=== PATIENT | male | born 1960 | race Two or more races ===

== ENCOUNTER 2020-06-23 18:24 | Inpatient (IN) | payer OTHER ==
[~2020-06-23] VITALS: Ht 162.6 cm; Wt 88.9 kg
[2020-06-23] MEDS ORDERED: IV NORMAL SALINE 1000ML BAG 1,000 ML IV ONE ×2 (19:30)
[2020-06-23 19:31] LABS: BASO % 0 % (0-3); EOS # 0.1 x10^3/uL (0.0-0.7); EOS % 1 % (0-3); HEMATOCRIT 42.1 % (39.0-53.0); HEMOGLOBIN 14.1 g/dL (13.0-17.5); LYMPH # 1.3 x10^3/uL (1.0-4.8); LYMPH % 8 % (24-48); MEAN CORPUSCULAR HEMOGLOBIN 30 pg (25-35); MEAN CORPUSCULAR HGB CONC 34 g/dL (31-37); MEAN CORPUSCULAR VOLUME 89 fL (79-100); MONO # 1.1 x10^3/uL (0.0-1.1); MONO % 7 % (0-9); NEUT # 12.9 x10^3/uL (1.8-7.7); NEUT % 84 % (31-73); PLATELET COUNT 164 x10^3/uL (140-400); RED BLOOD COUNT 4.75 x10^6/uL (4.30-5.70); RED CELL DISTRIBUTION WIDTH 13.9 % (11.5-14.5); WHITE BLOOD COUNT 15.4 x10^3/uL (4.0-11.0)
--- NOTE | 2020-06-23 19:33 | PHYS DOC ---
Past Medical History Past Medical History: No Pertinent History Past Surgical History: No Surgical History Smoking Status: Never Smoker Alcohol Use: Occasionally General Adult EDM: Chief Complaint: ABDOMINAL PAIN HPI: HPI: 59-year-old male with no significant past medical history presents the ED with complaints of diffuse abdominal pain that started on , now localized to right lower quadrant with subjective fevers and chills that started today. Linda ferrari recently received his Covid vaccine. Denies any past surgical history. Moved here from [place] 30 years ago. Took "amoxicillina" today (has leftover from [place]). Ate soup around 3-4 PM today and last bowel movement was around 4 PM today with no melena or hematochezia (yellow color). Took ibuprofen this morning. Patient is present in the ED with his son who was is translating per patient's consent, he is [place]i-speaking, translation services offered. Son reports patient is concerned he had a kidney stone but has never been diagnosed with one prior. Pt has no pcp. Takes no routine medications. NKDA. Review of Systems: Review of Systems: Constitutional: Denies lethargy or confusion Eyes: Denies change in visual acuity. [] HENT: Denies nasal congestion or sore throat. [] Respiratory: Denies cough or shortness of breath. [] Cardiovascular: Denies chest pain or edema. [] GI: Denies nausea, vomiting, bloody stools or diarrhea. [] : Denies dysuria or hematuria Musculoskeletal: Denies back pain or joint pain. [] Integument: Denies rash or blistering lesions Neurologic: Denies headache, neck pain, focal weakness or sensory changes. [] Endocrine: Denies polyuria or polydipsia. [] Lymphatic: Denies swollen glands. [] Psychiatric: Denies depression or anxiety. [] Heart Score: C/O Chest Pain: No Risk Factors: Risk Factors: DM, Current or recent (<one month) smoker, HTN, HLP, family history of CAD, obesity. Risk Scores: Score 0 - 3: 2.5% MACE over next 6 weeks - Discharge Home Score 4 - 6: 20.3% MACE over next 6 weeks - Admit for Clinical Observation Score 7 - 10: 72.7% MACE over next 6 weeks - Early Invasive Strategies Allergies: Allergies: Allergies Coded Allergies Type Severity Reaction Last Updated Verified No Known Drug Allergies 06/23/20 No Physical Exam: PE: Constitutional: Flu appearing, very uncomfortable with abdominal exam-no pain out of proportion at rest, likely spiking fever HENT: Normocephalic, atraumatic, Eyes: EOMI, conjunctiva normal, no discharge. Neck: Normal range of motion, supple, no nuchal rigidity or meningismus Cardiovascular: S1/2 present, tachycardic Lungs & Thorax: Speaking in full sentences, bilateral equal chest rise, no tachypnea or increased work of breathing Abdomen: obese abdomen, focal pain at McBurney's point, no Rovsing sign, w/guarding and rigidity diffusely, no Pacheco sign Skin: Warm, dry, no erythema, no rash. [] Back: No midline tenderness, no CVA tenderness. [] Extremities: No tenderness, no cyanosis, no lower extremity edema Neurologic: Alert and oriented X 3, normal motor function, normal sensory function, no focal deficits noted. [] Psychologic: Affect normal, judgement normal, mood normal. [] : chaperoned by rn at bedside, no pelvic/scrotal pain, no rash, no suprapubic discomfort Current Patient Data: Vital Signs: Vital Signs Date Time Temp Pulse Resp B/P (MAP) Pulse Ox O2 Delivery O2 Flow Rate FiO2 06/23/20 19:01 100.0 118 12 140/82 (101) 93 Room Air 100.0 EKG: EKG: Sinus tachycardia 120 bpm, left axis deviation, QTC 457, T wave inversion lead III, no ST elevation or ST depressions Radiology/Procedures: Radiology/Procedures: IMAGING REPORT Signed PATIENT: ESHA ANTHONY ACCOUNT: [id number] : 1960 LOCATION: ER AGE: 59 SEX: M EXAM STATUS: PRE ER ORD. PHYSICIAN: ARUNA CHOW DO REASON: rlq abd pain, +fever PROCEDURE: PORTABLE CHEST 1V XR CHEST 1V CLINICAL INDICATIONS: Reason: Right lower quadrant abdominal pain, +fever COMPARISON: None available. Findings: Small left-sided pleural effusion is seen. There is linear atelectasis of the right midlung zone and right lung base. Decreased inspiration is seen. No perihilar pulmonary edema or lung consolidation is evident otherwise. No pneumothorax is seen. The heart size, pulmonary vasculature, mediastinum and both kishor are unremarkable. IMPRESSION: Small left sided pleural effusion. Linear atelectasis of the right midlung zone and right lung base. Electronically signed by: Jw Estrella MD (06/23/2020 7:56 PM) [id number] DICTATED and SIGNED BY: JW ESTRELLA MD DATE: 06/23/20 [id number] 0 Course & Med Decision Making: Course & Med Decision Making Pertinent Labs and Imaging studies reviewed. (See chart for details) Initial presentation concerning for right lower quadrant abdominal pain in the setting of tachycardia and borderline fever -sepsis work-up initiated. Abx not started given unknown source (recent covid vaccine? appey? urine?). Broad- spectrum abx started when bandemia was seen on basic labs. CT report consistent with perforated appendicitis with peritonitis and small free air, concern for small bowel obstruction versus pseudoobstruction. I discussed with general surgery Dr. Shell who recommended broad-spectrum antibiotics, npo, IVFs and will consult IR in a.m. No emergent surgery at this time. Rapid Covid pending. Will admit to [facility] under Dr. Smith for further medical management. Patient stable at time of admission and agrees with this plan. I have spoken with the patient and/or caregivers. I have explained the patient's condition, diagnosis and treatment plan based on the information a vailable to me at this time. I have answered the patient's and/or caregivers questions and answered any concerns. The patient and/or caregivers have as good an understanding of the patient's diagnosis, condition and treatment plan as can be expected at this point. The patient has been stabilized within the capability of the emergency department. The patient will be transported for further care and management or will be moved to an observation or inpatient service. I have communicated with the staff or medical practitioner taking over this patient's care. Critical Care: Authorized and Performed by: Aruna Chow DO Total critical care time: approximately 45 minutes Due to a high probability of clinically significant, life threatening deterioration, the patient required my highest level of preparedness to intervene emergently and I personally spent this critical care time directly and personally managing the patient. This critical care time included obtaining a history; examining the patient; pulse oximetry; ventilator management if necessary; ordering and review of studies; arranging urgent treatment with development of a management plan; evaluation of patient's response to treatment; frequent reassessment; discussion with patient/family; and, discussions with other providers. This critical care time was performed to assess and manage the high probability of imminent, life-threatening deterioration that could result in multi-organ failure. It was exclusive of separately billable procedures and treating other patients and teaching time. Please see MDM section and the rest of the note for further information on patient assessment and treatment. Dragon Disclaimer: Dragon Disclaimer: This electronic medical record was generated, in whole or in part, using a voice recognition dictation system. Departure Departure Impression: Primary Impression: Sepsis Additional Impressions: Acute perforated appendicitis Peritonitis Bandemia Disposition: ADMITTED INPATIENT Admitting Physician: MARY ALICE (Dr. Smith) Condition: GUARDED ARUNA CHOW DO Jun 23, 2020 19:33
[2020-06-23 19:44] LABS: CALCIUM 8.5 mg/dL (8.5-10.1); GFR 76.2; POTASSIUM 3.5 mmol/L (3.5-5.1)
[2020-06-23 19:57] LABS: ALBUMIN 2.5 g/dL (3.4-5.0); DIRECT BILIRUBIN 0.6 mg/dL (0.0-0.2); TOTAL BILIRUBIN 1.6 mg/dL (0.2-1.0); TOTAL PROTEIN 7.6 g/dL (6.4-8.2)
--- NOTE | 2020-06-23 19:59 | RAD ---
XR CHEST 1V CLINICAL INDICATIONS: Reason: Right lower quadrant abdominal pain, +fever COMPARISON: None available. Findings: Small left-sided pleural effusion is seen. There is linear atelectasis of the right midlung zone and right lung base. Decreased inspiration is seen. No perihilar pulmonary edema or lung consol idation is evident otherwise. No pneumothorax is seen. The heart size, pulmonary vasculature, mediast inum and both kishor are unremarkable. IMPRESSION: Small left sided pleural effusion. Linear atelectasis of the right midlung zone and right lung base. Electronically signed by: Tomás Estrella MD (06/23/2020 7:56 PM) [id number]
[2020-06-23] MEDS ORDERED: IOHEXOL 300 MG/ML 100ML VIAL. IV ONE (20:15)
[2020-06-23] MEDS ORDERED: CONTRAST GIVEN. MC PRN (20:15)
[2020-06-23 20:20] LABS: % BANDS 37 % (0-9); % LYMPHS 10 % (24-48); % MONOS 5 % (0-10); % SEGS 48 % (35-66); PLT ESTIMATE ADEQUATE (ADEQUATE)
--- NOTE | 2020-06-23 21:28 | RAD ---
CT STUDY OF THE ABDOMEN AND PELVIS WITH CONTRAST Clinical indications: Right lower quadrant abdominal pain. TECHNIQUE: After IV infusion of 75 cc of Omnipaque [address] scanning of the abdomen and pelvis was performed. GI contrast was not administered. This may decrease the sensitivity to detect GI tract pathology. PQRS COMPLIANCE STATEMENT One or more of the following individualized dose reduction techniques were utilized for this study: 1. Automated exposure control 2. Adjustment of the mA and/or kV according to patient size 3. Use of iterative reconstruction technique COMPARISON: None available. FINDINGS: The liver and spleen and pancreas and gallbladder are normal. No extrahepatic biliary ducta l dilatation is seen. No adrenal mass is evident. Both kidneys are normal without hydronephrosis or h ydroureter. No urinary tract stone is seen. Urinary bladder is normal. No focal aneurysmal dilatation of the abdominal aorta is seen. No enlarged abdominal or pelvic lymphadenopathy is seen. The appendi x is distended measuring up to 17 mm. There is a large amount of inflammation within the right lower quadrant of the abdomen around the appendix which also involves the distal ileum with severe wall thi ckening of the distal ileum. There is a fluid collection with an air-fluid level located just anterio r to the cecum measuring 3 cm in size. No peripheral wall enhancement is seen. This could be secondar y to appendiceal perforation. There is a similar air-fluid collection seen inferior to the cecum and anterior to the appendix measuring 3.7 cm. Given the lack of wall thickening, these may not represent well formed abscesses at this point in time but could be secondary to the perforation. There is diff use dilatation of small bowel loops which could represent pseudo-small bowel obstruction due to wall thickening of the distal ileum or could represent an ileus related to peritonitis from rupture append icitis. There or tiny bubbles of free air just anterior to the ascending colon. No free air is seen w ithin the upper abdomen. Atelectasis of the right lung base is seen. No lytic process is seen. IMPRESSION: Perforated appendicitis with peritonitis of the right lower quadrant of the abdomen with severe wall thickening of the distal ileum. There is diffuse small bowel dilatation consistent with p seudo small bowel obstruction secondary to the wall thickening of the distal ileum. A few bubbles of free intraperitoneal air is seen along with at least 2 air-fluid collections within the peritoneal ca vity of the right lower quadrant of the abdomen. FOR INTERNAL CODING PURPOSES Critical result: Findings discussed with the emergency room duct physician Dr. Aruna Trinidad at 06/23/2020 9:23 PM. RESULT CODE: (C) Electronically signed by: Tomás Estrella MD (06/23/2020 9:26 PM) [id number]
[2020-06-23] MEDS ORDERED: VANCOMYCIN PER PHARMACY MC PRN (21:30)
[2020-06-23] MEDS ORDERED: ONDANSETRON PF 4 MG/2 ML VIAL. IV PRN (21:45)
[2020-06-23] MEDS ORDERED: VANCOMYCIN 1.75 GM in IV NORMAL SALINE 500ML BAG 500 ML IV ONE (22:00)
[2020-06-23] MEDS ORDERED: PIPERACILLIN/TAZOBACTAM 4.5 GM in IV NORMAL SALINE 100ML 100 ML IV ONE (22:00)
[2020-06-23 22:14] LABS: BILIRUBIN,URINE NEGATIVE (NEG); CLARITY,URINE CLEAR; COLOR,URINE AMBER; NITRITE,URINE NEGATIVE (NEG); PROTEIN,URINE 30 mg/dL (NEG-TRACE)
[2020-06-23 22:21] LABS: BARBITURATES NEG (NEG); BENZODIAZEPINES NEG (NEG); CANNABINOIDS NEG (NEG); COCAINE NEG (NEG); METHADONE NEG (NEG); OPIATES NEG (NEG); PHENCYCLIDINE NEG (NEG)
[2020-06-23 22:23] LABS: HYALINE CASTS, URINE MODERATE /HPF
[2020-06-23 22:24] LABS: BACTERIA,URINE 0 /HPF (0-FEW); RBC,URINE 20-40 /HPF (0-2)
[2020-06-23 22:26] LABS: AMPHETAMINE/METHAMPHETAMINE NEG (NEG)
[2020-06-24] VITALS (7 sets, daily range): BP systolic 115–144; BP diastolic 67–96
--- NOTE | 2020-06-24 00:29 | EKG ---
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
[2020-06-24] MEDS ORDERED: HYDROmorphone 2 MG/ML VIAL IVP ONE ×2 (00:30→06:30)
--- NOTE | 2020-06-24 00:32 | PDOC2 ---
CONSULT Date of Consult Date of Consult DATE: 06/24/20 TIME: 00:24 Reason for Consult Reason for Consult: perforated appendicitis Referring Physician Referring Physician: Dr. Smith Identification/Chief Complaint Chief Complaint abd pain Source Source: Caregiver, Chart review, Patient History of Present Illness Reason for Visit: 59 yo M with abd pain beginning on 06/20. Pain progressed and prompted ER evaluation. No previous episode. Min PO intake yesterday. Stool yesterday. Seen in ER accompanied by supportive son, whom provides translation, per pt request. Past Medical History Cardiovascular: No pertinent hx Past Surgical History Past Surgical History: No pertinent history Family History Family History: No Significant Social History No ALCOHOL: social Current Problem List Problem List Problems Medical Problems: (1) Acute perforated appendicitis Status: Acute (2) Bandemia Status: Acute (3) Peritonitis Status: Acute (4) Sepsis Status: Acute Current Medications Current Medications Current Medications Sodium Chloride 1,000 ml @ 1,000 mls/hr 1X ONCE IV Last administered on 06/23/20at 19:57; Start 06/23/20 at 19:30; Stop 06/23/20 at 20:29; Status DC Sodium Chloride 1,000 ml @ 1,000 mls/hr 1X ONCE IV Last administered on 06/23/20at 19:57; Start 06/23/20 at 19:30; Stop 06/23/20 at 20:29; Status DC Iohexol (Omnipaque 300 Mg/ml) 75 ml 1X ONCE IV Last administered on 06/23/20at 20:25; Start 06/23/20 at 20:15; Stop 06/23/20 at 20:16; Status DC Info (CONTRAST GIVEN -- Rx MONITORING) 1 each PRN DAILY PRN MC SEE COMMENTS; Start 06/23/20 at 20:15; Stop 06/25/20 at 20:14 Piperacillin Sod/ Tazobactam Sod 4.5 gm/Sodium Chloride 100 ml @ 200 mls/hr 1X ONCE IV Last administered on 06/23/20at 21:57; Start 06/23/20 at 22:00; Stop 06/23/20 at 22:29; Status DC Vancomycin HCl (Vanco Per Pharmacy) 1 each PRN DAILY PRN MC SEE COMMENTS; Start 06/23/20 at 21:30 Vancomycin HCl 1.75 gm/Sodium Chloride 500 ml @ 250 mls/hr 1X ONCE IV Last administered on 06/23/20at 23:32; Start 06/23/20 at 22:00; Stop 06/23/20 at 23:59; Status DC Ondansetron HCl (Zofran) 4 mg PRN Q8HRS PRN IV NAUSEA/VOMITING 1ST CHOICE; Start 06/23/20 at 21:45; Stop 06/24/20 at 21:44 Sodium Chloride 1,000 ml @ 100 mls/hr Q10H IV ; Start 06/23/20 at 22:00; Stop 06/24/20 at 21:59 Hydromorphone HCl (Dilaudid) 1 mg 1X ONCE IVP ; Start 06/24/20 at 00:30; Stop 06/24/20 at 00:31 Allergies Allergies: Coded Allergies: No Known Drug Allergies (Unverified , 06/23/20) ROS Gastrointestinal: Yes Abdominal Pain Physical Exam General: Alert, Oriented X3, Cooperative, mild distress HEENT: Atraumatic Lungs: Normal air movement Abdomen: Soft, Other (TTP RLQ, no rovsing, no peritoneal signs) Extremities: No clubbing, No cyanosis Skin: No rashes, No breakdown Neuro: Normal speech, Sensation intact Psych/Mental Status: Mental status NL, Mood NL Vitals VITALS Vital Signs Date Time Temp Pulse Resp B/P (MAP) Pulse Ox O2 Delivery O2 Flow Rate FiO2 06/23/20 23:30 106 146/91 (109) 94 Room Air 06/23/20 19:01 100.0 12 100.0 Labs Labs Laboratory Tests Test 06/23/20 00:00 06/23/20 19:15 06/23/20 22:00 06/23/20 22:30 Urine Opiates Screen Neg (NEG) Urine Methadone Screen Neg (NEG) Urine Barbiturates Neg (NEG) Urine Phencyclidine Screen Neg (NEG) Urine Amphetamine/Methamphetamine Neg (NEG) Urine Benzodiazepines Screen Neg (NEG) Urine Cocaine Screen Neg (NEG) Urine Cannabinoids Screen Neg (NEG) Urine Ethyl Alcohol Neg (NEG) White Blood Count 15.4 x10^3/uL (4.0-11.0) Red Blood Count 4.75 x10^6/uL (4.30-5.70) Hemoglobin 14.1 g/dL (13.0-17.5) Hematocrit 42.1 % (39.0-53.0) Mean Corpuscular Volume 89 fL (79-100) Mean Corpuscular Hemoglobin 30 pg (25-35) Mean Corpuscular Hemoglobin Concent 34 g/dL (31-37) Red Cell Distribution Width 13.9 % (11.5-14.5) Platelet Count 164 x10^3/uL (140-400) Neutrophils (%) (Auto) 84 % (31-73) Lymphocytes (%) (Auto) 8 % (24-48) Monocytes (%) (Auto) 7 % (0-9) Eosinophils (%) (Auto) 1 % (0-3) Basophils (%) (Auto) 0 % (0-3) Neutrophils # (Auto) 12.9 x10^3/uL (1.8-7.7) Lymphocytes # (Auto) 1.3 x10^3/uL (1.0-4.8) Monocytes # (Auto) 1.1 x10^3/uL (0.0-1.1) Eosinophils # (Auto) 0.1 x10^3/uL (0.0-0.7) Basophils # (Auto) 0.0 x10^3/uL (0.0-0.2) Segmented Neutrophils % 48 % (35-66) Band Neutrophils % 37 % (0-9) Lymphocytes % 10 % (24-48) Monocytes % 5 % (0-10) Platelet Estimate Adequate (ADEQUATE) Sodium Level 136 mmol/L (136-145) Potassium Level 3.5 mmol/L (3.5-5.1) Chloride Level 101 mmol/L (98-107) Carbon Dioxide Level 28 mmol/L (21-32) Anion Gap 7 (6-14) Blood Urea Nitrogen 21 mg/dL (8-26) Creatinine 1.0 mg/dL (0.7-1.3) Estimated GFR (Cockcroft-Gault) 76.2 Glucose Level 171 mg/dL (70-99) Lactic Acid Level 1.3 mmol/L (0.4-2.0) Calcium Level 8.5 mg/dL (8.5-10.1) Total Bilirubin 1.6 mg/dL (0.2-1.0) Direct Bilirubin 0.6 mg/dL (0.0-0.2) Aspartate Amino Transf (AST/SGOT) 39 U/L (15-37) Alanine Aminotransferase (ALT/SGPT) 40 U/L (16-63) Alkaline Phosphatase 92 U/L (46-116) Creatine Kinase 55 U/L (39-308) Troponin I Quantitative < 0.017 ng/mL (0.000-0.055) Total Protein 7.6 g/dL (6.4-8.2) Albumin 2.5 g/dL (3.4-5.0) Lipase 82 U/L (73-393) Urine Collection Type Unknown Urine Color Danita Urine Clarity Clear Urine pH 6.0 (<5.0-8.0) Urine Specific [place] >=1.030 (1.000-1.030) Urine Protein 30 mg/dL (NEG-TRACE) Urine Glucose (UA) Negative mg/dL (NEG) Urine Ketones (Stick) Negative mg/dL (NEG) Urine Blood Large (NEG) Urine Nitrite Negative (NEG) Urine Bilirubin Negative (NEG) Urine Urobilinogen Dipstick 1.0 mg/dL (0.2 mg/dL) Urine Leukocyte Esterase Negative (NEG) Urine RBC 20-40 /HPF (0-2) Urine WBC 1-4 /HPF (0-4) Urine Bacteria 0 /HPF (0-FEW) Urine Hyaline Casts Moderate /HPF Urine Mucus Slight /LPF SARS-CoV-2 Antigen (Rapid) Negative (NEGATIVE) Laboratory Tests Test 06/23/20 19:15 06/23/20 22:00 06/23/20 22:30 White Blood Count 15.4 x10^3/uL (4.0-11.0) Red Blood Count 4.75 x10^6/uL (4.30-5.70) Hemoglobin 14.1 g/dL (13.0-17.5) Hematocrit 42.1 % (39.0-53.0) Mean Corpuscular Volume 89 fL (79-100) Mean Corpuscular Hemoglobin 30 pg (25-35) Mean Corpuscular Hemoglobin Concent 34 g/dL (31-37) Red Cell Distribution Width 13.9 % (11.5-14.5) Platelet Count 164 x10^3/uL (140-400) Neutrophils (%) (Auto) 84 % (31-73) Lymphocytes (%) (Auto) 8 % (24-48) Monocytes (%) (Auto) 7 % (0-9) Eosinophils (%) (Auto) 1 % (0-3) Basophils (%) (Auto) 0 % (0-3) Neutrophils # (Auto) 12.9 x10^3/uL (1.8-7.7) Lymphocytes # (Auto) 1.3 x10^3/uL (1.0-4.8) Monocytes # (Auto) 1.1 x10^3/uL (0.0-1.1) Eosinophils # (Auto) 0.1 x10^3/uL (0.0-0.7) Basophils # (Auto) 0.0 x10^3/uL (0.0-0.2) Segmented Neutrophils % 48 % (35-66) Band Neutrophils % 37 % (0-9) Lymphocytes % 10 % (24-48) Monocytes % 5 % (0-10) Platelet Estimate Adequate (ADEQUATE) Sodium Level 136 mmol/L (136-145) Potassium Level 3.5 mmol/L (3.5-5.1) Chloride Level 101 mmol/L (98-107) Carbon Dioxide Level 28 mmol/L (21-32) Anion Gap 7 (6-14) Blood Urea Nitrogen 21 mg/dL (8-26) Creatinine 1.0 mg/dL (0.7-1.3) Estimated GFR (Cockcroft-Gault) 76.2 Glucose Level 171 mg/dL (70-99) Lactic Acid Level 1.3 mmol/L (0.4-2.0) Calcium Level 8.5 mg/dL (8.5-10.1) Total Bilirubin 1.6 mg/dL (0.2-1.0) Direct Bilirubin 0.6 mg/dL (0.0-0.2) Aspartate Amino Transf (AST/SGOT) 39 U/L (15-37) Alanine Aminotransferase (ALT/SGPT) 40 U/L (16-63) Alkaline Phosphatase 92 U/L (46-116) Creatine Kinase 55 U/L (39-308) Troponin I Quantitative < 0.017 ng/mL (0.000-0.055) Total Protein 7.6 g/dL (6.4-8.2) Albumin 2.5 g/dL (3.4-5.0) Lipase 82 U/L (73-393) Urine Collection Type Unknown Urine Color Danita Urine Clarity Clear Urine pH 6.0 (<5.0-8.0) Urine Specific [place] >=1.030 (1.000-1.030) Urine Protein 30 mg/dL (NEG-TRACE) Urine Glucose (UA) Negative mg/dL (NEG) Urine Ketones (Stick) Negative mg/dL (NEG) Urine Blood Large (NEG) Urine Nitrite Negative (NEG) Urine Bilirubin Negative (NEG) Urine Urobilinogen Dipstick 1.0 mg/dL (0.2 mg/dL) Urine Leukocyte Esterase Negative (NEG) Urine RBC 20-40 /HPF (0-2) Urine WBC 1-4 /HPF (0-4) Urine Bacteria 0 /HPF (0-FEW) Urine Hyaline Casts Moderate /HPF Urine Mucus Slight /LPF SARS-CoV-2 Antigen (Rapid) Negative (NEGATIVE) Images Images CT c/w perforated appendicitis with fluid collections/abscess associated with cecum with significant phlegmon Assessment/Plan Assessment/Plan perforated appendicitis, associated sepsis (tachycardia) agree with IV hydration, pain control and broad spectrum abx. initial surgical intervention not indicated given high risk of colon resection. once sepsis improved, will ask IR to consider perc drainage to hasten recovery. Elective appendectomy would be favored, given risk of recurrence and small risk of malignancy Thanks for consult! BOBBY PARNELL MD Jun 24, 2020 00:32
[2020-06-24] MEDS: IV NORMAL SALINE 1000ML BAG 1,000 ML IV SCH ×3 (01:13→20:58)
--- NOTE | 2020-06-24 03:45 | NUR ---
Pharmacy Vancomycin Dosing Note S:Consulted to monitor and dose vancomycin started 06/23/20. O:ESHA JIMENEZ is a 59 year old M with Sepsis APPENDICITIS . Height: 5 feet, 4 inches Weight: 72.0 kg [place] Body Weight: 59.20 Adjusted Body Weight: 64.32 Dosing Weight: Actual Other Antibiotics: LABS: Last BUN: 21 Last Creatinine: 1 Creatinine Clearance: 71.5 mL/min Last WBC: 15.4 Last Procalcitonin: Tmax (past 24 hours): 100 Microbiology: I/O: Drug Levels: Last level: on at Last dose given 06/23/20 at 2330 Vancomycin Dosing: Loading Dose: 1750 mg x1 Dosing Weight: Actual Target Trough: 15-20 A: Based on: WT AND CRCL P: 1. Begin Vancomycin 250 mg IV q12h 2. Follow up Trough level on 06/25/20 at 1030 3. Pharmacy will continue to monitor, follow and adjust therapy as needed. NNEKA GARG RPH, 06/24/20 [id number] Signed: 06/24/20 at 034 by NNEKA GARG RPH PHA
[2020-06-24] MEDS ORDERED: HYDROmorphone 2 MG/ML VIAL ONE (05:54)
--- NOTE | 2020-06-24 07:40 | PDOC1 ---
History and Physical Date of Admission Date of Admission DATE: 06/24/20 TIME: 07:36 Identification/Chief Complaint Chief Complaint Abdominal pain Source Source: Caregiver, Chart review, Patient History of Present Illness History of Present Illness Mr Chapa is a 59-year-old male with no significant past medical history, Mexican-speaking only, presents to the ED on 06/23/2020 accompanied by his son with complaints of diffuse abdominal pain that started on , 06/20/2020, now localized to right lower quadrant with subjective fevers and chills that started today. Patient recently received his Covid vaccine. Denies any past surgical history. Moved here from [place] 30 years ago. Took amoxicillin. Ate soup around 3-4 PM on 06/23 and last bowel movement was around 4 PM with no melena or hematochezia (yellow color). Took ibuprofen this morning. Patient is present in the ED with his son who was is translating per patient's consent, he is Mexican-speaking, translation services offered. Son reports patient is concerned he had a kidney stone but has never been diagnosed with one prior. Pt has no pcp. Takes no routine medications. NKDA. Past Medical History Cardiovascular: No pertinent hx Past Surgical History Past Surgical History: No pertinent history Family History Family History: No Significant Social History Smoke: No ALCOHOL: social Current Problem List Problem List Problems Medical Problems: (1) Acute perforated appendicitis Status: Acute (2) Bandemia Status: Acute (3) Peritonitis Status: Acute (4) Sepsis Status: Acute Current Medications Current Medications Current Medications Sodium Chloride 1,000 ml @ 1,000 mls/hr 1X ONCE IV Last administered on 06/23/20at 19:57; Start 06/23/20 at 19:30; Stop 06/23/20 at 20:29; Status DC Sodium Chloride 1,000 ml @ 1,000 mls/hr 1X ONCE IV Last administered on 06/23/20at 19:57; Start 06/23/20 at 19:30; Stop 06/23/20 at 20:29; Status DC Iohexol (Omnipaque 300 Mg/ml) 75 ml 1X ONCE IV Last administered on 06/23/20at 20:25; Start 06/23/20 at 20:15; Stop 06/23/20 at 20:16; Status DC Info (CONTRAST GIVEN -- Rx MONITORING) 1 each PRN DAILY PRN MC SEE COMMENTS; Start 06/23/20 at 20:15; Stop 06/25/20 at 20:14 Piperacillin Sod/ Tazobactam Sod 4.5 gm/Sodium Chloride 100 ml @ 200 mls/hr 1X ONCE IV Last administered on 06/23/20at 21:57; Start 06/23/20 at 22:00; Stop 06/23/20 at 22:29; Status DC Vancomycin HCl (Vanco Per Pharmacy) 1 each PRN DAILY PRN MC SEE COMMENTS Last administered on 06/24/20at 03:43; Start 06/23/20 at 21:30 Vancomycin HCl 1.75 gm/Sodium Chloride 500 ml @ 250 mls/hr 1X ONCE IV Last administered on 06/23/20at 23:32; Start 06/23/20 at 22:00; Stop 06/23/20 at 23:59; Status DC Ondansetron HCl (Zofran) 4 mg PRN Q8HRS PRN IV NAUSEA/VOMITING 1ST CHOICE; Start 06/23/20 at 21:45; Stop 06/24/20 at 21:44 Sodium Chloride 1,000 ml @ 100 mls/hr Q10H IV Last administered on 06/24/20at 01:13; Start 06/23/20 at 22:00; Stop 06/24/20 at 21:59 Hydromorphone HCl (Dilaudid) 1 mg 1X ONCE IVP Last administered on 06/24/20at 00:29; Start 06/24/20 at 00:30; Stop 06/24/20 at 00:31; Status DC Vancomycin HCl 1 gm/Sodium Chloride 250 ml @ 250 mls/hr Q12H IV ; Start 06/24/20 at 11:00 Vancomycin HCl (Vancomycin Trough Level) 1 each 1X ONCE MC ; Start 06/25/20 at 10:30; Stop 06/25/20 at 10:31 Hydromorphone HCl (Dilaudid) 1 mg 1X ONCE IVP Last administered on 06/24/20at 06:30; Start 06/24/20 at 06:30; Stop 06/24/20 at 06:31; Status DC Hydromorphone HCl (Dilaudid) 2 mg STK-MED ONCE .ROUTE ; Start 06/24/20 at 05:54; Stop 06/24/20 at 05:55; Status DC Allergies Allergies: Coded Allergies: No Known Drug Allergies (Unverified , 06/23/20) ROS General: YES: Fatigue, Malaise, Appetite; No: Chills, Night Sweats, Other PSYCHOLOGICAL ROS: No: Anxiety, Behavioral Disorder, Concentration difficultie, Decreased libido, Depression, Disorientation, Hallucinations, Hostility, Irritablity, Memory difficulties, Mood Swings, Obsessive thoughts, Physical abuse, Sexual abuse, Sleep disturbances, Suicidal ideation, Other Eyes: No Blurry vision, No Decreased vision, No Double vision, No Dry eyes, No Excessive tearing, No Eye Pain, No Itchy Eyes, No Loss of vision, No Photophobia, No Scotomata, No Uses contacts, No Uses glasses, No Other HEENT: No: Heacaches, Visual Changes, Hearing change, Nasal congestion, Nasal discharge, Oral lesions, Sinus pain, Sore Throat, Epistaxis, Sneezing, Snoring, Tinnitus, Vertigo, Vocal changes, Other ALLERGY AND IMMUNOLOGY: No: Hives, Insect Bite Sensitivity, Itchy/Watery Eyes, Nasal Congestion, Post Nasal Drip, Seasonal Allergies, Other Hematological and Lymphatic: No: Bleeding Problems, Blood Clots, Blood Transfusions, Brusing, Night Sweats, Pallor, Swollen Lymph Nodes, Other ENDOCRINE: No: Breast Changes, Galactorrhea, Hair Pattern Changes, Hot Flashes, Malaise/lethargy, Mood Swings, Palpitations, Polydipsia/polyuria, Skin Changes, Temperature Intolerance, Unexpected Weight Changes, Other Breast: No New/Changing Breast Lumps, No Nipple changes, No Nipple discharge, No Other Respiratory: No: Cough, Hemoptysis, Orthopnea, Pleuritic Pain, Shortness of breath, SOB with excertion, Sputum Changes, Stridor, Tachypnea, Wheezing, Other Cardiovascular: No Chest Pain, No Palpitations, No Orthopnea, No Paroxysmal Noc. Dyspnea, No Edema, No Lt Headedness, No Other Gastrointestinal: Yes Nausea, Yes Vomiting, Yes Abdominal Pain; No Diarrhea, No Constipation, No Melena, No Hematochezia, No Other Genitourinary: No Dysuria, No Frequency, No Incontinence, No Hematuria, No Retention, No Discharge, No Urgency, No Pain, No Flank Pain, No Other, No , No , No , No , No , No , No Musculoskeletal: No Gait Disturbance, No Joint Pain, No Joint Stiffness, No Joint Swelling, No Muscle Pain, No Muscular Weakness, No Pain In:, No Swelling In:, No Other Neurological: No Behavorial Changes, No Bowel/Bladder ControlChng, No Confusion, No Dizziness, No Gait Disturbance, No Headaches, No Impaired Coord/balance, No Memory Loss, No Numbness/Tingling, No Seizures, No Speech Problems, No Tremors, No Visual Changes, No Weakness, No Other Skin: No Dry Skin, No Eczema, No Hair Changes, No Lumps, No Mole Changes, No Mottling, No Nail Changes, No Pruritus, No Rash, No Skin Lesion Changes, No Other, No Acne Physical Exam General: Alert, Oriented X3, Cooperative, moderate distress HEENT: Atraumatic, PERRLA, EOMI, Mucous membr. moist/pink Lungs: Clear to auscultation, Normal air movement Heart: S1S2, RRR, no thrills, no rubs, no gallops, no murmurs Abdomen: Normal bowel sounds, Soft, No hepatosplenomegaly, No masses, Other (RLQ tenderness) Rectal Exam: not examined Extremities: No clubbing, No cyanosis, No edema, Normal pulses, No ten derness/swelling Skin: No rashes, No breakdown, No significant lesion Neuro: Normal gait, Normal speech, Strength at 5/5 X4 ext, Normal tone, Sensation intact, Cranial nerves 3-12 NL, Reflexes 2+ Psych/Mental Status: Mental status NL, Mood NL Vitals Vitals Vital Signs Date Time Temp Pulse Resp B/P (MAP) Pulse Ox O2 Delivery O2 Flow Rate FiO2 06/24/20 06:30 96 Room Air 2.0 06/24/20 05:30 99 138/77 (97) 06/24/20 03:00 16 06/23/20 19:01 100.0 100.0 Labs Labs Laboratory Tests Test 06/23/20 00:00 06/23/20 19:15 06/23/20 22:00 06/23/20 22:30 Urine Opiates Screen Neg (NEG) Urine Methadone Screen Neg (NEG) Urine Barbiturates Neg (NEG) Urine Phencyclidine Screen Neg (NEG) Urine Amphetamine/Methamphetamine Neg (NEG) Urine Benzodiazepines Screen Neg (NEG) Urine Cocaine Screen Neg (NEG) Urine Cannabinoids Screen Neg (NEG) Urine Ethyl Alcohol Neg (NEG) White Blood Count 15.4 x10^3/uL (4.0-11.0) Red Blood Count 4.75 x10^6/uL (4.30-5.70) Hemoglobin 14.1 g/dL (13.0-17.5) Hematocrit 42.1 % (39.0-53.0) Mean Corpuscular Volume 89 fL (79-100) Mean Corpuscular Hemoglobin 30 pg (25-35) Mean Corpuscular Hemoglobin Concent 34 g/dL (31-37) Red Cell Distribution Width 13.9 % (11.5-14.5) Platelet Count 164 x10^3/uL (140-400) Neutrophils (%) (Auto) 84 % (31-73) Lymphocytes (%) (Auto) 8 % (24-48) Monocytes (%) (Auto) 7 % (0-9) Eosinophils (%) (Auto) 1 % (0-3) Basophils (%) (Auto) 0 % (0-3) Neutrophils # (Auto) 12.9 x10^3/uL (1.8-7.7) Lymphocytes # (Auto) 1.3 x10^3/uL (1.0-4.8) Monocytes # (Auto) 1.1 x10^3/uL (0.0-1.1) Eosinophils # (Auto) 0.1 x10^3/uL (0.0-0.7) Basophils # (Auto) 0.0 x10^3/uL (0.0-0.2) Segmented Neutrophils % 48 % (35-66) Band Neutrophils % 37 % (0-9) Lymphocytes % 10 % (24-48) Monocytes % 5 % (0-10) Platelet Estimate Adequate (ADEQUATE) Sodium Level 136 mmol/L (136-145) Potassium Level 3.5 mmol/L (3.5-5.1) Chloride Level 101 mmol/L (98-107) Carbon Dioxide Level 28 mmol/L (21-32) Anion Gap 7 (6-14) Blood Urea Nitrogen 21 mg/dL (8-26) Creatinine 1.0 mg/dL (0.7-1.3) Estimated GFR (Cockcroft-Gault) 76.2 Glucose Level 171 mg/dL (70-99) Lactic Acid Level 1.3 mmol/L (0.4-2.0) Calcium Level 8.5 mg/dL (8.5-10.1) Total Bilirubin 1.6 mg/dL (0.2-1.0) Direct Bilirubin 0.6 mg/dL (0.0-0.2) Aspartate Amino Transf (AST/SGOT) 39 U/L (15-37) Alanine Aminotransferase (ALT/SGPT) 40 U/L (16-63) Alkaline Phosphatase 92 U/L (46-116) Creatine Kinase 55 U/L (39-308) Troponin I Quantitative < 0.017 ng/mL (0.000-0.055) Total Protein 7.6 g/dL (6.4-8.2) Albumin 2.5 g/dL (3.4-5.0) Lipase 82 U/L (73-393) Urine Collection Type Unknown Urine Color Danita Urine Clarity Clear Urine pH 6.0 (<5.0-8.0) Urine Specific [place] >=1.030 (1.000-1.030) Urine Protein 30 mg/dL (NEG-TRACE) Urine Glucose (UA) Negative mg/dL (NEG) Urine Ketones (Stick) Negative mg/dL (NEG) Urine Blood Large (NEG) Urine Nitrite Negative (NEG) Urine Bilirubin Negative (NEG) Urine Urobilinogen Dipstick 1.0 mg/dL (0.2 mg/dL) Urine Leukocyte Esterase Negative (NEG) Urine RBC 20-40 /HPF (0-2) Urine WBC 1-4 /HPF (0-4) Urine Bacteria 0 /HPF (0-FEW) Urine Hyaline Casts Moderate /HPF Urine Mucus Slight /LPF SARS-CoV-2 Antigen (Rapid) Negative (NEGATIVE) Laboratory Tests Test 06/23/20 19:15 06/23/20 22:00 06/23/20 22:30 White Blood Count 15.4 x10^3/uL (4.0-11.0) Red Blood Count 4.75 x10^6/uL (4.30-5.70) Hemoglobin 14.1 g/dL (13.0-17.5) Hematocrit 42.1 % (39.0-53.0) Mean Corpuscular Volume 89 fL (79-100) Mean Corpuscular Hemoglobin 30 pg (25-35) Mean Corpuscular Hemoglobin Concent 34 g/dL (31-37) Red Cell Distribution Width 13.9 % (11.5-14.5) Platelet Count 164 x10^3/uL (140-400) Neutrophils (%) (Auto) 84 % (31-73) Lymphocytes (%) (Auto) 8 % (24-48) Monocytes (%) (Auto) 7 % (0-9) Eosinophils (%) (Auto) 1 % (0-3) Basophils (%) (Auto) 0 % (0-3) Neutrophils # (Auto) 12.9 x10^3/uL (1.8-7.7) Lymphocytes # (Auto) 1.3 x10^3/uL (1.0-4.8) Monocytes # (Auto) 1.1 x10^3/uL (0.0-1.1) Eosinophils # (Auto) 0.1 x10^3/uL (0.0-0.7) Basophils # (Auto) 0.0 x10^3/uL (0.0-0.2) Segmented Neutrophils % 48 % (35-66) Band Neutrophils % 37 % (0-9) Lymphocytes % 10 % (24-48) Monocytes % 5 % (0-10) Platelet Estimate Adequate (ADEQUATE) Sodium Level 136 mmol/L (136-145) Potassium Level 3.5 mmol/L (3.5-5.1) Chloride Level 101 mmol/L (98-107) Carbon Dioxide Level 28 mmol/L (21-32) Anion Gap 7 (6-14) Blood Urea Nitrogen 21 mg/dL (8-26) Creatinine 1.0 mg/dL (0.7-1.3) Estimated GFR (Cockcroft-Gault) 76.2 Glucose Level 171 mg/dL (70-99) Lactic Acid Level 1.3 mmol/L (0.4-2.0) Calcium Level 8.5 mg/dL (8.5-10.1) Total Bilirubin 1.6 mg/dL (0.2-1.0) Direct Bilirubin 0.6 mg/dL (0.0-0.2) Aspartate Amino Transf (AST/SGOT) 39 U/L (15-37) Alanine Aminotransferase (ALT/SGPT) 40 U/L (16-63) Alkaline Phosphatase 92 U/L (46-116) Creatine Kinase 55 U/L (39-308) Troponin I Quantitative < 0.017 ng/mL (0.000-0.055) Total Protein 7.6 g/dL (6.4-8.2) Albumin 2.5 g/dL (3.4-5.0) Lipase 82 U/L (73-393) Urine Collection Type Unknown Urine Color Danita Urine Clarity Clear Urine pH 6.0 (<5.0-8.0) Urine Specific [place] >=1.030 (1.000-1.030) Urine Protein 30 mg/dL (NEG-TRACE) Urine Glucose (UA) Negative mg/dL (NEG) Urine Ketones (Stick) Negative mg/dL (NEG) Urine Blood Large (NEG) Urine Nitrite Negative (NEG) Urine Bilirubin Negative (NEG) Urine Urobilinogen Dipstick 1.0 mg/dL (0.2 mg/dL) Urine Leukocyte Esterase Negative (NEG) Urine RBC 20-40 /HPF (0-2) Urine WBC 1-4 /HPF (0-4) Urine Bacteria 0 /HPF (0-FEW) Urine Hyaline Casts Moderate /HPF Urine Mucus Slight /LPF SARS-CoV-2 Antigen (Rapid) Negative (NEGATIVE) Images Images CT abdomen/pelvis: The liver and spleen and pancreas and gallbladder are normal. No extrahepatic biliary ductal dilatation is seen. No adrenal mass is evident. Both kidneys are normal without hydronephrosis or hydroureter. No urinary tract stone is seen. Urinary bladder is normal. No focal aneurysmal dilatation of the abdominal aorta is seen. No enlarged abdominal or pelvic lymphadenopathy is seen. The appendix is distended measuring up to 17 mm. There is a large amount of inflammation within the right lower quadrant of the abdomen around the appendix which also involves the distal ileum with severe wall thickening of the distal ileum. There is a fluid collection with an air-fluid level located just anterior to the cecum measuring 3 cm in size. No peripheral wall enhancement is seen. This could be secondary to appendiceal perforation. There is a similar air-fluid collection seen inferior to the cecum and anterior to the appendix measuring 3.7 cm. Given the lack of wall thickening, these may not represent well formed abscesses at this point in time but could be secondary to the perforation. There is diffuse dilatation of small bowel loops which could represent pseudo-small bowel obstruction due to wall thickening of the distal ileum or could represent an ileus related to peritonitis from rupture appendicitis. There or tiny bubbles of free air just anterior to the ascending colon. No free air is seen within the upper abdomen. Atelectasis of the right lung base is seen. No lytic process is seen. IMPRESSION: Perforated appendicitis with peritonitis of the right lower quadrant of the abdomen with severe wall thickening of the distal ileum. There is diffuse small bowel dilatation consistent with pseudo small bowel obstruction secondary to the wall thickening of the distal ileum. A few bubbles of free intraperitoneal air is seen along with at least 2 air-fluid collections within the peritoneal cavity of the right lower quadrant of the abdomen. Chest radiograph: Small left-sided pleural effusion is seen. There is linear atelectasis of the right midlung zone and right lung base. Decreased inspiration is seen. No perihilar pulmonary edema or lung consolidation is evident otherwise. No pneumothorax is seen. The heart size, pulmonary vasculature, mediastinum and both kishor are unremarkable. IMPRESSION: Small left sided pleural effusion. Linear atelectasis of the right midlung zone and right lung base. VTE Prophylaxis Ordered VTE Prophylaxis Devices: No VTE Pharmacological Prophylaxi: Yes Assessment/Plan Assessment/Plan A/P: Abdominal abscess - due to perforated appendicitis. NPO. General surgery consulted. Will continue antibiotics, IR to see if this is amenable to drain Appendicitis - with perforation. Continue IV antibiotics, zosyn. No surgery at this time due to perforation Sepsis - due to perforated appendicitis - given fluids and antibiotics Hyperglycemia - likely due to stress - will check A1c FEN - NPO PPX - heparin FULL CODE Dispo - inpatient Justifications for Admission Other Justification MATTHEW WEINSTEIN MD Jun 24, 2020 07:40
[2020-06-24] MEDS ORDERED: ACETAMINOPHEN 650 MG SUPP.RECT. PR PRN (07:45)
[2020-06-24] MEDS ORDERED: ONDANSETRON PF 4 MG/2 ML VIAL. IV PRN (07:45)
[2020-06-24] MEDS: PIPERACILLIN/TAZOBACTAM 3.375 GM in IV NORMAL SALINE 50ML 50 ML IV SCH ×3 (08:07→17:55)
[2020-06-24 08:51] LABS: PROTHROMBIN TIME PATIENT 14.6 SEC (11.7-14.0)
--- NOTE | 2020-06-24 09:33 | PDOC ---
SURGICAL PROGRESS NOTE DATE: 06/24/20 TIME: 09:32 Subjective feels better a little pain Vital Signs Vital Signs Date Time Temp Pulse Resp B/P (MAP) Pulse Ox O2 Delivery O2 Flow Rate FiO2 06/24/20 07:44 99.5 105 20 127/69 (88) 96 Nasal Cannula 2.0 99.5 I&O Intake and Output 06/24/20 07:00 Intake Total 2600 ml Balance 2600 ml Intake IV Total 2600 ml General: Cooperative, No acute distress Abdomen: Soft, Other (mild ttp RLQ) Labs Laboratory Tests Test 06/23/20 00:00 06/23/20 19:15 06/23/20 22:00 06/23/20 22:30 Urine Opiates Screen Neg (NEG) Urine Methadone Screen Neg (NEG) Urine Barbiturates Neg (NEG) Urine Phencyclidine Screen Neg (NEG) Urine Amphetamine/Methamphetamine Neg (NEG) Urine Benzodiazepines Screen Neg (NEG) Urine Cocaine Screen Neg (NEG) Urine Cannabinoids Screen Neg (NEG) Urine Ethyl Alcohol Neg (NEG) White Blood Count 15.4 x10^3/uL (4.0-11.0) Red Blood Count 4.75 x10^6/uL (4.30-5.70) Hemoglobin 14.1 g/dL (13.0-17.5) Hematocrit 42.1 % (39.0-53.0) Mean Corpuscular Volume 89 fL (79-100) Mean Corpuscular Hemoglobin 30 pg (25-35) Mean Corpuscular Hemoglobin Concent 34 g/dL (31-37) Red Cell Distribution Width 13.9 % (11.5-14.5) Platelet Count 164 x10^3/uL (140-400) Neutrophils (%) (Auto) 84 % (31-73) Lymphocytes (%) (Auto) 8 % (24-48) Monocytes (%) (Auto) 7 % (0-9) Eosinophils (%) (Auto) 1 % (0-3) Basophils (%) (Auto) 0 % (0-3) Neutrophils # (Auto) 12.9 x10^3/uL (1.8-7.7) Lymphocytes # (Auto) 1.3 x10^3/uL (1.0-4.8) Monocytes # (Auto) 1.1 x10^3/uL (0.0-1.1) Eosinophils # (Auto) 0.1 x10^3/uL (0.0-0.7) Basophils # (Auto) 0.0 x10^3/uL (0.0-0.2) Segmented Neutrophils % 48 % (35-66) Band Neutrophils % 37 % (0-9) Lymphocytes % 10 % (24-48) Monocytes % 5 % (0-10) Platelet Estimate Adequate (ADEQUATE) Sodium Level 136 mmol/L (136-145) Potassium Level 3.5 mmol/L (3.5-5.1) Chloride Level 101 mmol/L (98-107) Carbon Dioxide Level 28 mmol/L (21-32) Anion Gap 7 (6-14) Blood Urea Nitrogen 21 mg/dL (8-26) Creatinine 1.0 mg/dL (0.7-1.3) Estimated GFR (Cockcroft-Gault) 76.2 Glucose Level 171 mg/dL (70-99) Lactic Acid Level 1.3 mmol/L (0.4-2.0) Calcium Level 8.5 mg/dL (8.5-10.1) Total Bilirubin 1.6 mg/dL (0.2-1.0) Direct Bilirubin 0.6 mg/dL (0.0-0.2) Aspartate Amino Transf (AST/SGOT) 39 U/L (15-37) Alanine Aminotransferase (ALT/SGPT) 40 U/L (16-63) Alkaline Phosphatase 92 U/L (46-116) Creatine Kinase 55 U/L (39-308) Troponin I Quantitative < 0.017 ng/mL (0.000-0.055) Total Protein 7.6 g/dL (6.4-8.2) Albumin 2.5 g/dL (3.4-5.0) Lipase 82 U/L (73-393) Urine Collection Type Unknown Urine Color Danita Urine Clarity Clear Urine pH 6.0 (<5.0-8.0) Urine Specific [place] >=1.030 (1.000-1.030) Urine Protein 30 mg/dL (NEG-TRACE) Urine Glucose (UA) Negative mg/dL (NEG) Urine Ketones (Stick) Negative mg/dL (NEG) Urine Blood Large (NEG) Urine Nitrite Negative (NEG) Urine Bilirubin Negative (NEG) Urine Urobilinogen Dipstick 1.0 mg/dL (0.2 mg/dL) Urine Leukocyte Esterase Negative (NEG) Urine RBC 20-40 /HPF (0-2) Urine WBC 1-4 /HPF (0-4) Urine Bacteria 0 /HPF (0-FEW) Urine Hyaline Casts Moderate /HPF Urine Mucus Slight /LPF SARS-CoV-2 Antigen (Rapid) Negative (NEGATIVE) Test 06/24/20 08:30 Prothrombin Time 14.6 SEC (11.7-14.0) Prothromb Time International Ratio 1.2 (0.8-1.1) Laboratory Tests Test 06/23/20 19:15 06/23/20 22:00 06/23/20 22:30 06/24/20 08:30 White Blood Count 15.4 x10^3/uL (4.0-11.0) Red Blood Count 4.75 x10^6/uL (4.30-5.70) Hemoglobin 14.1 g/dL (13.0-17.5) Hematocrit 42.1 % (39.0-53.0) Mean Corpuscular Volume 89 fL (79-100) Mean Corpuscular Hemoglobin 30 pg (25-35) Mean Corpuscular Hemoglobin Concent 34 g/dL (31-37) Red Cell Distribution Width 13.9 % (11.5-14.5) Platelet Count 164 x10^3/uL (140-400) Neutrophils (%) (Auto) 84 % (31-73) Lymphocytes (%) (Auto) 8 % (24-48) Monocytes (%) (Auto) 7 % (0-9) Eosinophils (%) (Auto) 1 % (0-3) Basophils (%) (Auto) 0 % (0-3) Neutrophils # (Auto) 12.9 x10^3/uL (1.8-7.7) Lymphocytes # (Auto) 1.3 x10^3/uL (1.0-4.8) Monocytes # (Auto) 1.1 x10^3/uL (0.0-1.1) Eosinophils # (Auto) 0.1 x10^3/uL (0.0-0.7) Basophils # (Auto) 0.0 x10^3/uL (0.0-0.2) Segmented Neutrophils % 48 % (35-66) Band Neutrophils % 37 % (0-9) Lymphocytes % 10 % (24-48) Monocytes % 5 % (0-10) Platelet Estimate Adequate (ADEQUATE) Sodium Level 136 mmol/L (136-145) Potassium Level 3.5 mmol/L (3.5-5.1) Chloride Level 101 mmol/L (98-107) Carbon Dioxide Level 28 mmol/L (21-32) Anion Gap 7 (6-14) Blood Urea Nitrogen 21 mg/dL (8-26) Creatinine 1.0 mg/dL (0.7-1.3) Estimated GFR (Cockcroft-Gault) 76.2 Glucose Level 171 mg/dL (70-99) Lactic Acid Level 1.3 mmol/L (0.4-2.0) Calcium Level 8.5 mg/dL (8.5-10.1) Total Bilirubin 1.6 mg/dL (0.2-1.0) Direct Bilirubin 0.6 mg/dL (0.0-0.2) Aspartate Amino Transf (AST/SGOT) 39 U/L (15-37) Alanine Aminotransferase (ALT/SGPT) 40 U/L (16-63) Alkaline Phosphatase 92 U/L (46-116) Creatine Kinase 55 U/L (39-308) Troponin I Quantitative < 0.017 ng/mL (0.000-0.055) Total Protein 7.6 g/dL (6.4-8.2) Albumin 2.5 g/dL (3.4-5.0) Lipase 82 U/L (73-393) Urine Collection Type Unknown Urine Color Danita Urine Clarity Clear Urine pH 6.0 (<5.0-8.0) Urine Specific [place] >=1.030 (1.000-1.030) Urine Protein 30 mg/dL (NEG-TRACE) Urine Glucose (UA) Negative mg/dL (NEG) Urine Ketones (Stick) Negative mg/dL (NEG) Urine Blood Large (NEG) Urine Nitrite Negative (NEG) Urine Bilirubin Negative (NEG) Urine Urobilinogen Dipstick 1.0 mg/dL (0.2 mg/dL) Urine Leukocyte Esterase Negative (NEG) Urine RBC 20-40 /HPF (0-2) Urine WBC 1-4 /HPF (0-4) Urine Bacteria 0 /HPF (0-FEW) Urine Hyaline Casts Moderate /HPF Urine Mucus Slight /LPF SARS-CoV-2 Antigen (Rapid) Negative (NEGATIVE) Prothrombin Time 14.6 SEC (11.7-14.0) Prothromb Time International Ratio 1.2 (0.8-1.1) Problem List Problems Medical Problems: (1) Acute perforated appendicitis Status: Acute (2) Bandemia Status: Acute (3) Peritonitis Status: Acute (4) Sepsis Status: Acute Assessment/Plan abx, perc drain Justicifation of Admission Dx: Justifications for Admission: Justification of Admission Dx: Yes Comments: perforated appendicitis DANIELA RAMOS ONION TIER Jun 24, 2020 09:33
[2020-06-24] MEDS: ACETAMINOPHEN 325 MG TABLET. PO PRN (09:43)
[2020-06-24] MEDS ORDERED: LIDOCAINE WITH 8.4% SOD BICARB 3 ML DISP.SYRIN. ONE (10:58)
[2020-06-24] MEDS ORDERED: VANCOMYCIN 1 GM in IV NORMAL SALINE 250ML 250 ML IV SCH (11:00)
[2020-06-24] MEDS ORDERED: MIDAZOLAM HCL/PF 2 MG/2 ML VIAL. ONE (13:34)
[2020-06-24] MEDS ORDERED: fentaNYL PF VIAL 100 MCG/2 ML VIAL ONE (13:34)
[2020-06-24] MEDS ORDERED: LIDOCAINE WITH 8.4% SOD BICARB 3 ML DISP.SYRIN. IJ ONE (13:45)
[2020-06-24] MEDS ORDERED: MIDAZOLAM HCL/PF 2 MG/2 ML VIAL. IV ONE (13:45)
[2020-06-24] MEDS ORDERED: fentaNYL PF VIAL 100 MCG/2 ML VIAL IV ONE (13:45)
--- NOTE | 2020-06-24 14:18 | RAD ---
06/24/2020 Procedure: CT-guided drainage, pericecal abscess, Clinical Indication: Pericecal abscess secondary to ruptured appendicitis. Sedation: Conscious sedation was administered for 20 minutes. The patient was monitored by a qualified independent observer throughout the time of sedation. Please refer to the medical record for exact doses of medications utilized to achieve moderate sedation. Sterility: The procedure was performed in its entirety using appropriate elements of sterile technique. Consent: The procedure was explained in its entirety to the patient or the patients designated customer service representative teller by a member of the treatment team, including a discussion of the risks, benefits and commonly accepted alternatives to the procedure, as well as the expected consequences of no therapy whatsoever. Discussion of the risks included, but was not limited to, those that are most frequent and those that are rare but possibly severe or life-threatening, as well as the possibility of unforeseen complications. Technique and Findings: A timeout procedure was performed. The right lower quadrant was prepped and draped using sterile barrier technique. 1% lidocaine was administered for local anesthesia. Under intermittent CT guidance a 17-gauge needle was advanced into a periappendiceal gas and fluid collection. A guidewire was advanced into the collection over which following dilatation 10 [place] drain was placed. Catheter position was confirmed with CT. Catheter was secured in place. Abscess aspirate was obtained and sent for Gram stain and culture. Sterile dressings were applied. No immediate complications were identified. Impression: CT-guided drainage, pericecal abscess PQRS Compliance Statement: One or more of the following individualized dose reduction techniques were utilized for this examination: 1. Automated exposure control 2. Adjustment of the mA and/or kV according to patient size 3. Use of iterative reconstruction technique
[2020-06-25] MEDS: PIPERACILLIN/TAZOBACTAM 3.375 GM in IV NORMAL SALINE 50ML 50 ML IV SCH ×4 (00:24→17:20)
[2020-06-25 02:59] VITALS: BP 143/75
[2020-06-25 07:48] VITALS: BP 145/79
--- NOTE | 2020-06-25 07:54 | PDOC ---
[facility] PROGRESS NOTE Date of Service DOS: DATE: 06/25/20 TIME: 07:53 Chief Complaint Chief Complaint A/P: Abdominal abscess - due to perforated appendicitis. NPO. General surgery consulted. Will continue antibiotics, IR to see if this is amenable to drain Appendicitis - with perforation. Continue IV antibiotics, zosyn. No surgery at this time due to perforation Sepsis - due to perforated appendicitis - given fluids and antibiotics Hyperglycemia - likely due to stress - will check A1c Left pleural effusion - no respiratory distress FEN - Clear liquid diet PPX - heparin FULL CODE Dispo - inpatient History of Present Illness History of Present Illness Mr Chapa is a 59-year-old male with no significant past medical history, Faroese-speaking only, presents to the ED on 06/23/2020 accompanied by his son with complaints of diffuse abdominal pain that started on , 06/20/2020, now localized to right lower quadrant with subjective fevers and chills that started 06/24/2020 Patient recently received his Covid vaccine. Denies any past surgical history. Moved here from [place] 30 years ago. Took amoxicillin. Ate soup around 3-4 PM on 06/23 and last bowel movement was around 4 PM with no melena or hematochezia (yellow color). 06/24: Found with perforated appendicitis. To IR for percutaneous drain T-max 100.3 F overnight. Pain is better minimal pain at drain site. No nausea or vomiting. He has a little bit of an appetite. Discussed via hearing therapist with son and bedside plan is to continue antibiotics and after discussion with surgery to trial on p.o. today and return for appendectomy for definitive treatment after he completes an antibiotic course. Vitals/I&O Vitals/I&O: Vital Signs Date Time Temp Pulse Resp B/P (MAP) Pulse Ox O2 Delivery O2 Flow Rate FiO2 06/25/20 07:48 99.6 92 18 145/79 (101) 94 Room Air 99.6 06/24/20 19:00 2.0 I & O 06/24/20 06/24/20 06/25/20 15:00 23:00 07:00 Intake Total 1100 ml 1000 ml 50 ml Output Total 10 ml 60 ml 970 ml Balance 1090 ml 940 ml -920 ml Physical Exam General: Cooperative, No acute distress Abdomen: Soft, Other (mild ttp RLQ) Extremities: No clubbing, No cyanosis, No edema, Normal pulses, No tenderness/swelling Skin: No rashes, No breakdown, No significant lesion Labs Labs: Laboratory Tests Test 06/24/20 08:30 Prothrombin Time 14.6 SEC (11.7-14.0) Prothromb Time International Ratio 1.2 (0.8-1.1) Assessment and Plan Assessmemt and Plan Problems Medical Problems: (1) Acute perforated appendicitis Status: Acute (2) Bandemia Status: Acute (3) Peritonitis Status: Acute (4) Sepsis Status: Acute Comment Review of Relevant I have reviewed the following items ab (where applicable) has been applied. Medications: Current Medications Medications (Trade) Dose Ordered Sig/Paula Route PRN Reason Start Time Stop Time Status Last Admin Dose Admin Lidocaine HCl (Buffered Lidocaine 1%) 3 ml 1X ONCE IJ 06/24/20 13:45 06/24/20 13:48 DC 06/24/20 13:45 Midazolam HCl (Versed) 2 mg 1X ONCE IV 06/24/20 13:45 06/24/20 13:48 DC 06/24/20 13:45 Fentanyl Citrate (Fentanyl 2ml Vial) 100 mcg 1X ONCE IV 06/24/20 13:45 06/24/20 13:48 DC 06/24/20 13:45 Justifications for Admission Other Justification MATTHEW WEINSTEIN MD Jun 25, 2020 07:54
--- NOTE | 2020-06-25 10:37 | PDOC ---
SURGICAL PROGRESS NOTE DATE: 06/25/20 TIME: 10:35 Subjective Pt feels better, no N/V, hungry, min pain at drain site Vital Signs Vital Signs Date Time Temp Pulse Resp B/P (MAP) Pulse Ox O2 Delivery O2 Flow Rate FiO2 06/25/20 07:48 99.6 92 18 145/79 (101) 94 Room Air 99.6 06/24/20 19:00 2.0 I&O Intake and Output 06/25/20 07:00 Intake Total 2150 ml Output Total 1040 ml Balance 1110 ml Intake IV Total 2150 ml Output Urine Total 950 ml Drainage Total 90 ml # Voids 1 General: Alert, Oriented X3, Cooperative, No acute distress Abdomen: Soft, No tenderness, Other (drain in place) Labs Laboratory Tests Test 06/23/20 19:15 06/23/20 22:00 06/23/20 22:30 06/24/20 08:30 White Blood Count 15.4 x10^3/uL (4.0-11.0) Red Blood Count 4.75 x10^6/uL (4.30-5.70) Hemoglobin 14.1 g/dL (13.0-17.5) Hematocrit 42.1 % (39.0-53.0) Mean Corpuscular Volume 89 fL (79-100) Mean Corpuscular Hemoglobin 30 pg (25-35) Mean Corpuscular Hemoglobin Concent 34 g/dL (31-37) Red Cell Distribution Width 13.9 % (11.5-14.5) Platelet Count 164 x10^3/uL (140-400) Neutrophils (%) (Auto) 84 % (31-73) Lymphocytes (%) (Auto) 8 % (24-48) Monocytes (%) (Auto) 7 % (0-9) Eosinophils (%) (Auto) 1 % (0-3) Basophils (%) (Auto) 0 % (0-3) Neutrophils # (Auto) 12.9 x10^3/uL (1.8-7.7) Lymphocytes # (Auto) 1.3 x10^3/uL (1.0-4.8) Monocytes # (Auto) 1.1 x10^3/uL (0.0-1.1) Eosinophils # (Auto) 0.1 x10^3/uL (0.0-0.7) Basophils # (Auto) 0.0 x10^3/uL (0.0-0.2) Segmented Neutrophils % 48 % (35-66) Band Neutrophils % 37 % (0-9) Lymphocytes % 10 % (24-48) Monocytes % 5 % (0-10) Platelet Estimate Adequate (ADEQUATE) Sodium Level 136 mmol/L (136-145) Potassium Level 3.5 mmol/L (3.5-5.1) Chloride Level 101 mmol/L (98-107) Carbon Dioxide Level 28 mmol/L (21-32) Anion Gap 7 (6-14) Blood Urea Nitrogen 21 mg/dL (8-26) Creatinine 1.0 mg/dL (0.7-1.3) Estimated GFR (Cockcroft-Gault) 76.2 Glucose Level 171 mg/dL (70-99) Lactic Acid Level 1.3 mmol/L (0.4-2.0) Calcium Level 8.5 mg/dL (8.5-10.1) Total Bilirubin 1.6 mg/dL (0.2-1.0) Direct Bilirubin 0.6 mg/dL (0.0-0.2) Aspartate Amino Transf (AST/SGOT) 39 U/L (15-37) Alanine Aminotransferase (ALT/SGPT) 40 U/L (16-63) Alkaline Phosphatase 92 U/L (46-116) Creatine Kinase 55 U/L (39-308) Troponin I Quantitative < 0.017 ng/mL (0.000-0.055) Total Protein 7.6 g/dL (6.4-8.2) Albumin 2.5 g/dL (3.4-5.0) Lipase 82 U/L (73-393) Urine Collection Type Unknown Urine Color Danita Urine Clarity Clear Urine pH 6.0 (<5.0-8.0) Urine Specific [place] >=1.030 (1.000-1.030) Urine Protein 30 mg/dL (NEG-TRACE) Urine Glucose (UA) Negative mg/dL (NEG) Urine Ketones (Stick) Negative mg/dL (NEG) Urine Blood Large (NEG) Urine Nitrite Negative (NEG) Urine Bilirubin Negative (NEG) Urine Urobilinogen Dipstick 1.0 mg/dL (0.2 mg/dL) Urine Leukocyte Esterase Negative (NEG) Urine RBC 20-40 /HPF (0-2) Urine WBC 1-4 /HPF (0-4) Urine Bacteria 0 /HPF (0-FEW) Urine Hyaline Casts Moderate /HPF Urine Mucus Slight /LPF SARS-CoV-2 RNA (VANCE) Negative (Negative) SARS-CoV-2 Antigen (Rapid) Negative (NEGATIVE) Prothrombin Time 14.6 SEC (11.7-14.0) Prothromb Time International Ratio 1.2 (0.8-1.1) Problem List Problems Medical Problems: (1) Acute perforated appendicitis Status: Acute (2) Bandemia Status: Acute (3) Peritonitis Status: Acute (4) Sepsis Status: Acute Assessment/Plan cont abx and drain ADAT plan elective appendectomy in 6 weeks. Justicifation of Admission Dx: Justifications for Admission: Justification of Admission Dx: Yes BOBBY PARNELL MD Jun 25, 2020 10:36
[2020-06-25 10:50] VITALS: BP 142/82
--- NOTE | 2020-06-25 11:46 | NUR ---
SW following. Discussed with RN, pt from home with , room air, NPO, Kyrgyz speaking, COVID-19 negative. Per surgery, plan elective appy in 6 weeks, continue abx and drain, and advance diet as tolerated. RN advised no SW needs at this time. SW will continue to follow.
[2020-06-25] MEDS: KETOROLAC 30 MG/ML VIAL. IVP PRN ×2 (14:12→21:39)
[2020-06-25 14:44] VITALS: BP 144/79
[2020-06-25 19:00] VITALS: BP 141/83
[2020-06-25 23:00] VITALS: BP 145/80
[2020-06-26] MEDS: PIPERACILLIN/TAZOBACTAM 3.375 GM in IV NORMAL SALINE 50ML 50 ML IV SCH ×4 (00:22→17:46)
[2020-06-26 02:53] VITALS: BP 132/74
[2020-06-26] MEDS: KETOROLAC 30 MG/ML VIAL. IVP PRN ×2 (04:40→14:49)
[2020-06-26 07:00] VITALS: BP 137/77
[2020-06-26 09:17] LABS: ALBUMIN 1.7 g/dL (3.4-5.0); ALBUMIN/GLOBULIN RATIO 0.4 (1.0-1.7); CALCIUM 8.1 mg/dL (8.5-10.1); CREATININE 0.7 mg/dL (0.7-1.3); POTASSIUM 3.5 mmol/L (3.5-5.1); TOTAL BILIRUBIN 0.8 mg/dL (0.2-1.0); TOTAL PROTEIN 6.4 g/dL (6.4-8.2)
[2020-06-26 09:21] LABS: BASO % 0 % (0-3); EOS # 0.2 x10^3/uL (0.0-0.7); EOS % 2 % (0-3); HEMATOCRIT 39.2 % (39.0-53.0); HEMOGLOBIN 12.9 g/dL (13.0-17.5); LYMPH # 1.4 x10^3/uL (1.0-4.8); LYMPH % 11 % (24-48); MEAN CORPUSCULAR HEMOGLOBIN 29 pg (25-35); MEAN CORPUSCULAR HGB CONC 33 g/dL (31-37); MEAN CORPUSCULAR VOLUME 89 fL (79-100); MONO # 1.3 x10^3/uL (0.0-1.1); MONO % 11 % (0-9); NEUT # 9.1 x10^3/uL (1.8-7.7); NEUT % 76 % (31-73); PLATELET COUNT 212 x10^3/uL (140-400); RED BLOOD COUNT 4.41 x10^6/uL (4.30-5.70)
[2020-06-26 11:00] VITALS: BP 149/80
--- NOTE | 2020-06-26 11:40 | NUR ---
SW following. Discussed with RN, pt from home with , room air, full liquid diet (advance as tolerated), COVID-19 negative. Per RN minimal output from drain -wondering if Dr. Sehll will remove today. Surgery in [address] Shell. RN anticipates possible discharge home today with self care if drain removed etc. SW will continue to follow.
--- NOTE | 2020-06-26 14:59 | PDOC ---
[facility] [facility] PROGRESS NOTE Date of Service DOS: DATE: 06/26/20 TIME: 14:58 Chief Complaint Chief Complaint A/P: Abdominal abscess - due to perforated appendicitis. NPO. General surgery consulted. Will continue antibiotics, IR to see if this is amenable to drain Appendicitis - with perforation. Continue IV antibiotics, zosyn. No surgery at this time due to perforation Sepsis - due to perforated appendicitis - given fluids and antibiotics Hyperglycemia - likely due to stress - will check A1c Left pleural effusion - no respiratory distress FEN - Clear liquid diet PPX - heparin FULL CODE Dispo - inpatient History of Present Illness History of Present Illness Mr Chapa is a 59-year-old male with no significant past medical history, Persian-speaking only, presents to the ED on 06/23/2020 accompanied by his son with complaints of diffuse abdominal pain that started on , 06/20/2020, now localized to right lower quadrant with subjective fevers and chills that started 06/24/2020 Patient recently received his Covid vaccine. Denies any past surgical history. Moved here from [place] 30 years ago. Took amoxicillin. Ate soup around 3-4 PM on 06/23 and last bowel movement was around 4 PM with no melena or hematochezia (yellow color). 06/24: Found with perforated appendicitis. To IR for percutaneous drain 06/25: T-max 100.3 F overnight. Pain is better minimal pain at drain site. No nausea or vomiting. He has a little bit of an appetite. Discussed via forklift material handler with son and bedside plan is to continue antibiotics and after discussion with surgery to trial on p.o. today and return for appendectomy for definitive treatment after he completes an antibiotic course. Afebrile overnight. States his pain is controlled. Tolerating p.o. okay. Blood cultures 1 out of 2 bottles positive for small gram-negative cocci and gram-positive cocci. Drain with minimal output today. Vitals/I&O Vitals/I&O: Vital Signs Date Time Temp Pulse Resp B/P (MAP) Pulse Ox O2 Delivery O2 Flow Rate FiO2 06/26/20 11:00 99.6 84 18 149/80 (103) 94 Room Air 99.6 06/25/20 14:44 2.0 I & O 06/25/20 06/25/20 06/26/20 15:00 23:00 07:00 Intake Total 440 ml Output Total 250 ml 350 ml 350 ml Balance 190 ml -350 ml -350 ml Physical Exam General: Alert, Oriented X3, Cooperative, No acute distress Abdomen: Soft, No tenderness, Other (drain in place) Extremities: No clubbing, No cyanosis, No edema, Normal pulses, No tenderness/swelling Skin: No rashes, No breakdown, No significant lesion Labs Labs: Laboratory Tests Test 06/26/20 08:40 White Blood Count 12.0 x10^3/uL (4.0-11.0) Red Blood Count 4.41 x10^6/uL (4.30-5.70) Hemoglobin 12.9 g/dL (13.0-17.5) Hematocrit 39.2 % (39.0-53.0) Mean Corpuscular Volume 89 fL (79-100) Mean Corpuscular Hemoglobin 29 pg (25-35) Mean Corpuscular Hemoglobin Concent 33 g/dL (31-37) Red Cell Distribution Width 14.0 % (11.5-14.5) Platelet Count 212 x10^3/uL (140-400) Neutrophils (%) (Auto) 76 % (31-73) Lymphocytes (%) (Auto) 11 % (24-48) Monocytes (%) (Auto) 11 % (0-9) Eosinophils (%) (Auto) 2 % (0-3) Basophils (%) (Auto) 0 % (0-3) Neutrophils # (Auto) 9.1 x10^3/uL (1.8-7.7) Lymphocytes # (Auto) 1.4 x10^3/uL (1.0-4.8) Monocytes # (Auto) 1.3 x10^3/uL (0.0-1.1) Eosinophils # (Auto) 0.2 x10^3/uL (0.0-0.7) Basophils # (Auto) 0.0 x10^3/uL (0.0-0.2) Sodium Level 141 mmol/L (136-145) Potassium Level 3.5 mmol/L (3.5-5.1) Chloride Level 106 mmol/L (98-107) Carbon Dioxide Level 28 mmol/L (21-32) Anion Gap 7 (6-14) Blood Urea Nitrogen 13 mg/dL (8-26) Creatinine 0.7 mg/dL (0.7-1.3) Estimated GFR (Cockcroft-Gault) 115.0 BUN/Creatinine Ratio 19 (6-20) Glucose Level 119 mg/dL (70-99) Calcium Level 8.1 mg/dL (8.5-10.1) Total Bilirubin 0.8 mg/dL (0.2-1.0) Aspartate Amino Transf (AST/SGOT) 28 U/L (15-37) Alanine Aminotransferase (ALT/SGPT) 30 U/L (16-63) Alkaline Phosphatase 106 U/L (46-116) Total Protein 6.4 g/dL (6.4-8.2) Albumin 1.7 g/dL (3.4-5.0) Albumin/Globulin Ratio 0.4 (1.0-1.7) Assessment and Plan Assessmemt and Plan Problems Medical Problems: (1) Acute perforated appendicitis Status: Acute (2) Bandemia Status: Acute (3) Peritonitis Status: Acute (4) Sepsis Status: Acute Comment Review of Relevant I have reviewed the following items ab (where applicable) has been applied. Justifications for Admission Other Justification MATTHEW WEINSTEIN MD Jun 26, 2020 14:59
[2020-06-26 15:00] VITALS: BP 155/88
--- NOTE | 2020-06-26 18:34 | PDOC ---
SURGICAL PROGRESS NOTE DATE: 06/26/20 TIME: 18:32 Subjective Pt without c/o, gary diet, passing flatus and stools Vital Signs Vital Signs Date Time Temp Pulse Resp B/P (MAP) Pulse Ox O2 Delivery O2 Flow Rate FiO2 06/26/20 15:00 100.0 84 18 155/88 (110) 94 Room Air 100.0 06/25/20 14:44 2.0 I&O Intake and Output 06/26/20 07:00 Intake Total 440 ml Output Total 950 ml Balance -510 ml Intake Oral 440 ml Output Urine Total 950 ml # Voids 1 General: Alert, Oriented X3, Cooperative, No acute distress Abdomen: Soft, No tenderness, Other (drain in place) Labs Laboratory Tests Test 06/25/20 11:02 06/26/20 08:40 Glucose (Fingerstick) 98 mg/dL (70-99) White Blood Count 12.0 x10^3/uL (4.0-11.0) Red Blood Count 4.41 x10^6/uL (4.30-5.70) Hemoglobin 12.9 g/dL (13.0-17.5) Hematocrit 39.2 % (39.0-53.0) Mean Corpuscular Volume 89 fL (79-100) Mean Corpuscular Hemoglobin 29 pg (25-35) Mean Corpuscular Hemoglobin Concent 33 g/dL (31-37) Red Cell Distribution Width 14.0 % (11.5-14.5) Platelet Count 212 x10^3/uL (140-400) Neutrophils (%) (Auto) 76 % (31-73) Lymphocytes (%) (Auto) 11 % (24-48) Monocytes (%) (Auto) 11 % (0-9) Eosinophils (%) (Auto) 2 % (0-3) Basophils (%) (Auto) 0 % (0-3) Neutrophils # (Auto) 9.1 x10^3/uL (1.8-7.7) Lymphocytes # (Auto) 1.4 x10^3/uL (1.0-4.8) Monocytes # (Auto) 1.3 x10^3/uL (0.0-1.1) Eosinophils # (Auto) 0.2 x10^3/uL (0.0-0.7) Basophils # (Auto) 0.0 x10^3/uL (0.0-0.2) Sodium Level 141 mmol/L (136-145) Potassium Level 3.5 mmol/L (3.5-5.1) Chloride Level 106 mmol/L (98-107) Carbon Dioxide Level 28 mmol/L (21-32) Anion Gap 7 (6-14) Blood Urea Nitrogen 13 mg/dL (8-26) Creatinine 0.7 mg/dL (0.7-1.3) Estimated GFR (Cockcroft-Gault) 115.0 BUN/Creatinine Ratio 19 (6-20) Glucose Level 119 mg/dL (70-99) Calcium Level 8.1 mg/dL (8.5-10.1) Total Bilirubin 0.8 mg/dL (0.2-1.0) Aspartate Amino Transf (AST/SGOT) 28 U/L (15-37) Alanine Aminotransferase (ALT/SGPT) 30 U/L (16-63) Alkaline Phosphatase 106 U/L (46-116) Total Protein 6.4 g/dL (6.4-8.2) Albumin 1.7 g/dL (3.4-5.0) Albumin/Globulin Ratio 0.4 (1.0-1.7) Laboratory Tests Test 06/26/20 08:40 White Blood Count 12.0 x10^3/uL (4.0-11.0) Red Blood Count 4.41 x10^6/uL (4.30-5.70) Hemoglobin 12.9 g/dL (13.0-17.5) Hematocrit 39.2 % (39.0-53.0) Mean Corpuscular Volume 89 fL (79-100) Mean Corpuscular Hemoglobin 29 pg (25-35) Mean Corpuscular Hemoglobin Concent 33 g/dL (31-37) Red Cell Distribution Width 14.0 % (11.5-14.5) Platelet Count 212 x10^3/uL (140-400) Neutrophils (%) (Auto) 76 % (31-73) Lymphocytes (%) (Auto) 11 % (24-48) Monocytes (%) (Auto) 11 % (0-9) Eosinophils (%) (Auto) 2 % (0-3) Basophils (%) (Auto) 0 % (0-3) Neutrophils # (Auto) 9.1 x10^3/uL (1.8-7.7) Lymphocytes # (Auto) 1.4 x10^3/uL (1.0-4.8) Monocytes # (Auto) 1.3 x10^3/uL (0.0-1.1) Eosinophils # (Auto) 0.2 x10^3/uL (0.0-0.7) Basophils # (Auto) 0.0 x10^3/uL (0.0-0.2) Sodium Level 141 mmol/L (136-145) Potassium Level 3.5 mmol/L (3.5-5.1) Chloride Level 106 mmol/L (98-107) Carbon Dioxide Level 28 mmol/L (21-32) Anion Gap 7 (6-14) Blood Urea Nitrogen 13 mg/dL (8-26) Creatinine 0.7 mg/dL (0.7-1.3) Estimated GFR (Cockcroft-Gault) 115.0 BUN/Creatinine Ratio 19 (6-20) Glucose Level 119 mg/dL (70-99) Calcium Level 8.1 mg/dL (8.5-10.1) Total Bilirubin 0.8 mg/dL (0.2-1.0) Aspartate Amino Transf (AST/SGOT) 28 U/L (15-37) Alanine Aminotransferase (ALT/SGPT) 30 U/L (16-63) Alkaline Phosphatase 106 U/L (46-116) Total Protein 6.4 g/dL (6.4-8.2) Albumin 1.7 g/dL (3.4-5.0) Albumin/Globulin Ratio 0.4 (1.0-1.7) Problem List Problems Medical Problems: (1) Acute perforated appendicitis Status: Acute (2) Bandemia Status: Acute (3) Peritonitis Status: Acute (4) Sepsis Status: Acute Assessment/Plan cont abx and drain ADAT will consider elective appendectomy Justicifation of Admission Dx: Justifications for Admission: Justification of Admission Dx: Yes BOBBY PARNELL MD Jun 26, 2020 18:34
[2020-06-26 19:00] VITALS: BP 154/82
[2020-06-26 23:00] VITALS: BP 143/86
[2020-06-27] VITALS (7 sets, daily range): BP systolic 120–158; BP diastolic 79–91
[2020-06-27] MEDS: PIPERACILLIN/TAZOBACTAM 3.375 GM in IV NORMAL SALINE 50ML 50 ML IV SCH ×4 (00:17→17:31)
[2020-06-27] MEDS: KETOROLAC 30 MG/ML VIAL. IVP PRN (03:43)
--- NOTE | 2020-06-27 11:44 | PDOC ---
[facility] [facility] PROGRESS NOTE Date of Service DOS: DATE: 06/27/20 TIME: 11:44 Chief Complaint Chief Complaint A/P: Abdominal abscess - due to perforated appendicitis. NPO. General surgery consulted. Will continue antibiotics, IR to see if this is amenable to drain Appendicitis - with perforation. Continue IV antibiotics, zosyn. No surgery at this time due to perforation Sepsis - due to perforated appendicitis - given fluids and antibiotics Hyperglycemia - likely due to stress - will check A1c Left pleural effusion - no respiratory distress FEN - Clear liquid diet PPX - heparin FULL CODE Dispo - inpatient History of Present Illness History of Present Illness Mr Chapa is a 59-year-old male with no significant past medical history, Korean-speaking only, presents to the ED on 06/23/2020 accompanied by his son with complaints of diffuse abdominal pain that started on , 06/20/2020, now localized to right lower quadrant with subjective fevers and chills that started 06/24/2020 Patient recently received his Covid vaccine. Denies any past surgical history. Moved here from [place] 30 years ago. Took amoxicillin. Ate soup around 3-4 PM on 06/23 and last bowel movement was around 4 PM with no melena or hematochezia (yellow color). 06/24: Found with perforated appendicitis. To IR for percutaneous drain 06/25: T-max 100.3 F overnight. Pain is better minimal pain at drain site. No nausea or vomiting. He has a little bit of an appetite. Discussed via reconciliation specialist with son and bedside plan is to continue antibiotics and after discussion with surgery to trial on p.o. today and return for appendectomy for definitive treatment after he completes an antibiotic course. 06/26: Afebrile overnight. States his pain is controlled. Tolerating p.o. okay. Blood cultures 1 out of 2 bottles positive for small gram-negative cocci and gram-positive cocci. Drain with minimal output today. Afebrile overnight. Blood cultures pending. Abscess culture with multiple organisms 2 different E. coli with sensitivities to cephalosporins and Zosyn. Pain better, eating 100% of meals, no diarrhea, no vomiting. [ESCHERICHIA COLI] (2 STRAINS) MANY [STREPTOCOCCUS CONSTELLATUS] MANY [STREPTOCOCCUS ANGINOSUS] MANY [CLOSTRIDIUM PERFRINGENS] MANY [BACTEROIDES FRAGILIS] ESCHERICHIA COLI ESCHERICHIA COLI STREPTOCOCCUS ANGINOSUS STREPTOCOCCUS CONSTELLATUS CLOSTRIDIUM PERFRINGENS BACTEROIDES FRAGILIS Vitals/I&O Vitals/I&O: Vital Signs Date Time Temp Pulse Resp B/P (MAP) Pulse Ox O2 Delivery O2 Flow Rate FiO2 06/27/20 08:00 Room Air 06/27/20 07:00 98.4 82 18 141/89 (106) 94 98.4 06/27/20 03:00 2.0 I & O 06/26/20 06/26/20 06/27/20 15:00 23:00 07:00 Intake Total 800 ml 100 ml Output Total 250 ml Balance 550 ml 100 ml Physical Exam General: Alert, Oriented X3, Cooperative, No acute distress Abdomen: Soft, No tenderness, Other (drain in place) Extremities: No clubbing, No cyanosis, No edema, Normal pulses, No tenderness/swelling Skin: No rashes, No breakdown, No significant lesion Assessment and Plan Assessmemt and Plan Problems Medical Problems: (1) Acute perforated appendicitis Status: Acute (2) Bandemia Status: Acute (3) Peritonitis Status: Acute (4) Sepsis Status: Acute Comment Review of Relevant I have reviewed the following items ab (where applicable) has been applied. Justifications for Admission Other Justification MATTHEW WEINSTEIN MD Jun 27, 2020 11:44
[2020-06-27] MEDS: LACTOBACILLUS RHAMNOSUS GG 1 CAPSULE. PO SCH (12:21)
--- NOTE | 2020-06-27 13:04 | PDOC ---
SURGICAL PROGRESS NOTE DATE: 06/27/20 TIME: 12:59 Subjective feeling pretty good eating Vital Signs Vital Signs Date Time Temp Pulse Resp B/P (MAP) Pulse Ox O2 Delivery O2 Flow Rate FiO2 06/27/20 08:00 Room Air 06/27/20 07:00 98.4 82 18 141/89 (106) 94 98.4 06/27/20 03:00 2.0 I&O Intake and Output 06/27/20 07:00 Intake Total 900 ml Output Total 250 ml Balance 650 ml Intake Oral 800 ml IV Total 100 ml Output Urine Total 250 ml Drainage Total 0 ml # Voids 3 General: Alert, Oriented X3, Cooperative Abdomen: Soft, Other (drain in place) Labs Laboratory Tests Test 06/26/20 08:40 White Blood Count 12.0 x10^3/uL (4.0-11.0) Red Blood Count 4.41 x10^6/uL (4.30-5.70) Hemoglobin 12.9 g/dL (13.0-17.5) Hematocrit 39.2 % (39.0-53.0) Mean Corpuscular Volume 89 fL (79-100) Mean Corpuscular Hemoglobin 29 pg (25-35) Mean Corpuscular Hemoglobin Concent 33 g/dL (31-37) Red Cell Distribution Width 14.0 % (11.5-14.5) Platelet Count 212 x10^3/uL (140-400) Neutrophils (%) (Auto) 76 % (31-73) Lymphocytes (%) (Auto) 11 % (24-48) Monocytes (%) (Auto) 11 % (0-9) Eosinophils (%) (Auto) 2 % (0-3) Basophils (%) (Auto) 0 % (0-3) Neutrophils # (Auto) 9.1 x10^3/uL (1.8-7.7) Lymphocytes # (Auto) 1.4 x10^3/uL (1.0-4.8) Monocytes # (Auto) 1.3 x10^3/uL (0.0-1.1) Eosinophils # (Auto) 0.2 x10^3/uL (0.0-0.7) Basophils # (Auto) 0.0 x10^3/uL (0.0-0.2) Sodium Level 141 mmol/L (136-145) Potassium Level 3.5 mmol/L (3.5-5.1) Chloride Level 106 mmol/L (98-107) Carbon Dioxide Level 28 mmol/L (21-32) Anion Gap 7 (6-14) Blood Urea Nitrogen 13 mg/dL (8-26) Creatinine 0.7 mg/dL (0.7-1.3) Estimated GFR (Cockcroft-Gault) 115.0 BUN/Creatinine Ratio 19 (6-20) Glucose Level 119 mg/dL (70-99) Calcium Level 8.1 mg/dL (8.5-10.1) Total Bilirubin 0.8 mg/dL (0.2-1.0) Aspartate Amino Transf (AST/SGOT) 28 U/L (15-37) Alanine Aminotransferase (ALT/SGPT) 30 U/L (16-63) Alkaline Phosphatase 106 U/L (46-116) Total Protein 6.4 g/dL (6.4-8.2) Albumin 1.7 g/dL (3.4-5.0) Albumin/Globulin Ratio 0.4 (1.0-1.7) Problem List Problems Medical Problems: (1) Acute perforated appendicitis Status: Acute (2) Bandemia Status: Acute (3) Peritonitis Status: Acute (4) Sepsis Status: Acute Assessment/Plan low grade fevers, overall feels well tolerating diet abx, drain Justicifation of Admission Dx: Justifications for Admission: Justification of Admission Dx: Yes DANIELA RAMOS APRN Jun 27, 2020 13:04
[2020-06-27] MEDS: MORPHINE SULFATE 2 MG/ML VIAL. IV PRN (19:44)
--- NOTE | 2020-06-27 23:15 | NUR ---
RECEIVED PT FROM [address] [place] [address] UPON ARRIVAL TO UNIT PT C/O ABD PAIN , MORPHINE IV GIVEN AND IV ZOSYN STARTED. RIGHT LOWER LATER NAGI DRAIN INTACT SCANT AMOUNT OF OUTPUT NOTED. TOLERATING PO FLUIDS , NO CONCERNS THROUGHOUT HOURLY ROUNDS, WILL CONTINUE WITH CURRENT PLAN OF CARE. VITAL SIGNS STABLE UPON ARRIVAL TO UNIT
--- NOTE | 2020-06-27 23:25 | NUR ---
Pt has orders to transfer to . Report called to JAVI Almaguer. Pt transferred per .
[2020-06-28] MEDS: MORPHINE SULFATE 2 MG/ML VIAL. IV PRN ×4 (00:01→19:13)
[2020-06-28] MEDS: PIPERACILLIN/TAZOBACTAM 3.375 GM in IV NORMAL SALINE 50ML 50 ML IV SCH ×4 (00:01→17:34)
[2020-06-28 03:22] VITALS: BP 160/95
[2020-06-28 07:00] VITALS: BP 144/79
[2020-06-28] MEDS: LACTOBACILLUS RHAMNOSUS GG 1 CAPSULE. PO SCH ×3 (08:18→21:38)
--- NOTE | 2020-06-28 08:50 | PDOC ---
PROGRESS NOTES Date of Service: DATE: 06/28/20 TIME: 08:49 Chief Complaint Chief Complaint IMPRESSION Abdominal abscess - due to perforated appendicitis. NPO. General surgery consulted. Will continue antibiotics, IR to see if this is amenable to drain Appendicitis - with perforation. Continue IV antibiotics, zosyn. No surgery at this time due to perforation Sepsis - due to perforated appendicitis - given fluids and antibiotics Hyperglycemia - likely due to stress - will check A1c Left pleural effusion - no respiratory distress PLAN FEN - Clear liquid diet PPX - heparin FULL CODE Dispo - inpatient ID CONSULT History of Present Illness History of Present Illness Mr Chapa is a 59-year-old male with no significant past medical history, Kazakh-speaking only, presents to the ED on 06/23/2020 accompanied by his son with complaints of diffuse abdominal pain that started on , 06/20/2020, now localized to right lower quadrant with subjective fevers and chills that started 06/24/2020 Patient recently received his Covid vaccine. Denies any past surgical history. Moved here from [place] 30 years ago. Took amoxicillin. Ate soup around 3-4 PM on 06/23 and last bowel movement was around 4 PM with no melena or hematochezia (yellow color). 06/24: Found with perforated appendicitis. To IR for percutaneous drain 06/25: T-max 100.3 F overnight. Pain is better minimal pain at drain site. No nausea or vomiting. He has a little bit of an appetite. Discussed via fisheries diver with son and bedside plan is to continue antibiotics and after discussion with surgery to trial on p.o. today and return for appendectomy for definitive treatment after he completes an antibiotic course. 06/26: Afebrile overnight. States his pain is controlled. Tolerating p.o. okay. Blood cultures 1 out of 2 bottles positive for small gram-negative cocci and gram-positive cocci. Drain with minimal output today. Afebrile overnight. Blood cultures pending. Abscess culture with multiple organisms 2 different E. coli with sensitivities to cephalosporins and Zosyn. Pain better, eating 100% of meals, no diarrhea, no vomiting. [ESCHERICHIA COLI] (2 STRAINS) MANY [STREPTOCOCCUS CONSTELLATUS] MANY [STREPTOCOCCUS ANGINOSUS] MANY [CLOSTRIDIUM PERFRINGENS] MANY [BACTEROIDES FRAGILIS] ESCHERICHIA COLI ESCHERICHIA COLI STREPTOCOCCUS ANGINOSUS STREPTOCOCCUS CONSTELLATUS CLOSTRIDIUM PERFRINGENS BACTEROIDES FRAGILIS 4-30 D/W RN WILL CONSULT ID, CONT IV ZOSYN Vitals Vitals Vital Signs Date Time Temp Pulse Resp B/P (MAP) Pulse Ox O2 Delivery O2 Flow Rate FiO2 06/28/20 07:00 98.5 79 18 144/79 (100) 92 Room Air 98.5 06/27/20 23:00 2.0 Physical Exam General: Alert, Oriented X3, Cooperative, No acute distress Heart: Regular rate Abdomen: Soft, Other (drain in place) Extremities: No clubbing, No cyanosis, No edema, Normal pulses, No tenderness/swelling Skin: No rashes, No breakdown, No significant lesion Assessment and Plan Assessmemt and Plan Problems Medical Problems: (1) Acute perforated appendicitis Status: Acute (2) Bandemia Status: Acute (3) Peritonitis Status: Acute (4) Sepsis Status: Acute Comment Review of Relevant I have reviewed the following items ab (where applicable) has been applied. Labs Microbiology 06/24/20 Gram Stain - Final, Resulted 06/24/20 Aerobic and Anaerobic Culture - Preliminary, Resulted 06/24/20 Antimicrobic Susceptibility - Preliminary, Resulted 06/23/20 Blood Culture - Final, Complete Medications Current Medications Sodium Chloride 1,000 ml @ 1,000 mls/hr 1X ONCE IV Last administered on 06/23/20at 19:57; Start 06/23/20 at 19:30; Stop 06/23/20 at 20:29; Status DC Sodium Chloride 1,000 ml @ 1,000 mls/hr 1X ONCE IV Last administered on 06/23/20at 19:57; Start 06/23/20 at 19:30; Stop 06/23/20 at 20:29; Status DC Iohexol (Omnipaque 300 Mg/ml) 75 ml 1X ONCE IV Last administered on 06/23/20at 20:25; Start 06/23/20 at 20:15; Stop 06/23/20 at 20:16; Status DC Info (CONTRAST GIVEN -- Rx MONITORING) 1 each PRN DAILY PRN MC SEE COMMENTS; Start 06/23/20 at 20:15; Stop 06/25/20 at 20:14; Status DC Piperacillin Sod/ Tazobactam Sod 4.5 gm/Sodium Chloride 100 ml @ 200 mls/hr 1X ONCE IV Last administered on 06/23/20at 21:57; Start 06/23/20 at 22:00; Stop 06/23/20 at 22:29; Status DC Vancomycin HCl (Vanco Per Pharmacy) 1 each PRN DAILY PRN MC SEE COMMENTS Last administered on 06/24/20at 03:43; Start 06/23/20 at 21:30; Stop 06/24/20 at 07:43; Status DC Vancomycin HCl 1.75 gm/Sodium Chloride 500 ml @ 250 mls/hr 1X ONCE IV Last administered on 06/23/20at 23:32; Start 06/23/20 at 22:00; Stop 06/23/20 at 23:59; Status DC Ondansetron HCl (Zofran) 4 mg PRN Q8HRS PRN IV NAUSEA/VOMITING 1ST CHOICE; Start 06/23/20 at 21:45; Stop 06/24/20 at 07:43; Status DC Sodium Chloride 1,000 ml @ 100 mls/hr Q10H IV Last administered on 06/24/20at 20:58; Start 06/23/20 at 22:00; Stop 06/24/20 at 21:59; Status DC Hydromorphone HCl (Dilaudid) 1 mg 1X ONCE IVP Last administered on 06/24/20at 00:29; Start 06/24/20 at 00:30; Stop 06/24/20 at 00:31; Status DC Vancomycin HCl 1 gm/Sodium Chloride 250 ml @ 250 mls/hr Q12H IV ; Start 06/24/20 at 11:00; Stop 06/24/20 at 07:43; Status DC Vancomycin HCl (Vancomycin Trough Level) 1 each 1X ONCE MC ; Start 06/25/20 at 10:30; Stop 06/24/20 at 07:47; Status DC Hydromorphone HCl (Dilaudid) 1 mg 1X ONCE IVP Last administered on 06/24/20at 06:30; Start 06/24/20 at 06:30; Stop 06/24/20 at 06:31; Status DC Hydromorphone HCl (Dilaudid) 2 mg STK-MED ONCE .ROUTE ; Start 06/24/20 at 05:54; Stop 06/24/20 at 05:55; Status DC Piperacillin Sod/ Tazobactam Sod 3.375 gm/Sodium Chloride 50 ml @ 100 mls/hr Q6HRS IV Last administered on 06/28/20at 05:12; Start 06/24/20 at 07:45 Ondansetron HCl (Zofran) 4 mg PRN Q4HRS PRN IV NAUSEA/VOMITING 1ST CHOICE; Start 06/24/20 at 07:45 Acetaminophen (Tylenol) 650 mg PRN Q6HRS PRN PO MILD PAIN / TEMP > 100.3'F Last administered on 06/28/20at 00:00; Start 06/24/20 at 07:45 Acetaminophen (Tylenol Supp) 650 mg PRN Q6HRS PRN TX MILD PAIN / TEMP > 100.3'F; Start 06/24/20 at 07:45 Ketorolac Tromethamine (Toradol 30mg Vial) 30 mg PRN Q6HRS PRN IVP INFLAMMATION Last administered on 06/27/20at 03:43; Start 06/24/20 at 07:45; Stop 06/27/20 at 03:43; Status DC Morphine Sulfate (Morphine Sulfate) 2 mg PRN Q2HR PRN IV PAIN Last administered on 06/28/20at 05:13; Start 06/24/20 at 07:45 Lidocaine HCl (Buffered Lidocaine 1%) 3 ml STK-MED ONCE .ROUTE ; Start 06/24/20 at 10:58; Stop 06/24/20 at 10:58; Status DC Midazolam HCl (Versed) 2 mg STK-MED ONCE .ROUTE ; Start 06/24/20 at 13:34; Stop 06/24/20 at 13:34; Status DC Fentanyl Citrate (Fentanyl 2ml Vial) 100 mcg STK-MED ONCE .ROUTE ; Start 06/24/20 at 13:34; Stop 06/24/20 at 13:35; Status DC Lidocaine HCl (Buffered Lidocaine 1%) 3 ml 1X ONCE IJ Last administered on 06/24/20at 13:45; Start 06/24/20 at 13:45; Stop 06/24/20 at 13:48; Status DC Midazolam HCl (Versed) 2 mg 1X ONCE IV Last administered on 06/24/20at 13:45; Start 06/24/20 at 13:45; Stop 06/24/20 at 13:48; Status DC Fentanyl Citrate (Fentanyl 2ml Vial) 100 mcg 1X ONCE IV Last administered on 06/24/20at 13:45; Start 06/24/20 at 13:45; Stop 06/24/20 at 13:48; Status DC Lactobacillus Rhamnosus (Culturelle) 1 cap BID PO Last administered on 06/28/20at 08:18; Start 06/27/20 at 12:00 Vitals/I & O Vital Sign - Last 24 Hours 06/27/20 06/27/20 06/27/20 06/27/20 11:00 15:00 19:00 19:44 Temp 98.2 99.3 100.5 98.2 99.3 100.5 Pulse 85 88 94 Resp 17 17 18 B/P (MAP) 136/81 (99) 146/91 (109) 151/79 (103) Pulse Ox 96 94 94 O2 Delivery Room Air Room Air Room Air Room Air O2 Flow Rate 2.0 06/27/20 06/27/20 06/27/20 06/28/20 20:20 23:00 23:45 00:01 Temp 99.5 100.2 99.5 100.2 Pulse 86 88 Resp 18 20 B/P (MAP) 158/87 (110) 136/85 (102) Pulse Ox 95 93 94 O2 Delivery Room Air Room Air Room Air Room Air O2 Flow Rate 2.0 06/28/20 06/28/20 06/28/20 06/28/20 00:30 03:22 05:13 05:30 Temp 98.8 98.8 Pulse 82 Resp 18 B/P (MAP) 160/95 (116) Pulse Ox 94 93 93 93 O2 Delivery Room Air Room Air Room Air Room Air 06/28/20 07:00 Temp 98.5 98.5 Pulse 79 Resp 18 B/P (MAP) 144/79 (100) Pulse Ox 92 O2 Delivery Room Air l Intake and Output 06/27/20 06/27/20 06/28/20 15:00 23:00 07:00 Intake Total 240 ml Balance 240 ml Justicifation of Admission Dx: Justifications for Admission: Justification of Admission Dx: Yes REMBERTO DUNLAP MD Jun 28, 2020 08:49
[2020-06-28 10:19] VITALS: BP 148/94
--- NOTE | 2020-06-28 14:19 | PDOC ---
SURGICAL PROGRESS NOTE DATE: 06/28/20 TIME: 14:18 Subjective pain at drain site no nausea Vital Signs Vital Signs Date Time Temp Pulse Resp B/P (MAP) Pulse Ox O2 Delivery O2 Flow Rate FiO2 06/28/20 10:19 98.9 86 18 148/94 (112) 92 Room Air 98.9 06/27/20 23:00 2.0 I&O Intake and Output 06/28/20 07:00 Intake Total 240 ml Balance 240 ml Intake Oral 240 ml # Voids 9 # Bowel Movements 1 General: Alert, Oriented X3, Cooperative Abdomen: Soft, Other (ttp drain site, scant drainage from drain) Problem List Problems Medical Problems: (1) Acute perforated appendicitis Status: Acute (2) Bandemia Status: Acute (3) Peritonitis Status: Acute (4) Sepsis Status: Acute Assessment/Plan minimal drain output will check CT in AM Justicifation of Admission Dx: Justifications for Admission: Justification of Admission Dx: Yes DANIELA RAMOS APRN Jun 28, 2020 14:19
[2020-06-28 14:33] VITALS: BP 126/83
--- NOTE | 2020-06-28 15:17 | NUR ---
SW following. Discussed with RN, pt from home with , room air, GI soft. Per surgery minimal drain output, check CT in am. RN advised no SW needs. SW will continue to follow.
[2020-06-28 19:00] VITALS: BP 158/81
[2020-06-28] MEDS: ACETAMINOPHEN 325 MG TABLET. PO PRN ×2 (21:39)
[2020-06-28 23:00] VITALS: BP 148/80
[2020-06-29] VITALS (18 sets, daily range): BP systolic 110–173; BP diastolic 75–90
[2020-06-29] MEDS: PIPERACILLIN/TAZOBACTAM 3.375 GM in IV NORMAL SALINE 50ML 50 ML IV SCH ×4 (00:16→18:51)
--- NOTE | 2020-06-29 00:47 | NUR ---
Report given to JAVI Lugo; transfer of patient care at this time.
[2020-06-29 05:30] LABS: BASO # 0.2 x10^3/uL (0.0-0.2); BASO % 1 % (0-3); EOS # 0.4 x10^3/uL (0.0-0.7); EOS % 2 % (0-3); HEMATOCRIT 39.8 % (39.0-53.0); LYMPH # 1.9 x10^3/uL (1.0-4.8); LYMPH % 9 % (24-48); MEAN CORPUSCULAR HEMOGLOBIN 29 pg (25-35); MEAN CORPUSCULAR HGB CONC 33 g/dL (31-37); MEAN CORPUSCULAR VOLUME 90 fL (79-100); MONO # 1.1 x10^3/uL (0.0-1.1); MONO % 5 % (0-9); NEUT # 17.1 x10^3/uL (1.8-7.7); NEUT % 83 % (31-73); PLATELET COUNT 348 x10^3/uL (140-400); RED BLOOD COUNT 4.41 x10^6/uL (4.30-5.70); RED CELL DISTRIBUTION WIDTH 14.4 % (11.5-14.5); WHITE BLOOD COUNT 20.7 x10^3/uL (4.0-11.0)
[2020-06-29 05:56] LABS: ALBUMIN 2.1 g/dL (3.4-5.0); ALBUMIN/GLOBULIN RATIO 0.4 (1.0-1.7); CALCIUM 8.3 mg/dL (8.5-10.1); CREATININE 0.7 mg/dL (0.7-1.3); POTASSIUM 4.1 mmol/L (3.5-5.1); TOTAL BILIRUBIN 0.6 mg/dL (0.2-1.0); TOTAL PROTEIN 7.5 g/dL (6.4-8.2)
[2020-06-29] MEDS ORDERED: IOHEXOL 300 MG/ML 100ML VIAL. IV ONE (07:15)
[2020-06-29] MEDS ORDERED: IOHEXOL 240 MG/ML 50ML VIAL. PO ONE (07:15)
[2020-06-29] MEDS ORDERED: CONTRAST GIVEN. MC PRN (07:30)
--- NOTE | 2020-06-29 08:10 | RAD ---
CT SCAN OF THE ABDOMEN AND PELVIS WITH IV CONTRAST. History: Reason: perf appy, drain / Comparison:None. Procedure: Contiguous axial images of the abdomen and pelvis were performed after the administration of 75 cc o f Omni 300 IV contrast and oral contrast. Findings: There is a new right pleural effusion with adjacent infiltrate. There is a percutaneous drain in the right hemipelvis. The air-fluid collection anterior to the cecum in the location of the drain is no longer present however there is a persistent air-fluid collection more inferiorly that measures 5.6 x 3.2 centers. Contrast is seen in the ascending colon. There is a nonopacified tubular structure inferior to the cecum which could be a portion of the appendix howeve r no normal appendix is seen. There is moderate wall thickening of the cecum and terminal ileum. Ther e is thickening of the abdominal wall laterally on the right. There is fat-containing inguinal canal hernias. The prostate is not enlarged. There are a few small r eactive mesenteric lymph nodes on the right. Liver: Unremarkable Spleen: Unremarkable Pancreas: Unremarkable Adrenal Glands: Unremarkable Kidneys: Unremarkable There is no free air. There is no free fluid. The urinary bladder appears normal. Impression: 1. New small right pleural effusion with adjacent infiltrate. 2. Right sided percutaneous drain there is a persistent abscess which may or may not indicate with a drain. 3. Thickening of the right abdominal wall could be edema or hematoma. End impression PQRS Compliance Statement: One or more of the following individualized dose reduction techniques were utilized for this examinat ion: 1. Automated exposure control 2. Adjustment of the mA and/or kV according to patient size 3. Use of iterative reconstruction technique Electronically signed by: Yoandy Duarte III, MD (06/29/2020 8:08 AM) [facility]
[2020-06-29] MEDS: LACTOBACILLUS RHAMNOSUS GG 1 CAPSULE. PO SCH ×2 (08:45→20:12)
--- NOTE | 2020-06-29 09:08 | PDOC ---
SURGICAL PROGRESS NOTE DATE: 06/29/20 TIME: 09:06 Subjective pain at drain site eating Vital Signs Vital Signs Date Time Temp Pulse Resp B/P (MAP) Pulse Ox O2 Delivery O2 Flow Rate FiO2 06/29/20 07:00 99.7 89 18 136/81 (99) 94 Room Air 99.7 I&O Intake and Output 06/29/20 07:00 Intake Total 500 ml Output Total 25 ml Balance 475 ml Intake Oral 400 ml IV Total 100 ml Drainage Total 25 ml # Voids 2 # Bowel Movements 1 General: Alert, Oriented X3, Cooperative Abdomen: Soft, Other (currently nothing in drain) Labs Laboratory Tests Test 06/29/20 00:02 06/29/20 02:00 Lactic Acid Level 0.6 mmol/L (0.4-2.0) White Blood Count 20.7 x10^3/uL (4.0-11.0) Red Blood Count 4.41 x10^6/uL (4.30-5.70) Hemoglobin 13.0 g/dL (13.0-17.5) Hematocrit 39.8 % (39.0-53.0) Mean Corpuscular Volume 90 fL (79-100) Mean Corpuscular Hemoglobin 29 pg (25-35) Mean Corpuscular Hemoglobin Concent 33 g/dL (31-37) Red Cell Distribution Width 14.4 % (11.5-14.5) Platelet Count 348 x10^3/uL (140-400) Neutrophils (%) (Auto) 83 % (31-73) Lymphocytes (%) (Auto) 9 % (24-48) Monocytes (%) (Auto) 5 % (0-9) Eosinophils (%) (Auto) 2 % (0-3) Basophils (%) (Auto) 1 % (0-3) Neutrophils # (Auto) 17.1 x10^3/uL (1.8-7.7) Lymphocytes # (Auto) 1.9 x10^3/uL (1.0-4.8) Monocytes # (Auto) 1.1 x10^3/uL (0.0-1.1) Eosinophils # (Auto) 0.4 x10^3/uL (0.0-0.7) Basophils # (Auto) 0.2 x10^3/uL (0.0-0.2) Sodium Level 139 mmol/L (136-145) Potassium Level 4.1 mmol/L (3.5-5.1) Chloride Level 104 mmol/L (98-107) Carbon Dioxide Level 25 mmol/L (21-32) Anion Gap 10 (6-14) Blood Urea Nitrogen 12 mg/dL (8-26) Creatinine 0.7 mg/dL (0.7-1.3) Estimated GFR (Cockcroft-Gault) 115.0 BUN/Creatinine Ratio 17 (6-20) Glucose Level 83 mg/dL (70-99) Calcium Level 8.3 mg/dL (8.5-10.1) Total Bilirubin 0.6 mg/dL (0.2-1.0) Aspartate Amino Transf (AST/SGOT) 28 U/L (15-37) Alanine Aminotransferase (ALT/SGPT) 38 U/L (16-63) Alkaline Phosphatase 113 U/L (46-116) Total Protein 7.5 g/dL (6.4-8.2) Albumin 2.1 g/dL (3.4-5.0) Albumin/Globulin Ratio 0.4 (1.0-1.7) Laboratory Tests Test 06/29/20 00:02 06/29/20 02:00 Lactic Acid Level 0.6 mmol/L (0.4-2.0) White Blood Count 20.7 x10^3/uL (4.0-11.0) Red Blood Count 4.41 x10^6/uL (4.30-5.70) Hemoglobin 13.0 g/dL (13.0-17.5) Hematocrit 39.8 % (39.0-53.0) Mean Corpuscular Volume 90 fL (79-100) Mean Corpuscular Hemoglobin 29 pg (25-35) Mean Corpuscular Hemoglobin Concent 33 g/dL (31-37) Red Cell Distribution Width 14.4 % (11.5-14.5) Platelet Count 348 x10^3/uL (140-400) Neutrophils (%) (Auto) 83 % (31-73) Lymphocytes (%) (Auto) 9 % (24-48) Monocytes (%) (Auto) 5 % (0-9) Eosinophils (%) (Auto) 2 % (0-3) Basophils (%) (Auto) 1 % (0-3) Neutrophils # (Auto) 17.1 x10^3/uL (1.8-7.7) Lymphocytes # (Auto) 1.9 x10^3/uL (1.0-4.8) Monocytes # (Auto) 1.1 x10^3/uL (0.0-1.1) Eosinophils # (Auto) 0.4 x10^3/uL (0.0-0.7) Basophils # (Auto) 0.2 x10^3/uL (0.0-0.2) Sodium Level 139 mmol/L (136-145) Potassium Level 4.1 mmol/L (3.5-5.1) Chloride Level 104 mmol/L (98-107) Carbon Dioxide Level 25 mmol/L (21-32) Anion Gap 10 (6-14) Blood Urea Nitrogen 12 mg/dL (8-26) Creatinine 0.7 mg/dL (0.7-1.3) Estimated GFR (Cockcroft-Gault) 115.0 BUN/Creatinine Ratio 17 (6-20) Glucose Level 83 mg/dL (70-99) Calcium Level 8.3 mg/dL (8.5-10.1) Total Bilirubin 0.6 mg/dL (0.2-1.0) Aspartate Amino Transf (AST/SGOT) 28 U/L (15-37) Alanine Aminotransferase (ALT/SGPT) 38 U/L (16-63) Alkaline Phosphatase 113 U/L (46-116) Total Protein 7.5 g/dL (6.4-8.2) Albumin 2.1 g/dL (3.4-5.0) Albumin/Globulin Ratio 0.4 (1.0-1.7) Problem List Problems Medical Problems: (1) Acute perforated appendicitis Status: Acute (2) Bandemia Status: Acute (3) Peritonitis Status: Acute (4) Sepsis Status: Acute Assessment/Plan perforated appendicitis wbc 20 today, ct reviewed, drain may need repositioned, will ask IR to eval continue abx recheck lab in AM Justicifation of Admission Dx: Justifications for Admission: Justification of Admission Dx: Yes DANIELA RAMOS [employer]S FINISHER June 29, 2020 09:08
--- NOTE | 2020-06-29 10:23 | CONS ---
DATE OF CONSULTATION: 06/29/2020 REFERRING PHYSICIAN: Edgar Ayala MD REASON FOR CONSULTATION: Perforated appendix, sepsis and antibiotic management. HISTORY OF PRESENT ILLNESS: A 59-year-old male presented to the ER on 06/23/2020 with complaints of abdominal pain with fevers and chills. The patient took some amoxicillin prior to admission. Denies any nausea, vomiting or diarrhea. The patient denied taking any antibiotics prior to amoxicillin. White count was 15.4 on admission with a bandemia. Normal creatinine. Total bilirubin of 1.6, direct of 0.6, AST 39. Normal troponin. Albumin 2.5. Lipase is normal. UA shows large blood. UDS negative. SARS COVID negative. CT abdomen and pelvis showed perforated appendix with peritonitis of the right lower quadrant of the abdomen with severe wall thickening of the distal ileum. There is diffuse small bowel dilatation consistent with small-bowel obstruction secondary to wall thickening of the distal ileum, a few bubbles of free intraperitoneal air is seen along with two air-fluid collections within the peritoneal cavity of the right lower quadrant of the abdomen. Chest x-ray showed small left pleural effusion, linear atelectasis. The patient underwent CT-guided drainage of pericecal abscess on 06/24/2020. Repeat CT abdomen and pelvis was done this morning, which showed new small right pleural effusion with adjacent infiltrate, right right-sided percutaneous drain. There is persistent abscess, which may or may not indicate with a drain, thickening of the right abdominal wall could be edema or hematoma. Cultures from 06/24 positive for Streptococcus constellatus and anginosus, Clostridium perfringens, Bacteroides fragilis, 2 strains of E. coli. Blood culture from 06/23 is positive for Gram-positive cocci and a tiny Gram-negative patricia. Prelim is Bacteroides splanchnicus. Repeat blood cultures were done yesterday, which are pending at this time. ID consultation has been requested for antibiotic management. The patient is currently on Zosyn. Today, the patient is eating, says has pain at the drain site in the right lower quadrant. Denies any nausea, vomiting, headache, sore throat, shortness of breath, cough, diarrhea, or hematochezia, symptoms, rash, joint pain, headache. PAST MEDICAL HISTORY: History of gout, recently received COVID vaccine. PAST SURGICAL HISTORY: None. FAMILY HISTORY: Noncontributory. SOCIAL HISTORY: Nonsmoker, no alcohol. Lives at home with family. CURRENT MEDICATIONS: Zosyn. Other medications reviewed in medication list. ALLERGIES: No known drug allergies. REVIEW OF SYSTEMS: Limited, but negative except for above in HPI. PHYSICAL EXAMINATION: VITAL SIGNS: Temperature 99.7, pulse 89, respiratory rate 18, blood pressure 136/81, oxygen saturation 94% on room air. GENERAL: Alert, awake male, sitting upright in bed, in no acute distress, eating breakfast. HEENT: Normocephalic, atraumatic. Anicteric. NECK: Supple. No JVD. LUNGS: Clear bilaterally. No wheezing. HEART: S1, S2. No gallops or murmurs. ABDOMEN: Mildly distended. Drain site shows mild erythema and swelling, mild tenderness to palpation, more tenderness in the right lower quadrant, none on the left upper, mid or left lower quadrant. Bowel sounds present. EXTREMITIES: No edema, no cyanosis. DERMATOLOGIC: Warm, dry, no generalized rash. NEUROLOGIC: Alert, oriented x 3, grossly nonfocal. PIV looks clean. LABORATORY DATA: WBC increased to 20.7, hemoglobin 13.0, hematocrit 39.8, platelets 348. Sodium 139, potassium 4.1, chloride 104, bicarbonate 25, BUN 12, creatinine 0.7, glucose 83. Lactate 0.6, albumin 2.1. UA shows large blood. UDS negative. Coronavirus screen negative. MICROBIOLOGY: 1. Blood culture positive for 06/23/2020 with Gram-negative patricia and GPC. 2. On 06/24/2020, abdominal fluid positive for 2 strains of E. coli, not ESBL, Streptococcus anginosus, Streptococcus constellatus, Clostridium perfringens, Bacteroides fragilis. 3. Repeat blood cultures 06/28/2020 pending at this time. IMAGIN. Abdominal and pelvic CT 06/23/2020 noted. 2. Repeat abdomen and pelvis, 06/29/2020, reviewed. 3. Chest x-ray reviewed. IMPRESSION: 1. Sepsis, source intra-abdominal. 2. Fever. 3. Leukocytosis and bandemia. 4. Perforated appendix. 5. Intraabdominal abscess, status post IR drainage with polymicrobial organism. 6. Gram-negative patricia bacteremia, Bacteroides splanchnicus and GPC. RECOMMENDATIONS: 1. Continue Zosyn. 2. Start Zyvox and fluconazole. 3. Drain may need readjustment. 4. Monitor labs 5. General Surgery following closely. 6. Follow up repeat blood cultures from 06/28/2020. 7. Pain control per primary. 8. Continue supportive care. Thank you for allowing me to participate in this patient's care. If you have any questions, do not hesitate to contact me. DARWIN DR: Gene TID: [id number] ELAINE
--- NOTE | 2020-06-29 10:33 | NUR ---
Paged THAI Klein regarding IR consult the needed to be done stat or routine. Dr. Urbina returned called and he was notified about the routine IR consult and he was okay with it.
--- NOTE | 2020-06-29 10:52 | PDOC ---
PROGRESS NOTES Date of Service: DATE: 06/29/20 TIME: 10:49 Chief Complaint Chief Complaint IMPRESSION Abdominal abscess - due to perforated appendicitis. NPO. General surgery consulted. Will continue antibiotics, IR to see if this is amenable to drain Appendicitis - with perforation. Continue IV antibiotics, zosyn. No surgery at this time due to perforation Sepsis - due to perforated appendicitis - given fluids and antibiotics Hyperglycemia - likely due to stress - will check A1c Left pleural effusion - no respiratory distress Right sided percutaneous drain there is a persistent abscess which may or may not indicate with a drain. CT 06-29 PLAN FEN - Clear liquid diet PPX - heparin FULL CODE Dispo - inpatient ID CONSULT Continue Zosyn. Start Zyvox and fluconazole. History of Present Illness History of Present Illness Mr Chapa is a 59-year-old male with no significant past medical history, [place]ish-speaking only, presents to the ED on 06/23/2020 accompanied by his son with complaints of diffuse abdominal pain that started on , 06/20/2020, now localized to right lower quadrant with subjective fevers and chills that started 06/24/2020 Patient recently received his Covid vaccine. Denies any past surgical history. Moved here from [place] 30 years ago. Took amoxicillin. Ate soup around 3-4 PM on 06/23 and last bowel movement was around 4 PM with no melena or hematochezia (yellow color). 06-29 Right sided percutaneous drain on ct there is a persistent abscess which may or may not indicate within drain. site // wbc 20k // t max 99.7 06-29 // t max 100.3 06-26 pain is controlled. Tolerating p.o. okay. Blood cultures 1 out of 2 bottles positive for small gram-negative cocci and gram-positive cocci. Continue Zosyn. Start Zyvox and fluconazole. IV drain may need repositioned, IR WILL see D/W RN and family in room 06/24: Found with perforated appendicitis. To IR for percutaneous drain 06/25: T-max 100.3 F overnight. Pain is better minimal pain at drain site. No nausea or vomiting. He has a little bit of an appetite. Discussed via glassblower with son and bedside plan is to continue antibiotics and after discussion with surgery to trial on p.o. today and return for appendectomy for definitive treatment after he completes an antibiotic course. 06/26: Afebrile overnight. States his pain is controlled. Tolerating p.o. okay. Blood cultures 1 out of 2 bottles positive for small gram-negative cocci and gram-positive cocci. Drain with minimal output today. Afebrile overnight. Blood cultures pending. Abscess culture with multiple organisms 2 different E. coli with sensitivities to cephalosporins and Zosyn. Pain better, eating 100% of meals, no diarrhea, no vomiting. [ESCHERICHIA COLI] (2 STRAINS) MANY [STREPTOCOCCUS CONSTELLATUS] MANY [STREPTOCOCCUS ANGINOSUS] MANY [CLOSTRIDIUM PERFRINGENS] MANY [BACTEROIDES FRAGILIS] ESCHERICHIA COLI ESCHERICHIA COLI STREPTOCOCCUS ANGINOSUS STREPTOCOCCUS CONSTELLATUS CLOSTRIDIUM PERFRINGENS BACTEROIDES FRAGILIS 06-28 D/W RN WILL CONSULT ID, CONT IV ZOSYN Vitals Vitals Vital Signs Date Time Temp Pulse Resp B/P (MAP) Pulse Ox O2 Delivery O2 Flow Rate FiO2 06/29/20 07:00 99.7 89 18 136/81 (99) 94 Room Air 99.7 Physical Exam General: Alert, Oriented X3, Cooperative Heart: Regular rate Abdomen: Soft, Other (currently nothing in drain) Extremities: No clubbing, No cyanosis, No edema, Normal pulses, No tende rness/swelling Skin: No rashes, No breakdown, No significant lesion Labs LABS ANTIMICROBIAL SUSCEPTIBILITY Final (continued) NEG ENDY 56 ESCHERICHIA COLI ANTIBIOTIC RESULT INTERPRETATION AMPICILLIN/SULBACTAM >16/8 R AMIKACIN <=16 S AMPICILLIN >16 R AMOXICILLIN/K CLAVULANATE 16/8 I AZTREONAM <=4 S CEFTRIAXONE <=1 S CEFTAZIDIME <=1 S CEFOTAXIME <=2 S CEFOXITIN <=8 S CEFAZOLIN >16 R CIPROFLOXACIN >2 R CEFEPIME <=2 S CEFUROXIME <=4 S CEFTAZIDIME/AVIBACTAM <=4 S ERTAPENEM <=0.5 S GENTAMICIN >8 R LEVOFLOXACIN >4 R MEROPENEM <=1 S PIPERACILLIN/TAZOBACTAM <=8 S TRIMETHOPRIM/SULFAMETHOXAZOLE >2/38 R TETRACYCLINE >8 R TOBRAMYCIN >8 R NEG ENDY 56 ESCHERICHIA COLI ANTIBIOTIC RESULT INTERPRETATION AMPICILLIN/SULBACTAM 16/8 I AMIKACIN <=16 S AMPICILLIN >16 R AMOXICILLIN/K CLAVULANATE <=8/4 S AZTREONAM <=4 S CEFTRIAXONE <=1 S CEFTAZIDIME <=1 S CEFOTAXIME <=2 S CEFOXITIN <=8 S CEFAZOLIN <=2 S CIPROFLOXACIN <=0.25 S CEFEPIME <=2 S CEFUROXIME <=4 S CEFTAZIDIME/AVIBACTAM <=4 S ERTAPENEM <=0.5 S GENTAMICIN <=2 S LEVOFLOXACIN <=0.5 S MEROPENEM <=1 S PIPERACILLIN/TAZOBACTAM <=8 S TRIMETHOPRIM/SULFAMETHOXAZOLE <=0.5/9.5 S TETRACYCLINE >8 R TOBRAMYCIN <=2 S SPEC #: [id number] IVORY: 06/24/20 STATUS: RES REQ #: [id number] RECD: 06/24/202 [facility] DR: GARY ESCOBAR MD SOURCE: ABSCESS ENTR: 06/24/[address]: BOBBY PARNELL MD SPDESC: NO PCP SHARI CALI MD ORDERED: ANAER/AEROB/GS COMMENTS: PELVIC ABSCESS FLUID Procedure Result GRAM STAIN Final Final GRAM NEGATIVE RODS:MANY GRAM POSITIVE RODS:MODERATE GRAM POSITIVE COCCI:MANY SQUAMOUS EPI CELL:NONE SEEN PMN (WBCs):MANY Unless otherwise specified, Testing Performed by: [facility] [address] [place] [address] For Inquires, the Physician may contact the Microbiology department at [phone] ANAEROBIC-AEROBIC CULTURE Preliminary Preliminary MIXED AEROBIC AND ANAEROBIC FEDERICO on 06/26/20 at 1519 INCLUDING: MANY GRAM NEGATIVE RODS on 06/25/20 at 0907 FINAL ID= [ESCHERICHIA COLI] (2 STRAINS) MANY [STREPTOCOCCUS CONSTELLATUS] MANY [STREPTOCOCCUS ANGINOSUS] MANY [CLOSTRIDIUM PERFRINGENS] MANY [BACTEROIDES FRAGILIS] ESCHERICHIA COLI ESCHERICHIA COLI STREPTOCOCCUS ANGINOSUS STREPTOCOCCUS CONSTELLATUS CLOSTRIDIUM PERFRINGENS BACTEROIDES FRAGILIS ANTIMICROBIAL SUSCEPTIBILITY Preliminary Comment Comment CT SCAN OF THE ABDOMEN AND PELVIS WITH IV CONTRAST. History: Reason: perf appy, drain / Comparison:None. Procedure: Contiguous axial images of the abdomen and pelvis were performed after the administration of 75 cc of Omni 300 IV contrast and oral contrast. Findings: There is a new right pleural effusion with adjacent infiltrate. There is a percutaneous drain in the right hemipelvis. The air-fluid collection anterior to the cecum in the location of the drain is no longer present however there is a persistent air-fluid collection more inferiorly that measures 5.6 x 3.2 centers. Contrast is seen in the ascending colon. There is a nonopacified tubular structure inferior to the cecum which could be a portion of the appendix however no normal appendix is seen. There is moderate wall thickening of the cecum and terminal ileum. There is thickening of the abdominal wall laterally on the right. There is fat-containing inguinal canal hernias. The prostate is not enlarged. There are a few small reactive mesenteric lymph nodes on the right. Liver: Unremarkable Spleen: Unremarkable Pancreas: Unremarkable Adrenal Glands: Unremarkable Kidneys: Unremarkable There is no free air. There is no free fluid. The urinary bladder appears normal. Impression: 1. New small right pleural effusion with adjacent infiltrate. 2. Right sided percutaneous drain there is a persistent abscess which may or may not indicate with a drain. 3. Thickening of the right abdominal wall could be edema or hematoma. End impression PQRS Compliance Statement: One or more of the following individualized dose reduction techniques were utilized for this examination: 1. Automated exposure control 2. Adjustment of the mA and/or kV according to patient size 3. Use of iterative reconstruction technique Electronically signed by: Yoandy Duarte III, MD (06/29/2020 8:08 AM) [facility] Laboratory Tests Test 06/29/20 00:02 06/29/20 02:00 Lactic Acid Level 0.6 mmol/L (0.4-2.0) White Blood Count 20.7 x10^3/uL (4.0-11.0) Red Blood Count 4.41 x10^6/uL (4.30-5.70) Hemoglobin 13.0 g/dL (13.0-17.5) Hematocrit 39.8 % (39.0-53.0) Mean Corpuscular Volume 90 fL (79-100) Mean Corpuscular Hemoglobin 29 pg (25-35) Mean Corpuscular Hemoglobin Concent 33 g/dL (31-37) Red Cell Distribution Width 14.4 % (11.5-14.5) Platelet Count 348 x10^3/uL (140-400) Neutrophils (%) (Auto) 83 % (31-73) Lymphocytes (%) (Auto) 9 % (24-48) Monocytes (%) (Auto) 5 % (0-9) Eosinophils (%) (Auto) 2 % (0-3) Basophils (%) (Auto) 1 % (0-3) Neutrophils # (Auto) 17.1 x10^3/uL (1.8-7.7) Lymphocytes # (Auto) 1.9 x10^3/uL (1.0-4.8) Monocytes # (Auto) 1.1 x10^3/uL (0.0-1.1) Eosinophils # (Auto) 0.4 x10^3/uL (0.0-0.7) Basophils # (Auto) 0.2 x10^3/uL (0.0-0.2) Sodium Level 139 mmol/L (136-145) Potassium Level 4.1 mmol/L (3.5-5.1) Chloride Level 104 mmol/L (98-107) Carbon Dioxide Level 25 mmol/L (21-32) Anion Gap 10 (6-14) Blood Urea Nitrogen 12 mg/dL (8-26) Creatinine 0.7 mg/dL (0.7-1.3) Estimated GFR (Cockcroft-Gault) 115.0 BUN/Creatinine Ratio 17 (6-20) Glucose Level 83 mg/dL (70-99) Calcium Level 8.3 mg/dL (8.5-10.1) Total Bilirubin 0.6 mg/dL (0.2-1.0) Aspartate Amino Transf (AST/SGOT) 28 U/L (15-37) Alanine Aminotransferase (ALT/SGPT) 38 U/L (16-63) Alkaline Phosphatase 113 U/L (46-116) Total Protein 7.5 g/dL (6.4-8.2) Albumin 2.1 g/dL (3.4-5.0) Albumin/Globulin Ratio 0.4 (1.0-1.7) Assessment and Plan Assessmemt and Plan Problems Medical Problems: (1) Acute perforated appendicitis Status: Acute (2) Bandemia Status: Acute (3) Peritonitis Status: Acute (4) Sepsis Status: Acute Comment Review of Relevant I have reviewed the following items ab (where applicable) has been applied. Labs Laboratory Tests Test 06/29/20 00:02 06/29/20 02:00 Lactic Acid Level 0.6 mmol/L (0.4-2.0) White Blood Count 20.7 x10^3/uL (4.0-11.0) Red Blood Count 4.41 x10^6/uL (4.30-5.70) Hemoglobin 13.0 g/dL (13.0-17.5) Hematocrit 39.8 % (39.0-53.0) Mean Corpuscular Volume 90 fL (79-100) Mean Corpuscular Hemoglobin 29 pg (25-35) Mean Corpuscular Hemoglobin Concent 33 g/dL (31-37) Red Cell Distribution Width 14.4 % (11.5-14.5) Platelet Count 348 x10^3/uL (140-400) Neutrophils (%) (Auto) 83 % (31-73) Lymphocytes (%) (Auto) 9 % (24-48) Monocytes (%) (Auto) 5 % (0-9) Eosinophils (%) (Auto) 2 % (0-3) Basophils (%) (Auto) 1 % (0-3) Neutrophils # (Auto) 17.1 x10^3/uL (1.8-7.7) Lymphocytes # (Auto) 1.9 x10^3/uL (1.0-4.8) Monocytes # (Auto) 1.1 x10^3/uL (0.0-1.1) Eosinophils # (Auto) 0.4 x10^3/uL (0.0-0.7) Basophils # (Auto) 0.2 x10^3/uL (0.0-0.2) Sodium Level 139 mmol/L (136-145) Potassium Level 4.1 mmol/L (3.5-5.1) Chloride Level 104 mmol/L (98-107) Carbon Dioxide Level 25 mmol/L (21-32) Anion Gap 10 (6-14) Blood Urea Nitrogen 12 mg/dL (8-26) Creatinine 0.7 mg/dL (0.7-1.3) Estimated GFR (Cockcroft-Gault) 115.0 BUN/Creatinine Ratio 17 (6-20) Glucose Level 83 mg/dL (70-99) Calcium Level 8.3 mg/dL (8.5-10.1) Total Bilirubin 0.6 mg/dL (0.2-1.0) Aspartate Amino Transf (AST/SGOT) 28 U/L (15-37) Alanine Aminotransferase (ALT/SGPT) 38 U/L (16-63) Alkaline Phosphatase 113 U/L (46-116) Total Protein 7.5 g/dL (6.4-8.2) Albumin 2.1 g/dL (3.4-5.0) Albumin/Globulin Ratio 0.4 (1.0-1.7) Laboratory Tests Test 06/29/20 00:02 06/29/20 02:00 Lactic Acid Level 0.6 mmol/L (0.4-2.0) White Blood Count 20.7 x10^3/uL (4.0-11.0) Red Blood Count 4.41 x10^6/uL (4.30-5.70) Hemoglobin 13.0 g/dL (13.0-17.5) Hematocrit 39.8 % (39.0-53.0) Mean Corpuscular Volume 90 fL (79-100) Mean Corpuscular Hemoglobin 29 pg (25-35) Mean Corpuscular Hemoglobin Concent 33 g/dL (31-37) Red Cell Distribution Width 14.4 % (11.5-14.5) Platelet Count 348 x10^3/uL (140-400) Neutrophils (%) (Auto) 83 % (31-73) Lymphocytes (%) (Auto) 9 % (24-48) Monocytes (%) (Auto) 5 % (0-9) Eosinophils (%) (Auto) 2 % (0-3) Basophils (%) (Auto) 1 % (0-3) Neutrophils # (Auto) 17.1 x10^3/uL (1.8-7.7) Lymphocytes # (Auto) 1.9 x10^3/uL (1.0-4.8) Monocytes # (Auto) 1.1 x10^3/uL (0.0-1.1) Eosinophils # (Auto) 0.4 x10^3/uL (0.0-0.7) Basophils # (Auto) 0.2 x10^3/uL (0.0-0.2) Sodium Level 139 mmol/L (136-145) Potassium Level 4.1 mmol/L (3.5-5.1) Chloride Level 104 mmol/L (98-107) Carbon Dioxide Level 25 mmol/L (21-32) Anion Gap 10 (6-14) Blood Urea Nitrogen 12 mg/dL (8-26) Creatinine 0.7 mg/dL (0.7-1.3) Estimated GFR (Cockcroft-Gault) 115.0 BUN/Creatinine Ratio 17 (6-20) Glucose Level 83 mg/dL (70-99) Calcium Level 8.3 mg/dL (8.5-10.1) Total Bilirubin 0.6 mg/dL (0.2-1.0) Aspartate Amino Transf (AST/SGOT) 28 U/L (15-37) Alanine Aminotransferase (ALT/SGPT) 38 U/L (16-63) Alkaline Phosphatase 113 U/L (46-116) Total Protein 7.5 g/dL (6.4-8.2) Albumin 2.1 g/dL (3.4-5.0) Albumin/Globulin Ratio 0.4 (1.0-1.7) Microbiology 06/24/20 Gram Stain - Final, Resulted 06/24/20 Aerobic and Anaerobic Culture - Preliminary, Resulted 06/24/20 Antimicrobic Susceptibility - Preliminary, Resulted 06/23/20 Blood Culture - Preliminary, Resulted Medications Current Medications Sodium Chloride 1,000 ml @ 1,000 mls/hr 1X ONCE IV Last administered on 06/23/20at 19:57; Start 06/23/20 at 19:30; Stop 06/23/20 at 20:29; Status DC Sodium Chloride 1,000 ml @ 1,000 mls/hr 1X ONCE IV Last administered on 06/23/20at 19:57; Start 06/23/20 at 19:30; Stop 06/23/20 at 20:29; Status DC Iohexol (Omnipaque 300 Mg/ml) 75 ml 1X ONCE IV Last administered on 06/23/20at 20:25; Start 06/23/20 at 20:15; Stop 06/23/20 at 20:16; Status DC Info (CONTRAST GIVEN -- Rx MONITORING) 1 each PRN DAILY PRN MC SEE COMMENTS; Start 06/23/20 at 20:15; Stop 06/25/20 at 20:14; Status DC Piperacillin Sod/ Tazobactam Sod 4.5 gm/Sodium Chloride 100 ml @ 200 mls/hr 1X ONCE IV Last administered on 06/23/20at 21:57; Start 06/23/20 at 22:00; Stop 06/23/20 at 22:29; Status DC Vancomycin HCl (Vanco Per Pharmacy) 1 each PRN DAILY PRN MC SEE COMMENTS Last administered on 06/24/20at 03:43; Start 06/23/20 at 21:30; Stop 06/24/20 at 07:43; Status DC Vancomycin HCl 1.75 gm/Sodium Chloride 500 ml @ 250 mls/hr 1X ONCE IV Last administered on 06/23/20at 23:32; Start 06/23/20 at 22:00; Stop 06/23/20 at 23:59; Status DC Ondansetron HCl (Zofran) 4 mg PRN Q8HRS PRN IV NAUSEA/VOMITING 1ST CHOICE; S tart 06/23/20 at 21:45; Stop 06/24/20 at 07:43; Status DC Sodium Chloride 1,000 ml @ 100 mls/hr Q10H IV Last administered on 06/24/20at 20:58; Start 06/23/20 at 22:00; Stop 06/24/20 at 21:59; Status DC Hydromorphone HCl (Dilaudid) 1 mg 1X ONCE IVP Last administered on 06/24/20at 00:29; Start 06/24/20 at 00:30; Stop 06/24/20 at 00:31; Status DC Vancomycin HCl 1 gm/Sodium Chloride 250 ml @ 250 mls/hr Q12H IV ; Start 06/24/20 at 11:00; Stop 06/24/20 at 07:43; Status DC Vancomycin HCl (Vancomycin Trough Level) 1 each 1X ONCE MC ; Start 06/25/20 at 10:30; Stop 06/24/20 at 07:47; Status DC Hydromorphone HCl (Dilaudid) 1 mg 1X ONCE IVP Last administered on 06/24/20at 06:30; Start 06/24/20 at 06:30; Stop 06/24/20 at 06:31; Status DC Hydromorphone HCl (Dilaudid) 2 mg STK-MED ONCE .ROUTE ; Start 06/24/20 at 05:54; Stop 06/24/20 at 05:55; Status DC Piperacillin Sod/ Tazobactam Sod 3.375 gm/Sodium Chloride 50 ml @ 100 mls/hr Q6HRS IV Last administered on 06/29/20at 05:51; Start 06/24/20 at 07:45 Ondansetron HCl (Zofran) 4 mg PRN Q4HRS PRN IV NAUSEA/VOMITING 1ST CHOICE; Start 06/24/20 at 07:45 Acetaminophen (Tylenol) 650 mg PRN Q6HRS PRN PO MILD PAIN / TEMP > 100.3'F Last administered on 06/28/20at 21:39; Start 06/24/20 at 07:45 Acetaminophen (Tylenol Supp) 650 mg PRN Q6HRS PRN MS MILD PAIN / TEMP > 100.3'F; Start 06/24/20 at 07:45 Ketorolac Tromethamine (Toradol 30mg Vial) 30 mg PRN Q6HRS PRN IVP INFLAMMATION Last administered on 06/27/20at 03:43; Start 06/24/20 at 07:45; Stop 06/27/20 at 03:43; Status DC Morphine Sulfate (Morphine Sulfate) 2 mg PRN Q2HR PRN IV PAIN Last administered on 06/28/20at 19:13; Start 06/24/20 at 07:45 Lidocaine HCl (Buffered Lidocaine 1%) 3 ml STK-MED ONCE .ROUTE ; Start 06/24/20 at 10:58; Stop 06/24/20 at 10:58; Status DC Midazolam HCl (Versed) 2 mg STK-MED ONCE .ROUTE ; Start 06/24/20 at 13:34; Stop 06/24/20 at 13:34; Status DC Fentanyl Citrate (Fentanyl 2ml Vial) 100 mcg STK-MED ONCE .ROUTE ; Start 06/24/20 at 13:34; Stop 06/24/20 at 13:35; Status DC Lidocaine HCl (Buffered Lidocaine 1%) 3 ml 1X ONCE IJ Last administered on 06/24/20at 13:45; Start 06/24/20 at 13:45; Stop 06/24/20 at 13:48; Status DC Midazolam HCl (Versed) 2 mg 1X ONCE IV Last administered on 06/24/20at 13:45; Start 06/24/20 at 13:45; Stop 06/24/20 at 13:48; Status DC Fentanyl Citrate (Fentanyl 2ml Vial) 100 mcg 1X ONCE IV Last administered on 06/24/20at 13:45; Start 06/24/20 at 13:45; Stop 06/24/20 at 13:48; Status DC Lactobacillus Rhamnosus (Culturelle) 1 cap BID PO Last administered on 06/29/20at 08:45; Start 06/27/20 at 12:00 Iohexol (Omnipaque 240 Mg/ml) 30 ml 1X ONCE PO Last administered on 06/29/20at 07:30; Start 06/29/20 at 07:15; Stop 06/29/20 at 07:26; Status DC Iohexol (Omnipaque 300 Mg/ml) 75 ml 1X ONCE IV Last administered on 06/29/20at 07:30; Start 06/29/20 at 07:15; Stop 06/29/20 at 07:26; Status DC Info (CONTRAST GIVEN -- Rx MONITORING) 1 each PRN DAILY PRN MC SEE COMMENTS; Start 06/29/20 at 07:30; Stop 07/01/20 at 07:29 Linezolid/Dextrose 300 ml @ 300 mls/hr Q12HR IV Last administered on 06/29/20at 10:07; Start 06/29/20 at 10:00 Fluconazole/ Sodium Chloride 200 ml @ 100 mls/hr Q24H IV ; Start 06/29/20 at 11:00 Vitals/I & O Vital Sign - Last 24 Hours 06/28/20 06/28/20 06/28/20 06/28/20 14:33 15:33 16:30 19:00 Temp 99.4 99.7 99.4 99.7 Pulse 89 95 Resp 18 18 B/P (MAP) 126/83 (97) 158/81 (106) Pulse Ox 93 93 O2 Delivery Room Air Room Air Room Air Room Air 06/28/20 06/28/20 06/28/20 06/28/20 19:13 19:48 20:00 23:00 Temp 98.5 98.5 Pulse 95 Resp 14 15 18 B/P (MAP) 148/80 (102) Pulse Ox 93 94 O2 Delivery Room Air Room Air Room Air Room Air 06/29/20 06/29/20 03:00 07:00 Temp 97.7 99.7 97.7 99.7 Pulse 83 89 Resp 18 18 B/P (MAP) 122/75 (91) 136/81 (99) Pulse Ox 94 94 O2 Delivery Room Air Room Air Intake and Output 0 06/28/20 06/28/20 06/29/20 15:00 23:00 07:00 Intake Total 500 ml Output Total 25 ml Balance 475 ml Justicifation of Admission Dx: Justifications for Admission: Justification of Admission Dx: Yes REMBERTO DUNLAP MD June 29, 2020 10:52
[2020-06-29] MEDS: FLUCONAZOLE 400MG/200ML PREMIX 200 ML IV SCH (11:27)
[2020-06-29] MEDS ORDERED: LIDOCAINE WITH 8.4% SOD BICARB 3 ML DISP.SYRIN. ONE (15:09)
[2020-06-29] MEDS ORDERED: fentaNYL PF VIAL 250 MCG/5 ML VIAL ONE (15:21)
[2020-06-29] MEDS ORDERED: MIDAZOLAM HCL/PF 2 MG/2 ML VIAL. ONE (15:36)
[2020-06-29] MEDS ORDERED: fentaNYL PF VIAL 250 MCG/5 ML VIAL IV ONE (15:45)
[2020-06-29] MEDS ORDERED: LIDOCAINE WITH 8.4% SOD BICARB 3 ML DISP.SYRIN. IJ ONE (15:45)
[2020-06-29] MEDS ORDERED: MIDAZOLAM HCL/PF 2 MG/2 ML VIAL. IV ONE (15:45)
--- NOTE | 2020-06-29 16:13 | PDOC4 ---
IR NOTE: RLQ 10 Fr new drain placed in new RLQ abscess BRANDO WESLEY MD June 29, 2020 16:13
[2020-06-29] MEDS ORDERED: IV NORMAL SALINE 1000ML BAG 1,000 ML IV ONE (18:15)
[2020-06-29] MEDS: ACETAMINOPHEN 325 MG TABLET. PO PRN (18:51)
[2020-06-30] MEDS: PIPERACILLIN/TAZOBACTAM 3.375 GM in IV NORMAL SALINE 50ML 50 ML IV SCH ×5 (00:09→23:58)
[2020-06-30 03:00] VITALS: BP 124/80
[2020-06-30 07:00] VITALS: BP 121/73
[2020-06-30 07:10] LABS: BASO % 0 % (0-3); EOS # 0.2 x10^3/uL (0.0-0.7); EOS % 1 % (0-3); HEMOGLOBIN 13.5 g/dL (13.0-17.5); LYMPH # 1.6 x10^3/uL (1.0-4.8); LYMPH % 10 % (24-48); MEAN CORPUSCULAR HEMOGLOBIN 30 pg (25-35); MEAN CORPUSCULAR HGB CONC 33 g/dL (31-37); MEAN CORPUSCULAR VOLUME 90 fL (79-100); MONO # 0.8 x10^3/uL (0.0-1.1); MONO % 5 % (0-9); NEUT # 13.3 x10^3/uL (1.8-7.7); NEUT % 84 % (31-73); PLATELET COUNT 388 x10^3/uL (140-400); RED BLOOD COUNT 4.56 x10^6/uL (4.30-5.70); RED CELL DISTRIBUTION WIDTH 14.1 % (11.5-14.5); WHITE BLOOD COUNT 15.9 x10^3/uL (4.0-11.0)
[2020-06-30 07:11] LABS: CALCIUM 8.5 mg/dL (8.5-10.1); CREATININE 0.7 mg/dL (0.7-1.3); POTASSIUM 4.6 mmol/L (3.5-5.1)
--- NOTE | 2020-06-30 08:23 | PDOC ---
Infectious Disease Note Subjective: Subjective Patient's is at bedside for interpretation Today he feels better though has some abdominal pain at the drain site Underwent second drain placement yesterday Denies any fever, nausea, vomiting, symptoms Vital Signs: Vital Signs Vital Signs Date Time Temp Pulse Resp B/P (MAP) Pulse Ox O2 Delivery O2 Flow Rate FiO2 06/30/20 03:00 98.7 88 18 124/80 (95) 93 Room Air 98.7 06/29/20 15:56 2.0 Physical Exam: PHYSICAL EXAM GENERAL: Alert, awake male, sitting upright in bed, in no acute distress, HEENT: Normocephalic, atraumatic. Anicteric. NECK: Supple. No JVD. LUNGS: Clear bilaterally. No wheezing. HEART: S1, S2. No gallops or murmurs. ABDOMEN: Mildly distended. Drain site shows mild erythema and swelling, mild tenderness to palpation, more tenderness in the right lower quadrant, none on the left upper, mid or left lower quadrant. Bowel sounds present. No rebound no guarding EXTREMITIES: No edema, no cyanosis. DERMATOLOGIC: Warm, dry, no generalized rash. NEUROLOGIC: Alert, oriented x 3, grossly nonfocal. PIV looks clean. Medications: Inpatient Meds: Medications reviewed. Labs: Lab Laboratory Tests Test 06/29/20 12:45 06/30/20 05:55 Lactic Acid Level 1.4 mmol/L (0.4-2.0) White Blood Count 15.9 x10^3/uL (4.0-11.0) Red Blood Count 4.56 x10^6/uL (4.30-5.70) Hemoglobin 13.5 g/dL (13.0-17.5) Hematocrit 41.0 % (39.0-53.0) Mean Corpuscular Volume 90 fL (79-100) Mean Corpuscular Hemoglobin 30 pg (25-35) Mean Corpuscular Hemoglobin Concent 33 g/dL (31-37) Red Cell Distribution Width 14.1 % (11.5-14.5) Platelet Count 388 x10^3/uL (140-400) Neutrophils (%) (Auto) 84 % (31-73) Lymphocytes (%) (Auto) 10 % (24-48) Monocytes (%) (Auto) 5 % (0-9) Eosinophils (%) (Auto) 1 % (0-3) Basophils (%) (Auto) 0 % (0-3) Neutrophils # (Auto) 13.3 x10^3/uL (1.8-7.7) Lymphocytes # (Auto) 1.6 x10^3/uL (1.0-4.8) Monocytes # (Auto) 0.8 x10^3/uL (0.0-1.1) Eosinophils # (Auto) 0.2 x10^3/uL (0.0-0.7) Basophils # (Auto) 0.0 x10^3/uL (0.0-0.2) Sodium Level 140 mmol/L (136-145) Potassium Level 4.6 mmol/L (3.5-5.1) Chloride Level 105 mmol/L (98-107) Carbon Dioxide Level 30 mmol/L (21-32) Anion Gap 5 (6-14) Blood Urea Nitrogen 9 mg/dL (8-26) Creatinine 0.7 mg/dL (0.7-1.3) Estimated GFR (Cockcroft-Gault) 115.0 Glucose Level 99 mg/dL (70-99) Calcium Level 8.5 mg/dL (8.5-10.1) Objective: Assessment: 1. Sepsis, source intra-abdominal. 2. Fever. 3. Leukocytosis and bandemia. 4. Perforated appendix. 5. Intraabdominal abscess, status post IR drainage with polymicrobial organism. 6. Gram-negative patricia bacteremia, Bacteroides splanchnicus and GPC. Plan: Plan of Care 1. Continue Zosyn, Zyvox and fluconazole. 2. Follow-up blood culture results 3. Drain management as directed 4. Follow up blood cultures and lab. 5. General Surgery following 6. Follow up repeat blood cultures from 06/28/2020. Negative so far 7. Continue supportive care. Discussed with at bedside Discussed with nursing staff SHANTELLE MAHARAJ MD June 30, 2020 08:23
[2020-06-30] MEDS: LACTOBACILLUS RHAMNOSUS GG 1 CAPSULE. PO SCH ×2 (08:39→21:42)
--- NOTE | 2020-06-30 09:44 | PDOC ---
SURGICAL PROGRESS NOTE DATE: 06/30/20 TIME: 09:42 Subjective feels better today drain was able to be placed yesterday Vital Signs Vital Signs Date Time Temp Pulse Resp B/P (MAP) Pulse Ox O2 Delivery O2 Flow Rate FiO2 06/30/20 07:00 97.9 85 18 121/73 (89) 93 Room Air 97.9 06/29/20 15:56 2.0 I&O Intake and Output 06/30/20 07:00 Output Total 390 ml Balance -390 ml Output Urine Total 300 ml Drainage Total 90 ml # Voids 1 General: Alert, Oriented X3, Cooperative Abdomen: Soft, Other (drains in place, new drain with purulent drainage) Labs Laboratory Tests Test 06/29/20 00:02 06/29/20 02:00 06/29/20 12:45 06/30/20 05:55 Lactic Acid Level 0.6 mmol/L (0.4-2.0) 1.4 mmol/L (0.4-2.0) White Blood Count 20.7 x10^3/uL (4.0-11.0) 15.9 x10^3/uL (4.0-11.0) Red Blood Count 4.41 x10^6/uL (4.30-5.70) 4.56 x10^6/uL (4.30-5.70) Hemoglobin 13.0 g/dL (13.0-17.5) 13.5 g/dL (13.0-17.5) Hematocrit 39.8 % (39.0-53.0) 41.0 % (39.0-53.0) Mean Corpuscular Volume 90 fL (79-100) 90 fL (79-100) Mean Corpuscular Hemoglobin 29 pg (25-35) 30 pg (25-35) Mean Corpuscular Hemoglobin Concent 33 g/dL (31-37) 33 g/dL (31-37) Red Cell Distribution Width 14.4 % (11.5-14.5) 14.1 % (11.5-14.5) Platelet Count 348 x10^3/uL (140-400) 388 x10^3/uL (140-400) Neutrophils (%) (Auto) 83 % (31-73) 84 % (31-73) Lymphocytes (%) (Auto) 9 % (24-48) 10 % (24-48) Monocytes (%) (Auto) 5 % (0-9) 5 % (0-9) Eosinophils (%) (Auto) 2 % (0-3) 1 % (0-3) Basophils (%) (Auto) 1 % (0-3) 0 % (0-3) Neutrophils # (Auto) 17.1 x10^3/uL (1.8-7.7) 13.3 x10^3/uL (1.8-7.7) Lymphocytes # (Auto) 1.9 x10^3/uL (1.0-4.8) 1.6 x10^3/uL (1.0-4.8) Monocytes # (Auto) 1.1 x10^3/uL (0.0-1.1) 0.8 x10^3/uL (0.0-1.1) Eosinophils # (Auto) 0.4 x10^3/uL (0.0-0.7) 0.2 x10^3/uL (0.0-0.7) Basophils # (Auto) 0.2 x10^3/uL (0.0-0.2) 0.0 x10^3/uL (0.0-0.2) Sodium Level 139 mmol/L (136-145) 140 mmol/L (136-145) Potassium Level 4.1 mmol/L (3.5-5.1) 4.6 mmol/L (3.5-5.1) Chloride Level 104 mmol/L (98-107) 105 mmol/L (98-107) Carbon Dioxide Level 25 mmol/L (21-32) 30 mmol/L (21-32) Anion Gap 10 (6-14) 5 (6-14) Blood Urea Nitrogen 12 mg/dL (8-26) 9 mg/dL (8-26) Creatinine 0.7 mg/dL (0.7-1.3) 0.7 mg/dL (0.7-1.3) Estimated GFR (Cockcroft-Gault) 115.0 115.0 BUN/Creatinine Ratio 17 (6-20) Glucose Level 83 mg/dL (70-99) 99 mg/dL (70-99) Calcium Level 8.3 mg/dL (8.5-10.1) 8.5 mg/dL (8.5-10.1) Total Bilirubin 0.6 mg/dL (0.2-1.0) Aspartate Amino Transf (AST/SGOT) 28 U/L (15-37) Alanine Aminotransferase (ALT/SGPT) 38 U/L (16-63) Alkaline Phosphatase 113 U/L (46-116) Total Protein 7.5 g/dL (6.4-8.2) Albumin 2.1 g/dL (3.4-5.0) Albumin/Globulin Ratio 0.4 (1.0-1.7) Laboratory Tests Test 06/29/20 12:45 06/30/20 05:55 Lactic Acid Level 1.4 mmol/L (0.4-2.0) White Blood Count 15.9 x10^3/uL (4.0-11.0) Red Blood Count 4.56 x10^6/uL (4.30-5.70) Hemoglobin 13.5 g/dL (13.0-17.5) Hematocrit 41.0 % (39.0-53.0) Mean Corpuscular Volume 90 fL (79-100) Mean Corpuscular Hemoglobin 30 pg (25-35) Mean Corpuscular Hemoglobin Concent 33 g/dL (31-37) Red Cell Distribution Width 14.1 % (11.5-14.5) Platelet Count 388 x10^3/uL (140-400) Neutrophils (%) (Auto) 84 % (31-73) Lymphocytes (%) (Auto) 10 % (24-48) Monocytes (%) (Auto) 5 % (0-9) Eosinophils (%) (Auto) 1 % (0-3) Basophils (%) (Auto) 0 % (0-3) Neutrophils # (Auto) 13.3 x10^3/uL (1.8-7.7) Lymphocytes # (Auto) 1.6 x10^3/uL (1.0-4.8) Monocytes # (Auto) 0.8 x10^3/uL (0.0-1.1) Eosinophils # (Auto) 0.2 x10^3/uL (0.0-0.7) Basophils # (Auto) 0.0 x10^3/uL (0.0-0.2) Sodium Level 140 mmol/L (136-145) Potassium Level 4.6 mmol/L (3.5-5.1) Chloride Level 105 mmol/L (98-107) Carbon Dioxide Level 30 mmol/L (21-32) Anion Gap 5 (6-14) Blood Urea Nitrogen 9 mg/dL (8-26) Creatinine 0.7 mg/dL (0.7-1.3) Estimated GFR (Cockcroft-Gault) 115.0 Glucose Level 99 mg/dL (70-99) Calcium Level 8.5 mg/dL (8.5-10.1) Problem List Problems Medical Problems: (1) Acute perforated appendicitis Status: Acute (2) Bandemia Status: Acute (3) Peritonitis Status: Acute (4) Sepsis Status: Acute Assessment/Plan wbc improved, pain improved continue drain, abx will review with IR tomorrow possible remove drain #1 Justicifation of Admission Dx: Justifications for Admission: Justification of Admission Dx: Yes DANIELA RAMOS APRN June 30, 2020 09:44
--- NOTE | 2020-06-30 10:40 | PDOC ---
PROGRESS NOTES Date of Service: DATE: 06/30/20 TIME: 10:48 Chief Complaint Chief Complaint IMPRESSION Abdominal abscess - due to perforated appendicitis. NPO. General surgery consulted. Will continue antibiotics, IR to see if this is amenable to drain Appendicitis - with perforation. Continue IV antibiotics, zosyn. No surgery at this time due to perforation Sepsis - due to perforated appendicitis - given fluids and antibiotics Hyperglycemia - likely due to stress - will check A1c Left pleural effusion - no respiratory distress Right sided percutaneous drain there is a persistent abscess which may or may not indicate with a drain. CT 06-29 PLAN FEN - Clear liquid diet PPX - heparin FULL CODE Dispo - inpatient ID CONSULT Continue Zosyn. Start Zyvox and fluconazole. drain was able to be placed 06-29 History of Present Illness History of Present Illness Mr Chapa is a 59-year-old male with no significant past medical history, Wolof-speaking only, presents to the ED on 06/23/2020 accompanied by his son with complaints of diffuse abdominal pain that started on , 06/20/2020, now localized to right lower quadrant with subjective fevers and chills that started 06/24/2020 Patient recently received his Covid vaccine. Denies any past surgical history. Moved here from [place] 30 years ago. Took amoxicillin. Ate soup around 3-4 PM on 06/23 and last bowel movement was around 4 PM with no melena or hematochezia (yellow color). 06-30 Right sided percutaneous drain on ct there is a persistent abscess whi ch may or may not indicate within drain. site // wbc 20k // t max 99.7 06-29 // t max 100.3 4-28 pain is controlled. Tolerating p.o. okay. Blood cultures 1 out of 2 bottles positive for small gram-negative cocci and gram-positive cocci. Continue Zosyn. Start Zyvox and fluconazole. IV drain may need repositioned, IR WILL see drain was able to be placed 06-29 D/W RN and family in room 06-29 Right sided percutaneous drain on ct there is a persistent abscess which may or may not indicate within drain. site // wbc 20k // t max 99.7 06-29 // t max 100.3 06-26 pain is controlled. Tolerating p.o. okay. Blood cultures 1 out of 2 bottles positive for small gram-negative cocci and gram-positive cocci. Continue Zosyn. Start Zyvox and fluconazole. IV drain may need repositioned, IR WILL see drain was able to be placed 06-29 D/ RN and family in room 06/24: Found with perforated appendicitis. To IR for percutaneous drain 06/25: T-max 100.3 F overnight. Pain is better minimal pain at drain site. No nausea or vomiting. He has a little bit of an appetite. Discussed via gunner's mate with son and bedside plan is to continue antibiotics and after discussion with surgery to trial on p.o. today and return for appendectomy for definitive treatment after he completes an antibiotic course. 06/26: Afebrile overnight. States his pain is controlled. Tolerating p.o. okay. Blood cultures 1 out of 2 bottles positive for small gram-negative cocci and gram-positive cocci. Drain with minimal output today. Afebrile overnight. Blood cultures pending. Abscess culture with multiple organisms 2 different E. coli with sensitivities to cephalosporins and Zosyn. Pain better, eating 100% of meals, no diarrhea, no vomiting. [ESCHERICHIA COLI] (2 STRAINS) MANY [STREPTOCOCCUS CONSTELLATUS] MANY [STREPTOCOCCUS ANGINOSUS] MANY [CLOSTRIDIUM PERFRINGENS] MANY [BACTEROIDES FRAGILIS] ESCHERICHIA COLI ESCHERICHIA COLI STREPTOCOCCUS ANGINOSUS STREPTOCOCCUS CONSTELLATUS CLOSTRIDIUM PERFRINGENS BACTEROIDES FRAGILIS 06-28 D/W RN WILL CONSULT ID, CONT IV ZOSYN Vitals Vitals Vital Signs Date Time Temp Pulse Resp B/P (MAP) Pulse Ox O2 Delivery O2 Flow Rate FiO2 06/30/20 08:00 Room Air 06/30/20 07:00 97.9 85 18 121/73 (89) 93 97.9 06/29/20 15:56 2.0 Physical Exam Physical Exam GENERAL: Alert, awake male, sitting upright in bed, in no acute distress, HEENT: Normocephalic, atraumatic. Anicteric. NECK: Supple. No JVD. LUNGS: Clear bilaterally. No wheezing. HEART: S1, S2. No gallops or murmurs. ABDOMEN: Mildly distended. Drain site shows mild erythema and swelling, mild tenderness to palpation, more tenderness in the right lower quadrant, none on the left upper, mid or left lower quadrant. Bowel sounds present. No rebound no guarding EXTREMITIES: No edema, no cyanosis. DERMATOLOGIC: Warm, dry, no generalized rash. NEUROLOGIC: Alert, oriented x 3, grossly nonfocal. PIV looks clean. General: Alert, Oriented X3, Cooperative, No acute distress Heart: Regular rate, Normal S1, Normal S2 Lungs: Clear Abdomen: Normal bowel sounds, Soft, Other (drains in place, new drain with purulent drainage) Extremities: No clubbing, No cyanosis, No edema, Normal pulses, No tenderness/swelling Skin: No rashes, No breakdown, No significant lesion Labs LABS RDERED: ANAER/AEROB/GS COMMENTS: PELVIC ABSCESS FLUID Procedure Result GRAM STAIN Final Final GRAM NEGATIVE RODS:MANY GRAM POSITIVE RODS:MODERATE GRAM POSITIVE COCCI:MANY SQUAMOUS EPI CELL:NONE SEEN PMN (WBCs):MANY Unless otherwise specified, Testing Performed by: [facility] [address] [place] [address] For Inquires, the Physician may contact the Microbiology department at [phone] ANAEROBIC-AEROBIC CULTURE Final Final MIXED AEROBIC AND ANAEROBIC FEDER[place] on 06/26/20 at 1510 INCLUDING: MANY GRAM NEGATIVE RODS on 06/25/20 at 0907 FINAL ID= [ESCHERICHIA COLI] (2 STRAINS) MANY [STREPTOCOCCUS CONSTELLATUS] MANY [STREPTOCOCCUS ANGINOSUS] MANY [CLOSTRIDIUM PERFRINGENS] MANY [BACTEROIDES FRAGILIS] ESCHERICHIA COLI ESCHERICHIA COLI STREPTOCOCCUS ANGINOSUS STREPTOCOCCUS CONSTELLATUS CLOSTRIDIUM PERFRINGENS BACTEROIDES FRAGILIS ANTIMICROBIAL SUSCEPTIBILITY Final Comment Comment Laboratory Tests Test 06/29/20 12:45 06/30/20 05:55 Lactic Acid Level 1.4 mmol/L (0.4-2.0) White Blood Count 15.9 x10^3/uL (4.0-11.0) Red Blood Count 4.56 x10^6/uL (4.30-5.70) Hemoglobin 13.5 g/dL (13.0-17.5) Hematocrit 41.0 % (39.0-53.0) Mean Corpuscular Volume 90 fL (79-100) Mean Corpuscular Hemoglobin 30 pg (25-35) Mean Corpuscular Hemoglobin Concent 33 g/dL (31-37) Red Cell Distribution Width 14.1 % (11.5-14.5) Platelet Count 388 x10^3/uL (140-400) Neutrophils (%) (Auto) 84 % (31-73) Lymphocytes (%) (Auto) 10 % (24-48) Monocytes (%) (Auto) 5 % (0-9) Eosinophils (%) (Auto) 1 % (0-3) Basophils (%) (Auto) 0 % (0-3) Neutrophils # (Auto) 13.3 x10^3/uL (1.8-7.7) Lymphocytes # (Auto) 1.6 x10^3/uL (1.0-4.8) Monocytes # (Auto) 0.8 x10^3/uL (0.0-1.1) Eosinophils # (Auto) 0.2 x10^3/uL (0.0-0.7) Basophils # (Auto) 0.0 x10^3/uL (0.0-0.2) Sodium Level 140 mmol/L (136-145) Potassium Level 4.6 mmol/L (3.5-5.1) Chloride Level 105 mmol/L (98-107) Carbon Dioxide Level 30 mmol/L (21-32) Anion Gap 5 (6-14) Blood Urea Nitrogen 9 mg/dL (8-26) Creatinine 0.7 mg/dL (0.7-1.3) Estimated GFR (Cockcroft-Gault) 115.0 Glucose Level 99 mg/dL (70-99) Calcium Level 8.5 mg/dL (8.5-10.1) Assessment and Plan Assessmemt and Plan Problems Medical Problems: (1) Acute perforated appendicitis Status: Acute (2) Bandemia Status: Acute (3) Peritonitis Status: Acute (4) Sepsis Status: Acute Comment Review of Relevant I have reviewed the following items ab (where applicable) has been applied. Labs Laboratory Tests Test 06/29/20 00:02 06/29/20 02:00 06/29/20 12:45 06/30/20 05:55 Lactic Acid Level 0.6 mmol/L (0.4-2.0) 1.4 mmol/L (0.4-2.0) White Blood Count 20.7 x10^3/uL (4.0-11.0) 15.9 x10^3/uL (4.0-11.0) Red Blood Count 4.41 x10^6/uL (4.30-5.70) 4.56 x10^6/uL (4.30-5.70) Hemoglobin 13.0 g/dL (13.0-17.5) 13.5 g/dL (13.0-17.5) Hematocrit 39.8 % (39.0-53.0) 41.0 % (39.0-53.0) Mean Corpuscular Volume 90 fL (79-100) 90 fL (79-100) Mean Corpuscular Hemoglobin 29 pg (25-35) 30 pg (25-35) Mean Corpuscular Hemoglobin Concent 33 g/dL (31-37) 33 g/dL (31-37) Red Cell Distribution Width 14.4 % (11.5-14.5) 14.1 % (11.5-14.5) Platelet Count 348 x10^3/uL (140-400) 388 x10^3/uL (140-400) Neutrophils (%) (Auto) 83 % (31-73) 84 % (31-73) Lymphocytes (%) (Auto) 9 % (24-48) 10 % (24-48) Monocytes (%) (Auto) 5 % (0-9) 5 % (0-9) Eosinophils (%) (Auto) 2 % (0-3) 1 % (0-3) Basophils (%) (Auto) 1 % (0-3) 0 % (0-3) Neutrophils # (Auto) 17.1 x10^3/uL (1.8-7.7) 13.3 x10^3/uL (1.8-7.7) Lymphocytes # (Auto) 1.9 x10^3/uL (1.0-4.8) 1.6 x10^3/uL (1.0-4.8) Monocytes # (Auto) 1.1 x10^3/uL (0.0-1.1) 0.8 x10^3/uL (0.0-1.1) Eosinophils # (Auto) 0.4 x10^3/uL (0.0-0.7) 0.2 x10^3/uL (0.0-0.7) Basophils # (Auto) 0.2 x10^3/uL (0.0-0.2) 0.0 x10^3/uL (0.0-0.2) Sodium Level 139 mmol/L (136-145) 140 mmol/L (136-145) Potassium Level 4.1 mmol/L (3.5-5.1) 4.6 mmol/L (3.5-5.1) Chloride Level 104 mmol/L (98-107) 105 mmol/L (98-107) Carbon Dioxide Level 25 mmol/L (21-32) 30 mmol/L (21-32) Anion Gap 10 (6-14) 5 (6-14) Blood Urea Nitrogen 12 mg/dL (8-26) 9 mg/dL (8-26) Creatinine 0.7 mg/dL (0.7-1.3) 0.7 mg/dL (0.7-1.3) Estimated GFR (Cockcroft-Gault) 115.0 115.0 BUN/Creatinine Ratio 17 (6-20) Glucose Level 83 mg/dL (70-99) 99 mg/dL (70-99) Calcium Level 8.3 mg/dL (8.5-10.1) 8.5 mg/dL (8.5-10.1) Total Bilirubin 0.6 mg/dL (0.2-1.0) Aspartate Amino Transf (AST/SGOT) 28 U/L (15-37) Alanine Aminotransferase (ALT/SGPT) 38 U/L (16-63) Alkaline Phosphatase 113 U/L (46-116) Total Protein 7.5 g/dL (6.4-8.2) Albumin 2.1 g/dL (3.4-5.0) Albumin/Globulin Ratio 0.4 (1.0-1.7) Laboratory Tests Test 06/29/20 12:45 06/30/20 05:55 Lactic Acid Level 1.4 mmol/L (0.4-2.0) White Blood Count 15.9 x10^3/uL (4.0-11.0) Red Blood Count 4.56 x10^6/uL (4.30-5.70) Hemoglobin 13.5 g/dL (13.0-17.5) Hematocrit 41.0 % (39.0-53.0) Mean Corpuscular Volume 90 fL (79-100) Mean Corpuscular Hemoglobin 30 pg (25-35) Mean Corpuscular Hemoglobin Concent 33 g/dL (31-37) Red Cell Distribution Width 14.1 % (11.5-14.5) Platelet Count 388 x10^3/uL (140-400) Neutrophils (%) (Auto) 84 % (31-73) Lymphocytes (%) (Auto) 10 % (24-48) Monocytes (%) (Auto) 5 % (0-9) Eosinophils (%) (Auto) 1 % (0-3) Basophils (%) (Auto) 0 % (0-3) Neutrophils # (Auto) 13.3 x10^3/uL (1.8-7.7) Lymphocytes # (Auto) 1.6 x10^3/uL (1.0-4.8) Monocytes # (Auto) 0.8 x10^3/uL (0.0-1.1) Eosinophils # (Auto) 0.2 x10^3/uL (0.0-0.7) Basophils # (Auto) 0.0 x10^3/uL (0.0-0.2) Sodium Level 140 mmol/L (136-145) Potassium Level 4.6 mmol/L (3.5-5.1) Chloride Level 105 mmol/L (98-107) Carbon Dioxide Level 30 mmol/L (21-32) Anion Gap 5 (6-14) Blood Urea Nitrogen 9 mg/dL (8-26) Creatinine 0.7 mg/dL (0.7-1.3) Estimated GFR (Cockcroft-Gault) 115.0 Glucose Level 99 mg/dL (70-99) Calcium Level 8.5 mg/dL (8.5-10.1) Microbiology 06/29/20 Blood Culture - Preliminary, Resulted NO GROWTH AFTER 1 DAY 06/24/20 Gram Stain - Final, Complete 06/24/20 Aerobic and Anaerobic Culture - Final, Complete 06/24/20 Antimicrobic Susceptibility - Final, Complete Medications Current Medications Sodium Chloride 1,000 ml @ 1,000 mls/hr 1X ONCE IV Last administered on 06/23/20at 19:57; Start 06/23/20 at 19:30; Stop 06/23/20 at 20:29; Status DC Sodium Chloride 1,000 ml @ 1,000 mls/hr 1X ONCE IV Last administered on 06/23/20at 19:57; Start 06/23/20 at 19:30; Stop 06/23/20 at 20:29; Status DC Iohexol (Omnipaque 300 Mg/ml) 75 ml 1X ONCE IV Last administered on 06/23/20at 20:25; Start 06/23/20 at 20:15; Stop 06/23/20 at 20:16; Status DC Info (CONTRAST GIVEN -- Rx MONITORING) 1 each PRN DAILY PRN MC SEE COMMENTS; Start 06/23/20 at 20:15; Stop 06/25/20 at 20:14; Status DC Piperacillin Sod/ Tazobactam Sod 4.5 gm/Sodium Chloride 100 ml @ 200 mls/hr 1X ONCE IV Last administered on 06/23/20at 21:57; Start 06/23/20 at 22:00; Stop 06/23/20 at 22:29; Status DC Vancomycin HCl (Vanco Per Pharmacy) 1 each PRN DAILY PRN MC SEE COMMENTS Last administered on 06/24/20at 03:43; Start 06/23/20 at 21:30; Stop 06/24/20 at 07:43; Status DC Vancomycin HCl 1.75 gm/Sodium Chloride 500 ml @ 250 mls/hr 1X ONCE IV Last administered on 06/23/20at 23:32; Start 06/23/20 at 22:00; Stop 06/23/20 at 23:59; Status DC Ondansetron HCl (Zofran) 4 mg PRN Q8HRS PRN IV NAUSEA/VOMITING 1ST CHOICE; Start 06/23/20 at 21:45; Stop 06/24/20 at 07:43; Status DC Sodium Chloride 1,000 ml @ 100 mls/hr Q10H IV Last administered on 06/24/20at 20:58; Start 06/23/20 at 22:00; Stop 06/24/20 at 21:59; Status DC Hydromorphone HCl (Dilaudid) 1 mg 1X ONCE IVP Last administered on 06/24/20at 00:29; Start 06/24/20 at 00:30; Stop 06/24/20 at 00:31; Status DC Vancomycin HCl 1 gm/Sodium Chloride 250 ml @ 250 mls/hr Q12H IV ; Start 06/24/20 at 11:00; Stop 06/24/20 at 07:43; Status DC Vancomycin HCl (Vancomycin Trough Level) 1 each 1X ONCE MC ; Start 06/25/20 at 10:30; Stop 06/24/20 at 07:47; Status DC Hydromorphone HCl (Dilaudid) 1 mg 1X ONCE IVP Last administered on 06/24/20at 06:30; Start 06/24/20 at 06:30; Stop 06/24/20 at 06:31; Status DC Hydromorphone HCl (Dilaudid) 2 mg STK-MED ONCE .ROUTE ; Start 06/24/20 at 05:54; Stop 06/24/20 at 05:55; Status DC Piperacillin Sod/ Tazobactam Sod 3.375 gm/Sodium Chloride 50 ml @ 100 mls/hr Q6HRS IV Last administered on 06/30/20at 06:10; Start 06/24/20 at 07:45 Ondansetron HCl (Zofran) 4 mg PRN Q4HRS PRN IV NAUSEA/VOMITING 1ST CHOICE; Start 06/24/20 at 07:45 Acetaminophen (Tylenol) 650 mg PRN Q6HRS PRN PO MILD PAIN / TEMP > 100.3'F Last administered on 06/29/20at 18:51; Start 06/24/20 at 07:45 Acetaminophen (Tylenol Supp) 650 mg PRN Q6HRS PRN AR MILD PAIN / TEMP > 100.3'F; Start 06/24/20 at 07:45 Ketorolac Tromethamine (Toradol 30mg Vial) 30 mg PRN Q6HRS PRN IVP INFLAMMATION Last administered on 06/27/20at 03:43; Start 06/24/20 at 07:45; Stop 06/27/20 at 03:43; Status DC Morphine Sulfate (Morphine Sulfate) 2 mg PRN Q2HR PRN IV PAIN Last administered on 06/28/20at 19:13; Start 06/24/20 at 07:45 Lidocaine HCl (Buffered Lidocaine 1%) 3 ml STK-MED ONCE .ROUTE ; Start 06/24/20 at 10:58; Stop 06/24/20 at 10:58; Status DC Midazolam HCl (Versed) 2 mg STK-MED ONCE .ROUTE ; Start 06/24/20 at 13:34; Stop 06/24/20 at 13:34; Status DC Fentanyl Citrate (Fentanyl 2ml Vial) 100 mcg STK-MED ONCE .ROUTE ; Start 06/24/20 at 13:34; Stop 06/24/20 at 13:35; Status DC Lidocaine HCl (Buffered Lidocaine 1%) 3 ml 1X ONCE IJ Last administered on 06/24/20at 13:45; Start 06/24/20 at 13:45; Stop 06/24/20 at 13:48; Status DC Midazolam HCl (Versed) 2 mg 1X ONCE IV Last administered on 06/24/20at 13:45; Start 06/24/20 at 13:45; Stop 06/24/20 at 13:48; Status DC Fentanyl Citrate (Fentanyl 2ml Vial) 100 mcg 1X ONCE IV Last administered on 06/24/20at 13:45; Start 06/24/20 at 13:45; Stop 06/24/20 at 13:48; Status DC Lactobacillus Rhamnosus (Culturelle) 1 cap BID PO Last administered on 06/30/20at 08:39; Start 06/27/20 at 12:00 Iohexol (Omnipaque 240 Mg/ml) 30 ml 1X ONCE PO Last administered on 06/29/20at 07:30; Start 06/29/20 at 07:15; Stop 06/29/20 at 07:26; Status DC Iohexol (Omnipaque 300 Mg/ml) 75 ml 1X ONCE IV Last administered on 06/29/20at 07:30; Start 06/29/20 at 07:15; Stop 06/29/20 at 07:26; Status DC Info (CONTRAST GIVEN -- Rx MONITORING) 1 each PRN DAILY PRN MC SEE COMMENTS; Start 06/29/20 at 07:30; Stop 07/01/20 at 07:29 Linezolid/Dextrose 300 ml @ 300 mls/hr Q12HR IV Last administered on 06/30/20at 08:40; Start 06/29/20 at 10:00 Fluconazole/ Sodium Chloride 200 ml @ 100 mls/hr Q24H IV Last administered on 06/29/20at 11:27; Start 06/29/20 at 11:00 Lidocaine HCl (Buffered Lidocaine 1%) 3 ml STK-MED ONCE .ROUTE ; Start 06/29/20 at 15:09; Stop 06/29/20 at 15:10; Status DC Fentanyl Citrate (Fentanyl 5ml Vial) 250 mcg STK-MED ONCE .ROUTE ; Start 06/29/20 at 15:21; Stop 06/29/20 at 15:21; Status DC Midazolam HCl (Versed) 2 mg STK-MED ONCE .ROUTE ; Start 06/29/20 at 15:36; Stop 06/29/20 at 15:36; Status DC Lidocaine HCl (Buffered Lidocaine 1%) 3 ml 1X ONCE IJ Last administered on 06/29/20at 15:56; Start 06/29/20 at 15:45; Stop 06/29/20 at 15:46; Status DC Midazolam HCl (Versed) 2 mg 1X ONCE IV Last administered on 06/29/20at 15:56; Start 06/29/20 at 15:45; Stop 06/29/20 at 15:46; Status DC Fentanyl Citrate (Fentanyl 5ml Vial) 50 mcg 1X ONCE IV Last administered on 06/29/20at 15:56; Start 06/29/20 at 15:45; Stop 06/29/20 at 15:46; Status DC Sodium Chloride 1,000 ml @ 1,000 mls/hr 1X ONCE IV Last administered on 06/29/20at 18:15; Start 06/29/20 at 18:15; Stop 06/29/20 at 19:14; Status DC Vitals/I & O Vital Sign - Last 24 Hours 06/29/20 06/29/20 06/29/20 06/29/20 11:00 15:00 15:29 15:34 Temp 99.4 98.6 99.4 98.6 Pulse 93 102 98 100 Resp 18 18 15 14 B/P (MAP) 132/81 (98) 161/85 (110) Pulse Ox 94 92 95 92 O2 Delivery Room Air Room Air Room Air Room Air 06/29/20 06/29/20 06/29/20 06/29/20 15:39 15:45 15:51 15:56 Pulse 104 101 97 Resp 18 25 27 15 Pulse Ox 95 95 95 95 O2 Delivery Nasal Cannula Nasal Cannula Nasal Cannula Nasal Cannula O2 Flow Rate 2.0 2.0 2.0 2.0 06/29/20 06/29/20 06/29/20 06/29/20 16:24 16:38 17:55 18:15 Temp 99.3 99.3 Pulse 100 99 105 106 Resp 18 18 18 18 B/P (MAP) 110/80 (90) 123/78 (93) 173/90 (117) 146/85 (105) Pulse Ox 93 91 93 92 O2 Delivery Room Air Room Air Room Air Room Air 06/29/20 06/29/20 06/29/20 06/29/20 18:30 18:45 19:00 19:00 Temp 99.8 99.8 Pulse 106 107 109 108 Resp 18 18 18 18 B/P (MAP) 140/82 (101) 148/85 (106) 144/87 (106) 157/85 (109) Pulse Ox 93 92 92 92 O2 Delivery Room Air Room Air Room Air Room Air 06/29/20 06/29/20 06/29/20 06/30/20 19:30 20:17 23:00 03:00 Temp 99.2 98.7 99.2 98.7 Pulse 109 88 88 Resp 18 18 18 B/P (MAP) 141/85 (103) 123/78 (93) 124/80 (95) Pulse Ox 92 95 93 O2 Delivery Room Air Room Air Room Air Room Air 06/30/20 06/30/20 07:00 08:00 Temp 97.9 97.9 Pulse 85 Resp 18 B/P (MAP) 121/73 (89) Pulse Ox 93 O2 Delivery Room Air Room Air Intake and Output 06/29/20 06/29/20 06/30/20 14:52 22:52 06:52 Output Total 40 ml 350 ml Balance -40 ml -350 ml Justicifation of Admission Dx: Justifications for Admission: Justification of Admission Dx: Yes REMBERTO DUNLAP MD June 30, 2020 10:40
[2020-06-30] MEDS: FLUCONAZOLE 400MG/200ML PREMIX 200 ML IV SCH (10:46)
[2020-06-30 11:00] VITALS: BP 120/71
[2020-06-30 15:00] VITALS: BP 118/69
[2020-06-30 19:00] VITALS: BP 116/71
[2020-06-30 23:00] VITALS: BP 140/80
[2020-06-30] MEDS: ACETAMINOPHEN 325 MG TABLET. PO PRN (23:58)
[2020-07-01 03:00] VITALS: BP 140/71
[2020-07-01] MEDS: PIPERACILLIN/TAZOBACTAM 3.375 GM in IV NORMAL SALINE 50ML 50 ML IV SCH ×3 (05:50→17:50)
[2020-07-01 07:00] VITALS: BP_SYST 114; BP_SYST 129; BP_DIAS 66; BP_DIAS 86
[2020-07-01] MEDS: LACTOBACILLUS RHAMNOSUS GG 1 CAPSULE. PO SCH ×2 (08:20→22:53)
[2020-07-01] MEDS: FLUCONAZOLE 400MG/200ML PREMIX 200 ML IV SCH (10:43)
--- NOTE | 2020-07-01 10:48 | PDOC ---
Infectious Disease Note Subjective Subjective Patient's is at bedside for interpretation c/o little bit of right-sided abdominal pain. Denies N/V/D/F/C ROS ROS As mentioned above otherwise negative Vital Sign Vital Signs Vital Signs Date Time Temp Pulse Resp B/P (MAP) Pulse Ox O2 Delivery O2 Flow Rate FiO2 07/01/20 07:00 98.2 80 18 129/86 (100) 94 Room Air 98.2 Physical Exam PHYSICAL EXAM GENERAL: In bed, alert, appears comfortable HEENT: Normocephalic, atraumatic. Anicteric. Oral cavity clear, no thrush NECK: Supple. No JVD. LUNGS: Clear bilaterally. No wheezing. HEART: S1, S2. No gallops or murmurs. ABDOMEN: Mildly distended. soft, 2 right-sided NAGI drains + purulance; and flank erythema and warmth. EXTREMITIES: No edema, no cyanosis. DERMATOLOGIC: Warm, dry, no generalized rash. NEUROLOGIC: Alert, oriented x 3, grossly nonfocal. PIV looks clean. Labs Micro Abscess: 06/29. GRAM STAIN Final Final GRAM NEGATIVE RODS:MANY GRAM POSITIVE RODS:FEW GRAM POSITIVE COCCI:MANY Abscess: 06/24. GRAM STAIN Final Final GRAM NEGATIVE RODS:MANY GRAM POSITIVE RODS:MODERATE GRAM POSITIVE COCCI:MANY ANAEROBIC-AEROBIC CULTURE Final Final MIXED AEROBIC AND ANAEROBIC MARY on 06/26/20 at 1519 INCLUDING: MANY GRAM NEGATIVE RODS on 06/25/20 at 0907 MANY [BACTEROIDES FRAGILIS] ESCHERICHIA COLI ESCHERICHIA COLI STREPTOCOCCUS ANGINOSUS STREPTOCOCCUS CONSTELLATUS CLOSTRIDIUM PERFRINGENS BACTEROIDES FRAGILIS ANTIMICROBIAL SUSCEPTIBILITY Final ESCHERICHIA COLI ANTIBIOTIC RESULT INTERPRETATION AMPICILLIN/SULBACTAM >16/8 R AMIKACIN <=16 S AMPICILLIN >16 R AMOXICILLIN/K CLAVULANATE 16/8 I AZTREONAM <=4 S CEFTRIAXONE <=1 S CEFTAZIDIME <=1 S CEFOTAXIME <=2 S CEFOXITIN <=8 S CEFAZOLIN >16 R CIPROFLOXACIN >2 R CEFEPIME <=2 S CEFUROXIME <=4 S CEFTAZIDIME/AVIBACTAM <=4 S ERTAPENEM <=0.5 S GENTAMICIN >8 R LEVOFLOXACIN >4 R MEROPENEM <=1 S PIPERACILLIN/TAZOBACTAM <=8 S TRIMETHOPRIM/SULFAMETHOXAZOLE >2/38 R TETRACYCLINE >8 R TOBRAMYCIN >8 R NEG ENDY 56 ESCHERICHIA COLI ANTIBIOTIC RESULT INTERPRETATION AMPICILLIN/SULBACTAM 16/8 I AMIKACIN <=16 S AMPICILLIN >16 R AMOXICILLIN/K CLAVULANATE <=8/4 S AZTREONAM <=4 S CEFTRIAXONE <=1 S CEFTAZIDIME <=1 S CEFOTAXIME <=2 S CEFOXITIN <=8 S CEFAZOLIN <=2 S CIPROFLOXACIN <=0.25 S CEFEPIME <=2 S CEFUROXIME <=4 S CEFTAZIDIME/AVIBACTAM <=4 S ERTAPENEM <=0.5 S GENTAMICIN <=2 S LEVOFLOXACIN <=0.5 S MEROPENEM <=1 S PIPERACILLIN/TAZOBACTAM <=8 S TRIMETHOPRIM/SULFAMETHOXAZOLE <=0.5/9.5 S TETRACYCLINE >8 R TOBRAMYCIN <=2 S /. BLOOD CULTURE Preliminary NO GROWTH AFTER 2 DAYS 06/23. BLOOD CULTURE LC Final Final FINAL ID= [BACTEROIDES SPLANCHNICUS] (ISOLATE 1) [GRAM POSITIVE COCCI] PRESENT ON GRAM STAIN BUT UNABLE TO ISOLATE ON SOLID MEDIA. (ISOLATE 2) BACTEROIDES SPLANCHNICUS GRAM POSITIVE COCCI Objective Assessment Sepsis, source intra-abdominal. Fever - better Leukocytosis and bandemia. Perforated appendix. Intraabdominal abscess, status post IR drainage with polymicrobial organism. - Mixed aerobic and anaerobic mary, E. coli x 2 spp.,,Strep anginosis, consellatus, C. perfringes, bacteroides. Gram-negative patricia bacteremia, Bacteroides splanchnicus and GPC. June 23. Plan Plan of Care Continue Zosyn, Zyvox and fluconazole. Follow-up blood culture results Drain management as directed Follow up blood cultures and lab. General Surgery following Follow up repeat blood cultures from 06/28/2020. Negative so far Continue supportive care. Discussed with at bedside Discussed with nursing staff F/u cults Cont abx Monitor right flank D/w family and nursing Attending Co-Sign Attending Co-Sign The patient was seen and interviewed as well as examined at the bedside. The chart was reviewed. The case was discussed. Agree with the plan of care. SERVANDO MARTINEZ APRN July 01, 2020 10:48 PEDRO CLARKE MD July 01, 2020 13:53
[2020-07-01 11:00] VITALS: BP 146/92
--- NOTE | 2020-07-01 11:39 | PDOC ---
PROGRESS NOTES Date of Service: DATE: 07/01/20 TIME: 11:38 Chief Complaint Chief Complaint IMPRESSION Abdominal abscess - due to perforated appendicitis. NPO. General surgery consulted. Will continue antibiotics, IR to see if this is amenable to drain Appendicitis - with perforation. Continue IV antibiotics, zosyn. No surgery at this time due to perforation Sepsis - due to perforated appendicitis - given fluids and antibiotics Hyperglycemia - likely due to stress - will check A1c Left pleural effusion - no respiratory distress Right sided percutaneous drain there is a persistent abscess which may or may not indicate with a drain. CT 06-29 PLAN FEN - Clear liquid diet PPX - heparin FULL CODE Dispo - inpatient ID CONSULT Continue Zosyn. Start Zyvox and fluconazole. drain was able to be placed 06-29 History of Present Illness History of Present Illness Mr Chapa is a 59-year-old male with no significant past medical history, Kinyarwanda-speaking only, presents to the ED on 06/23/2020 accompanied by his son with complaints of diffuse abdominal pain that started on , 06/20/2020, now localized to right lower quadrant with subjective fevers and chills that started 06/24/2020 Patient recently received his Covid vaccine. Denies any past surgical history. Moved here from [place] 30 years ago. Took amoxicillin. Ate soup around 3-4 PM on 06/23 and last bowel movement was around 4 PM with no melena or hematochezia (yellow color). 07-01 Right sided percutaneous drain on ct there is a persistent abscess which may or may not indicate within drain. site // wbc 20k // t max 99.7 06-29 // t max 100.3 06-26 pain is controlled. Tolerating p.o. okay. Blood cultures 1 out of 2 bottles positive for small gram-negative cocci and gram-positive cocci. Continue Zosyn. Start Zyvox and fluconazole. IV erythema right flank drain repositioned, IR WILL see drain was able to be placed 06-29 D/W RN and family in room 06-30 Right sided percutaneous drain on ct there is a persistent abscess which may or may not indicate within drain. site // wbc 20k // t max 99.7 06-29 // t max 100.3 4-28 pain is controlled. Tolerating p.o. okay. Blood cultures 1 out of 2 bottles positive for small gram-negative cocci and gram-positive cocci. Continue Zosyn. Start Zyvox and fluconazole. IV drain may need repositioned, IR WILL see drain was able to be placed 06-29 D/W RN and family in room 06-29 Right sided percutaneous drain on ct there is a persistent abscess which may or may not indicate within drain. site // wbc 20k // t max 99.7 06-29 // t max 100.3 06-26 pain is controlled. Tolerating p.o. okay. Blood cultures 1 out of 2 bottles positive for small gram-negative cocci and gram-positive cocci. Continue Zosyn. Start Zyvox and fluconazole. IV drain may need repositioned, IR WILL see drain was able to be placed 06-29 D/W RN and family in room 06/24: Found with perforated appendicitis. To IR for percutaneous drain 06/25: T-max 100.3 F overnight. Pain is better minimal pain at drain site. No nausea or vomiting. He has a little bit of an appetite. Discussed via coat checker with son and bedside plan is to continue antibiotics and after discussion with surgery to trial on p.o. today and return for appendectomy for definitive treatment after he completes an antibiotic course. 06/26: Afebrile overnight. States his pain is controlled. Tolerating p.o. okay. Blood cultures 1 out of 2 bottles positive for small gram-negative cocci and gram-positive cocci. Drain with minimal output today. Afebrile overnight. Blood cultures pending. Abscess culture with multiple organisms 2 different E. coli with sensitivities to cephalosporins and Zosyn. Pain better, eating 100% of meals, no diarrhea, no vomiting. [ESCHERICHIA COLI] (2 STRAINS) MANY [STREPTOCOCCUS CONSTELLATUS] MANY [STREPTOCOCCUS ANGINOSUS] MANY [CLOSTRIDIUM PERFRINGENS] MANY [BACTEROIDES FRAGILIS] ESCHERICHIA COLI ESCHERICHIA COLI STREPTOCOCCUS ANGINOSUS STREPTOCOCCUS CONSTELLATUS CLOSTRIDIUM PERFRINGENS BACTEROIDES FRAGILIS 06-28 D/W RN WILL CONSULT ID, CONT IV ZOSYN Vitals Vitals Vital Signs Date Time Temp Pulse Resp B/P (MAP) Pulse Ox O2 Delivery O2 Flow Rate FiO2 07/01/20 11:00 98.5 88 20 146/92 (110) 93 Room Air 98.5 Physical Exam Physical Exam GENERAL: In bed, alert, appears comfortable HEENT: Normocephalic, atraumatic. Anicteric. Oral cavity clear, no thrush NECK: Supple. No JVD. LUNGS: Clear bilaterally. No wheezing. HEART: S1, S2. No gallops or murmurs. ABDOMEN: Mildly distended. soft, 2 right-sided NAGI drains + purulance; and flank erythema and warmth. EXTREMITIES: No edema, no cyanosis. DERMATOLOGIC: Warm, dry, no generalized rash. NEUROLOGIC: Alert, oriented x 3, grossly nonfocal. PIV looks clean. General: Alert, Oriented X3, Cooperative, No acute distress, mild distress Heart: Regular rate, Normal S1, Normal S2 Lungs: Clear Abdomen: Normal bowel sounds, Soft, Other (drains in place, new drain with purulent drainage) Extremities: No clubbing, No cyanosis, No edema, Normal pulses, No tenderness/swelling Skin: No breakdown, No significant lesion, Other (erythema right flank) Assessment and Plan Assessmemt and Plan Problems Medical Problems: (1) Acute perforated appendicitis Status: Acute (2) Bandemia Status: Acute (3) Peritonitis Status: Acute (4) Sepsis Status: Acute Comment Review of Relevant I have reviewed the following items ab (where applicable) has been applied. Labs Laboratory Tests Test 06/29/20 12:45 06/30/20 05:55 Lactic Acid Level 1.4 mmol/L (0.4-2.0) White Blood Count 15.9 x10^3/uL (4.0-11.0) Red Blood Count 4.56 x10^6/uL (4.30-5.70) Hemoglobin 13.5 g/dL (13.0-17.5) Hematocrit 41.0 % (39.0-53.0) Mean Corpuscular Volume 90 fL (79-100) Mean Corpuscular Hemoglobin 30 pg (25-35) Mean Corpuscular Hemoglobin Concent 33 g/dL (31-37) Red Cell Distribution Width 14.1 % (11.5-14.5) Platelet Count 388 x10^3/uL (140-400) Neutrophils (%) (Auto) 84 % (31-73) Lymphocytes (%) (Auto) 10 % (24-48) Monocytes (%) (Auto) 5 % (0-9) Eosinophils (%) (Auto) 1 % (0-3) Basophils (%) (Auto) 0 % (0-3) Neutrophils # (Auto) 13.3 x10^3/uL (1.8-7.7) Lymphocytes # (Auto) 1.6 x10^3/uL (1.0-4.8) Monocytes # (Auto) 0.8 x10^3/uL (0.0-1.1) Eosinophils # (Auto) 0.2 x10^3/uL (0.0-0.7) Basophils # (Auto) 0.0 x10^3/uL (0.0-0.2) Sodium Level 140 mmol/L (136-145) Potassium Level 4.6 mmol/L (3.5-5.1) Chloride Level 105 mmol/L (98-107) Carbon Dioxide Level 30 mmol/L (21-32) Anion Gap 5 (6-14) Blood Urea Nitrogen 9 mg/dL (8-26) Creatinine 0.7 mg/dL (0.7-1.3) Estimated GFR (Cockcroft-Gault) 115.0 Glucose Level 99 mg/dL (70-99) Calcium Level 8.5 mg/dL (8.5-10.1) Microbiology 06/29/20 Gram Stain - Final, Resulted 06/29/20 Aerobic and Anaerobic Culture - Preliminary, Resulted 06/29/20 Blood Culture - Preliminary, Resulted NO GROWTH AFTER 2 DAYS Medications Current Medications Sodium Chloride 1,000 ml @ 1,000 mls/hr 1X ONCE IV Last administered on 06/23/20at 19:57; Start 06/23/20 at 19:30; Stop 06/23/20 at 20:29; Status DC Sodium Chloride 1,000 ml @ 1,000 mls/hr 1X ONCE IV Last administered on 06/23/20at 19:57; Start 06/23/20 at 19:30; Stop 06/23/20 at 20:29; Status DC Iohexol (Omnipaque 300 Mg/ml) 75 ml 1X ONCE IV Last administered on 06/23/20at 20:25; Start 06/23/20 at 20:15; Stop 06/23/20 at 20:16; Status DC Info (CONTRAST GIVEN -- Rx MONITORING) 1 each PRN DAILY PRN MC SEE COMMENTS; Start 06/23/20 at 20:15; Stop 06/25/20 at 20:14; Status DC Piperacillin Sod/ Tazobactam Sod 4.5 gm/Sodium Chloride 100 ml @ 200 mls/hr 1X ONCE IV Last administered on 06/23/20at 21:57; Start 06/23/20 at 22:00; Stop 06/23/20 at 22:29; Status DC Vancomycin HCl (Vanco Per Pharmacy) 1 each PRN DAILY PRN MC SEE COMMENTS Last administered on 06/24/20at 03:43; Start 06/23/20 at 21:30; Stop 06/24/20 at 07:43; Status DC Vancomycin HCl 1.75 gm/Sodium Chloride 500 ml @ 250 mls/hr 1X ONCE IV Last administered on 06/23/20at 23:32; Start 06/23/20 at 22:00; Stop 06/23/20 at 23:59; Status DC Ondansetron HCl (Zofran) 4 mg PRN Q8HRS PRN IV NAUSEA/VOMITING 1ST CHOICE; Start 06/23/20 at 21:45; Stop 06/24/20 at 07:43; Status DC Sodium Chloride 1,000 ml @ 100 mls/hr Q10H IV Last administered on 06/24/20at 20:58; Start 06/23/20 at 22:00; Stop 06/24/20 at 21:59; Status DC Hydromorphone HCl (Dilaudid) 1 mg 1X ONCE IVP Last administered on 06/24/20at 00:29; Start 06/24/20 at 00:30; Stop 06/24/20 at 00:31; Status DC Vancomycin HCl 1 gm/Sodium Chloride 250 ml @ 250 mls/hr Q12H IV ; Start 06/24/20 at 11:00; Stop 06/24/20 at 07:43; Status DC Vancomycin HCl (Vancomycin Trough Level) 1 each 1X ONCE MC ; Start 06/25/20 at 10:30; Stop 06/24/20 at 07:47; Status DC Hydromorphone HCl (Dilaudid) 1 mg 1X ONCE IVP Last administered on 06/24/20at 06:30; Start 06/24/20 at 06:30; Stop 06/24/20 at 06:31; Status DC Hydromorphone HCl (Dilaudid) 2 mg STK-MED ONCE .ROUTE ; Start 06/24/20 at 05:54; Stop 06/24/20 at 05:55; Status DC Piperacillin Sod/ Tazobactam Sod 3.375 gm/Sodium Chloride 50 ml @ 100 mls/hr Q6HRS IV Last administered on 07/01/20at 05:50; Start 06/24/20 at 07:45 Ondansetron HCl (Zofran) 4 mg PRN Q4HRS PRN IV NAUSEA/VOMITING 1ST CHOICE; Start 06/24/20 at 07:45 Acetaminophen (Tylenol) 650 mg PRN Q6HRS PRN PO MILD PAIN / TEMP > 100.3'F Last administered on 06/30/20at 23:58; Start 06/24/20 at 07:45 Acetaminophen (Tylenol Supp) 650 mg PRN Q6HRS PRN TN MILD PAIN / TEMP > 100.3'F; Start 06/24/20 at 07:45 Ketorolac Tromethamine (Toradol 30mg Vial) 30 mg PRN Q6HRS PRN IVP INFLAMMATION Last administered on 06/27/20at 03:43; Start 06/24/20 at 07:45; Stop 06/27/20 at 03:43; Status DC Morphine Sulfate (Morphine Sulfate) 2 mg PRN Q2HR PRN IV PAIN Last administered on 06/28/20at 19:13; Start 06/24/20 at 07:45 Lidocaine HCl (Buffered Lidocaine 1%) 3 ml STK-MED ONCE .ROUTE ; Start 06/24/20 at 10:58; Stop 06/24/20 at 10:58; Status DC Midazolam HCl (Versed) 2 mg STK-MED ONCE .ROUTE ; Start 06/24/20 at 13:34; Stop 06/24/20 at 13:34; Status DC Fentanyl Citrate (Fentanyl 2ml Vial) 100 mcg STK-MED ONCE .ROUTE ; Start at 13:34; Stop 06/24/20 at 13:35; Status DC Lidocaine HCl (Buffered Lidocaine 1%) 3 ml 1X ONCE IJ Last administered on 05/31 08/19at 13:45; Start 06/24/20 at 13:45; Stop 06/24/20 at 13:48; Status DC Midazolam HCl (Versed) 2 mg 1X ONCE IV Last administered on 06/24/20at 13:45; Start 06/24/20 at 13:45; Stop 06/24/20 at 13:48; Status DC Fentanyl Citrate (Fentanyl 2ml Vial) 100 mcg 1X ONCE IV Last administered on 06/24/20at 13:45; Start 06/24/20 at 13:45; Stop 06/24/20 at 13:48; Status DC Lactobacillus Rhamnosus (Culturelle) 1 cap BID PO Last administered on 07/01/20at 08:20; Start 06/27/20 at 12:00 Iohexol (Omnipaque 240 Mg/ml) 30 ml 1X ONCE PO Last administered on 06/29/20at 07:30; Start 06/29/20 at 07:15; Stop 06/29/20 at 07:26; Status DC Iohexol (Omnipaque 300 Mg/ml) 75 ml 1X ONCE IV Last administered on 06/29/20at 07:30; Start 06/29/20 at 07:15; Stop 06/29/20 at 07:26; Status DC Info (CONTRAST GIVEN -- Rx MONITORING) 1 each PRN DAILY PRN MC SEE COMMENTS; Start 06/29/20 at 07:30; Stop 07/01/20 at 07:29; Status DC Linezolid/Dextrose 300 ml @ 300 mls/hr Q12HR IV Last administered on 07/01/20at 08:32; Start 06/29/20 at 10:00 Fluconazole/ Sodium Chloride 200 ml @ 100 mls/hr Q24H IV Last administered on 07/01/20at 10:43; Start 06/29/20 at 11:00 Lidocaine HCl (Buffered Lidocaine 1%) 3 ml STK-MED ONCE .ROUTE ; Start 06/29/20 at 15:09; Stop 06/29/20 at 15:10; Status DC Fentanyl Citrate (Fentanyl 5ml Vial) 250 mcg STK-MED ONCE .ROUTE ; Start 06/29/20 at 15:21; Stop 06/29/20 at 15:21; Status DC Midazolam HCl (Versed) 2 mg STK-MED ONCE .ROUTE ; Start 06/29/20 at 15:36; Stop 06/29/20 at 15:36; Status DC Lidocaine HCl (Buffered Lidocaine 1%) 3 ml 1X ONCE IJ Last administered on 06/29/20at 15:56; Start 06/29/20 at 15:45; Stop 06/29/20 at 15:46; Status DC Midazolam HCl (Versed) 2 mg 1X ONCE IV Last administered on 06/29/20at 15:56; Start 06/29/20 at 15:45; Stop 06/29/20 at 15:46; Status DC Fentanyl Citrate (Fentanyl 5ml Vial) 50 mcg 1X ONCE IV Last administered on 06/29/20at 15:56; Start 06/29/20 at 15:45; Stop 06/29/20 at 15:46; Status DC Sodium Chloride 1,000 ml @ 1,000 mls/hr 1X ONCE IV Last administered on 06/29/20at 18:15; Start 06/29/20 at 18:15; Stop 06/29/20 at 19:14; Status DC Vitals/I & O Vital Sign - Last 24 Hours 06/30/20 06/30/20 06/30/20 06/30/20 15:00 19:00 19:29 23:00 Temp 98.6 98.9 98.3 98.6 98.9 98.3 Pulse 86 86 80 Resp 18 18 18 B/P (MAP) 118/69 (85) 116/71 (86) 140/80 (100) Pulse Ox 97 97 97 O2 Delivery Room Air Room Air Room Air Room Air 07/01/20 07/01/20 07/01/20 07/01/20 03:00 07:00 07:45 11:00 Temp 98.2 98.2 98.5 98.2 98.2 98.5 Pulse 68 80 88 Resp 18 18 20 B/P (MAP) 140/71 (94) 129/86 (100) 146/92 (110) Pulse Ox 98 94 93 O2 Delivery Room Air Room Air Room Air Room Air Intake and Output 06/30/20 06/30/20 07/01/20 15:00 23:00 07:00 Intake Total 200 ml Output Total 400 ml 10 ml Balance -400 ml 190 ml Justicifation of Admission Dx: Justifications for Admission: Justification of Admission Dx: Yes REMBERTO DUNLAP MD July 01, 2020 11:39
--- NOTE | 2020-07-01 12:06 | NUR ---
SW following. Discussed with RN, pt from home with , room air, GI soft. Pt has 2 drains, IV abx. SW will continue to follow.
--- NOTE | 2020-07-01 13:39 | PDOC ---
DANIELA RAMOS [employer]ER[employer] ANALYST 07/01/20 1339: SURGICAL PROGRESS NOTE DATE: 07/01/20 TIME: 13:37 Subjective pain at drain sites concern about red area to RLQ Vital Signs Vital Signs Date Time Temp Pulse Resp B/P (MAP) Pulse Ox O2 Delivery O2 Flow Rate FiO2 07/01/20 11:00 98.5 88 20 146/92 (110) 93 Room Air 98.5 I&O Intake and Output 07/01/20 07:00 Intake Total 200 ml Output Total 410 ml Balance -210 ml Intake Oral 200 ml Output Urine Total 400 ml Drainage Total 10 ml General: Alert, Oriented X3, Cooperative Abdomen: Soft, Other (drains tannish output, erythema and warmth to RLQ skin) Labs Laboratory Tests Test 06/30/20 05:55 White Blood Count 15.9 x10^3/uL (4.0-11.0) Red Blood Count 4.56 x10^6/uL (4.30-5.70) Hemoglobin 13.5 g/dL (13.0-17.5) Hematocrit 41.0 % (39.0-53.0) Mean Corpuscular Volume 90 fL (79-100) Mean Corpuscular Hemoglobin 30 pg (25-35) Mean Corpuscular Hemoglobin Concent 33 g/dL (31-37) Red Cell Distribution Width 14.1 % (11.5-14.5) Platelet Count 388 x10^3/uL (140-400) Neutrophils (%) (Auto) 84 % (31-73) Lymphocytes (%) (Auto) 10 % (24-48) Monocytes (%) (Auto) 5 % (0-9) Eosinophils (%) (Auto) 1 % (0-3) Basophils (%) (Auto) 0 % (0-3) Neutrophils # (Auto) 13.3 x10^3/uL (1.8-7.7) Lymphocytes # (Auto) 1.6 x10^3/uL (1.0-4.8) Monocytes # (Auto) 0.8 x10^3/uL (0.0-1.1) Eosinophils # (Auto) 0.2 x10^3/uL (0.0-0.7) Basophils # (Auto) 0.0 x10^3/uL (0.0-0.2) Sodium Level 140 mmol/L (136-145) Potassium Level 4.6 mmol/L (3.5-5.1) Chloride Level 105 mmol/L (98-107) Carbon Dioxide Level 30 mmol/L (21-32) Anion Gap 5 (6-14) Blood Urea Nitrogen 9 mg/dL (8-26) Creatinine 0.7 mg/dL (0.7-1.3) Estimated GFR (Cockcroft-Gault) 115.0 Glucose Level 99 mg/dL (70-99) Calcium Level 8.5 mg/dL (8.5-10.1) Problem List Problems Medical Problems: (1) Acute perforated appendicitis Status: Acute (2) Bandemia Status: Acute (3) Peritonitis Status: Acute (4) Sepsis Status: Acute Assessment/Plan continue abx, drains will review with Dr Shell Justicifation of Admission Dx: Justifications for Admission: Justification of Admission Dx: Yes BOBBY SHELL MD 07/01/20 1909: SURGICAL PROGRESS NOTE Assessment/Plan Pt seen and examined. Agree with Ms. Ramos's note Pt feels better, does note inflammation in right flank right flank with induration and erythema drains with purulent drainage cont abx and drains. DANIELA RAMOS [employer] ANALYST July 01, 2020 13:39 BOBBY SHELL MD July 01, 2020 19:09
--- NOTE | 2020-07-01 14:28 | RAD ---
Site ID: [id number] EXAMINATION: CT-guided drain placement -(Peritoneal/Retroperitoneal CPT 27481) (Moderate sedation (CPT fill) One or more of the following radiation dose reduction techniques was used: automated exposure control , adjustment of mA and/or KV according to patient size, and/or utilization of iterative reconstructio n technique. INDICATION: Appendiceal abscess second fluid collection after initial drain was placed seen on CT sca n on the same day. SEDATION: Under physician supervision, Versed and fentanyl were administered intravenously for moder ate sedation. Pulse oximetry, heart rate, and BP were continuously monitored by an independent train ed observer present. The physician spent 22 minutes of [id number] sedation time with the patient. CONSENT: Informed consent was obtained. The risks, benefits, potential complications and alternatives were reviewed and all questions answered. PROCEDURE: After maximal sterile barrier preparation and draping, 1% lidocaine was utilized for local anesthesia. With the patient in supine position, anterolateral approach was selected. A 19-gaugeOne step sheathed needle was introduced utilizing CT guidance into the right lower quadrant abscess. CT images confirm appropriate positioning. After standard over a guidewire exchange technique and after serial dilatat ion, a 10 Barbadian drain is placed and distal loop formed in the collection. A 60 ml of purulent fluid is aspirated and sent to microbiology. The drainage catheter is connected to vacuum drainage bag . The patient tolerated the procedure well with no immediate complications. FINDINGS: Right lower quadrant abscess second fluid collection adjacent to the previous drained collection. IMPRESSION: Successful CT-guided, 10 Barbadian, drain placement in appendiceal abscess. Electronically signed by: Abhishek Delgado MD (07/01/2020 2:26 PM) [id number]
--- NOTE | 2020-07-01 14:28 | RAD ---
Site ID: [id number] EXAMINATION: CT-guided drain placement -(Peritoneal/Retroperitoneal CPT 21542) (Moderate sedation (CPT fill) One or more of the following radiation dose reduction techniques was used: automated exposure control , adjustment of mA and/or KV according to patient size, and/or utilization of iterative reconstructio n technique. INDICATION: Appendiceal abscess second fluid collection after initial drain was placed seen on CT sca n on the same day. SEDATION: Under physician supervision, Versed and fentanyl were administered intravenously for moder ate sedation. Pulse oximetry, heart rate, and BP were continuously monitored by an independent train ed observer present. The physician spent 22 minutes of [id number] sedation time with the patient. CONSENT: Informed consent was obtained. The risks, benefits, potential complications and alternatives were reviewed and all questions answered. PROCEDURE: After maximal sterile barrier preparation and draping, 1% lidocaine was utilized for local anesthesia. With the patient in supine position, anterolateral approach was selected. A 19-gaugeOne step sheathed needle was introduced utilizing CT guidance into the right lower quadrant abscess. CT images confirm appropriate positioning. After standard over a guidewire exchange technique and after serial dilatat ion, a 10 Belarusian drain is placed and distal loop formed in the collection. A 60 ml of purulent fluid is aspirated and sent to microbiology. The drainage catheter is connected to vacuum drainage bag . The patient tolerated the procedure well with no immediate complications. FINDINGS: Right lower quadrant abscess second fluid collection adjacent to the previous drained collection. IMPRESSION: Successful CT-guided, 10 Belarusian, drain placement in appendiceal abscess. Electronically signed by: Abhishek Delgado MD (07/01/2020 2:26 PM) [id number]
--- NOTE | 2020-07-01 14:28 | RAD ---
Site ID: [id number] EXAMINATION: CT-guided drain placement -(Peritoneal/Retroperitoneal CPT 21127) (Moderate sedation (CPT fill) One or more of the following radiation dose reduction techniques was used: automated exposure control , adjustment of mA and/or KV according to patient size, and/or utilization of iterative reconstructio n technique. INDICATION: Appendiceal abscess second fluid collection after initial drain was placed seen on CT sca n on the same day. SEDATION: Under physician supervision, Versed and fentanyl were administered intravenously for moder ate sedation. Pulse oximetry, heart rate, and BP were continuously monitored by an independent train ed observer present. The physician spent 22 minutes of [id number] sedation time with the patient. CONSENT: Informed consent was obtained. The risks, benefits, potential complications and alternatives were reviewed and all questions answered. PROCEDURE: After maximal sterile barrier preparation and draping, 1% lidocaine was utilized for local anesthesia. With the patient in supine position, anterolateral approach was selected. A 19-gaugeOne step sheathed needle was introduced utilizing CT guidance into the right lower quadrant abscess. CT images confirm appropriate positioning. After standard over a guidewire exchange technique and after serial dilatat ion, a 10 [place]ian drain is placed and distal loop formed in the collection. A 60 ml of purulent fluid is aspirated and sent to microbiology. The drainage catheter is connected to vacuum drainage bag . The patient tolerated the procedure well with no immediate complications. FINDINGS: Right lower quadrant abscess second fluid collection adjacent to the previous drained collection. IMPRESSION: Successful CT-guided, 10 Belarusian, drain placement in appendiceal abscess. Electronically signed by: Abhishke Delgado MD (07/01/2020 2:26 PM) [id number]
[2020-07-01 15:00] VITALS: BP 137/80
[2020-07-01] MEDS: HYDROcodone/APAP 5/325MG 1 TAB TABLET PO PRN (22:53)
[2020-07-01 23:00] VITALS: BP 125/80
[2020-07-02] MEDS: PIPERACILLIN/TAZOBACTAM 3.375 GM in IV NORMAL SALINE 50ML 50 ML IV SCH ×4 (00:40→18:00)
[2020-07-02 03:00] VITALS: BP 126/78
[2020-07-02 07:00] VITALS: BP_SYST 138; BP_SYST 64; BP_DIAS 32; BP_DIAS 80
[2020-07-02] MEDS: LACTOBACILLUS RHAMNOSUS GG 1 CAPSULE. PO SCH ×2 (08:46→20:44)
--- NOTE | 2020-07-02 09:30 | PDOC ---
SURGICAL PROGRESS NOTE DATE: 07/02/20 TIME: 09:29 Subjective mild pain at drain site no nausea Vital Signs Vital Signs Date Time Temp Pulse Resp B/P (MAP) Pulse Ox O2 Delivery O2 Flow Rate FiO2 07/02/20 07:00 98.1 80 18 64/32 (43) 93 Room Air 98.1 I&O Intake and Output 07/02/20 07:00 Output Total 300 ml Balance -300 ml Output Urine Total 300 ml # Voids 2 General: Alert, Oriented X3, Cooperative Abdomen: Soft, Other (drains in place, less erythema to area ) Problem List Problems Medical Problems: (1) Acute perforated appendicitis Status: Acute (2) Bandemia Status: Acute (3) Peritonitis Status: Acute (4) Sepsis Status: Acute Assessment/Plan continue abx, drains Justicifation of Admission Dx: Justifications for Admission: Justification of Admission Dx: Yes DANIELA RAMOS ADJUSTER LEADER July 02, 2020 09:30
--- NOTE | 2020-07-02 10:09 | PDOC ---
PROGRESS NOTES Date of Service: DATE: 07/02/20 TIME: 10:09 Chief Complaint Chief Complaint IMPRESSION Abdominal abscess - due to perforated appendicitis. REG DIET General surgery consulted. Will continue antibiotics, IR to see if this is amenable to drain Appendicitis - with perforation. Continue IV antibiotics, zosyn. No surgery at this time due to perforation Sepsis - due to perforated appendicitis - given fluids and antibiotics Hyperglycemia - likely due to stress - will check A1c Left pleural effusion - no respiratory distress Right sided percutaneous drain there is a persistent abscess which may or may not indicate with a drain. CT 06-29 PLAN FEN - Clear liquid diet PPX - heparin FULL CODE Dispo - inpatient ID CONSULT Continue Zosyn. Start Zyvox and fluconazole. drain was able to be placed 06-29 History of Present Illness History of Present Illness Mr Chapa is a 59-year-old male with no significant past medical history, Urdu-speaking only, presents to the ED on 06/23/2020 accompanied by his son with complaints of diffuse abdominal pain that started on , 06/20/2020, now localized to right lower quadrant with subjective fevers and chills that started 06/24/2020 Patient recently received his Covid vaccine. Denies any past surgical history. Moved here from [place] 30 years ago. Took amoxicillin. Ate soup around 3-4 PM on 06/23 and last bowel movement was around 4 PM with no melena or hematochezia (yellow color). 07-02 Right sided percutaneous drain on ct there is a persistent abscess which may or may not indicate within drain. site // wbc 20k // t max 99.7 06-29 // t max 100.3 06-26 pain is controlled. Tolerating p.o. okay. Blood cultures 1 out of 2 bottles positive for small gram-negative cocci and gram-positive cocci. Continue Zosyn. Start Zyvox and fluconazole. IV erythema right flank drain repositioned, IR WILL see drain was able to be placed 06-29 D/W RN and family in room Continue Zosyn (06/24), Zyvox (06/29) and fluconazole (06/29). Probiotics Monitor lab values/temp Monitor right flank Better. less swelling and tightness on flank. On Exam - less erythema/warm and is softer. min pain 07-01 Right sided percutaneous drain on ct there is a persistent abscess which may or may not indicate within drain. site // wbc 20k // t max 99.7 06-29 // t max 100.3 06-26 pain is controlled. Tolerating p.o. okay. Blood cultures 1 out of 2 bottles positive for small gram-negative cocci and gram-positive cocci. Continue Zosyn. Start Zyvox and fluconazole. IV erythema right flank drain repositioned, IR WILL see drain was able to be placed 06-29 D/W RN and family in room 06-30 Right sided percutaneous drain on ct there is a persistent abscess which may or may not indicate within drain. site // wbc 20k // t max 99.7 06-29 // t max 100.3 06-26 pain is controlled. Tolerating p.o. okay. Blood cultures 1 out of 2 bottles positive for small gram-negative cocci and gram-positive cocci. Continue Zosyn. Start Zyvox and fluconazole. IV drain may need repositioned, IR WILL see drain was able to be placed 06-29 D/W RN and family in room 06-29 Right sided percutaneous drain on ct there is a persistent abscess which may or may not indicate within drain. site // wbc 20k // t max 99.7 06-29 // t max 100.3 06-26 pain is controlled. Tolerating p.o. okay. Blood cultures 1 out of 2 bottles positive for small gram-negative cocci and gram-positive cocci. Continue Zosyn. Start Zyvox and fluconazole. IV drain may need repositioned, IR WILL see drain was able to be placed 06-29 D/W RN and family in room 06/24: Found with perforated appendicitis. To IR for percutaneous drain 06/25: T-max 100.3 F overnight. Pain is better minimal pain at drain site. No nausea or vomiting. He has a little bit of an appetite. Discussed via taurus mock with son and bedside plan is to continue antibiotics and after discussion with surgery to trial on p.o. today and return for appendectomy for definitive treatment after he completes an antibiotic course. 06/26: Afebrile overnight. States his pain is controlled. Tolerating p.o. okay. Blood cultures 1 out of 2 bottles positive for small gram-negative cocci and gram-positive cocci. Drain with minimal output today. Afebrile overnight. Blood cultures pending. Abscess culture with multiple organisms 2 different E. coli with sensitivities to cephalosporins and Zosyn. Pain better, eating 100% of meals, no diarrhea, no vomiting. [ESCHERICHIA COLI] (2 STRAINS) MANY [STREPTOCOCCUS CONSTELLATUS] MANY [STREPTOCOCCUS ANGINOSUS] MANY [CLOSTRIDIUM PERFRINGENS] MANY [BACTEROIDES FRAGILIS] ESCHERICHIA COLI ESCHERICHIA COLI STREPTOCOCCUS ANGINOSUS STREPTOCOCCUS CONSTELLATUS CLOSTRIDIUM PERFRINGENS BACTEROIDES FRAGILIS 4-30 D/W RN WILL CONSULT ID, CONT IV ZOSYN Vitals Vitals Vital Signs Date Time Temp Pulse Resp B/P (MAP) Pulse Ox O2 Delivery O2 Flow Rate FiO2 07/02/20 07:00 98.1 80 18 64/32 (43) 93 Room Air 98.1 Physical Exam Physical Exam GENERAL: In bed, alert, appears comfortable HEENT: Normocephalic, atraumatic. Anicteric. Oral cavity clear, no thrush NECK: Supple. No JVD. LUNGS: Clear bilaterally. No wheezing. HEART: S1, S2. No gallops or murmurs. ABDOMEN: Mildly distended. soft, 2 right-sided NAGI drains + purulance; and flank erythema and warmth. EXTREMITIES: No edema, no cyanosis. DERMATOLOGIC: Warm, dry, no generalized rash. NEUROLOGIC: Alert, oriented x 3, grossly nonfocal. PIV looks clean. General: Alert, Oriented X3, Cooperative, No acute distress Heart: Regular rate, Normal S1, Normal S2 Lungs: Clear Abdomen: Normal bowel sounds, Soft, No tenderness, Other (drains in place, less erythema to area ) Extremities: No clubbing, No cyanosis, No edema, Normal pulses, No tenderness/swelling Skin: No breakdown, No significant lesion, Other (erythema right flank) Assessment and Plan Assessmemt and Plan Problems Medical Problems: (1) Acute perforated appendicitis Status: Acute (2) Bandemia Status: Acute (3) Peritonitis Status: Acute (4) Sepsis Status: Acute Comment Review of Relevant I have reviewed the following items ab (where applicable) has been applied. Labs Microbiology 06/29/20 Gram Stain - Final, Resulted 06/29/20 Aerobic and Anaerobic Culture - Preliminary, Resulted 06/29/20 Antimicrobic Susceptibility - Preliminary, Resulted 06/29/20 Blood Culture - Preliminary, Resulted NO GROWTH AFTER 3 DAYS Medications Current Medications Sodium Chloride 1,000 ml @ 1,000 mls/hr 1X ONCE IV Last administered on 06/23/20at 19:57; Start 06/23/20 at 19:30; Stop 06/23/20 at 20:29; Status DC Sodium Chloride 1,000 ml @ 1,000 mls/hr 1X ONCE IV Last administered on 06/23/20at 19:57; Start 06/23/20 at 19:30; Stop 06/23/20 at 20:29; Status DC Iohexol (Omnipaque 300 Mg/ml) 75 ml 1X ONCE IV Last administered on 06/23/20at 20:25; Start 06/23/20 at 20:15; Stop 06/23/20 at 20:16; Status DC Info (CONTRAST GIVEN -- Rx MONITORING) 1 each PRN DAILY PRN MC SEE COMMENTS; Start 06/23/20 at 20:15; Stop 06/25/20 at 20:14; Status DC Piperacillin Sod/ Tazobactam Sod 4.5 gm/Sodium Chloride 100 ml @ 200 mls/hr 1X ONCE IV Last administered on 06/23/20at 21:57; Start 06/23/20 at 22:00; Stop 06/23/20 at 22:29; Status DC Vancomycin HCl (Vanco Per Pharmacy) 1 each PRN DAILY PRN MC SEE COMMENTS Last administered on 06/24/20at 03:43; Start 06/23/20 at 21:30; Stop 06/24/20 at 07:43; Status DC Vancomycin HCl 1.75 gm/Sodium Chloride 500 ml @ 250 mls/hr 1X ONCE IV Last ad ministered on 06/23/20at 23:32; Start 06/23/20 at 22:00; Stop 06/23/20 at 23:59; Status DC Ondansetron HCl (Zofran) 4 mg PRN Q8HRS PRN IV NAUSEA/VOMITING 1ST CHOICE; Start 06/23/20 at 21:45; Stop 06/24/20 at 07:43; Status DC Sodium Chloride 1,000 ml @ 100 mls/hr Q10H IV Last administered on 06/24/20at 20:58; Start 06/23/20 at 22:00; Stop 06/24/20 at 21:59; Status DC Hydromorphone HCl (Dilaudid) 1 mg 1X ONCE IVP Last administered on 06/24/20at 00:29; Start 06/24/20 at 00:30; Stop 06/24/20 at 00:31; Status DC Vancomycin HCl 1 gm/Sodium Chloride 250 ml @ 250 mls/hr Q12H IV ; Start 06/24/20 at 11:00; Stop 06/24/20 at 07:43; Status DC Vancomycin HCl (Vancomycin Trough Level) 1 each 1X ONCE MC ; Start 06/25/20 at 10:30; Stop 06/24/20 at 07:47; Status DC Hydromorphone HCl (Dilaudid) 1 mg 1X ONCE IVP Last administered on 06/24/20at 06:30; Start 06/24/20 at 06:30; Stop 06/24/20 at 06:31; Status DC Hydromorphone HCl (Dilaudid) 2 mg STK-MED ONCE .ROUTE ; Start 06/24/20 at 05:54; Stop 06/24/20 at 05:55; Status DC Piperacillin Sod/ Tazobactam Sod 3.375 gm/Sodium Chloride 50 ml @ 100 mls/hr Q6HRS IV Last administered on 07/02/20at 06:39; Start 06/24/20 at 07:45 Ondansetron HCl (Zofran) 4 mg PRN Q4HRS PRN IV NAUSEA/VOMITING 1ST CHOICE; Start 06/24/20 at 07:45 Acetaminophen (Tylenol) 650 mg PRN Q6HRS PRN PO MILD PAIN / TEMP > 100.3'F Last administered on 06/30/20at 23:58; Start 06/24/20 at 07:45 Acetaminophen (Tylenol Supp) 650 mg PRN Q6HRS PRN CA MILD PAIN / TEMP > 100.3'F; Start 06/24/20 at 07:45 Ketorolac Tromethamine (Toradol 30mg Vial) 30 mg PRN Q6HRS PRN IVP INFLAMMATION Last administered on 06/27/20at 03:43; Start 06/24/20 at 07:45; Stop 06/27/20 at 03:43; Status DC Morphine Sulfate (Morphine Sulfate) 2 mg PRN Q2HR PRN IV PAIN Last administered on 06/28/20at 19:13; Start 06/24/20 at 07:45 Lidocaine HCl (Buffered Lidocaine 1%) 3 ml STK-MED ONCE .ROUTE ; Start 06/24/20 at 10:58; Stop 06/24/20 at 10:58; Status DC Midazolam HCl (Versed) 2 mg STK-MED ONCE .ROUTE ; Start 06/24/20 at 13:34; Stop 06/24/20 at 13:34; Status DC Fentanyl Citrate (Fentanyl 2ml Vial) 100 mcg STK-MED ONCE .ROUTE ; Start 06/24/20 at 13:34; Stop 06/24/20 at 13:35; Status DC Lidocaine HCl (Buffered Lidocaine 1%) 3 ml 1X ONCE IJ Last administered on 06/24/20at 13:45; Start 06/24/20 at 13:45; Stop 06/24/20 at 13:48; Status DC Midazolam HCl (Versed) 2 mg 1X ONCE IV Last administered on 06/24/20at 13:45; Start 06/24/20 at 13:45; Stop 06/24/20 at 13:48; Status DC Fentanyl Citrate (Fentanyl 2ml Vial) 100 mcg 1X ONCE IV Last administered on 06/24/20at 13:45; Start 06/24/20 at 13:45; Stop 06/24/20 at 13:48; Status DC Lactobacillus Rhamnosus (Culturelle) 1 cap BID PO Last administered on 07/02/20at 08:46; Start 06/27/20 at 12:00 Iohexol (Omnipaque 240 Mg/ml) 30 ml 1X ONCE PO Last administered on 06/29/20at 07:30; Start 06/29/20 at 07:15; Stop 06/29/20 at 07:26; Status DC Iohexol (Omnipaque 300 Mg/ml) 75 ml 1X ONCE IV Last administered on 06/29/20at 07:30; Start 06/29/20 at 07:15; Stop 06/29/20 at 07:26; Status DC Info (CONTRAST GIVEN -- Rx MONITORING) 1 each PRN DAILY PRN MC SEE COMMENTS; Start 06/29/20 at 07:30; Stop 07/01/20 at 07:29; Status DC Linezolid/Dextrose 300 ml @ 300 mls/hr Q12HR IV Last administered on 07/02/20at 08:47; Start 06/29/20 at 10:00 Fluconazole/ Sodium Chloride 200 ml @ 100 mls/hr Q24H IV Last administered on 07/01/20at 10:43; Start 06/29/20 at 11:00 Lidocaine HCl (Buffered Lidocaine 1%) 3 ml STK-MED ONCE .ROUTE ; Start 06/29/20 at 15:09; Stop 06/29/20 at 15:10; Status DC Fentanyl Citrate (Fentanyl 5ml Vial) 250 mcg STK-MED ONCE .ROUTE ; Start 06/29/20 at 15:21; Stop 06/29/20 at 15:21; Status DC Midazolam HCl (Versed) 2 mg STK-MED ONCE .ROUTE ; Start 06/29/20 at 15:36; Stop 06/29/20 at 15:36; Status DC Lidocaine HCl (Buffered Lidocaine 1%) 3 ml 1X ONCE IJ Last administered on 06/29/20at 15:56; Start 06/29/20 at 15:45; Stop 06/29/20 at 15:46; Status DC Midazolam HCl (Versed) 2 mg 1X ONCE IV Last administered on 06/29/20at 15:56; Start 06/29/20 at 15:45; Stop 06/29/20 at 15:46; Status DC Fentanyl Citrate (Fentanyl 5ml Vial) 50 mcg 1X ONCE IV Last administered on 06/29/20at 15:56; Start 06/29/20 at 15:45; Stop 06/29/20 at 15:46; Status DC Sodium Chloride 1,000 ml @ 1,000 mls/hr 1X ONCE IV Last administered on 06/29/20at 18:15; Start 06/29/20 at 18:15; Stop 06/29/20 at 19:14; Status DC Acetaminophen/ Hydrocodone Bitart (Lortab 5/325) 1 tab PRN Q4HRS PRN PO PAIN MODERATE TO SEVERE Last administered on 07/01/20at 22:53; Start 07/01/20 at 22:30 Vitals/I & O Vital Sign - Last 24 Hours 07/01/20 07/01/20 07/01/20 07/01/20 11:00 15:00 20:00 22:53 Temp 98.5 98.8 98.5 98.8 Pulse 88 87 Resp 20 18 B/P (MAP) 146/92 (110) 137/80 (99) Pulse Ox 93 94 O2 Delivery Room Air Room Air Room Air Room Air 07/01/20 07/01/20 07/02/20 07/02/20 23:00 23:29 03:00 07:00 Temp 98.2 98.3 98.2 98.3 Pulse 76 72 Resp 16 16 B/P (MAP) 125/80 (95) 126/78 (94) 138/80 (99) Pulse Ox 94 94 O2 Delivery Room Air 07/02/20 07:00 Temp 98.1 98.1 Pulse 80 Resp 18 B/P (MAP) 64/32 (43) Pulse Ox 93 O2 Delivery Room Air Intake and Output 07/01/20 07/01/20 07/02/20 15:00 23:00 07:00 Output Total 300 ml Balance -300 ml Justicifation of Admission Dx: Justifications for Admission: Justification of Admission Dx: Yes REMBERTO DUNLAP MD July 02, 2020 10:09
--- NOTE | 2020-07-02 10:09 | PDOC ---
Infectious Disease Note Subjective Subjective Patient's is at bedside for interpretation Little bit of right-sided abdominal pain - stable GI soft diet + flatus. Denies N/V/D/F/C/rash/SOA ROS ROS as mentioned above otherwise negative Vital Sign Vital Signs Vital Signs Date Time Temp Pulse Resp B/P (MAP) Pulse Ox O2 Delivery O2 Flow Rate FiO2 07/02/20 07:00 98.1 80 18 64/32 (43) 93 Room Air 98.1 Physical Exam PHYSICAL EXAM GENERAL: In bed, alert, appears comfortable HEENT: Normocephalic, atraumatic. Anicteric. Oral cavity clear, no thrush NECK: Supple. No JVD. LUNGS: Clear bilaterally. No wheezing. HEART: S1, S2. No gallops or murmurs. ABDOMEN: Mildly distended. soft, 2 right-sided NAGI drains + purulance; and flank erythema and warmth. EXTREMITIES: No edema, no cyanosis. DERMATOLOGIC: Warm, dry, no generalized rash. NEUROLOGIC: Alert, oriented x 3, grossly nonfocal. PIV looks clean. Labs Micro BLOOD CULTURE Preliminary NO GROWTH AFTER 3 DAYS Abscess: 06/29. GRAM STAIN Final Final GRAM NEGATIVE RODS:MANY GRAM POSITIVE RODS:FEW GRAM POSITIVE COCCI:MANY ANTIMICROBIAL SUSCEPTIBILITY Preliminary NEG ENDY 56 ESCHERICHIA COLI ANTIBIOTIC RESULT INTERPRETATION AMPICILLIN/SULBACTAM >16/8 R AMIKACIN <=16 S AMPICILLIN >16 R AMOXICILLIN/K CLAVULANATE 16/8 I AZTREONAM <=4 S CEFTRIAXONE <=1 S CEFTAZIDIME <=1 S CEFOTAXIME <=2 S CEFOXITIN <=8 S CEFAZOLIN >16 R CIPROFLOXACIN >2 R CEFEPIME <=2 S CEFUROXIME <=4 S CEFTAZIDIME/AVIBACTAM <=4 S ERTAPENEM <=0.5 S GENTAMICIN >8 R LEVOFLOXACIN >4 R MEROPENEM <=1 S PIPERACILLIN/TAZOBACTAM <=8 S TRIMETHOPRIM/SULFAMETHOXAZOLE >/38 R TETRACYCLINE >8 R TOBRAMYCIN 8 I Abscess: 06/24. GRAM STAIN Final Final GRAM NEGATIVE RODS:MANY GRAM POSITIVE RODS:MODERATE GRAM POSITIVE COCCI:MANY ANAEROBIC-AEROBIC CULTURE Final Final MIXED AEROBIC AND ANAEROBIC MARY on 06/26/20 at 1519 INCLUDING: MANY GRAM NEGATIVE RODS on 04/27/21 at 0907 MANY [BACTEROIDES FRAGILIS] ESCHERICHIA COLI ESCHERICHIA COLI STREPTOCOCCUS ANGINOSUS STREPTOCOCCUS CONSTELLATUS CLOSTRIDIUM PERFRINGENS BACTEROIDES FRAGILIS ANTIMICROBIAL SUSCEPTIBILITY Final ESCHERICHIA COLI ANTIBIOTIC RESULT INTERPRETATION AMPICILLIN/SULBACTAM >16/8 R AMIKACIN <=16 S AMPICILLIN >16 R AMOXICILLIN/K CLAVULANATE 16/8 I AZTREONAM <=4 S CEFTRIAXONE <=1 S CEFTAZIDIME <=1 S CEFOTAXIME <=2 S CEFOXITIN <=8 S CEFAZOLIN >16 R CIPROFLOXACIN >2 R CEFEPIME <=2 S CEFUROXIME <=4 S CEFTAZIDIME/AVIBACTAM <=4 S ERTAPENEM <=0.5 S GENTAMICIN >8 R LEVOFLOXACIN >4 R MEROPENEM <=1 S PIPERACILLIN/TAZOBACTAM <=8 S TRIMETHOPRIM/SULFAMETHOXAZOLE >2/38 R TETRACYCLINE >8 R TOBRAMYCIN >8 R NEG ENDY 56 ESCHERICHIA COLI ANTIBIOTIC RESULT INTERPRETATION AMPICILLIN/SULBACTAM 16/8 I AMIKACIN <=16 S AMPICILLIN >16 R AMOXICILLIN/K CLAVULANATE <=8/4 S AZTREONAM <=4 S CEFTRIAXONE <=1 S CEFTAZIDIME <=1 S CEFOTAXIME <=2 S CEFOXITIN <=8 S CEFAZOLIN <=2 S CIPROFLOXACIN <=0.25 S CEFEPIME <=2 S CEFUROXIME <=4 S CEFTAZIDIME/AVIBACTAM <=4 S ERTAPENEM <=0.5 S GENTAMICIN <=2 S LEVOFLOXACIN <=0.5 S MEROPENEM <=1 S PIPERACILLIN/TAZOBACTAM <=8 S TRIMETHOPRIM/SULFAMETHOXAZOLE <=0.5/9.5 S TETRACYCLINE >8 R TOBRAMYCIN <=2 S 5/1. BLOOD CULTURE Preliminary NO GROWTH AFTER 2 DAYS 06/23. BLOOD CULTURE LC Final Final FINAL ID= [BACTEROIDES SPLANCHNICUS] (ISOLATE 1) [GRAM POSITIVE COCCI] PRESENT ON GRAM STAIN BUT UNABLE TO ISOLATE ON SOLID MEDIA. (ISOLATE 2) BACTEROIDES SPLANCHNICUS GRAM POSITIVE COCCI Objective Assessment Sepsis, source intra-abdominal. Fever - better Leukocytosis and bandemia. Perforated appendix. Intraabdominal abscess, status post IR drainage with polymicrobial organism. - Mixed aerobic and anaerobic mary, E. coli x 2 spp.,,Strep anginosis, consellatus, C. perfringes, bacteroides. Gram-negative patricia bacteremia, Bacteroides splanchnicus and GPC UNABLE TO ISOLATE ON SOLID MEDIA, June 23. Plan Plan of Care Continue Zosyn (06/24), Zyvox (06/29) and fluconazole (06/29). Probiotics Monitor lab values/temp Monitor right flank Drain management as directed General Surgery following Repeat BC 06/29 neg to date Continue supportive care. Discussed with at bedside Discussed with nursing staff Better. less swelling and tightness on flank. On Exam - less erythema/warm and is softer. min pain Cont Abx and follow up cults D/w Attending Co-Sign Attending Co-Sign The patient was seen and interviewed as well as examined at the bedside. The chart was reviewed. The case was discussed. Agree with the plan of care. SERVANDO MARTINEZ APRN July 02, 2020 10:09 PEDRO CLARKE MD July 02, 2020 14:09
[2020-07-02 10:44] VITALS: BP 144/83
[2020-07-02] MEDS: FLUCONAZOLE 400MG/200ML PREMIX 200 ML IV SCH (12:33)
[2020-07-02 14:08] LABS: BASO # 0.1 x10^3/uL (0.0-0.2); BASO % 1 % (0-3); EOS # 0.3 x10^3/uL (0.0-0.7); EOS % 4 % (0-3); HEMOGLOBIN 12.7 g/dL (13.0-17.5); LYMPH # 1.6 x10^3/uL (1.0-4.8); LYMPH % 19 % (24-48); MEAN CORPUSCULAR HEMOGLOBIN 30 pg (25-35); MEAN CORPUSCULAR HGB CONC 33 g/dL (31-37); MEAN CORPUSCULAR VOLUME 89 fL (79-100); MONO # 0.6 x10^3/uL (0.0-1.1); MONO % 7 % (0-9); NEUT # 5.8 x10^3/uL (1.8-7.7); NEUT % 69 % (31-73); PLATELET COUNT 477 x10^3/uL (140-400); RED BLOOD COUNT 4.26 x10^6/uL (4.30-5.70); RED CELL DISTRIBUTION WIDTH 13.5 % (11.5-14.5); WHITE BLOOD COUNT 8.4 x10^3/uL (4.0-11.0)
[2020-07-02 14:16] LABS: ALBUMIN 2.1 g/dL (3.4-5.0); ALBUMIN/GLOBULIN RATIO 0.4 (1.0-1.7); CREATININE 0.9 mg/dL (0.7-1.3); GFR 86.1; POTASSIUM 3.9 mmol/L (3.5-5.1); TOTAL BILIRUBIN 0.4 mg/dL (0.2-1.0); TOTAL PROTEIN 7.6 g/dL (6.4-8.2)
[2020-07-02 14:39] VITALS: BP 119/72
[2020-07-02 19:15] VITALS: BP 151/92
[2020-07-02 22:59] VITALS: BP 133/84
[2020-07-03] MEDS: PIPERACILLIN/TAZOBACTAM 3.375 GM in IV NORMAL SALINE 50ML 50 ML IV SCH ×4 (00:06→18:57)
[2020-07-03 03:08] VITALS: BP 129/80
[2020-07-03 07:07] VITALS: BP 127/83
[2020-07-03 07:23] LABS: BASO # 0.1 x10^3/uL (0.0-0.2); BASO % 1 % (0-3); EOS # 0.3 x10^3/uL (0.0-0.7); EOS % 4 % (0-3); HEMATOCRIT 41.3 % (39.0-53.0); HEMOGLOBIN 13.6 g/dL (13.0-17.5); LYMPH # 1.7 x10^3/uL (1.0-4.8); LYMPH % 18 % (24-48); MEAN CORPUSCULAR HEMOGLOBIN 30 pg (25-35); MEAN CORPUSCULAR HGB CONC 33 g/dL (31-37); MEAN CORPUSCULAR VOLUME 89 fL (79-100); MONO # 0.6 x10^3/uL (0.0-1.1); MONO % 7 % (0-9); NEUT # 6.7 x10^3/uL (1.8-7.7); NEUT % 71 % (31-73); PLATELET COUNT 542 x10^3/uL (140-400); RED BLOOD COUNT 4.62 x10^6/uL (4.30-5.70); RED CELL DISTRIBUTION WIDTH 13.8 % (11.5-14.5); WHITE BLOOD COUNT 9.5 x10^3/uL (4.0-11.0)
[2020-07-03 07:47] LABS: CREATININE 0.8 mg/dL (0.7-1.3); GFR 98.6; POTASSIUM 5.1 mmol/L (3.5-5.1)
[2020-07-03 07:56] LABS: CALCIUM 9.2 mg/dL (8.5-10.1)
--- NOTE | 2020-07-03 08:56 | PDOC ---
PROGRESS NOTES Date of Service: DATE: 07/03/20 TIME: 08:56 Chief Complaint Chief Complaint IMPRESSION Abdominal abscess - due to perforated appendicitis. REG DIET General surgery consulted. Will continue antibiotics, IR to see if this is amenable to drain Appendicitis - with perforation. Continue IV antibiotics, zosyn. No surgery at this time due to perforation Sepsis - due to perforated appendicitis - given fluids and antibiotics Hyperglycemia - likely due to stress - will check A1c Left pleural effusion - no respiratory distress Right sided percutaneous drain there is a persistent abscess which may or may not indicate with a drain. CT 06-29 PLAN FEN - Clear liquid diet PPX - heparin FULL CODE Dispo - inpatient ID CONSULT Continue Zosyn. Start Zyvox and fluconazole. drain was able to be placed 06-29 History of Present Illness History of Present Illness Mr Chapa is a 59-year-old male with no significant past medical history, Turkmen-speaking only, presents to the ED on 06/23/2020 accompanied by his son with complaints of diffuse abdominal pain that started on , 06/20/2020, now localized to right lower quadrant with subjective fevers and chills that started 06/24/2020 Patient recently received his Covid vaccine. Denies any past surgical history. Moved here from [place] 30 years ago. Took amoxicillin. Ate soup around 3-4 PM on 06/23 and last bowel movement was around 4 PM with no melena or hematochezia (yellow color). 07-03 Right sided percutaneous drain on ct there is a persistent abscess which may or may not indicate within drain. site // wbc 20k // t max 99.7 06-29 // t max 100.3 06-26 pain is controlled. Tolerating p.o. okay. Blood cultures 1 out of 2 bottles positive for small gram-negative cocci and gram-positive cocci. Continue Zosyn. Start Zyvox and fluconazole. IV erythema right flank drain repositioned, IR WILL see drain was able to be placed 06-29 D/W RN and family in room Continue Zosyn (06/24), Zyvox (06/29) and fluconazole (06/29). Probiotics Monitor lab values/temp Monitor right flank Better. less swelling and tightness on flank. On Exam - less erythema/warm and is softer. min pain 5-04 Right sided percutaneous drain on ct there is a persistent abscess which may or may not indicate within drain. site // wbc 20k // t max 99.7 06-29 // t max 100.3 4- pain is controlled. Tolerating p.o. okay. Blood cultures 1 out of 2 bottles positive for small gram-negative cocci and gram-positive cocci. Continue Zosyn. Start Zyvox and fluconazole. IV erythema right flank drain repositioned, IR WILL see drain was able to be placed 06-29 D/W RN and family in room Continue Zosyn (06/24), Zyvox (06/29) and fluconazole (06/29). Probiotics Monitor lab values/temp Monitor right flank Better. less swelling and tightness on flank. On Exam - less erythema/warm and is softer. min pain 5- Right sided percutaneous drain on ct there is a persistent abscess which may or may not indicate within drain. site // wbc 20k // t max 99.7 06-29 // t max 100.3 4 pain is controlled. Tolerating p.o. okay. Blood cultures 1 out of 2 bottles positive for small gram-negative cocci and gram-positive cocci. Continue Zosyn. Start Zyvox and fluconazole. IV erythema right flank drain repositioned, IR WILL see drain was able to be placed 06-29 D/W RN and family in room 06-30 Right sided percutaneous drain on ct there is a persistent abscess which may or may not indicate within drain. site // wbc 20k // t max 99.7 06-29 // t max 100.3 4 pain is controlled. Tolerating p.o. okay. Blood cultures 1 out of 2 bottles positive for small gram-negative cocci and gram-positive cocci. Continue Zosyn. Start Zyvox and fluconazole. IV drain may need repositioned, IR WILL see drain was able to be placed 06-29 D/W RN and family in room 06-29 Right sided percutaneous drain on ct there is a persistent abscess which may or may not indicate within drain. site // wbc 20k // t max 99.7 06-29 // t max 100.3 4 pain is controlled. Tolerating p.o. okay. Blood cultures 1 out of 2 bottles positive for small gram-negative cocci and gram-positive cocci. Continue Zosyn. Start Zyvox and fluconazole. IV drain may need repositioned, IR WILL see drain was able to be placed 06-29 D/W RN and family in room 06/24: Found with perforated appendicitis. To IR for percutaneous drain 06/25: T-max 100.3 F overnight. Pain is better minimal pain at drain site. No nausea or vomiting. He has a little bit of an appetite. Discussed via [employer] with son and bedside plan is to continue antibiotics and after discussion with surgery to trial on p.o. today and return for appendectomy for definitive treatment after he completes an antibiotic course. 06/26: Afebrile overnight. States his pain is controlled. Tolerating p.o. okay. Blood cultures 1 out of 2 bottles positive for small gram-negative cocci and gram-positive cocci. Drain with minimal output today. Afebrile overnight. Blood cultures pending. Abscess culture with multiple organisms 2 different E. coli with sensitivities to cephalosporins and Zosyn. Pain better, eating 100% of meals, no diarrhea, no vomiting. [ESCHERICHIA COLI] (2 STRAINS) MANY [STREPTOCOCCUS CONSTELLATUS] MANY [STREPTOCOCCUS ANGINOSUS] MANY [CLOSTRIDIUM PERFRINGENS] MANY [BACTEROIDES FRAGILIS] ESCHERICHIA COLI ESCHERICHIA COLI STREPTOCOCCUS ANGINOSUS STREPTOCOCCUS CONSTELLATUS CLOSTRIDIUM PERFRINGENS BACTEROIDES FRAGILIS 06-28 D/W RN WILL CONSULT ID, CONT IV ZOSYN Vitals Vitals Vital Signs Date Time Temp Pulse Resp B/P (MAP) Pulse Ox O2 Delivery O2 Flow Rate FiO2 07/03/20 07:07 98.2 75 18 127/83 (98) 94 Room Air 98.2 Physical Exam Physical Exam GENERAL: In bed, alert, appears comfortable HEENT: Normocephalic, atraumatic. Anicteric. Oral cavity clear, no thrush NECK: Supple. No JVD. LUNGS: Clear bilaterally. No wheezing. HEART: S1, S2. No gallops or murmurs. ABDOMEN: Mildly distended. soft, 2 right-sided NAGI drains + purulance; and flank erythema and warmth. EXTREMITIES: No edema, no cyanosis. DERMATOLOGIC: Warm, dry, no generalized rash. NEUROLOGIC: Alert, oriented x 3, grossly nonfocal. PIV looks clean. General: Alert, Oriented X3, Cooperative, No acute distress Heart: Regular rate, Normal S1, Normal S2 Lungs: Clear Abdomen: Normal bowel sounds, Soft, No tenderness, Other (drains in place, less erythema to area ) Extremities: No clubbing, No cyanosis, No edema, Normal pulses, No tenderness/swelling Skin: No breakdown, No significant lesion, Other (erythema right flank) Labs LABS Laboratory Tests Test 07/02/20 13:30 07/03/20 05:55 White Blood Count 8.4 x10^3/uL (4.0-11.0) 9.5 x10^3/uL (4.0-11.0) Red Blood Count 4.26 x10^6/uL (4.30-5.70) 4.62 x10^6/uL (4.30-5.70) Hemoglobin 12.7 g/dL (13.0-17.5) 13.6 g/dL (13.0-17.5) Hematocrit 38.0 % (39.0-53.0) 41.3 % (39.0-53.0) Mean Corpuscular Volume 89 fL (79-100) 89 fL (79-100) Mean Corpuscular Hemoglobin 30 pg (25-35) 30 pg (25-35) Mean Corpuscular Hemoglobin Concent 33 g/dL (31-37) 33 g/dL (31-37) Red Cell Distribution Width 13.5 % (11.5-14.5) 13.8 % (11.5-14.5) Platelet Count 477 x10^3/uL (140-400) 542 x10^3/uL (140-400) Neutrophils (%) (Auto) 69 % (31-73) 71 % (31-73) Lymphocytes (%) (Auto) 19 % (24-48) 18 % (24-48) Monocytes (%) (Auto) 7 % (0-9) 7 % (0-9) Eosinophils (%) (Auto) 4 % (0-3) 4 % (0-3) Basophils (%) (Auto) 1 % (0-3) 1 % (0-3) Neutrophils # (Auto) 5.8 x10^3/uL (1.8-7.7) 6.7 x10^3/uL (1.8-7.7) Lymphocytes # (Auto) 1.6 x10^3/uL (1.0-4.8) 1.7 x10^3/uL (1.0-4.8) Monocytes # (Auto) 0.6 x10^3/uL (0.0-1.1) 0.6 x10^3/uL (0.0-1.1) Eosinophils # (Auto) 0.3 x10^3/uL (0.0-0.7) 0.3 x10^3/uL (0.0-0.7) Basophils # (Auto) 0.1 x10^3/uL (0.0-0.2) 0.1 x10^3/uL (0.0-0.2) Sodium Level 140 mmol/L (136-145) 140 mmol/L (136-145) Potassium Level 3.9 mmol/L (3.5-5.1) 5.1 mmol/L (3.5-5.1) Chloride Level 105 mmol/L (98-107) 103 mmol/L (98-107) Carbon Dioxide Level 28 mmol/L (21-32) 30 mmol/L (21-32) Anion Gap 7 (6-14) 7 (6-14) Blood Urea Nitrogen 10 mg/dL (8-26) 9 mg/dL (8-26) Creatinine 0.9 mg/dL (0.7-1.3) 0.8 mg/dL (0.7-1.3) Estimated GFR (Cockcroft-Gault) 86.1 98.6 BUN/Creatinine Ratio 11 (6-20) Glucose Level 142 mg/dL (70-99) 81 mg/dL (70-99) Calcium Level 8.0 mg/dL (8.5-10.1) 9.2 mg/dL (8.5-10.1) Total Bilirubin 0.4 mg/dL (0.2-1.0) Aspartate Amino Transf (AST/SGOT) 41 U/L (15-37) Alanine Aminotransferase (ALT/SGPT) 60 U/L (16-63) Alkaline Phosphatase 88 U/L (46-116) Total Protein 7.6 g/dL (6.4-8.2) Albumin 2.1 g/dL (3.4-5.0) Albumin/Globulin Ratio 0.4 (1.0-1.7) Assessment and Plan Assessmemt and Plan Problems Medical Problems: (1) Acute perforated appendicitis Status: Acute (2) Bandemia Status: Acute (3) Peritonitis Status: Acute (4) Sepsis Status: Acute Comment Review of Relevant I have reviewed the following items ab (where applicable) has been applied. Labs Laboratory Tests Test 07/02/20 13:30 07/03/20 05:55 White Blood Count 8.4 x10^3/uL (4.0-11.0) 9.5 x10^3/uL (4.0-11.0) Red Blood Count 4.26 x10^6/uL (4.30-5.70) 4.62 x10^6/uL (4.30-5.70) Hemoglobin 12.7 g/dL (13.0-17.5) 13.6 g/dL (13.0-17.5) Hematocrit 38.0 % (39.0-53.0) 41.3 % (39.0-53.0) Mean Corpuscular Volume 89 fL (79-100) 89 fL (79-100) Mean Corpuscular Hemoglobin 30 pg (25-35) 30 pg (25-35) Mean Corpuscular Hemoglobin Concent 33 g/dL (31-37) 33 g/dL (31-37) Red Cell Distribution Width 13.5 % (11.5-14.5) 13.8 % (11.5-14.5) Platelet Count 477 x10^3/uL (140-400) 542 x10^3/uL (140-400) Neutrophils (%) (Auto) 69 % (31-73) 71 % (31-73) Lymphocytes (%) (Auto) 19 % (24-48) 18 % (24-48) Monocytes (%) (Auto) 7 % (0-9) 7 % (0-9) Eosinophils (%) (Auto) 4 % (0-3) 4 % (0-3) Basophils (%) (Auto) 1 % (0-3) 1 % (0-3) Neutrophils # (Auto) 5.8 x10^3/uL (1.8-7.7) 6.7 x10^3/uL (1.8-7.7) Lymphocytes # (Auto) 1.6 x10^3/uL (1.0-4.8) 1.7 x10^3/uL (1.0-4.8) Monocytes # (Auto) 0.6 x10^3/uL (0.0-1.1) 0.6 x10^3/uL (0.0-1.1) Eosinophils # (Auto) 0.3 x10^3/uL (0.0-0.7) 0.3 x10^3/uL (0.0-0.7) Basophils # (Auto) 0.1 x10^3/uL (0.0-0.2) 0.1 x10^3/uL (0.0-0.2) Sodium Level 140 mmol/L (136-145) 140 mmol/L (136-145) Potassium Level 3.9 mmol/L (3.5-5.1) 5.1 mmol/L (3.5-5.1) Chloride Level 105 mmol/L (98-107) 103 mmol/L (98-107) Carbon Dioxide Level 28 mmol/L (21-32) 30 mmol/L (21-32) Anion Gap 7 (6-14) 7 (6-14) Blood Urea Nitrogen 10 mg/dL (8-26) 9 mg/dL (8-26) Creatinine 0.9 mg/dL (0.7-1.3) 0.8 mg/dL (0.7-1.3) Estimated GFR (Cockcroft-Gault) 86.1 98.6 BUN/Creatinine Ratio 11 (6-20) Glucose Level 142 mg/dL (70-99) 81 mg/dL (70-99) Calcium Level 8.0 mg/dL (8.5-10.1) 9.2 mg/dL (8.5-10.1) Total Bilirubin 0.4 mg/dL (0.2-1.0) Aspartate Amino Transf (AST/SGOT) 41 U/L (15-37) Alanine Aminotransferase (ALT/SGPT) 60 U/L (16-63) Alkaline Phosphatase 88 U/L (46-116) Total Protein 7.6 g/dL (6.4-8.2) Albumin 2.1 g/dL (3.4-5.0) Albumin/Globulin Ratio 0.4 (1.0-1.7) Laboratory Tests Test 07/02/20 13:30 07/03/20 05:55 White Blood Count 8.4 x10^3/uL (4.0-11.0) 9.5 x10^3/uL (4.0-11.0) Red Blood Count 4.26 x10^6/uL (4.30-5.70) 4.62 x10^6/uL (4.30-5.70) Hemoglobin 12.7 g/dL (13.0-17.5) 13.6 g/dL (13.0-17.5) Hematocrit 38.0 % (39.0-53.0) 41.3 % (39.0-53.0) Mean Corpuscular Volume 89 fL (79-100) 89 fL (79-100) Mean Corpuscular Hemoglobin 30 pg (25-35) 30 pg (25-35) Mean Corpuscular Hemoglobin Concent 33 g/dL (31-37) 33 g/dL (31-37) Red Cell Distribution Width 13.5 % (11.5-14.5) 13.8 % (11.5-14.5) Platelet Count 477 x10^3/uL (140-400) 542 x10^3/uL (140-400) Neutrophils (%) (Auto) 69 % (31-73) 71 % (31-73) Lymphocytes (%) (Auto) 19 % (24-48) 18 % (24-48) Monocytes (%) (Auto) 7 % (0-9) 7 % (0-9) Eosinophils (%) (Auto) 4 % (0-3) 4 % (0-3) Basophils (%) (Auto) 1 % (0-3) 1 % (0-3) Neutrophils # (Auto) 5.8 x10^3/uL (1.8-7.7) 6.7 x10^3/uL (1.8-7.7) Lymphocytes # (Auto) 1.6 x10^3/uL (1.0-4.8) 1.7 x10^3/uL (1.0-4.8) Monocytes # (Auto) 0.6 x10^3/uL (0.0-1.1) 0.6 x10^3/uL (0.0-1.1) Eosinophils # (Auto) 0.3 x10^3/uL (0.0-0.7) 0.3 x10^3/uL (0.0-0.7) Basophils # (Auto) 0.1 x10^3/uL (0.0-0.2) 0.1 x10^3/uL (0.0-0.2) Sodium Level 140 mmol/L (136-145) 140 mmol/L (136-145) Potassium Level 3.9 mmol/L (3.5-5.1) 5.1 mmol/L (3.5-5.1) Chloride Level 105 mmol/L (98-107) 103 mmol/L (98-107) Carbon Dioxide Level 28 mmol/L (21-32) 30 mmol/L (21-32) Anion Gap 7 (6-14) 7 (6-14) Blood Urea Nitrogen 10 mg/dL (8-26) 9 mg/dL (8-26) Creatinine 0.9 mg/dL (0.7-1.3) 0.8 mg/dL (0.7-1.3) Estimated GFR (Cockcroft-Gault) 86.1 98.6 BUN/Creatinine Ratio 11 (6-20) Glucose Level 142 mg/dL (70-99) 81 mg/dL (70-99) Calcium Level 8.0 mg/dL (8.5-10.1) 9.2 mg/dL (8.5-10.1) Total Bilirubin 0.4 mg/dL (0.2-1.0) Aspartate Amino Transf (AST/SGOT) 41 U/L (15-37) Alanine Aminotransferase (ALT/SGPT) 60 U/L (16-63) Alkaline Phosphatase 88 U/L (46-116) Total Protein 7.6 g/dL (6.4-8.2) Albumin 2.1 g/dL (3.4-5.0) Albumin/Globulin Ratio 0.4 (1.0-1.7) Microbiology 06/29/20 Gram Stain - Final, Resulted 06/29/20 Aerobic and Anaerobic Culture - Preliminary, Resulted 06/29/20 Antimicrobic Susceptibility - Preliminary, Resulted 06/29/20 Blood Culture - Preliminary, Resulted NO GROWTH AFTER 4 DAYS Medications Current Medications Sodium Chloride 1,000 ml @ 1,000 mls/hr 1X ONCE IV Last administered on 06/23/20at 19:57; Start 06/23/20 at 19:30; Stop 06/23/20 at 20:29; Status DC Sodium Chloride 1,000 ml @ 1,000 mls/hr 1X ONCE IV Last administered on 06/23/20at 19:57; Start 06/23/20 at 19:30; Stop 06/23/20 at 20:29; Status DC Iohexol (Omnipaque 300 Mg/ml) 75 ml 1X ONCE IV Last administered on 06/23/20at 20:25; Start 06/23/20 at 20:15; Stop 06/23/20 at 20:16; Status DC Info (CONTRAST GIVEN -- Rx MONITORING) 1 each PRN DAILY PRN MC SEE COMMENTS; Start 06/23/20 at 20:15; Stop 06/25/20 at 20:14; Status DC Piperacillin Sod/ Tazobactam Sod 4.5 gm/Sodium Chloride 100 ml @ 200 mls/hr 1X ONCE IV Last administered on 06/23/20at 21:57; Start 06/23/20 at 22:00; Stop 06/23/20 at 22:29; Status DC Vancomycin HCl (Vanco Per Pharmacy) 1 each PRN DAILY PRN MC SEE COMMENTS Last administered on 06/24/20at 03:43; Start 06/23/20 at 21:30; Stop 06/24/20 at 07:43; Status DC Vancomycin HCl 1.75 gm/Sodium Chloride 500 ml @ 250 mls/hr 1X ONCE IV Last administered on 06/23/20at 23:32; Start 06/23/20 at 22:00; Stop 06/23/20 at 23:59; Status DC Ondansetron HCl (Zofran) 4 mg PRN Q8HRS PRN IV NAUSEA/VOMITING 1ST CHOICE; Start 06/23/20 at 21:45; Stop 06/24/20 at 07:43; Status DC Sodium Chloride 1,000 ml @ 100 mls/hr Q10H IV Last administered on 06/24/20at 20:58; Start 06/23/20 at 22:00; Stop 06/24/20 at 21:59; Status DC Hydromorphone HCl (Dilaudid) 1 mg 1X ONCE IVP Last administered on 06/24/20at 00:29; Start 06/24/20 at 00:30; Stop 06/24/20 at 00:31; Status DC Vancomycin HCl 1 gm/Sodium Chloride 250 ml @ 250 mls/hr Q12H IV ; Start 06/24/20 at 11:00; Stop 06/24/20 at 07:43; Status DC Vancomycin HCl (Vancomycin Trough Level) 1 each 1X ONCE MC ; Start 06/25/20 at 10:30; Stop 06/24/20 at 07:47; Status DC Hydromorphone HCl (Dilaudid) 1 mg 1X ONCE IVP Last administered on 06/24/20at 06:30; Start 06/24/20 at 06:30; Stop 06/24/20 at 06:31; Status DC Hydromorphone HCl (Dilaudid) 2 mg STK-MED ONCE .ROUTE ; Start 06/24/20 at 05:54; Stop 06/24/20 at 05:55; Status DC Piperacillin Sod/ Tazobactam Sod 3.375 gm/Sodium Chloride 50 ml @ 100 mls/hr Q6HRS IV Last administered on 07/03/20at 06:16; Start 06/24/20 at 07:45 Ondansetron HCl (Zofran) 4 mg PRN Q4HRS PRN IV NAUSEA/VOMITING 1ST CHOICE; Start 06/24/20 at 07:45 Acetaminophen (Tylenol) 650 mg PRN Q6HRS PRN PO MILD PAIN / TEMP > 100.3'F Last administered on 06/30/20at 23:58; Start 06/24/20 at 07:45 Acetaminophen (Tylenol Supp) 650 mg PRN Q6HRS PRN DE MILD PAIN / TEMP > 100.3'F; Start 06/24/20 at 07:45 Ketorolac Tromethamine (Toradol 30mg Vial) 30 mg PRN Q6HRS PRN IVP INFLAMMATION Last administered on 06/27/20at 03:43; Start 06/24/20 at 07:45; Stop 06/27/20 at 03:43; Status DC Morphine Sulfate (Morphine Sulfate) 2 mg PRN Q2HR PRN IV PAIN Last administered on 06/28/20at 19:13; Start 06/24/20 at 07:45 Lidocaine HCl (Buffered Lidocaine 1%) 3 ml STK-MED ONCE .ROUTE ; Start 06/24/20 at 10:58; Stop 06/24/20 at 10:58; Status DC Midazolam HCl (Versed) 2 mg STK-MED ONCE .ROUTE ; Start 06/24/20 at 13:34; Stop 06/24/20 at 13:34; Status DC Fentanyl Citrate (Fentanyl 2ml Vial) 100 mcg STK-MED ONCE .ROUTE ; Start 06/24/20 at 13:34; Stop 06/24/20 at 13:35; Status DC Lidocaine HCl (Buffered Lidocaine 1%) 3 ml 1X ONCE IJ Last administered on 06/24/20at 13:45; Start 06/24/20 at 13:45; Stop 06/24/20 at 13:48; Status DC Midazolam HCl (Versed) 2 mg 1X ONCE IV Last administered on 06/24/20at 13:45; Start 06/24/20 at 13:45; Stop 06/24/20 at 13:48; Status DC Fentanyl Citrate (Fentanyl 2ml Vial) 100 mcg 1X ONCE IV Last administered on 06/24/20at 13:45; Start 06/24/20 at 13:45; Stop 06/24/20 at 13:48; Status DC Lactobacillus Rhamnosus (Culturelle) 1 cap BID PO Last administered on 07/02/20at 20:44; Start 06/27/20 at 12:00 Iohexol (Omnipaque 240 Mg/ml) 30 ml 1X ONCE PO Last administered on 06/29/20at 0 7:30; Start 06/29/20 at 07:15; Stop 06/29/20 at 07:26; Status DC Iohexol (Omnipaque 300 Mg/ml) 75 ml 1X ONCE IV Last administered on 06/29/20at 07:30; Start 06/29/20 at 07:15; Stop 06/29/20 at 07:26; Status DC Info (CONTRAST GIVEN -- Rx MONITORING) 1 each PRN DAILY PRN MC SEE COMMENTS; Start 06/29/20 at 07:30; Stop 07/01/20 at 07:29; Status DC Linezolid/Dextrose 300 ml @ 300 mls/hr Q12HR IV Last administered on 07/02/20at 20:44; Start 06/29/20 at 10:00 Fluconazole/ Sodium Chloride 200 ml @ 100 mls/hr Q24H IV Last administered on 07/02/20at 12:33; Start 06/29/20 at 11:00 Lidocaine HCl (Buffered Lidocaine 1%) 3 ml STK-MED ONCE .ROUTE ; Start 06/29/20 at 15:09; Stop 06/29/20 at 15:10; Status DC Fentanyl Citrate (Fentanyl 5ml Vial) 250 mcg STK-MED ONCE .ROUTE ; Start 06/29/20 at 15:21; Stop 06/29/20 at 15:21; Status DC Midazolam HCl (Versed) 2 mg STK-MED ONCE .ROUTE ; Start 06/29/20 at 15:36; Stop 06/29/20 at 15:36; Status DC Lidocaine HCl (Buffered Lidocaine 1%) 3 ml 1X ONCE IJ Last administered on 06/29/20at 15:56; Start 06/29/20 at 15:45; Stop 06/29/20 at 15:46; Status DC Midazolam HCl (Versed) 2 mg 1X ONCE IV Last administered on 06/29/20at 15:56; Start 06/29/20 at 15:45; Stop 06/29/20 at 15:46; Status DC Fentanyl Citrate (Fentanyl 5ml Vial) 50 mcg 1X ONCE IV Last administered on 06/29/20at 15:56; Start 06/29/20 at 15:45; Stop 06/29/20 at 15:46; Status DC Sodium Chloride 1,000 ml @ 1,000 mls/hr 1X ONCE IV Last administered on 06/29/20at 18:15; Start 06/29/20 at 18:15; Stop 06/29/20 at 19:14; Status DC Acetaminophen/ Hydrocodone Bitart (Lortab 5/325) 1 tab PRN Q4HRS PRN PO PAIN MODERATE TO SEVERE Last administered on 07/01/20at 22:53; Start 07/01/20 at 22:30 Vitals/I & O Vital Sign - Last 24 Hours 07/02/20 07/02/20 07/02/20 07/02/20 10:44 14:39 19:15 20:00 Temp 98.5 98.5 98.6 98.5 98.5 98.6 Pulse 79 78 83 Resp 18 18 18 B/P (MAP) 144/83 (103) 119/72 (88) 151/92 (111) Pulse Ox 93 93 94 O2 Delivery Room Air Room Air Room Air Room Air 07/02/20 07/03/20 07/03/20 22:59 03:08 07:07 Temp 98.1 98.1 98.2 98.1 98.1 98.2 Pulse 76 73 75 Resp 18 B/P (MAP) 133/84 (100) 129/80 (96) 127/83 (98) Pulse Ox 94 96 94 O2 Delivery Room Air Room Air Room Air Intake and Output 07/02/20 07/02/20 07/03/20 15:00 23:00 07:00 Intake Total 790 ml 470 ml Output Total 35 ml Balance 755 ml 470 ml Justicifation of Admission Dx: Justifications for Admission: Justification of Admission Dx: Yes REMBERTO DUNLAP MD July 03, 2020 08:56
--- NOTE | 2020-07-03 09:42 | PDOC ---
Infectious Disease Note Subjective Subjective Patient's is at bedside for interpretation Little bit of right-sided abdominal pain - stable GI soft diet Denies N/V/D/F/C/rash/SOA Vital Sign Vital Signs Vital Signs Date Time Temp Pulse Resp B/P (MAP) Pulse Ox O2 Delivery O2 Flow Rate FiO2 07/03/20 07:07 98.2 75 18 127/83 (98) 94 Room Air 98.2 Physical Exam PHYSICAL EXAM GENERAL: In bed, alert, appears comfortable HEENT: Anicteric. Oral cavity clear, no thrush NECK: Supple. No JVD. LUNGS: Clear bilaterally. No wheezing. HEART: S1, S2. No gallops or murmurs. ABDOMEN: Mildly distended. soft, 2 right-sided NAGI drains + purulance; and flank soft, nontender, improved erythema and warmth, improved some . DERMATOLOGIC: Warm, dry, no generalized rash. NEUROLOGIC: Alert, oriented x 3, grossly nonfocal. PIV looks clean. Labs Lab Laboratory Tests Test 07/02/20 13:30 07/03/20 05:55 White Blood Count 8.4 x10^3/uL (4.0-11.0) 9.5 x10^3/uL (4.0-11.0) Red Blood Count 4.26 x10^6/uL (4.30-5.70) 4.62 x10^6/uL (4.30-5.70) Hemoglobin 12.7 g/dL (13.0-17.5) 13.6 g/dL (13.0-17.5) Hematocrit 38.0 % (39.0-53.0) 41.3 % (39.0-53.0) Mean Corpuscular Volume 89 fL (79-100) 89 fL (79-100) Mean Corpuscular Hemoglobin 30 pg (25-35) 30 pg (25-35) Mean Corpuscular Hemoglobin Concent 33 g/dL (31-37) 33 g/dL (31-37) Red Cell Distribution Width 13.5 % (11.5-14.5) 13.8 % (11.5-14.5) Platelet Count 477 x10^3/uL (140-400) 542 x10^3/uL (140-400) Neutrophils (%) (Auto) 69 % (31-73) 71 % (31-73) Lymphocytes (%) (Auto) 19 % (24-48) 18 % (24-48) Monocytes (%) (Auto) 7 % (0-9) 7 % (0-9) Eosinophils (%) (Auto) 4 % (0-3) 4 % (0-3) Basophils (%) (Auto) 1 % (0-3) 1 % (0-3) Neutrophils # (Auto) 5.8 x10^3/uL (1.8-7.7) 6.7 x10^3/uL (1.8-7.7) Lymphocytes # (Auto) 1.6 x10^3/uL (1.0-4.8) 1.7 x10^3/uL (1.0-4.8) Monocytes # (Auto) 0.6 x10^3/uL (0.0-1.1) 0.6 x10^3/uL (0.0-1.1) Eosinophils # (Auto) 0.3 x10^3/uL (0.0-0.7) 0.3 x10^3/uL (0.0-0.7) Basophils # (Auto) 0.1 x10^3/uL (0.0-0.2) 0.1 x10^3/uL (0.0-0.2) Sodium Level 140 mmol/L (136-145) 140 mmol/L (136-145) Potassium Level 3.9 mmol/L (3.5-5.1) 5.1 mmol/L (3.5-5.1) Chloride Level 105 mmol/L (98-107) 103 mmol/L (98-107) Carbon Dioxide Level 28 mmol/L (21-32) 30 mmol/L (21-32) Anion Gap 7 (6-14) 7 (6-14) Blood Urea Nitrogen 10 mg/dL (8-26) 9 mg/dL (8-26) Creatinine 0.9 mg/dL (0.7-1.3) 0.8 mg/dL (0.7-1.3) Estimated GFR (Cockcroft-Gault) 86.1 98.6 BUN/Creatinine Ratio 11 (6-20) Glucose Level 142 mg/dL (70-99) 81 mg/dL (70-99) Calcium Level 8.0 mg/dL (8.5-10.1) 9.2 mg/dL (8.5-10.1) Total Bilirubin 0.4 mg/dL (0.2-1.0) Aspartate Amino Transf (AST/SGOT) 41 U/L (15-37) Alanine Aminotransferase (ALT/SGPT) 60 U/L (16-63) Alkaline Phosphatase 88 U/L (46-116) Total Protein 7.6 g/dL (6.4-8.2) Albumin 2.1 g/dL (3.4-5.0) Albumin/Globulin Ratio 0.4 (1.0-1.7) Micro BLOOD CULTURE Preliminary NO GROWTH AFTER 4 DAYS Abscess: 06/29. GRAM STAIN Final Final GRAM NEGATIVE RODS:MANY GRAM POSITIVE RODS:FEW GRAM POSITIVE COCCI:MANY ANTIMICROBIAL SUSCEPTIBILITY Preliminary NEG ENDY 56 ESCHERICHIA COLI ANTIBIOTIC RESULT INTERPRETATION AMPICILLIN/SULBACTAM >16/8 R AMIKACIN <=16 S AMPICILLIN >16 R AMOXICILLIN/K CLAVULANATE 16/8 I AZTREONAM <=4 S CEFTRIAXONE <=1 S CEFTAZIDIME <=1 S CEFOTAXIME <=2 S CEFOXITIN <=8 S CEFAZOLIN >16 R CIPROFLOXACIN >2 R CEFEPIME <=2 S CEFUROXIME <=4 S CEFTAZIDIME/AVIBACTAM <=4 S ERTAPENEM <=0.5 S GENTAMICIN >8 R LEVOFLOXACIN >4 R MEROPENEM <=1 S PIPERACILLIN/TAZOBACTAM <=8 S TRIMETHOPRIM/SULFAMETHOXAZOLE >2/38 R TETRACYCLINE >8 R TOBRAMYCIN 8 I Abscess: 06/24. GRAM STAIN Final Final GRAM NEGATIVE RODS:MANY GRAM POSITIVE RODS:MODERATE GRAM POSITIVE COCCI:MANY ANAEROBIC-AEROBIC CULTURE Final Final MIXED AEROBIC AND ANAEROBIC MARY on 06/26/20 at 1519 INCLUDING: MANY GRAM NEGATIVE RODS on 06/25/20 at 0907 MANY [BACTEROIDES FRAGILIS] ESCHERICHIA COLI ESCHERICHIA COLI STREPTOCOCCUS ANGINOSUS STREPTOCOCCUS CONSTELLATUS CLOSTRIDIUM PERFRINGENS BACTEROIDES FRAGILIS ANTIMICROBIAL SUSCEPTIBILITY Final ESCHERICHIA COLI ANTIBIOTIC RESULT INTERPRETATION AMPICILLIN/SULBACTAM >16/8 R AMIKACIN <=16 S AMPICILLIN >16 R AMOXICILLIN/K CLAVULANATE 16/8 I AZTREONAM <=4 S CEFTRIAXONE <=1 S CEFTAZIDIME <=1 S CEFOTAXIME <=2 S CEFOXITIN <=8 S CEFAZOLIN >16 R CIPROFLOXACIN >2 R CEFEPIME <=2 S CEFUROXIME <=4 S CEFTAZIDIME/AVIBACTAM <=4 S ERTAPENEM <=0.5 S GENTAMICIN >8 R LEVOFLOXACIN >4 R MEROPENEM <=1 S PIPERACILLIN/TAZOBACTAM <=8 S TRIMETHOPRIM/SULFAMETHOXAZOLE >2/38 R TETRACYCLINE >8 R TOBRAMYCIN >8 R NEG ENDY 56 ESCHERICHIA COLI ANTIBIOTIC RESULT INTERPRETATION AMPICILLIN/SULBACTAM 16/8 I AMIKACIN <=16 S AMPICILLIN >16 R AMOXICILLIN/K CLAVULANATE <=8/4 S AZTREONAM <=4 S CEFTRIAXONE <=1 S CEFTAZIDIME <=1 S CEFOTAXIME <=2 S CEFOXITIN <=8 S CEFAZOLIN <=2 S CIPROFLOXACIN <=0.25 S CEFEPIME <=2 S CEFUROXIME <=4 S CEFTAZIDIME/AVIBACTAM <=4 S ERTAPENEM <=0.5 S GENTAMICIN <=2 S LEVOFLOXACIN <=0.5 S MEROPENEM <=1 S PIPERACILLIN/TAZOBACTAM <=8 S TRIMETHOPRIM/SULFAMETHOXAZOLE <=0.5/9.5 S TETRACYCLINE >8 R TOBRAMYCIN <=2 S 5/1. BLOOD CULTURE Preliminary NO GROWTH AFTER 2 DAYS 06/23. BLOOD CULTURE LC Final Final FINAL ID= [BACTEROIDES SPLANCHNICUS] (ISOLATE 1) [GRAM POSITIVE COCCI] PRESENT ON GRAM STAIN BUT UNABLE TO ISOLATE ON SOLID MEDIA. (ISOLATE 2) BACTEROIDES SPLANCHNICUS GRAM POSITIVE COCCI Objective Assessment Sepsis, source intra-abdominal. Fever - better Leukocytosis and bandemia. Perforated appendix. Intraabdominal abscess, status post IR drainage with polymicrobial organism. - Mixed aerobic and anaerobic mary, E. coli x 2 spp.,,Strep anginosis, consellatus, C. perfringes, bacteroides. Gram-negative patricia bacteremia, Bacteroides splanchnicus and GPC UNABLE TO ISOLATE ON SOLID MEDIA, June 23. Plan Plan of Care Continue Zosyn (06/24), Zyvox (06/29) and fluconazole (06/29). Probiotics Monitor lab values/temp Monitor right flank Drain management as directed General Surgery following Repeat BC 06/29 neg to date Continue supportive care. Discussed with at bedside Discussed with nursing staff Flank is better and he is improving. Eating well. Will try to wean some abx soon F/u cults Recommend repeat CT in a few days or so to assess status Attending Co-Sign Attending Co-Sign The patient was seen and interviewed as well as examined at the bedside. The chart was reviewed. The case was discussed. Agree with the plan of care. SERVANDO MARTINEZ APRN July 03, 2020 09:42 PEDRO CLARKE MD July 03, 2020 13:23
--- NOTE | 2020-07-03 10:15 | NUR ---
SW following. Discussed with RN, pt still has drains and still on IV abx. Pt will discharge home with self care when medically stable. SW will continue to follow.
[2020-07-03 10:28] VITALS: BP 121/72
[2020-07-03] MEDS: LACTOBACILLUS RHAMNOSUS GG 1 CAPSULE. PO SCH ×2 (11:16→20:06)
[2020-07-03] MEDS: FLUCONAZOLE 400MG/200ML PREMIX 200 ML IV SCH (13:07)
[2020-07-03 14:44] VITALS: BP 115/71
--- NOTE | 2020-07-03 14:57 | PDOC ---
SURGICAL PROGRESS NOTE DATE: 07/03/20 TIME: 14:54 Subjective Pt reports feeling well, gary diet, pain controlled, passing stools Vital Signs Vital Signs Date Time Temp Pulse Resp B/P (MAP) Pulse Ox O2 Delivery O2 Flow Rate FiO2 07/03/20 14:44 98.2 82 18 115/71 (86) 94 Room Air 98.2 I&O Intake and Output 07/03/20 07:00 Intake Total 1260 ml Output Total 35 ml Balance 1225 ml Intake Oral 610 ml IV Total 650 ml Drainage Total 35 ml # Voids 4 # Bowel Movements 1 General: Alert, Oriented X3, Cooperative, No acute distress Abdomen: Soft, No tenderness, Other (right flank erythema improved, drains in place with purulent drainage) Labs Laboratory Tests Test 07/02/20 13:30 07/03/20 05:55 White Blood Count 8.4 x10^3/uL (4.0-11.0) 9.5 x10^3/uL (4.0-11.0) Red Blood Count 4.26 x10^6/uL (4.30-5.70) 4.62 x10^6/uL (4.30-5.70) Hemoglobin 12.7 g/dL (13.0-17.5) 13.6 g/dL (13.0-17.5) Hematocrit 38.0 % (39.0-53.0) 41.3 % (39.0-53.0) Mean Corpuscular Volume 89 fL (79-100) 89 fL (79-100) Mean Corpuscular Hemoglobin 30 pg (25-35) 30 pg (25-35) Mean Corpuscular Hemoglobin Concent 33 g/dL (31-37) 33 g/dL (31-37) Red Cell Distribution Width 13.5 % (11.5-14.5) 13.8 % (11.5-14.5) Platelet Count 477 x10^3/uL (140-400) 542 x10^3/uL (140-400) Neutrophils (%) (Auto) 69 % (31-73) 71 % (31-73) Lymphocytes (%) (Auto) 19 % (24-48) 18 % (24-48) Monocytes (%) (Auto) 7 % (0-9) 7 % (0-9) Eosinophils (%) (Auto) 4 % (0-3) 4 % (0-3) Basophils (%) (Auto) 1 % (0-3) 1 % (0-3) Neutrophils # (Auto) 5.8 x10^3/uL (1.8-7.7) 6.7 x10^3/uL (1.8-7.7) Lymphocytes # (Auto) 1.6 x10^3/uL (1.0-4.8) 1.7 x10^3/uL (1.0-4.8) Monocytes # (Auto) 0.6 x10^3/uL (0.0-1.1) 0.6 x10^3/uL (0.0-1.1) Eosinophils # (Auto) 0.3 x10^3/uL (0.0-0.7) 0.3 x10^3/uL (0.0-0.7) Basophils # (Auto) 0.1 x10^3/uL (0.0-0.2) 0.1 x10^3/uL (0.0-0.2) Sodium Level 140 mmol/L (136-145) 140 mmol/L (136-145) Potassium Level 3.9 mmol/L (3.5-5.1) 5.1 mmol/L (3.5-5.1) Chloride Level 105 mmol/L (98-107) 103 mmol/L (98-107) Carbon Dioxide Level 28 mmol/L (21-32) 30 mmol/L (21-32) Anion Gap 7 (6-14) 7 (6-14) Blood Urea Nitrogen 10 mg/dL (8-26) 9 mg/dL (8-26) Creatinine 0.9 mg/dL (0.7-1.3) 0.8 mg/dL (0.7-1.3) Estimated GFR (Cockcroft-Gault) 86.1 98.6 BUN/Creatinine Ratio 11 (6-20) Glucose Level 142 mg/dL (70-99) 81 mg/dL (70-99) Calcium Level 8.0 mg/dL (8.5-10.1) 9.2 mg/dL (8.5-10.1) Total Bilirubin 0.4 mg/dL (0.2-1.0) Aspartate Amino Transf (AST/SGOT) 41 U/L (15-37) Alanine Aminotransferase (ALT/SGPT) 60 U/L (16-63) Alkaline Phosphatase 88 U/L (46-116) Total Protein 7.6 g/dL (6.4-8.2) Albumin 2.1 g/dL (3.4-5.0) Albumin/Globulin Ratio 0.4 (1.0-1.7) Laboratory Tests Test 07/03/20 05:55 White Blood Count 9.5 x10^3/uL (4.0-11.0) Red Blood Count 4.62 x10^6/uL (4.30-5.70) Hemoglobin 13.6 g/dL (13.0-17.5) Hematocrit 41.3 % (39.0-53.0) Mean Corpuscular Volume 89 fL (79-100) Mean Corpuscular Hemoglobin 30 pg (25-35) Mean Corpuscular Hemoglobin Concent 33 g/dL (31-37) Red Cell Distribution Width 13.8 % (11.5-14.5) Platelet Count 542 x10^3/uL (140-400) Neutrophils (%) (Auto) 71 % (31-73) Lymphocytes (%) (Auto) 18 % (24-48) Monocytes (%) (Auto) 7 % (0-9) Eosinophils (%) (Auto) 4 % (0-3) Basophils (%) (Auto) 1 % (0-3) Neutrophils # (Auto) 6.7 x10^3/uL (1.8-7.7) Lymphocytes # (Auto) 1.7 x10^3/uL (1.0-4.8) Monocytes # (Auto) 0.6 x10^3/uL (0.0-1.1) Eosinophils # (Auto) 0.3 x10^3/uL (0.0-0.7) Basophils # (Auto) 0.1 x10^3/uL (0.0-0.2) Sodium Level 140 mmol/L (136-145) Potassium Level 5.1 mmol/L (3.5-5.1) Chloride Level 103 mmol/L (98-107) Carbon Dioxide Level 30 mmol/L (21-32) Anion Gap 7 (6-14) Blood Urea Nitrogen 9 mg/dL (8-26) Creatinine 0.8 mg/dL (0.7-1.3) Estimated GFR (Cockcroft-Gault) 98.6 Glucose Level 81 mg/dL (70-99) Calcium Level 9.2 mg/dL (8.5-10.1) Problem List Problems Medical Problems: (1) Acute perforated appendicitis Status: Acute (2) Bandemia Status: Acute (3) Peritonitis Status: Acute (4) Sepsis Status: Acute Assessment/Plan perforated appendicitis appears to be doing well, cont drains and abx. elective appendectomy Justicifation of Admission Dx: Justifications for Admission: Justification of Admission Dx: Yes BOBBY PARNELL MD July 03, 2020 14:57
[2020-07-03 19:00] VITALS: BP 120/78
[2020-07-03 22:52] VITALS: BP 129/76
[2020-07-04] MEDS: PIPERACILLIN/TAZOBACTAM 3.375 GM in IV NORMAL SALINE 50ML 50 ML IV SCH ×4 (00:01→17:10)
[2020-07-04 03:00] VITALS: BP 110/67
[2020-07-04 07:00] VITALS: BP 121/79
[2020-07-04] MEDS: LACTOBACILLUS RHAMNOSUS GG 1 CAPSULE. PO SCH ×2 (08:44→20:50)
--- NOTE | 2020-07-04 09:14 | PDOC ---
SURGICAL PROGRESS NOTE DATE: 07/04/20 TIME: 09:12 Subjective feeling better minimal pain no nausea Vital Signs Vital Signs Date Time Temp Pulse Resp B/P (MAP) Pulse Ox O2 Delivery O2 Flow Rate FiO2 07/04/20 07:00 98.1 83 16 121/79 (93) 94 Room Air 98.1 I&O Intake and Output 07/04/20 07:00 Intake Total 1300 ml Output Total 210 ml Balance 1090 ml Intake Oral 350 ml IV Total 950 ml Output Urine Total 200 ml Drainage Total 10 ml # Voids 2 # Bowel Movements 1 General: Alert, Cooperative Abdomen: Soft, Other (drains in place) Labs Laboratory Tests Test 07/02/20 13:30 07/03/20 05:55 White Blood Count 8.4 x10^3/uL (4.0-11.0) 9.5 x10^3/uL (4.0-11.0) Red Blood Count 4.26 x10^6/uL (4.30-5.70) 4.62 x10^6/uL (4.30-5.70) Hemoglobin 12.7 g/dL (13.0-17.5) 13.6 g/dL (13.0-17.5) Hematocrit 38.0 % (39.0-53.0) 41.3 % (39.0-53.0) Mean Corpuscular Volume 89 fL (79-100) 89 fL (79-100) Mean Corpuscular Hemoglobin 30 pg (25-35) 30 pg (25-35) Mean Corpuscular Hemoglobin Concent 33 g/dL (31-37) 33 g/dL (31-37) Red Cell Distribution Width 13.5 % (11.5-14.5) 13.8 % (11.5-14.5) Platelet Count 477 x10^3/uL (140-400) 542 x10^3/uL (140-400) Neutrophils (%) (Auto) 69 % (31-73) 71 % (31-73) Lymphocytes (%) (Auto) 19 % (24-48) 18 % (24-48) Monocytes (%) (Auto) 7 % (0-9) 7 % (0-9) Eosinophils (%) (Auto) 4 % (0-3) 4 % (0-3) Basophils (%) (Auto) 1 % (0-3) 1 % (0-3) Neutrophils # (Auto) 5.8 x10^3/uL (1.8-7.7) 6.7 x10^3/uL (1.8-7.7) Lymphocytes # (Auto) 1.6 x10^3/uL (1.0-4.8) 1.7 x10^3/uL (1.0-4.8) Monocytes # (Auto) 0.6 x10^3/uL (0.0-1.1) 0.6 x10^3/uL (0.0-1.1) Eosinophils # (Auto) 0.3 x10^3/uL (0.0-0.7) 0.3 x10^3/uL (0.0-0.7) Basophils # (Auto) 0.1 x10^3/uL (0.0-0.2) 0.1 x10^3/uL (0.0-0.2) Sodium Level 140 mmol/L (136-145) 140 mmol/L (136-145) Potassium Level 3.9 mmol/L (3.5-5.1) 5.1 mmol/L (3.5-5.1) Chloride Level 105 mmol/L (98-107) 103 mmol/L (98-107) Carbon Dioxide Level 28 mmol/L (21-32) 30 mmol/L (21-32) Anion Gap 7 (6-14) 7 (6-14) Blood Urea Nitrogen 10 mg/dL (8-26) 9 mg/dL (8-26) Creatinine 0.9 mg/dL (0.7-1.3) 0.8 mg/dL (0.7-1.3) Estimated GFR (Cockcroft-Gault) 86.1 98.6 BUN/Creatinine Ratio 11 (6-20) Glucose Level 142 mg/dL (70-99) 81 mg/dL (70-99) Calcium Level 8.0 mg/dL (8.5-10.1) 9.2 mg/dL (8.5-10.1) Total Bilirubin 0.4 mg/dL (0.2-1.0) Aspartate Amino Transf (AST/SGOT) 41 U/L (15-37) Alanine Aminotransferase (ALT/SGPT) 60 U/L (16-63) Alkaline Phosphatase 88 U/L (46-116) Total Protein 7.6 g/dL (6.4-8.2) Albumin 2.1 g/dL (3.4-5.0) Albumin/Globulin Ratio 0.4 (1.0-1.7) Problem List Problems Medical Problems: (1) Acute perforated appendicitis Status: Acute (2) Bandemia Status: Acute (3) Peritonitis Status: Acute (4) Sepsis Status: Acute Assessment/Plan abx, drains-monitor drain output--is decreasing Justicifation of Admission Dx: Justifications for Admission: Justification of Admission Dx: Yes DANIELA RAMOS SOUBRETTE July 04, 2020 09:14
--- NOTE | 2020-07-04 10:39 | PDOC ---
Infectious Disease Note Subjective Subjective Patient's is at bedside for interpretation Minimal abdominal pain. No N/V/D/F/C Has been walking around the unit GI soft diet ROS ROS as mentioned above, otherwise negative Vital Sign Vital Signs Vital Signs Date Time Temp Pulse Resp B/P (MAP) Pulse Ox O2 Delivery O2 Flow Rate FiO2 07/04/20 07:00 98.1 83 16 121/79 (93) 94 Room Air 98.1 Physical Exam PHYSICAL EXAM GENERAL: In bed, alert, appears comfortable HEENT: Anicteric. Oral cavity clear, no thrush NECK: Supple. No JVD. LUNGS: Clear bilaterally. No wheezing. HEART: S1, S2. No gallops or murmurs. ABDOMEN: Mildly distended. soft, 2 right-sided NAGI drains + purulance; and flank soft, nontender, improved erythema and warmth. DERMATOLOGIC: Warm, dry, no generalized rash. NEUROLOGIC: Alert, oriented x 3, grossly nonfocal. PIV looks clean. Labs Micro BLOOD CULTURE Preliminary NO GROWTH AFTER 4 DAYS Abscess: 06/29. MIXED AEROBIC AND ANAEROBIC MARY on 07/03/20 at 1444 INCLUDING: MANY GRAM NEGATIVE RODS on 07/01/20 at 0842 FINAL ID= [ESCHERICHIA COLI] MANY [STREPTOCOCCUS CONSTELLATUS] MANY [BACTEROIDES FRAGILIS] MANY [BACTEROIDES OVATUS GROUP] MANY [CLOSTRIDIUM PERFRINGENS] ESCHERICHIA COLI STREPTOCOCCUS CONSTELLATUS BACTEROIDES FRAGILIS BACTEROIDES OVATUS GROUP CLOSTRIDIUM PERFRINGENS ANTIMICROBIAL SUSCEPTIBILITY Preliminary NEG ENDY 56 ESCHERICHIA COLI ANTIBIOTIC RESULT INTERPRETATION AMPICILLIN/SULBACTAM >16/8 R AMIKACIN <=16 S AMPICILLIN >16 R AMOXICILLIN/K CLAVULANATE 16/8 I AZTREONAM <=4 S CEFTRIAXONE <=1 S CEFTAZIDIME <=1 S CEFOTAXIME <=2 S CEFOXITIN <=8 S CEFAZOLIN >16 R CIPROFLOXACIN >2 R CEFEPIME <=2 S CEFUROXIME <=4 S CEFTAZIDIME/AVIBACTAM <=4 S ERTAPENEM <=0.5 S GENTAMICIN >8 R LEVOFLOXACIN >4 R MEROPENEM <=1 S PIPERACILLIN/TAZOBACTAM <=8 S TRIMETHOPRIM/SULFAMETHOXAZOLE >2/38 R TETRACYCLINE >8 R TOBRAMYCIN 8 I Abscess: 06/24. GRAM STAIN Final Final GRAM NEGATIVE RODS:MANY GRAM POSITIVE RODS:MODERATE GRAM POSITIVE COCCI:MANY ANAEROBIC-AEROBIC CULTURE Final Final MIXED AEROBIC AND ANAEROBIC MARY on 06/26/20 at 1519 INCLUDING: MANY GRAM NEGATIVE RODS on 06/25/20 at 0907 MANY [BACTEROIDES FRAGILIS] ESCHERICHIA COLI ESCHERICHIA COLI STREPTOCOCCUS ANGINOSUS STREPTOCOCCUS CONSTELLATUS CLOSTRIDIUM PERFRINGENS BACTEROIDES FRAGILIS ANTIMICROBIAL SUSCEPTIBILITY Final ESCHERICHIA COLI ANTIBIOTIC RESULT INTERPRETATION AMPICILLIN/SULBACTAM >16/8 R AMIKACIN <=16 S AMPICILLIN >16 R AMOXICILLIN/K CLAVULANATE 16/8 I AZTREONAM <=4 S CEFTRIAXONE <=1 S CEFTAZIDIME <=1 S CEFOTAXIME <=2 S CEFOXITIN <=8 S CEFAZOLIN >16 R CIPROFLOXACIN >2 R CEFEPIME <=2 S CEFUROXIME <=4 S CEFTAZIDIME/AVIBACTAM <=4 S ERTAPENEM <=0.5 S GENTAMICIN >8 R LEVOFLOXACIN >4 R MEROPENEM <=1 S PIPERACILLIN/TAZOBACTAM <=8 S TRIMETHOPRIM/SULFAMETHOXAZOLE >2/38 R TETRACYCLINE >8 R TOBRAMYCIN >8 R NEG ENDY 56 ESCHERICHIA COLI ANTIBIOTIC RESULT INTERPRETATION AMPICILLIN/SULBACTAM 16/8 I AMIKACIN <=16 S AMPICILLIN >16 R AMOXICILLIN/K CLAVULANATE <=8/4 S AZTREONAM <=4 S CEFTRIAXONE <=1 S CEFTAZIDIME <=1 S CEFOTAXIME <=2 S CEFOXITIN <=8 S CEFAZOLIN <=2 S CIPROFLOXACIN <=0.25 S CEFEPIME <=2 S CEFUROXIME <=4 S CEFTAZIDIME/AVIBACTAM <=4 S ERTAPENEM <=0.5 S GENTAMICIN <=2 S LEVOFLOXACIN <=0.5 S MEROPENEM <=1 S PIPERACILLIN/TAZOBACTAM <=8 S TRIMETHOPRIM/SULFAMETHOXAZOLE <=0.5/9.5 S TETRACYCLINE >8 R TOBRAMYCIN <=2 S 5/1. BLOOD CULTURE Preliminary NO GROWTH AFTER 2 DAYS 06/23. BLOOD CULTURE LC Final Final FINAL ID= [BACTEROIDES SPLANCHNICUS] (ISOLATE 1) [GRAM POSITIVE COCCI] PRESENT ON GRAM STAIN BUT UNABLE TO ISOLATE ON SOLID MEDIA. (ISOLATE 2) BACTEROIDES SPLANCHNICUS GRAM POSITIVE COCCI Objective Assessment Sepsis, source intra-abdominal. Fever - better Leukocytosis and bandemia - improved Perforated appendix. Intraabdominal abscess, status post IR drainage with polymicrobial organisms. - Mixed aerobic and anaerobic mary, E. coli x 2 spp.,,Strep anginosis, consellatus, C. perfringes, bacteroides. Gram-negative patricia bacteremia, Bacteroides splanchnicus and GPC UNABLE TO ISOLATE ON SOLID MEDIA, June 23. Plan Plan of Care Continue Zosyn (06/24), Zyvox (06/29) and fluconazole (06/29) - wean soon Recommend repeat CT in a few days or so to assess status Probiotics Monitor lab values/temp Monitor right flank - improving Drain management as directed General Surgery following Repeat BC 06/29 neg. Continue supportive care. Discussed with at bedside Clinically looks better Will D/c zyvox now. Repeat CT soon D/w Attending Co-Sign Attending Co-Sign The patient was seen and interviewed as well as examined at the bedside. The chart was reviewed. The case was discussed. Agree with the plan of care. SERVANDO MARTINEZ APRN July 04, 2020 10:39 PEDRO CLARKE MD July 04, 2020 13:26
--- NOTE | 2020-07-04 10:56 | PDOC ---
PROGRESS NOTES Date of Service: DATE: 07/04/20 TIME: 10:55 Chief Complaint Chief Complaint IMPRESSION Abdominal abscess - due to perforated appendicitis. REG DIET General surgery consulted. Will continue antibiotics, IR to see if this is amenable to drain Appendicitis - with perforation. Continue IV antibiotics, zosyn. No surgery at this time due to perforation Sepsis - due to perforated appendicitis - given fluids and antibiotics Hyperglycemia - likely due to stress - will check A1c Left pleural effusion - no respiratory distress Right sided percutaneous drain there is a persistent abscess which may or may not indicate with a drain. CT 06-29 PLAN FEN - Clear liquid diet PPX - heparin FULL CODE Dispo - inpatient ID CONSULT Continue Zosyn. Start Zyvox and fluconazole. drain was able to be placed 06-29 History of Present Illness History of Present Illness Mr Chapa is a 59-year-old male with no significant past medical history, Swedish-speaking only, presents to the ED on 06/23/2020 accompanied by his son with complaints of diffuse abdominal pain that started on , 06/20/2020, now localized to right lower quadrant with subjective fevers and chills that started 06/24/2020 Patient recently received his Covid vaccine. Denies any past surgical history. Moved here from [place] 30 years ago. Took amoxicillin. Ate soup around 3-4 PM on 06/23 and last bowel movement was around 4 PM with no melena or hematochezia (yellow color). 07-04 Right sided percutaneous drain on ct there is a persistent abscess which may or may not indicate within drain. site // wbc 20k // t max 99.7 06-29 // t max 100.3 - pain is controlled. Tolerating p.o. okay. Blood cultures 1 out of 2 bottles positive for small gram-negative cocci and gram-positive cocci. Continue Zosyn. Zyvox and fluconazole. IV erythema right flank LESS drain repositioned, see drain placed 06-29 D/W RN and family in room Continue Zosyn (06/24), Zyvox (06/29) and fluconazole (06/29). Probiotics Monitor lab values/temp Monitor right flank Better. less swelling and tightness on flank. On Exam - less erythema/warm and is softer. min pain 5-05 Right sided percutaneous drain on ct there is a persistent abscess which may or may not indicate within drain. site // wbc 20k // t max 99.7 5-01 // t max 100.3 4-28 pain is controlled. Tolerating p.o. okay. Blood cultures 1 out of 2 bottles positive for small gram-negative cocci and gram-positive cocci. Continue Zosyn. Start Zyvox and fluconazole. IV erythema right flank drain repositioned, IR WILL see drain was able to be placed 5- D/W RN and family in room Continue Zosyn (06/24), Zyvox (06/29) and fluconazole (06/29). Probiotics Monitor lab values/temp Monitor right flank Better. less swelling and tightness on flank. On Exam - less erythema/warm and is softer. min pain 5-04 Right sided percutaneous drain on ct there is a persistent abscess which may or may not indicate within drain. site // wbc 20k // t max 99.7 5- // t max 100.3 4-28 pain is controlled. Tolerating p.o. okay. Blood cultures 1 out of 2 bottles positive for small gram-negative cocci and gram-positive cocci. Continue Zosyn. Start Zyvox and fluconazole. IV erythema right flank drain repositioned, IR WILL see drain was able to be placed 06-29 D/W RN and family in room Continue Zosyn (06/24), Zyvox (06/29) and fluconazole (06/29). Probiotics Monitor lab values/temp Monitor right flank Better. less swelling and tightness on flank. On Exam - less erythema/warm and is softer. min pain 5-03 Right sided percutaneous drain on ct there is a persistent abscess which may or may not indicate within drain. site // wbc 20k // t max 99.7 5- // t max 100.3 4-28 pain is controlled. Tolerating p.o. okay. Blood cultures 1 out of 2 bottles positive for small gram-negative cocci and gram-positive cocci. Continue Zosyn. Start Zyvox and fluconazole. IV erythema right flank drain repositioned, IR WILL see drain was able to be placed 06-29 D/W RN and family in room 5-02 Right sided percutaneous drain on ct there is a persistent abscess which may or may not indicate within drain. site // wbc 20k // t max 99.7 06-29 // t max 100.3 06-26 pain is controlled. Tolerating p.o. okay. Blood cultures 1 out of 2 bottles positive for small gram-negative cocci and gram-positive cocci. Continue Zosyn. Start Zyvox and fluconazole. IV drain may need repositioned, IR WILL see drain was able to be placed 06-29 D/W RN and family in room 06-29 Right sided percutaneous drain on ct there is a persistent abscess which may or may not indicate within drain. site // wbc 20k // t max 99.7 06-29 // t max 100.3 06-26 pain is controlled. Tolerating p.o. okay. Blood cultures 1 out of 2 bottles positive for small gram-negative cocci and gram-positive cocci. Continue Zosyn. Start Zyvox and fluconazole. IV drain may need repositioned, IR WILL see drain was able to be placed 06-29 D/W RN and family in room 06/24: Found with perforated appendicitis. To IR for percutaneous drain 06/25: T-max 100.3 F overnight. Pain is better minimal pain at drain site. No nausea or vomiting. He has a little bit of an appetite. Discussed via [employer] with son and bedside plan is to continue antibiotics and after discussion with surgery to trial on p.o. today and return for appendectomy for definitive treatment after he completes an antibiotic course. 06/26: Afebrile overnight. States his pain is controlled. Tolerating p.o. okay. Blood cultures 1 out of 2 bottles positive for small gram-negative cocci and gram-positive cocci. Drain with minimal output today. Afebrile overnight. Blood cultures pending. Abscess culture with multiple organisms 2 different E. coli with sensitivities to cephalosporins and Zosyn. Pain better, eating 100% of meals, no diarrhea, no vomiting. [ESCHERICHIA COLI] (2 STRAINS) MANY [STREPTOCOCCUS CONSTELLATUS] MANY [STREPTOCOCCUS ANGINOSUS] MANY [CLOSTRIDIUM PERFRINGENS] MANY [BACTEROIDES FRAGILIS] ESCHERICHIA COLI ESCHERICHIA COLI STREPTOCOCCUS ANGINOSUS STREPTOCOCCUS CONSTELLATUS CLOSTRIDIUM PERFRINGENS BACTEROIDES FRAGILIS 06-28 D/W RN WILL CONSULT ID, CONT IV ZOSYN Vitals Vitals Vital Signs Date Time Temp Pulse Resp B/P (MAP) Pulse Ox O2 Delivery O2 Flow Rate FiO2 07/04/20 07:00 98.1 83 16 121/79 (93) 94 Room Air 98.1 Physical Exam Physical Exam GENERAL: In bed, alert, appears comfortable HEENT: Anicteric. Oral cavity clear, no thrush NECK: Supple. No JVD. LUNGS: Clear bilaterally. No wheezing. HEART: S1, S2. No gallops or murmurs. ABDOMEN: Mildly distended. soft, 2 right-sided NAGI drains + purulance; and flank soft, nontender, improved erythema and warmth. DERMATOLOGIC: Warm, dry, no generalized rash. NEUROLOGIC: Alert, oriented x 3, grossly nonfocal. PIV looks clean. General: Alert, Cooperative Heart: Regular rate, Normal S1, Normal S2 Lungs: Clear Abdomen: Soft, Other (drains in place) Extremities: No clubbing, No cyanosis, No edema, Normal pulses, No tenderness/swelling Skin: No breakdown, No significant lesion, Other (erythema right flank) Assessment and Plan Assessmemt and Plan Problems Medical Problems: (1) Acute perforated appendicitis Status: Acute (2) Bandemia Status: Acute (3) Peritonitis Status: Acute (4) Sepsis Status: Acute Comment Review of Relevant I have reviewed the following items ab (where applicable) has been applied. Labs Laboratory Tests Test 07/02/20 13:30 07/03/20 05:55 White Blood Count 8.4 x10^3/uL (4.0-11.0) 9.5 x10^3/uL (4.0-11.0) Red Blood Count 4.26 x10^6/uL (4.30-5.70) 4.62 x10^6/uL (4.30-5.70) Hemoglobin 12.7 g/dL (13.0-17.5) 13.6 g/dL (13.0-17.5) Hematocrit 38.0 % (39.0-53.0) 41.3 % (39.0-53.0) Mean Corpuscular Volume 89 fL (79-100) 89 fL (79-100) Mean Corpuscular Hemoglobin 30 pg (25-35) 30 pg (25-35) Mean Corpuscular Hemoglobin Concent 33 g/dL (31-37) 33 g/dL (31-37) Red Cell Distribution Width 13.5 % (11.5-14.5) 13.8 % (11.5-14.5) Platelet Count 477 x10^3/uL (140-400) 542 x10^3/uL (140-400) Neutrophils (%) (Auto) 69 % (31-73) 71 % (31-73) Lymphocytes (%) (Auto) 19 % (24-48) 18 % (24-48) Monocytes (%) (Auto) 7 % (0-9) 7 % (0-9) Eosinophils (%) (Auto) 4 % (0-3) 4 % (0-3) Basophils (%) (Auto) 1 % (0-3) 1 % (0-3) Neutrophils # (Auto) 5.8 x10^3/uL (1.8-7.7) 6.7 x10^3/uL (1.8-7.7) Lymphocytes # (Auto) 1.6 x10^3/uL (1.0-4.8) 1.7 x10^3/uL (1.0-4.8) Monocytes # (Auto) 0.6 x10^3/uL (0.0-1.1) 0.6 x10^3/uL (0.0-1.1) Eosinophils # (Auto) 0.3 x10^3/uL (0.0-0.7) 0.3 x10^3/uL (0.0-0.7) Basophils # (Auto) 0.1 x10^3/uL (0.0-0.2) 0.1 x10^3/uL (0.0-0.2) Sodium Level 140 mmol/L (136-145) 140 mmol/L (136-145) Potassium Level 3.9 mmol/L (3.5-5.1) 5.1 mmol/L (3.5-5.1) Chloride Level 105 mmol/L (98-107) 103 mmol/L (98-107) Carbon Dioxide Level 28 mmol/L (21-32) 30 mmol/L (21-32) Anion Gap 7 (6-14) 7 (6-14) Blood Urea Nitrogen 10 mg/dL (8-26) 9 mg/dL (8-26) Creatinine 0.9 mg/dL (0.7-1.3) 0.8 mg/dL (0.7-1.3) Estimated GFR (Cockcroft-Gault) 86.1 98.6 BUN/Creatinine Ratio 11 (6-20) Glucose Level 142 mg/dL (70-99) 81 mg/dL (70-99) Calcium Level 8.0 mg/dL (8.5-10.1) 9.2 mg/dL (8.5-10.1) Total Bilirubin 0.4 mg/dL (0.2-1.0) Aspartate Amino Transf (AST/SGOT) 41 U/L (15-37) Alanine Aminotransferase (ALT/SGPT) 60 U/L (16-63) Alkaline Phosphatase 88 U/L (46-116) Total Protein 7.6 g/dL (6.4-8.2) Albumin 2.1 g/dL (3.4-5.0) Albumin/Globulin Ratio 0.4 (1.0-1.7) Microbiology 06/29/20 Gram Stain - Final, Resulted 06/29/20 Aerobic and Anaerobic Culture - Preliminary, Resulted 06/29/20 Antimicrobic Susceptibility - Preliminary, Resulted 06/29/20 Blood Culture - Final, Complete NO GROWTH AFTER 5 DAYS Medications Current Medications Sodium Chloride 1,000 ml @ 1,000 mls/hr 1X ONCE IV Last administered on 06/23/20at 19:57; Start 06/23/20 at 19:30; Stop 06/23/20 at 20:29; Status DC Sodium Chloride 1,000 ml @ 1,000 mls/hr 1X ONCE IV Last administered on 06/23/20at 19:57; Start 06/23/20 at 19:30; Stop 06/23/20 at 20:29; Status DC Iohexol (Omnipaque 300 Mg/ml) 75 ml 1X ONCE IV Last administered on 06/23/20at 20:25; Start 06/23/20 at 20:15; Stop 06/23/20 at 20:16; Status DC Info (CONTRAST GIVEN -- Rx MONITORING) 1 each PRN DAILY PRN MC SEE COMMENTS; Start 06/23/20 at 20:15; Stop 06/25/20 at 20:14; Status DC Piperacillin Sod/ Tazobactam Sod 4.5 gm/Sodium Chloride 100 ml @ 200 mls/hr 1X ONCE IV Last administered on 06/23/20at 21:57; Start 06/23/20 at 22:00; Stop 06/23/20 at 22:29; Status DC Vancomycin HCl (Vanco Per Pharmacy) 1 each PRN DAILY PRN MC SEE COMMENTS Last administered on 06/24/20at 03:43; Start 06/23/20 at 21:30; Stop 06/24/20 at 07:43; Status DC Vancomycin HCl 1.75 gm/Sodium Chloride 500 ml @ 250 mls/hr 1X ONCE IV Last administered on 06/23/20at 23:32; Start 06/23/20 at 22:00; Stop 06/23/20 at 23:59; Status DC Ondansetron HCl (Zofran) 4 mg PRN Q8HRS PRN IV NAUSEA/VOMITING 1ST CHOICE; Start 06/23/20 at 21:45; Stop 06/24/20 at 07:43; Status DC Sodium Chloride 1,000 ml @ 100 mls/hr Q10H IV Last administered on 06/24/20at 20:58; Start 06/23/20 at 22:00; Stop 06/24/20 at 21:59; Status DC Hydromorphone HCl (Dilaudid) 1 mg 1X ONCE IVP Last administered on 06/24/20at 00:29; Start 06/24/20 at 00:30; Stop 06/24/20 at 00:31; Status DC Vancomycin HCl 1 gm/Sodium Chloride 250 ml @ 250 mls/hr Q12H IV ; Start 06/24/20 at 11:00; Stop 06/24/20 at 07:43; Status DC Vancomycin HCl (Vancomycin Trough Level) 1 each 1X ONCE MC ; Start 06/25/20 at 10:30; Stop 06/24/20 at 07:47; Status DC Hydromorphone HCl (Dilaudid) 1 mg 1X ONCE IVP Last administered on 06/24/20at 06:30; Start 06/24/20 at 06:30; Stop 06/24/20 at 06:31; Status DC Hydromorphone HCl (Dilaudid) 2 mg STK-MED ONCE .ROUTE ; Start 06/24/20 at 05:54; Stop 06/24/20 at 05:55; Status DC Piperacillin Sod/ Tazobactam Sod 3.375 gm/Sodium Chloride 50 ml @ 100 mls/hr Q6HRS IV Last administered on 07/04/20at 06:13; Start 06/24/20 at 07:45 Ondansetron HCl (Zofran) 4 mg PRN Q4HRS PRN IV NAUSEA/VOMITING 1ST CHOICE; Start 06/24/20 at 07:45 Acetaminophen (Tylenol) 650 mg PRN Q6HRS PRN PO MILD PAIN / TEMP > 100.3'F Last administered on 06/30/20at 23:58; Start 06/24/20 at 07:45 Acetaminophen (Tylenol Supp) 650 mg PRN Q6HRS PRN DC MILD PAIN / TEMP > 100.3'F; Start 06/24/20 at 07:45 Ketorolac Tromethamine (Toradol 30mg Vial) 30 mg PRN Q6HRS PRN IVP INFLAMMATION Last administered on 06/27/20at 03:43; Start 06/24/20 at 07:45; Stop 06/27/20 at 03:43; Status DC Morphine Sulfate (Morphine Sulfate) 2 mg PRN Q2HR PRN IV PAIN Last administered on 06/28/20at 19:13; Start 06/24/20 at 07:45 Lidocaine HCl (Buffered Lidocaine 1%) 3 ml STK-MED ONCE .ROUTE ; Start 06/24/20 at 10:58; Stop 06/24/20 at 10:58; Status DC Midazolam HCl (Versed) 2 mg STK-MED ONCE .ROUTE ; Start 06/24/20 at 13:34; Stop 06/24/20 at 13:34; Status DC Fentanyl Citrate (Fentanyl 2ml Vial) 100 mcg STK-MED ONCE .ROUTE ; Start 06/24/20 at 13:34; Stop 06/24/20 at 13:35; Status DC Lidocaine HCl (Buffered Lidocaine 1%) 3 ml 1X ONCE IJ Last administered on 06/24/20at 13:45; Start 06/24/20 at 13:45; Stop 06/24/20 at 13:48; Status DC Midazolam HCl (Versed) 2 mg 1X ONCE IV Last administered on 06/24/20at 13:45; Start 06/24/20 at 13:45; Stop 06/24/20 at 13:48; Status DC Fentanyl Citrate (Fentanyl 2ml Vial) 100 mcg 1X ONCE IV Last administered on 06/24/20at 13:45; Start 06/24/20 at 13:45; Stop 06/24/20 at 13:48; Status DC Lactobacillus Rhamnosus (Culturelle) 1 cap BID PO Last administered on 07/04/20at 08:44; Start 06/27/20 at 12:00 Iohexol (Omnipaque 240 Mg/ml) 30 ml 1X ONCE PO Last administered on 06/29/20at 07:30; Start 06/29/20 at 07:15; Stop 06/29/20 at 07:26; Status DC Iohexol (Omnipaque 300 Mg/ml) 75 ml 1X ONCE IV Last administered on 06/29/20at 07:30; Start 06/29/20 at 07:15; Stop 06/29/20 at 07:26; Status DC Info (CONTRAST GIVEN -- Rx MONITORING) 1 each PRN DAILY PRN MC SEE COMMENTS; Start 06/29/20 at 07:30; Stop 07/01/20 at 07:29; Status DC Linezolid/Dextrose 300 ml @ 300 mls/hr Q12HR IV Last administered on 07/04/20at 08:44; Start 06/29/20 at 10:00 Fluconazole/ Sodium Chloride 200 ml @ 100 mls/hr Q24H IV Last administered on 07/03/20at 13:07; Start 06/29/20 at 11:00 Lidocaine HCl (Buffered Lidocaine 1%) 3 ml STK-MED ONCE .ROUTE ; Start 06/29/20 at 15:09; Stop 06/29/20 at 15:10; Status DC Fentanyl Citrate (Fentanyl 5ml Vial) 250 mcg STK-MED ONCE .ROUTE ; Start 06/29/20 at 15:21; Stop 06/29/20 at 15:21; Status DC Midazolam HCl (Versed) 2 mg STK-MED ONCE .ROUTE ; Start 06/29/20 at 15:36; Stop 06/29/20 at 15:36; Status DC Lidocaine HCl (Buffered Lidocaine 1%) 3 ml 1X ONCE IJ Last administered on 06/29/20at 15:56; Start 06/29/20 at 15:45; Stop 06/29/20 at 15:46; Status DC Midazolam HCl (Versed) 2 mg 1X ONCE IV Last administered on 06/29/20at 15:56; Start 06/29/20 at 15:45; Stop 06/29/20 at 15:46; Status DC Fentanyl Citrate (Fentanyl 5ml Vial) 50 mcg 1X ONCE IV Last administered on 06/29/20at 15:56; Start 06/29/20 at 15:45; Stop 06/29/20 at 15:46; Status DC Sodium Chloride 1,000 ml @ 1,000 mls/hr 1X ONCE IV Last administered on 06/29/20at 18:15; Start 06/29/20 at 18:15; Stop 06/29/20 at 19:14; Status DC Acetaminophen/ Hydrocodone Bitart (Lortab 5/325) 1 tab PRN Q4HRS PRN PO PAIN MODERATE TO SEVERE Last administered on 07/01/20at 22:53; Start 07/01/20 at 22:30 Vitals/I & O Vital Sign - Last 24 Hours 07/03/20 07/03/20 07/03/20 07/03/20 14:44 19:00 20:00 22:52 Temp 98.2 98.6 98.2 98.2 98.6 98.2 Pulse 82 69 71 Resp 18 18 18 B/P (MAP) 115/71 (86) 120/78 (92) 129/76 (93) Pulse Ox 94 95 93 O2 Delivery Room Air Room Air Room Air Room Air 07/04/20 07/04/20 03:00 07:00 Temp 98.4 98.1 98.4 98.1 Pulse 76 83 Resp 18 16 B/P (MAP) 110/67 (81) 121/79 (93) Pulse Ox 95 94 O2 Delivery Room Air Room Air Intake and Output 07/03/20 07/03/20 07/04/20 15:00 23:00 07:00 Intake Total 1250 ml 50 ml Output Total 10 ml 200 ml Balance 1240 ml -150 ml Justicifation of Admission Dx: Justifications for Admission: Justification of Admission Dx: Yes REMBERTO DUNLAP MD July 04, 2020 10:56
[2020-07-04 11:00] VITALS: BP 118/74
[2020-07-04] MEDS: FLUCONAZOLE 400MG/200ML PREMIX 200 ML IV SCH (12:51)
[2020-07-04 15:00] VITALS: BP 117/68
[2020-07-04 19:00] VITALS: BP 124/73
[2020-07-04 23:00] VITALS: BP 126/76
[2020-07-05] MEDS: PIPERACILLIN/TAZOBACTAM 3.375 GM in IV NORMAL SALINE 50ML 50 ML IV SCH ×4 (00:06→17:36)
[2020-07-05 07:17] VITALS: BP 124/81
--- NOTE | 2020-07-05 09:09 | PDOC ---
PROGRESS NOTES Date of Service: DATE: 07/05/20 TIME: 09:08 Chief Complaint Chief Complaint IMPRESSION Abdominal abscess - due to perforated appendicitis. REG DIET General surgery consulted. Will continue antibiotics, IR to see if this is amenable to drain Appendicitis - with perforation. Continue IV antibiotics, zosyn. No surgery at this time due to perforation Sepsis - due to perforated appendicitis - given fluids and antibiotics Hyperglycemia - likely due to stress - will check A1c Left pleural effusion - no respiratory distress Right sided percutaneous drain there is a persistent abscess which may or may not indicate with a drain. CT 06-29 PLAN FEN - Clear liquid diet PPX - heparin FULL CODE Dispo - inpatient ID CONSULT Continue Zosyn. Start Zyvox and fluconazole. drain was able to be placed 06-29 History of Present Illness History of Present Illness Mr Chapa is a 59-year-old male with no significant past medical history, Armenian-speaking only, presents to the ED on 06/23/2020 accompanied by his son with complaints of diffuse abdominal pain that started on , 06/20/2020, now localized to right lower quadrant with subjective fevers and chills that started 06/24/2020 Patient recently received his Covid vaccine. Denies any past surgical history. Moved here from [place] 30 years ago. Took amoxicillin. Ate soup around 3-4 PM on 06/23 and last bowel movement was around 4 PM with no melena or hematochezia (yellow color). 07-05 Right sided percutaneous drain on ct there is a persistent abscess which may or may not indicate within drain. site // wbc 20k // t max 99.7 06-29 // t max 100.3 06-26 pain is controlled. Tolerating p.o. okay. Blood cultures 1 out of 2 bottles positive for small gram-negative cocci and gram-positive cocci. Continue Zosyn. Zyvox and fluconazole. IV erythema right flank LESS drain repositioned, see drain placed 06-29 D/W RN and family in room Continue Zosyn (06/24), Zyvox (06/29) and fluconazole (06/29). Probiotics Monitor lab values/temp Monitor right flank Better. less swelling and tightness on flank. On Exam - less erythema/warm and is softer. min pain 5-06 Right sided percutaneous drain on ct there is a persistent abscess which may or may not indicate within drain. site // wbc 20k // t max 99.7 5-01 // t max 100.3 4-28 pain is controlled. Tolerating p.o. okay. Blood cultures 1 out of 2 bottles positive for small gram-negative cocci and gram-positive cocci. Continue Zosyn. Zyvox and fluconazole. IV erythema right flank LESS drain repositioned, see drain placed 5- D/W RN and family in room Continue Zosyn (06/24), Zyvox (06/29) and fluconazole (06/29). Probiotics Monitor lab values/temp Monitor right flank Better. less swelling and tightness on flank. On Exam - less erythema/warm and is softer. min pain 5-05 Right sided percutaneous drain on ct there is a persistent abscess which may or may not indicate within drain. site // wbc 20k // t max 99.7 5- // t max 100.3 4-28 pain is controlled. Tolerating p.o. okay. Blood cultures 1 out of 2 bottles positive for small gram-negative cocci and gram-positive cocci. Continue Zosyn. Start Zyvox and fluconazole. IV erythema right flank drain repositioned, IR WILL see drain was able to be placed 5- D/W RN and family in room Continue Zosyn (06/24), Zyvox (06/29) and fluconazole (06/29). Probiotics Monitor lab values/temp Monitor right flank Better. less swelling and tightness on flank. On Exam - less erythema/warm and is softer. min pain 5-04 Right sided percutaneous drain on ct there is a persistent abscess which may or may not indicate within drain. site // wbc 20k // t max 99.7 5-01 // t max 100.3 4-28 pain is controlled. Tolerating p.o. okay. Blood cultures 1 out of 2 bottles positive for small gram-negative cocci and gram-positive cocci. Continue Zosyn. Start Zyvox and fluconazole. IV erythema right flank drain repositioned, IR WILL see drain was able to be placed 5- D/W RN and family in room Continue Zosyn (06/24), Zyvox (06/29) and fluconazole (06/29). Probiotics Monitor lab values/temp Monitor right flank Better. less swelling and tightness on flank. On Exam - less erythema/warm and is softer. min pain 07-01 Right sided percutaneous drain on ct there is a persistent abscess which may or may not indicate within drain. site // wbc 20k // t max 99.7 06-29 // t max 100.3 06-26 pain is controlled. Tolerating p.o. okay. Blood cultures 1 out of 2 bottles positive for small gram-negative cocci and gram-positive cocci. Continue Zosyn. Start Zyvox and fluconazole. IV erythema right flank drain repositioned, IR WILL see drain was able to be placed 06-29 D/W RN and family in room 06-30 Right sided percutaneous drain on ct there is a persistent abscess which may or may not indicate within drain. site // wbc 20k // t max 99.7 06-29 // t max 100.3 06-26 pain is controlled. Tolerating p.o. okay. Blood cultures 1 out of 2 bottles positive for small gram-negative cocci and gram-positive cocci. Continue Zosyn. Start Zyvox and fluconazole. IV drain may need repositioned, IR WILL see drain was able to be placed 06-29 D/W RN and family in room 06-29 Right sided percutaneous drain on ct there is a persistent abscess which may or may not indicate within drain. site // wbc 20k // t max 99.7 06-29 // t max 100.3 06-26 pain is controlled. Tolerating p.o. okay. Blood cultures 1 out of 2 bottles positive for small gram-negative cocci and gram-positive cocci. Continue Zosyn. Start Zyvox and fluconazole. IV drain may need repositioned, IR WILL see drain was able to be placed 06-29 D/W RN and family in room 06/24: Found with perforated appendicitis. To IR for percutaneous drain 06/25: T-max 100.3 F overnight. Pain is better minimal pain at drain site. No nausea or vomiting. He has a little bit of an appetite. Discussed via manager economic with son and bedside plan is to continue antibiotics and after discussion with surgery to trial on p.o. today and return for appendectomy for definitive treatment after he completes an antibiotic course. 06/26: Afebrile overnight. States his pain is controlled. Tolerating p.o. okay. Blood cultures 1 out of 2 bottles positive for small gram-negative cocci and gram-positive cocci. Drain with minimal output today. Afebrile overnight. Blood cultures pending. Abscess culture with multiple organisms 2 different E. coli with sensitivities to cephalosporins and Zosyn. Pain better, eating 100% of meals, no diarrhea, no vomiting. [ESCHERICHIA COLI] (2 STRAINS) MANY [STREPTOCOCCUS CONSTELLATUS] MANY [STREPTOCOCCUS ANGINOSUS] MANY [CLOSTRIDIUM PERFRINGENS] MANY [BACTEROIDES FRAGILIS] ESCHERICHIA COLI ESCHERICHIA COLI STREPTOCOCCUS ANGINOSUS STREPTOCOCCUS CONSTELLATUS CLOSTRIDIUM PERFRINGENS BACTEROIDES FRAGILIS 06-28 D/W RN WILL CONSULT ID, CONT IV ZOSYN Vitals Vitals Vital Signs Date Time Temp Pulse Resp B/P (MAP) Pulse Ox O2 Delivery O2 Flow Rate FiO2 07/05/20 07:17 98.0 78 18 124/81 (95) 93 Room Air 98.0 07/04/20 20:00 2.0 Physical Exam Physical Exam GENERAL: In bed, alert, appears comfortable HEENT: Anicteric. Oral cavity clear, no thrush NECK: Supple. No JVD. LUNGS: Clear bilaterally. No wheezing. HEART: S1, S2. No gallops or murmurs. ABDOMEN: Mildly distended. soft, 2 right-sided NAGI drains + purulance; and flank soft, nontender, improved erythema and warmth. DERMATOLOGIC: Warm, dry, no generalized rash. NEUROLOGIC: Alert, oriented x 3, grossly nonfocal. PIV looks clean. General: Alert, Cooperative Heart: Regular rate, Normal S1, Normal S2 Lungs: Clear Abdomen: Soft, Other (drains in place) Extremities: No clubbing, No cyanosis, No edema, Normal pulses, No tenderness/swelling Skin: No breakdown, No significant lesion, Other (erythema right flank) Labs LABS CT SCAN OF THE ABDOMEN AND PELVIS WITH IV CONTRAST. History: Reason: perf appy, drain / Comparison:None. Procedure: Contiguous axial images of the abdomen and pelvis were performed after the administration of 75 cc of Omni 300 IV contrast and oral contrast. Findings: There is a new right pleural effusion with adjacent infiltrate. There is a percutaneous drain in the right hemipelvis. The air-fluid collection anterior to the cecum in the location of the drain is no longer present however there is a persistent air-fluid collection more inferiorly that measures 5.6 x 3.2 centers. Contrast is seen in the ascending colon. There is a nonopacified tubular structure inferior to the cecum which could be a portion of the appendix however no normal appendix is seen. There is moderate wall thickening of the cecum and terminal ileum. There is thickening of the abdominal wall laterally on the right. There is fat-containing inguinal canal hernias. The prostate is not enlarged. There are a few small reactive mesenteric lymph nodes on the right. Liver: Unremarkable Spleen: Unremarkable Pancreas: Unremarkable Adrenal Glands: Unremarkable Kidneys: Unremarkable There is no free air. There is no free fluid. The urinary bladder appears normal. Impression: 1. New small right pleural effusion with adjacent infiltrate. 2. Right sided percutaneous drain there is a persistent abscess which may or may not indicate with a drain. 3. Thickening of the right abdominal wall could be edema or hematoma. End impression PQRS Compliance Statement: One or more of the following individualized dose reduction techniques were utilized for this examination: 1. Automated exposure control 2. Adjustment of the mA and/or kV according to patient size 3. Use of iterative reconstruction technique Electronically signed by: Rafael Duarte III, MD (06/29/2020 8:08 AM) [facility] DICTATED and SIGNED BY: RAFAEL DUARTE III, MD DATE: 06/29/20 [id number] Assessment and Plan Assessmemt and Plan Problems Medical Problems: (1) Acute perforated appendicitis Status: Acute (2) Bandemia Status: Acute (3) Peritonitis Status: Acute (4) Sepsis Status: Acute Comment Review of Relevant I have reviewed the following items ab (where applicable) has been applied. Labs Microbiology 06/29/20 Gram Stain - Final, Resulted 06/29/20 Aerobic and Anaerobic Culture - Preliminary, Resulted 06/29/20 Antimicrobic Susceptibility - Preliminary, Resulted 06/29/20 Blood Culture - Final, Complete NO GROWTH AFTER 5 DAYS Medications Current Medications Sodium Chloride 1,000 ml @ 1,000 mls/hr 1X ONCE IV Last administered on 06/23/20at 19:57; Start 06/23/20 at 19:30; Stop 06/23/20 at 20:29; Status DC Sodium Chloride 1,000 ml @ 1,000 mls/hr 1X ONCE IV Last administered on 06/23/20at 19:57; Start 06/23/20 at 19:30; Stop 06/23/20 at 20:29; Status DC Iohexol (Omnipaque 300 Mg/ml) 75 ml 1X ONCE IV Last administered on 06/23/20at 20:25; Start 06/23/20 at 20:15; Stop 06/23/20 at 20:16; Status DC Info (CONTRAST GIVEN -- Rx MONITORING) 1 each PRN DAILY PRN MC SEE COMMENTS; Start 06/23/20 at 20:15; Stop 06/25/20 at 20:14; Status DC Piperacillin Sod/ Tazobactam Sod 4.5 gm/Sodium Chloride 100 ml @ 200 mls/hr 1X ONCE IV Last administered on 06/23/20at 21:57; Start 06/23/20 at 22:00; Stop 06/23/20 at 22:29; Status DC Vancomycin HCl (Vanco Per Pharmacy) 1 each PRN DAILY PRN MC SEE COMMENTS Last administered on 06/24/20at 03:43; Start 06/23/20 at 21:30; Stop 06/24/20 at 07:43; Status DC Vancomycin HCl 1.75 gm/Sodium Chloride 500 ml @ 250 mls/hr 1X ONCE IV Last administered on 06/23/20at 23:32; Start 06/23/20 at 22:00; Stop 06/23/20 at 23:59; Status DC Ondansetron HCl (Zofran) 4 mg PRN Q8HRS PRN IV NAUSEA/VOMITING 1ST CHOICE; Start 06/23/20 at 21:45; Stop 06/24/20 at 07:43; Status DC Sodium Chloride 1,000 ml @ 100 mls/hr Q10H IV Last administered on 06/24/20at 20:58; Start 06/23/20 at 22:00; Stop 06/24/20 at 21:59; Status DC Hydromorphone HCl (Dilaudid) 1 mg 1X ONCE IVP Last administered on 06/24/20at 00:29; Start 06/24/20 at 00:30; Stop 06/24/20 at 00:31; Status DC Vancomycin HCl 1 gm/Sodium Chloride 250 ml @ 250 mls/hr Q12H IV ; Start at 11:00; Stop 06/24/20 at 07:43; Status DC Vancomycin HCl (Vancomycin Trough Level) 1 each 1X ONCE MC ; Start 06/25/20 at 10:30; Stop 06/24/20 at 07:47; Status DC Hydromorphone HCl (Dilaudid) 1 mg 1X ONCE IVP Last administered on 06/24/20at 06:30; Start 06/24/20 at 06:30; Stop 06/24/20 at 06:31; Status DC Hydromorphone HCl (Dilaudid) 2 mg STK-MED ONCE .ROUTE ; Start 06/24/20 at 05:54; Stop 06/24/20 at 05:55; Status DC Piperacillin Sod/ Tazobactam Sod 3.375 gm/Sodium Chloride 50 ml @ 100 mls/hr Q6HRS IV Last administered on 07/05/20at 05:40; Start 06/24/20 at 07:45 Ondansetron HCl (Zofran) 4 mg PRN Q4HRS PRN IV NAUSEA/VOMITING 1ST CHOICE; Start 06/24/20 at 07:45 Acetaminophen (Tylenol) 650 mg PRN Q6HRS PRN PO MILD PAIN / TEMP > 100.3'F Last administered on 06/30/20at 23:58; Start 06/24/20 at 07:45 Acetaminophen (Tylenol Supp) 650 mg PRN Q6HRS PRN IA MILD PAIN / TEMP > 1 00.3'F; Start 06/24/20 at 07:45 Ketorolac Tromethamine (Toradol 30mg Vial) 30 mg PRN Q6HRS PRN IVP INFLAMMATION Last administered on 06/27/20at 03:43; Start 06/24/20 at 07:45; Stop 06/27/20 at 03:43; Status DC Morphine Sulfate (Morphine Sulfate) 2 mg PRN Q2HR PRN IV PAIN Last administered on 06/28/20at 19:13; Start 06/24/20 at 07:45 Lidocaine HCl (Buffered Lidocaine 1%) 3 ml STK-MED ONCE .ROUTE ; Start 06/24/20 at 10:58; Stop 06/24/20 at 10:58; Status DC Midazolam HCl (Versed) 2 mg STK-MED ONCE .ROUTE ; Start 06/24/20 at 13:34; Stop 06/24/20 at 13:34; Status DC Fentanyl Citrate (Fentanyl 2ml Vial) 100 mcg STK-MED ONCE .ROUTE ; Start 06/24/20 at 13:34; Stop 06/24/20 at 13:35; Status DC Lidocaine HCl (Buffered Lidocaine 1%) 3 ml 1X ONCE IJ Last administered on 06/24/20at 13:45; Start 06/24/20 at 13:45; Stop 06/24/20 at 13:48; Status DC Midazolam HCl (Versed) 2 mg 1X ONCE IV Last administered on 06/24/20at 13:45; Start 06/24/20 at 13:45; Stop 06/24/20 at 13:48; Status DC Fentanyl Citrate (Fentanyl 2ml Vial) 100 mcg 1X ONCE IV Last administered on 06/24/20at 13:45; Start 06/24/20 at 13:45; Stop 06/24/20 at 13:48; Status DC Lactobacillus Rhamnosus (Culturelle) 1 cap BID PO Last administered on 07/04/20at 20:50; Start 06/27/20 at 12:00 Iohexol (Omnipaque 240 Mg/ml) 30 ml 1X ONCE PO Last administered on 06/29/20at 07:30; Start 06/29/20 at 07:15; Stop 06/29/20 at 07:26; Status DC Iohexol (Omnipaque 300 Mg/ml) 75 ml 1X ONCE IV Last administered on 06/29/20at 07:30; Start 06/29/20 at 07:15; Stop 06/29/20 at 07:26; Status DC Info (CONTRAST GIVEN -- Rx MONITORING) 1 each PRN DAILY PRN MC SEE COMMENTS; Start 06/29/20 at 07:30; Stop 07/01/20 at 07:29; Status DC Linezolid/Dextrose 300 ml @ 300 mls/hr Q12HR IV Last administered on 07/04/20at 08:44; Start 06/29/20 at 10:00; Stop 07/04/20 at 13:25; Status DC Fluconazole/ Sodium Chloride 200 ml @ 100 mls/hr Q24H IV Last administered on 07/04/20at 12:51; Start 06/29/20 at 11:00 Lidocaine HCl (Buffered Lidocaine 1%) 3 ml STK-MED ONCE .ROUTE ; Start 06/29/20 at 15:09; Stop 06/29/20 at 15:10; Status DC Fentanyl Citrate (Fentanyl 5ml Vial) 250 mcg STK-MED ONCE .ROUTE ; Start 06/29/20 at 15:21; Stop 06/29/20 at 15:21; Status DC Midazolam HCl (Versed) 2 mg STK-MED ONCE .ROUTE ; Start 06/29/20 at 15:36; Stop 06/29/20 at 15:36; Status DC Lidocaine HCl (Buffered Lidocaine 1%) 3 ml 1X ONCE IJ Last administered on 06/29/20at 15:56; Start 06/29/20 at 15:45; Stop 06/29/20 at 15:46; Status DC Midazolam HCl (Versed) 2 mg 1X ONCE IV Last administered on 06/29/20at 15:56; Start 06/29/20 at 15:45; Stop 06/29/20 at 15:46; Status DC Fentanyl Citrate (Fentanyl 5ml Vial) 50 mcg 1X ONCE IV Last administered on 06/29/20at 15:56; Start 06/29/20 at 15:45; Stop 06/29/20 at 15:46; Status DC Sodium Chloride 1,000 ml @ 1,000 mls/hr 1X ONCE IV Last administered on 06/29/20at 18:15; Start 06/29/20 at 18:15; Stop 06/29/20 at 19:14; Status DC Acetaminophen/ Hydrocodone Bitart (Lortab 5/325) 1 tab PRN Q4HRS PRN PO PAIN MODERATE TO SEVERE Last administered on 07/01/20at 22:53; Start 07/01/20 at 22:30 Vitals/I & O Vital Sign - Last 24 Hours 07/04/20 07/04/20 07/04/20 07/04/20 11:00 15:00 19:00 20:00 Temp 98.0 97.9 98.5 98.0 97.9 98.5 Pulse 89 89 82 Resp 18 16 18 B/P (MAP) 118/74 (89) 117/68 (84) 124/73 (90) Pulse Ox 96 94 94 O2 Delivery Room Air Room Air Room Air O2 Flow Rate 2.0 07/04/20 07/05/20 23:00 07:17 Temp 98.4 98.0 98.4 98.0 Pulse 75 78 Resp 16 18 B/P (MAP) 126/76 (93) 124/81 (95) Pulse Ox 93 93 O2 Delivery Room Air Intake and Output 07/04/20 07/04/20 07/05/20 15:00 23:00 07:00 Intake Total 120 ml Output Total 15 ml Balance 105 ml Justicifation of Admission Dx: Justifications for Admission: Justification of Admission Dx: Yes REMBERTO DUNLAP MD July 05, 2020 09:09
[2020-07-05] MEDS: LACTOBACILLUS RHAMNOSUS GG 1 CAPSULE. PO SCH ×2 (09:29→20:44)
--- NOTE | 2020-07-05 10:00 | NUR ---
SW following. Discussed with RN, pt from home with , room air, GI soft, COVID-19 negative. Per ID - try to wean IV abx soon. Still has drains. Some discussion about surgery after abx finished. SW will continue to follow.
[2020-07-05 10:31] VITALS: BP 126/78
--- NOTE | 2020-07-05 10:48 | PDOC ---
DANIELA RAMOS LUMBER PILER 07/05/20 1048: SURGICAL PROGRESS NOTE DATE: 07/05/20 TIME: 10:47 Subjective feeling pretty well tolerating diet Vital Signs Vital Signs Date Time Temp Pulse Resp B/P (MAP) Pulse Ox O2 Delivery O2 Flow Rate FiO2 07/05/20 10:31 98.4 85 18 126/78 (94) 94 Room Air 98.4 07/04/20 20:00 2.0 I&O Intake and Output 07/05/20 07:00 Intake Total 120 ml Output Total 15 ml Balance 105 ml Intake Oral 120 ml Drainage Total 15 ml # Voids 1 General: Alert, Cooperative Abdomen: Soft, Other (some purulent drainage, drains in place) Problem List Problems Medical Problems: (1) Acute perforated appendicitis Status: Acute (2) Bandemia Status: Acute (3) Peritonitis Status: Acute (4) Sepsis Status: Acute Assessment/Plan doing well abx per ID would hold on CT for few days, if ready to dc can arrange CT as outpt Justicifation of Admission Dx: Justifications for Admission: Justification of Admission Dx: Yes BOBBY PARNELL MD 07/05/20 1519: SURGICAL PROGRESS NOTE Assessment/Plan Pt seen and examined. agree with Ms. Ramos's note Pt without c/o, gary diet drains in place, cellulitis improved. OK to work towards d/c home. Elective appendectomy. DANIELA RAMOS LUMBER PILER July 05, 2020 10:48 BOBBY PARNELL MD July 05, 2020 15:19
--- NOTE | 2020-07-05 11:12 | PDOC ---
Infectious Disease Note Subjective Subjective Patient's is at bedside for interpretation Minimal abdominal pain. No N/V/D/F/C Has been walking around the unit GI soft diet ROS ROS as mentioned above Vital Sign Vital Signs Vital Signs Date Time Temp Pulse Resp B/P (MAP) Pulse Ox O2 Delivery O2 Flow Rate FiO2 07/05/20 10:31 98.4 85 18 126/78 (94) 94 Room Air 98.4 07/04/20 20:00 2.0 Physical Exam PHYSICAL EXAM GENERAL: In bed, alert, appears comfortable HEENT: Anicteric. Oral cavity clear NECK: Supple. No JVD. LUNGS: Clear bilaterally. No wheezing. HEART: S1, S2. No gallops or murmurs. ABDOMEN: Mildly distended. soft, 2 right-sided NAGI drains + purulance; R flank soft, nontender, improved erythema and warmth. DERMATOLOGIC: Warm, dry, no generalized rash. NEUROLOGIC: Alert, oriented x 3, grossly nonfocal. PIV looks clean. Labs Lab CT A/P, 06/29: Impression: 1. New small right pleural effusion with adjacent infiltrate. 2. Right sided percutaneous drain there is a persistent abscess which may or may not indicate with a drain. 3. Thickening of the right abdominal wall could be edema or hematoma. Micro BLOOD CULTURE Preliminary NO GROWTH AFTER 5 DAYS Abscess: 06/29. MIXED AEROBIC AND ANAEROBIC MARY on 07/03/20 at 1444 INCLUDING: MANY GRAM NEGATIVE RODS on 07/01/20 at 0842 FINAL ID= [ESCHERICHIA COLI] MANY [STREPTOCOCCUS CONSTELLATUS] MANY [BACTEROIDES FRAGILIS] MANY [BACTEROIDES OVATUS GROUP] MANY [CLOSTRIDIUM PERFRINGENS] ESCHERICHIA COLI STREPTOCOCCUS CONSTELLATUS BACTEROIDES FRAGILIS BACTEROIDES OVATUS GROUP CLOSTRIDIUM PERFRINGENS ANTIMICROBIAL SUSCEPTIBILITY Preliminary NEG ENDY 56 ESCHERICHIA COLI ANTIBIOTIC RESULT INTERPRETATION AMPICILLIN/SULBACTAM >16/8 R AMIKACIN <=16 S AMPICILLIN >16 R AMOXICILLIN/K CLAVULANATE 16/8 I AZTREONAM <=4 S CEFTRIAXONE <=1 S CEFTAZIDIME <=1 S CEFOTAXIME <=2 S CEFOXITIN <=8 S CEFAZOLIN >16 R CIPROFLOXACIN >2 R CEFEPIME <=2 S CEFUROXIME <=4 S CEFTAZIDIME/AVIBACTAM <=4 S ERTAPENEM <=0.5 S GENTAMICIN >8 R LEVOFLOXACIN >4 R MEROPENEM <=1 S PIPERACILLIN/TAZOBACTAM <=8 S TRIMETHOPRIM/SULFAMETHOXAZOLE >2/38 R TETRACYCLINE >8 R TOBRAMYCIN 8 I Abscess: 06/24. GRAM STAIN Final Final GRAM NEGATIVE RODS:MANY GRAM POSITIVE RODS:MODERATE GRAM POSITIVE COCCI:MANY ANAEROBIC-AEROBIC CULTURE Final Final MIXED AEROBIC AND ANAEROBIC MARY on 06/26/20 at 1519 INCLUDING: MANY GRAM NEGATIVE RODS on 06/25/20 at 0907 MANY [BACTEROIDES FRAGILIS] ESCHERICHIA COLI ESCHERICHIA COLI STREPTOCOCCUS ANGINOSUS STREPTOCOCCUS CONSTELLATUS CLOSTRIDIUM PERFRINGENS BACTEROIDES FRAGILIS ANTIMICROBIAL SUSCEPTIBILITY Final ESCHERICHIA COLI ANTIBIOTIC RESULT INTERPRETATION AMPICILLIN/SULBACTAM >16/8 R AMIKACIN <=16 S AMPICILLIN >16 R AMOXICILLIN/K CLAVULANATE 16/8 I AZTREONAM <=4 S CEFTRIAXONE <=1 S CEFTAZIDIME <=1 S CEFOTAXIME <=2 S CEFOXITIN <=8 S CEFAZOLIN >16 R CIPROFLOXACIN >2 R CEFEPIME <=2 S CEFUROXIME <=4 S CEFTAZIDIME/AVIBACTAM <=4 S ERTAPENEM <=0.5 S GENTAMICIN >8 R LEVOFLOXACIN >4 R MEROPENEM <=1 S PIPERACILLIN/TAZOBACTAM <=8 S TRIMETHOPRIM/SULFAMETHOXAZOLE >2/38 R TETRACYCLINE >8 R TOBRAMYCIN >8 R NEG ENDY 56 ESCHERICHIA COLI ANTIBIOTIC RESULT INTERPRETATION AMPICILLIN/SULBACTAM 16/8 I AMIKACIN <=16 S AMPICILLIN >16 R AMOXICILLIN/K CLAVULANATE <=8/4 S AZTREONAM <=4 S CEFTRIAXONE <=1 S CEFTAZIDIME <=1 S CEFOTAXIME <=2 S CEFOXITIN <=8 S CEFAZOLIN <=2 S CIPROFLOXACIN <=0.25 S CEFEPIME <=2 S CEFUROXIME <=4 S CEFTAZIDIME/AVIBACTAM <=4 S ERTAPENEM <=0.5 S GENTAMICIN <=2 S LEVOFLOXACIN <=0.5 S MEROPENEM <=1 S PIPERACILLIN/TAZOBACTAM <=8 S TRIMETHOPRIM/SULFAMETHOXAZOLE <=0.5/9.5 S TETRACYCLINE >8 R TOBRAMYCIN <=2 S 5/. BLOOD CULTURE Preliminary NO GROWTH AFTER 2 DAYS 06/23. BLOOD CULTURE LC Final Final FINAL ID= [BACTEROIDES SPLANCHNICUS] (ISOLATE 1) [GRAM POSITIVE COCCI] PRESENT ON GRAM STAIN BUT UNABLE TO ISOLATE ON SOLID MEDIA. (ISOLATE 2) BACTEROIDES SPLANCHNICUS GRAM POSITIVE COCCI Objective Assessment Perforated appendix. Intraabdominal abscess, status post IR drainage with polymicrobial organisms. CT 06/29 persistent air-fluid collection measuring 5.6 x 3.2 centers. - Mixed aerobic and anaerobic mary, E. coli x 2 spp.,,Strep anginosis, consellatus, C. perfringes, bacteroides. Gram-negative patricia bacteremia, Bacteroides splanchnicus and GPC UNABLE TO ISOLATE ON SOLID MEDIA, June 23. Sepsis, source intra-abdominal, improved Fever - better Leukocytosis and bandemia - improved Plan Plan of Care Continue Zosyn (06/24) and fluconazole (06/29) Off Zyvox Probiotics Monitor lab values/temp Monitor right flank - improving Drain management as directed General Surgery following Continue supportive care. Discussed with at bedside Clinically looks better Will D/c zyvox now. Repeat CT soon D/w Change Diflucan to po D/w Attending Co-Sign Attending Co-Sign The patient was seen and interviewed as well as examined at the bedside. The chart was reviewed. The case was discussed. Agree with the plan of care. SERVANDO MARTINEZ APRN July 05, 2020 11:12 PEDRO CLARKE MD July 05, 2020 13:27
[2020-07-05] MEDS: FLUCONAZOLE 400MG/200ML PREMIX 200 ML IV SCH (11:50)
[2020-07-05 14:54] VITALS: BP 143/91
[2020-07-05 19:20] VITALS: BP 143/83
[2020-07-05 23:25] VITALS: BP 116/75
[2020-07-06] MEDS: PIPERACILLIN/TAZOBACTAM 3.375 GM in IV NORMAL SALINE 50ML 50 ML IV SCH ×5 (00:01→23:41)
[2020-07-06 03:20] VITALS: BP 129/81
[2020-07-06 07:00] VITALS: BP 127/80
[2020-07-06 07:20] LABS: ALBUMIN 2.5 g/dL (3.4-5.0); ALBUMIN/GLOBULIN RATIO 0.4 (1.0-1.7); CALCIUM 8.8 mg/dL (8.5-10.1); CREATININE 0.8 mg/dL (0.7-1.3); GFR 98.6; POTASSIUM 4.1 mmol/L (3.5-5.1); TOTAL BILIRUBIN 0.4 mg/dL (0.2-1.0); TOTAL PROTEIN 8.2 g/dL (6.4-8.2)
[2020-07-06 07:21] LABS: BASO # 0.2 x10^3/uL (0.0-0.2); BASO % 3 % (0-3); EOS # 0.4 x10^3/uL (0.0-0.7); EOS % 4 % (0-3); HEMATOCRIT 40.4 % (39.0-53.0); HEMOGLOBIN 13.4 g/dL (13.0-17.5); LYMPH % 21 % (24-48); MEAN CORPUSCULAR HEMOGLOBIN 29 pg (25-35); MEAN CORPUSCULAR HGB CONC 33 g/dL (31-37); MEAN CORPUSCULAR VOLUME 88 fL (79-100); MONO # 0.7 x10^3/uL (0.0-1.1); MONO % 8 % (0-9); NEUT # 6.2 x10^3/uL (1.8-7.7); NEUT % 65 % (31-73); PLATELET COUNT 525 x10^3/uL (140-400); RED BLOOD COUNT 4.58 x10^6/uL (4.30-5.70); RED CELL DISTRIBUTION WIDTH 13.8 % (11.5-14.5); WHITE BLOOD COUNT 9.5 x10^3/uL (4.0-11.0)
--- NOTE | 2020-07-06 08:49 | PDOC ---
Infectious Disease Note Subjective Subjective Patient's is at bedside for interpretation Minimal abdominal pain. Some leakage around drain insertion site with flushes No N/V/D/F/C Tolerating soft diet Vital Sign Vital Signs Vital Signs Date Time Temp Pulse Resp B/P (MAP) Pulse Ox O2 Delivery O2 Flow Rate FiO2 07/06/20 07:00 98.2 76 18 127/80 (96) 94 Room Air 98.2 Physical Exam PHYSICAL EXAM GENERAL: Walking back to bed, looks well HEENT: Anicteric. Oral cavity clear NECK: Supple. No JVD. LUNGS: Clear bilaterally. No wheezing. HEART: S1, S2. No gallops or murmurs. ABDOMEN: Mildly distended. soft, 2 right-sided NAGI drains, less purulance; R flank soft, nontender, improved erythema and warmth. DERMATOLOGIC: Warm, dry, no generalized rash. NEUROLOGIC: Alert, oriented x 3, grossly nonfocal. PIV looks clean. Labs Lab Laboratory Tests Test 07/06/20 05:45 White Blood Count 9.5 x10^3/uL (4.0-11.0) Red Blood Count 4.58 x10^6/uL (4.30-5.70) Hemoglobin 13.4 g/dL (13.0-17.5) Hematocrit 40.4 % (39.0-53.0) Mean Corpuscular Volume 88 fL (79-100) Mean Corpuscular Hemoglobin 29 pg (25-35) Mean Corpuscular Hemoglobin Concent 33 g/dL (31-37) Red Cell Distribution Width 13.8 % (11.5-14.5) Platelet Count 525 x10^3/uL (140-400) Neutrophils (%) (Auto) 65 % (31-73) Lymphocytes (%) (Auto) 21 % (24-48) Monocytes (%) (Auto) 8 % (0-9) Eosinophils (%) (Auto) 4 % (0-3) Basophils (%) (Auto) 3 % (0-3) Neutrophils # (Auto) 6.2 x10^3/uL (1.8-7.7) Lymphocytes # (Auto) 2.0 x10^3/uL (1.0-4.8) Monocytes # (Auto) 0.7 x10^3/uL (0.0-1.1) Eosinophils # (Auto) 0.4 x10^3/uL (0.0-0.7) Basophils # (Auto) 0.2 x10^3/uL (0.0-0.2) Sodium Level 140 mmol/L (136-145) Potassium Level 4.1 mmol/L (3.5-5.1) Chloride Level 105 mmol/L (98-107) Carbon Dioxide Level 25 mmol/L (21-32) Anion Gap 10 (6-14) Blood Urea Nitrogen 13 mg/dL (8-26) Creatinine 0.8 mg/dL (0.7-1.3) Estimated GFR (Cockcroft-Gault) 98.6 BUN/Creatinine Ratio 16 (6-20) Glucose Level 92 mg/dL (70-99) Calcium Level 8.8 mg/dL (8.5-10.1) Total Bilirubin 0.4 mg/dL (0.2-1.0) Aspartate Amino Transf (AST/SGOT) 20 U/L (15-37) Alanine Aminotransferase (ALT/SGPT) 38 U/L (16-63) Alkaline Phosphatase 66 U/L (46-116) Total Protein 8.2 g/dL (6.4-8.2) Albumin 2.5 g/dL (3.4-5.0) Albumin/Globulin Ratio 0.4 (1.0-1.7) Micro BLOOD CULTURE Preliminary NO GROWTH AFTER 5 DAYS Abscess: 06/29. MIXED AEROBIC AND ANAEROBIC MRAY on 07/03/20 at 1444 INCLUDING: MANY GRAM NEGATIVE RODS on 07/01/20 at 0842 FINAL ID= [ESCHERICHIA COLI] MANY [STREPTOCOCCUS CONSTELLATUS] MANY [BACTEROIDES FRAGILIS] MANY [BACTEROIDES OVATUS GROUP] MANY [CLOSTRIDIUM PERFRINGENS] ESCHERICHIA COLI STREPTOCOCCUS CONSTELLATUS BACTEROIDES FRAGILIS BACTEROIDES OVATUS GROUP CLOSTRIDIUM PERFRINGENS ANTIMICROBIAL SUSCEPTIBILITY Preliminary NEG ENDY 56 ESCHERICHIA COLI ANTIBIOTIC RESULT INTERPRETATION AMPICILLIN/SULBACTAM >16/8 R AMIKACIN <=16 S AMPICILLIN >16 R AMOXICILLIN/K CLAVULANATE 16/8 I AZTREONAM <=4 S CEFTRIAXONE <=1 S CEFTAZIDIME <=1 S CEFOTAXIME <=2 S CEFOXITIN <=8 S CEFAZOLIN >16 R CIPROFLOXACIN >2 R CEFEPIME <=2 S CEFUROXIME <=4 S CEFTAZIDIME/AVIBACTAM <=4 S ERTAPENEM <=0.5 S GENTAMICIN >8 R LEVOFLOXACIN >4 R MEROPENEM <=1 S PIPERACILLIN/TAZOBACTAM <=8 S TRIMETHOPRIM/SULFAMETHOXAZOLE >2/38 R TETRACYCLINE >8 R TOBRAMYCIN 8 I Abscess: 06/24. GRAM STAIN Final Final GRAM NEGATIVE RODS:MANY GRAM POSITIVE RODS:MODERATE GRAM POSITIVE COCCI:MANY ANAEROBIC-AEROBIC CULTURE Final Final MIXED AEROBIC AND ANAEROBIC MARY on 06/26/20 at 1519 INCLUDING: MANY GRAM NEGATIVE RODS on 06/25/20 at 0907 MANY [BACTEROIDES FRAGILIS] ESCHERICHIA COLI ESCHERICHIA COLI STREPTOCOCCUS ANGINOSUS STREPTOCOCCUS CONSTELLATUS CLOSTRIDIUM PERFRINGENS BACTEROIDES FRAGILIS ANTIMICROBIAL SUSCEPTIBILITY Final ESCHERICHIA COLI ANTIBIOTIC RESULT INTERPRETATION AMPICILLIN/SULBACTAM >16/8 R AMIKACIN <=16 S AMPICILLIN >16 R AMOXICILLIN/K CLAVULANATE 16/8 I AZTREONAM <=4 S CEFTRIAXONE <=1 S CEFTAZIDIME <=1 S CEFOTAXIME <=2 S CEFOXITIN <=8 S CEFAZOLIN >16 R CIPROFLOXACIN >2 R CEFEPIME <=2 S CEFUROXIME <=4 S CEFTAZIDIME/AVIBACTAM <=4 S ERTAPENEM <=0.5 S GENTAMICIN >8 R LEVOFLOXACIN >4 R MEROPENEM <=1 S PIPERACILLIN/TAZOBACTAM <=8 S TRIMETHOPRIM/SULFAMETHOXAZOLE >2/38 R TETRACYCLINE >8 R TOBRAMYCIN >8 R NEG ENDY 56 ESCHERICHIA COLI ANTIBIOTIC RESULT INTERPRETATION AMPICILLIN/SULBACTAM 16/8 I AMIKACIN <=16 S AMPICILLIN >16 R AMOXICILLIN/K CLAVULANATE <=8/4 S AZTREONAM <=4 S CEFTRIAXONE <=1 S CEFTAZIDIME <=1 S CEFOTAXIME <=2 S CEFOXITIN <=8 S CEFAZOLIN <=2 S CIPROFLOXACIN <=0.25 S CEFEPIME <=2 S CEFUROXIME <=4 S CEFTAZIDIME/AVIBACTAM <=4 S ERTAPENEM <=0.5 S GENTAMICIN <=2 S LEVOFLOXACIN <=0.5 S MEROPENEM <=1 S PIPERACILLIN/TAZOBACTAM <=8 S TRIMETHOPRIM/SULFAMETHOXAZOLE <=0.5/9.5 S TETRACYCLINE >8 R TOBRAMYCIN <=2 S 06/29. BLOOD CULTURE Preliminary NO GROWTH AFTER 2 DAYS 06/23. BLOOD CULTURE LC Final Final FINAL ID= [BACTEROIDES SPLANCHNICUS] (ISOLATE 1) [GRAM POSITIVE COCCI] PRESENT ON GRAM STAIN BUT UNABLE TO ISOLATE ON SOLID MEDIA. (ISOLATE 2) BACTEROIDES SPLANCHNICUS GRAM POSITIVE COCCI Objective Assessment Perforated appendix. Intraabdominal abscess, status post IR drainage with polymicrobial organisms. CT 06/29 persistent air-fluid collection measuring 5.6 x 3.2 centers. - Mixed aerobic and anaerobic mary, E. coli x 2 spp.,,Strep anginosis, consellatus, C. perfringes, bacteroides. Gram-negative patricia bacteremia, Bacteroides splanchnicus and GPC UNABLE TO ISOLATE ON SOLID MEDIA, June 23. Sepsis, source intra-abdominal, improved Fever - better Leukocytosis and bandemia - improved Plan Plan of Care Continue Zosyn (06/24) and fluconazole (06/29) Off Zyvox Probiotics Monitor lab values/temp Monitor right flank - improving Drain management as directed General Surgery following Continue supportive care. Repeat CT soon Discussed with nursing Discussed with at bedside Improving Favor repeat CT scan D/w son Attending Co-Sign Attending Co-Sign The patient was seen and interviewed as well as examined at the bedside. The chart was reviewed. The case was discussed. Agree with the plan of care. SERVANDO MARTINEZ APRN July 06, 2020 08:49 PEDRO CLARKE MD July 06, 2020 12:00
[2020-07-06] MEDS: LACTOBACILLUS RHAMNOSUS GG 1 CAPSULE. PO SCH ×2 (09:12→20:29)
[2020-07-06] MEDS: FLUCONAZOLE 100 MG TABLET. PO SCH (09:12)
--- NOTE | 2020-07-06 10:14 | PDOC ---
SURGICAL PROGRESS NOTE DATE: 07/06/20 TIME: 10:13 Subjective Patient doing quite well without complaints Vital Signs Vital Signs Date Time Temp Pulse Resp B/P (MAP) Pulse Ox O2 Delivery O2 Flow Rate FiO2 07/06/20 08:00 Room Air 07/06/20 07:00 98.2 76 18 127/80 (96) 94 98.2 I&O Intake and Output 07/06/20 07:00 Intake Total 240 ml Balance 240 ml Intake Oral 240 ml # Voids 1 PATIENT HAS A TADEO: No General: Alert, Oriented X3, Cooperative, No acute distress Abdomen: Normal bowel sounds, Soft, No tenderness, Other (2 NAGI drains intact with cloudy serous drainage) Labs Laboratory Tests Test 07/06/20 05:45 White Blood Count 9.5 x10^3/uL (4.0-11.0) Red Blood Count 4.58 x10^6/uL (4.30-5.70) Hemoglobin 13.4 g/dL (13.0-17.5) Hematocrit 40.4 % (39.0-53.0) Mean Corpuscular Volume 88 fL (79-100) Mean Corpuscular Hemoglobin 29 pg (25-35) Mean Corpuscular Hemoglobin Concent 33 g/dL (31-37) Red Cell Distribution Width 13.8 % (11.5-14.5) Platelet Count 525 x10^3/uL (140-400) Neutrophils (%) (Auto) 65 % (31-73) Lymphocytes (%) (Auto) 21 % (24-48) Monocytes (%) (Auto) 8 % (0-9) Eosinophils (%) (Auto) 4 % (0-3) Basophils (%) (Auto) 3 % (0-3) Neutrophils # (Auto) 6.2 x10^3/uL (1.8-7.7) Lymphocytes # (Auto) 2.0 x10^3/uL (1.0-4.8) Monocytes # (Auto) 0.7 x10^3/uL (0.0-1.1) Eosinophils # (Auto) 0.4 x10^3/uL (0.0-0.7) Basophils # (Auto) 0.2 x10^3/uL (0.0-0.2) Sodium Level 140 mmol/L (136-145) Potassium Level 4.1 mmol/L (3.5-5.1) Chloride Level 105 mmol/L (98-107) Carbon Dioxide Level 25 mmol/L (21-32) Anion Gap 10 (6-14) Blood Urea Nitrogen 13 mg/dL (8-26) Creatinine 0.8 mg/dL (0.7-1.3) Estimated GFR (Cockcroft-Gault) 98.6 BUN/Creatinine Ratio 16 (6-20) Glucose Level 92 mg/dL (70-99) Calcium Level 8.8 mg/dL (8.5-10.1) Total Bilirubin 0.4 mg/dL (0.2-1.0) Aspartate Amino Transf (AST/SGOT) 20 U/L (15-37) Alanine Aminotransferase (ALT/SGPT) 38 U/L (16-63) Alkaline Phosphatase 66 U/L (46-116) Total Protein 8.2 g/dL (6.4-8.2) Albumin 2.5 g/dL (3.4-5.0) Albumin/Globulin Ratio 0.4 (1.0-1.7) Laboratory Tests Test 07/06/20 05:45 White Blood Count 9.5 x10^3/uL (4.0-11.0) Red Blood Count 4.58 x10^6/uL (4.30-5.70) Hemoglobin 13.4 g/dL (13.0-17.5) Hematocrit 40.4 % (39.0-53.0) Mean Corpuscular Volume 88 fL (79-100) Mean Corpuscular Hemoglobin 29 pg (25-35) Mean Corpuscular Hemoglobin Concent 33 g/dL (31-37) Red Cell Distribution Width 13.8 % (11.5-14.5) Platelet Count 525 x10^3/uL (140-400) Neutrophils (%) (Auto) 65 % (31-73) Lymphocytes (%) (Auto) 21 % (24-48) Monocytes (%) (Auto) 8 % (0-9) Eosinophils (%) (Auto) 4 % (0-3) Basophils (%) (Auto) 3 % (0-3) Neutrophils # (Auto) 6.2 x10^3/uL (1.8-7.7) Lymphocytes # (Auto) 2.0 x10^3/uL (1.0-4.8) Monocytes # (Auto) 0.7 x10^3/uL (0.0-1.1) Eosinophils # (Auto) 0.4 x10^3/uL (0.0-0.7) Basophils # (Auto) 0.2 x10^3/uL (0.0-0.2) Sodium Level 140 mmol/L (136-145) Potassium Level 4.1 mmol/L (3.5-5.1) Chloride Level 105 mmol/L (98-107) Carbon Dioxide Level 25 mmol/L (21-32) Anion Gap 10 (6-14) Blood Urea Nitrogen 13 mg/dL (8-26) Creatinine 0.8 mg/dL (0.7-1.3) Estimated GFR (Cockcroft-Gault) 98.6 BUN/Creatinine Ratio 16 (6-20) Glucose Level 92 mg/dL (70-99) Calcium Level 8.8 mg/dL (8.5-10.1) Total Bilirubin 0.4 mg/dL (0.2-1.0) Aspartate Amino Transf (AST/SGOT) 20 U/L (15-37) Alanine Aminotransferase (ALT/SGPT) 38 U/L (16-63) Alkaline Phosphatase 66 U/L (46-116) Total Protein 8.2 g/dL (6.4-8.2) Albumin 2.5 g/dL (3.4-5.0) Albumin/Globulin Ratio 0.4 (1.0-1.7) Problem List Problems Medical Problems: (1) Acute perforated appendicitis Status: Acute (2) Bandemia Status: Acute (3) Peritonitis Status: Acute (4) Sepsis Status: Acute Assessment/Plan Status post appendiceal abscess drainage. Agree with CT scan soon for evaluation possible drain removal Justicifation of Admission Dx: Justifications for Admission: Justification of Admission Dx: Yes REMBERTO GARDINER MD July 06, 2020 10:14
--- NOTE | 2020-07-06 10:42 | PDOC ---
PROGRESS NOTES Date of Service: DATE: 07/06/20 TIME: 10:42 Chief Complaint Chief Complaint IMPRESSION Abdominal abscess - due to perforated appendicitis. REG DIET General surgery consulted. Will continue antibiotics, IR to see if this is amenable to drain Appendicitis - with perforation. Continue IV antibiotics, zosyn. No surgery at this time due to perforation Sepsis - due to perforated appendicitis - given fluids and antibiotics Hyperglycemia - likely due to stress - will check A1c Left pleural effusion - no respiratory distress Right sided percutaneous drain there is a persistent abscess which may or may not indicate with a drain. CT 06-29 PLAN FEN - Clear liquid diet PPX - heparin FULL CODE Dispo - inpatient ID CONSULT Continue Zosyn. Start Zyvox and fluconazole. drain was able to be placed 06-29 History of Present Illness History of Present Illness Mr Chapa is a 59-year-old male with no significant past medical history, Czech-speaking only, presents to the ED on 06/23/2020 accompanied by his son with complaints of diffuse abdominal pain that started on , 06/20/2020, now localized to right lower quadrant with subjective fevers and chills that started 06/24/2020 Patient recently received his Covid vaccine. Denies any past surgical history. Moved here from [place] 30 years ago. Took amoxicillin. Ate soup around 3-4 PM on 06/23 and last bowel movement was around 4 PM with no melena or hematochezia (yellow color). 07-06 Right sided percutaneous drain on ct there is a persistent abscess which may or may not indicate within drain. site // wbc 20k // t max 99.7 06-29 // t max 100.3 06-26 pain is controlled. Tolerating p.o. okay. Blood cultures 1 out of 2 bottles positive for small gram-negative cocci and gram-positive cocci. Continue Zosyn. Zyvox and fluconazole. IV erythema right flank LESS drain repositioned, see drain placed 06-29 D/W RN and family in room Continue Zosyn (06/24), Zyvox (06/29) and fluconazole (06/29). Probiotics Monitor lab values/temp Monitor right flank less swelling and tightness on flank. On Exam - less erythema/warm and is softer. min pain 5-07 Right sided percutaneous drain on ct there is a persistent abscess which may or may not indicate within drain. site // wbc 20k // t max 99.7 5-01 // t max 100.3 4-28 pain is controlled. Tolerating p.o. okay. Blood cultures 1 out of 2 bottles positive for small gram-negative cocci and gram-positive cocci. Continue Zosyn. Zyvox and fluconazole. IV erythema right flank LESS drain repositioned, see drain placed 5- D/W RN and family in room Continue Zosyn (06/24), Zyvox (06/29) and fluconazole (06/29). Probiotics Monitor lab values/temp Monitor right flank Better. less swelling and tightness on flank. On Exam - less erythema/warm and is softer. min pain 5-06 Right sided percutaneous drain on ct there is a persistent abscess which may or may not indicate within drain. site // wbc 20k // t max 99.7 5- // t max 100.3 4-28 pain is controlled. Tolerating p.o. okay. Blood cultures 1 out of 2 bottles positive for small gram-negative cocci and gram-positive cocci. Continue Zosyn. Zyvox and fluconazole. IV erythema right flank LESS drain repositioned, see drain placed 06-29 D/W RN and family in room Continue Zosyn (06/24), Zyvox (06/29) and fluconazole (06/29). Probiotics Monitor lab values/temp Monitor right flank Better. less swelling and tightness on flank. On Exam - less erythema/warm and is softer. min pain 5-05 Right sided percutaneous drain on ct there is a persistent abscess which may or may not indicate within drain. site // wbc 20k // t max 99.7 5- // t max 100.3 4-28 pain is controlled. Tolerating p.o. okay. Blood cultures 1 out of 2 bottles positive for small gram-negative cocci and gram-positive cocci. Continue Zosyn. Start Zyvox and fluconazole. IV erythema right flank drain repositioned, IR WILL see drain was able to be placed 5- D/W RN and family in room Continue Zosyn (06/24), Zyvox (06/29) and fluconazole (06/29). Probiotics Monitor lab values/temp Monitor right flank Better. less swelling and tightness on flank. On Exam - less erythema/warm and is softer. min pain 5- Right sided percutaneous drain on ct there is a persistent abscess which may or may not indicate within drain. site // wbc 20k // t max 99.7 5 // t max 100.3 4-28 pain is controlled. Tolerating p.o. okay. Blood cultures 1 out of 2 bottles p ositive for small gram-negative cocci and gram-positive cocci. Continue Zosyn. Start Zyvox and fluconazole. IV erythema right flank drain repositioned, IR WILL see drain was able to be placed 06-29 D/W RN and family in room Continue Zosyn (06/24), Zyvox (06/29) and fluconazole (06/29). Probiotics Monitor lab values/temp Monitor right flank Better. less swelling and tightness on flank. On Exam - less erythema/warm and is softer. min pain 5- Right sided percutaneous drain on ct there is a persistent abscess which may or may not indicate within drain. site // wbc 20k // t max 99.7 06-29 // t max 100.3 4-28 pain is controlled. Tolerating p.o. okay. Blood cultures 1 out of 2 bottles positive for small gram-negative cocci and gram-positive cocci. Continue Zosyn. Start Zyvox and fluconazole. IV erythema right flank drain repositioned, IR WILL see drain was able to be placed 06-29 D/W RN and family in room 06-30 Right sided percutaneous drain on ct there is a persistent abscess which may or may not indicate within drain. site // wbc 20k // t max 99.7 06-29 // t max 100.3 4-28 pain is controlled. Tolerating p.o. okay. Blood cultures 1 out of 2 bottles positive for small gram-negative cocci and gram-positive cocci. Continue Zosyn. Start Zyvox and fluconazole. IV drain may need repositioned, IR WILL see drain was able to be placed 06-29 D/W RN and family in room 06-29 Right sided percutaneous drain on ct there is a persistent abscess which may or may not indicate within drain. site // wbc 20k // t max 99.7 06-29 // t max 100.3 06-26 pain is controlled. Tolerating p.o. okay. Blood cultures 1 out of 2 bottles positive for small gram-negative cocci and gram-positive cocci. Continue Zosyn. Start Zyvox and fluconazole. IV drain may need repositioned, IR WILL see drain was able to be placed 06-29/W RN and family in room 06/24: Found with perforated appendicitis. To IR for percutaneous drain 06/25: T-max 100.3 F overnight. Pain is better minimal pain at drain site. No nausea or vomiting. He has a little bit of an appetite. Discussed via stunt person with son and bedside plan is to continue antibiotics and after discussion with surgery to trial on p.o. today and return for appendectomy for definitive treatment after he completes an antibiotic course. 06/26: Afebrile overnight. States his pain is controlled. Tolerating p.o. okay. Blood cultures 1 out of 2 bottles positive for small gram-negative cocci and gram-positive cocci. Drain with minimal output today. Afebrile overnight. Blood cultures pending. Abscess culture with multiple organisms 2 different E. coli with sensitivities to cephalosporins and Zosyn. Pain better, eating 100% of meals, no diarrhea, no vomiting. [ESCHERICHIA COLI] (2 STRAINS) MANY [STREPTOCOCCUS CONSTELLATUS] MANY [STREPTOCOCCUS ANGINOSUS] MANY [CLOSTRIDIUM PERFRINGENS] MANY [BACTEROIDES FRAGILIS] ESCHERICHIA COLI ESCHERICHIA COLI STREPTOCOCCUS ANGINOSUS STREPTOCOCCUS CONSTELLATUS CLOSTRIDIUM PERFRINGENS BACTEROIDES FRAGILIS 06-28 D/W RN WILL CONSULT ID, CONT IV ZOSYN Vitals Vitals Vital Signs Date Time Temp Pulse Resp B/P (MAP) Pulse Ox O2 Delivery O2 Flow Rate FiO2 07/06/20 08:00 Room Air 07/06/20 07:00 98.2 76 18 127/80 (04) 94 98.2 Physical Exam Physical Exam GENERAL: Walking back to bed, looks well HEENT: Anicteric. Oral cavity clear NECK: Supple. No JVD. LUNGS: Clear bilaterally. No wheezing. HEART: S1, S2. No gallops or murmurs. ABDOMEN: Mildly distended. soft, 2 right-sided NAGI drains, less purulance; R flank soft, nontender, improved erythema and warmth. DERMATOLOGIC: Warm, dry, no generalized rash. NEUROLOGIC: Alert, oriented x 3, grossly nonfocal. PIV looks clean. General: Alert, Oriented X3, Cooperative, No acute distress Heart: Regular rate, Normal S1, Normal S2 Lungs: Clear Abdomen: Normal bowel sounds, Soft, No tenderness, Other (2 NAGI drains intact with cloudy serous drainage) Extremities: No clubbing, No cyanosis, No edema, Normal pulses, No tenderness/swelling Skin: No breakdown, No significant lesion, Other (erythema right flank) Labs LABS Laboratory Tests Test 07/06/20 05:45 White Blood Count 9.5 x10^3/uL (4.0-11.0) Red Blood Count 4.58 x10^6/uL (4.30-5.70) Hemoglobin 13.4 g/dL (13.0-17.5) Hematocrit 40.4 % (39.0-53.0) Mean Corpuscular Volume 88 fL (79-100) Mean Corpuscular Hemoglobin 29 pg (25-35) Mean Corpuscular Hemoglobin Concent 33 g/dL (31-37) Red Cell Distribution Width 13.8 % (11.5-14.5) Platelet Count 525 x10^3/uL (140-400) Neutrophils (%) (Auto) 65 % (31-73) Lymphocytes (%) (Auto) 21 % (24-48) Monocytes (%) (Auto) 8 % (0-9) Eosinophils (%) (Auto) 4 % (0-3) Basophils (%) (Auto) 3 % (0-3) Neutrophils # (Auto) 6.2 x10^3/uL (1.8-7.7) Lymphocytes # (Auto) 2.0 x10^3/uL (1.0-4.8) Monocytes # (Auto) 0.7 x10^3/uL (0.0-1.1) Eosinophils # (Auto) 0.4 x10^3/uL (0.0-0.7) Basophils # (Auto) 0.2 x10^3/uL (0.0-0.2) Sodium Level 140 mmol/L (136-145) Potassium Level 4.1 mmol/L (3.5-5.1) Chloride Level 105 mmol/L (98-107) Carbon Dioxide Level 25 mmol/L (21-32) Anion Gap 10 (6-14) Blood Urea Nitrogen 13 mg/dL (8-26) Creatinine 0.8 mg/dL (0.7-1.3) Estimated GFR (Cockcroft-Gault) 98.6 BUN/Creatinine Ratio 16 (6-20) Glucose Level 92 mg/dL (70-99) Calcium Level 8.8 mg/dL (8.5-10.1) Total Bilirubin 0.4 mg/dL (0.2-1.0) Aspartate Amino Transf (AST/SGOT) 20 U/L (15-37) Alanine Aminotransferase (ALT/SGPT) 38 U/L (16-63) Alkaline Phosphatase 66 U/L (46-116) Total Protein 8.2 g/dL (6.4-8.2) Albumin 2.5 g/dL (3.4-5.0) Albumin/Globulin Ratio 0.4 (1.0-1.7) Assessment and Plan Assessmemt and Plan Problems Medical Problems: (1) Acute perforated appendicitis Status: Acute (2) Bandemia Status: Acute (3) Peritonitis Status: Acute (4) Sepsis Status: Acute Comment Review of Relevant I have reviewed the following items ab (where applicable) has been applied. Labs Laboratory Tests Test 07/06/20 05:45 White Blood Count 9.5 x10^3/uL (4.0-11.0) Red Blood Count 4.58 x10^6/uL (4.30-5.70) Hemoglobin 13.4 g/dL (13.0-17.5) Hematocrit 40.4 % (39.0-53.0) Mean Corpuscular Volume 88 fL (79-100) Mean Corpuscular Hemoglobin 29 pg (25-35) Mean Corpuscular Hemoglobin Concent 33 g/dL (31-37) Red Cell Distribution Width 13.8 % (11.5-14.5) Platelet Count 525 x10^3/uL (140-400) Neutrophils (%) (Auto) 65 % (31-73) Lymphocytes (%) (Auto) 21 % (24-48) Monocytes (%) (Auto) 8 % (0-9) Eosinophils (%) (Auto) 4 % (0-3) Basophils (%) (Auto) 3 % (0-3) Neutrophils # (Auto) 6.2 x10^3/uL (1.8-7.7) Lymphocytes # (Auto) 2.0 x10^3/uL (1.0-4.8) Monocytes # (Auto) 0.7 x10^3/uL (0.0-1.1) Eosinophils # (Auto) 0.4 x10^3/uL (0.0-0.7) Basophils # (Auto) 0.2 x10^3/uL (0.0-0.2) Sodium Level 140 mmol/L (136-145) Potassium Level 4.1 mmol/L (3.5-5.1) Chloride Level 105 mmol/L (98-107) Carbon Dioxide Level 25 mmol/L (21-32) Anion Gap 10 (6-14) Blood Urea Nitrogen 13 mg/dL (8-26) Creatinine 0.8 mg/dL (0.7-1.3) Estimated GFR (Cockcroft-Gault) 98.6 BUN/Creatinine Ratio 16 (6-20) Glucose Level 92 mg/dL (70-99) Calcium Level 8.8 mg/dL (8.5-10.1) Total Bilirubin 0.4 mg/dL (0.2-1.0) Aspartate Amino Transf (AST/SGOT) 20 U/L (15-37) Alanine Aminotransferase (ALT/SGPT) 38 U/L (16-63) Alkaline Phosphatase 66 U/L (46-116) Total Protein 8.2 g/dL (6.4-8.2) Albumin 2.5 g/dL (3.4-5.0) Albumin/Globulin Ratio 0.4 (1.0-1.7) Laboratory Tests Test 07/06/20 05:45 White Blood Count 9.5 x10^3/uL (4.0-11.0) Red Blood Count 4.58 x10^6/uL (4.30-5.70) Hemoglobin 13.4 g/dL (13.0-17.5) Hematocrit 40.4 % (39.0-53.0) Mean Corpuscular Volume 88 fL (79-100) Mean Corpuscular Hemoglobin 29 pg (25-35) Mean Corpuscular Hemoglobin Concent 33 g/dL (31-37) Red Cell Distribution Width 13.8 % (11.5-14.5) Platelet Count 525 x10^3/uL (140-400) Neutrophils (%) (Auto) 65 % (31-73) Lymphocytes (%) (Auto) 21 % (24-48) Monocytes (%) (Auto) 8 % (0-9) Eosinophils (%) (Auto) 4 % (0-3) Basophils (%) (Auto) 3 % (0-3) Neutrophils # (Auto) 6.2 x10^3/uL (1.8-7.7) Lymphocytes # (Auto) 2.0 x10^3/uL (1.0-4.8) Monocytes # (Auto) 0.7 x10^3/uL (0.0-1.1) Eosinophils # (Auto) 0.4 x10^3/uL (0.0-0.7) Basophils # (Auto) 0.2 x10^3/uL (0.0-0.2) Sodium Level 140 mmol/L (136-145) Potassium Level 4.1 mmol/L (3.5-5.1) Chloride Level 105 mmol/L (98-107) Carbon Dioxide Level 25 mmol/L (21-32) Anion Gap 10 (6-14) Blood Urea Nitrogen 13 mg/dL (8-26) Creatinine 0.8 mg/dL (0.7-1.3) Estimated GFR (Cockcroft-Gault) 98.6 BUN/Creatinine Ratio 16 (6-20) Glucose Level 92 mg/dL (70-99) Calcium Level 8.8 mg/dL (8.5-10.1) Total Bilirubin 0.4 mg/dL (0.2-1.0) Aspartate Amino Transf (AST/SGOT) 20 U/L (15-37) Alanine Aminotransferase (ALT/SGPT) 38 U/L (16-63) Alkaline Phosphatase 66 U/L (46-116) Total Protein 8.2 g/dL (6.4-8.2) Albumin 2.5 g/dL (3.4-5.0) Albumin/Globulin Ratio 0.4 (1.0-1.7) Microbiology 06/29/20 Gram Stain - Final, Complete 06/29/20 Aerobic and Anaerobic Culture - Final, Complete 06/29/20 Antimicrobic Susceptibility - Final, Complete 06/29/20 Blood Culture - Final, Complete NO GROWTH AFTER 5 DAYS Medications Current Medications Sodium Chloride 1,000 ml @ 1,000 mls/hr 1X ONCE IV Last administered on 06/23/20at 19:57; Start 06/23/20 at 19:30; Stop 06/23/20 at 20:29; Status DC Sodium Chloride 1,000 ml @ 1,000 mls/hr 1X ONCE IV Last administered on 06/23/20at 19:57; Start 06/23/20 at 19:30; Stop 06/23/20 at 20:29; Status DC Iohexol (Omnipaque 300 Mg/ml) 75 ml 1X ONCE IV Last administered on 06/23/20at 20:25; Start 06/23/20 at 20:15; Stop 06/23/20 at 20:16; Status DC Info (CONTRAST GIVEN -- Rx MONITORING) 1 each PRN DAILY PRN MC SEE COMMENTS; Start 06/23/20 at 20:15; Stop 06/25/20 at 20:14; Status DC Piperacillin Sod/ Tazobactam Sod 4.5 gm/Sodium Chloride 100 ml @ 200 mls/hr 1X ONCE IV Last administered on 06/23/20at 21:57; Start 06/23/20 at 22:00; Stop 06/23/20 at 22:29; Status DC Vancomycin HCl (Vanco Per Pharmacy) 1 each PRN DAILY PRN MC SEE COMMENTS Last administered on 06/24/20at 03:43; Start 06/23/20 at 21:30; Stop 06/24/20 at 07:43; Status DC Vancomycin HCl 1.75 gm/Sodium Chloride 500 ml @ 250 mls/hr 1X ONCE IV Last administered on 06/23/20at 23:32; Start 06/23/20 at 22:00; Stop 06/23/20 at 23:59; Status DC Ondansetron HCl (Zofran) 4 mg PRN Q8HRS PRN IV NAUSEA/VOMITING 1ST CHOICE; Start 06/23/20 at 21:45; Stop 06/24/20 at 07:43; Status DC Sodium Chloride 1,000 ml @ 100 mls/hr Q10H IV Last administered on 06/24/20at 20:58; Start 06/23/20 at 22:00; Stop 06/24/20 at 21:59; Status DC Hydromorphone HCl (Dilaudid) 1 mg 1X ONCE IVP Last administered on 06/24/20at 00:29; Start 06/24/20 at 00:30; Stop 06/24/20 at 00:31; Status DC Vancomycin HCl 1 gm/Sodium Chloride 250 ml @ 250 mls/hr Q12H IV ; Start 06/24/20 at 11:00; Stop 06/24/20 at 07:43; Status DC Vancomycin HCl (Vancomycin Trough Level) 1 each 1X ONCE MC ; Start 06/25/20 at 10:30; Stop 06/24/20 at 07:47; Status DC Hydromorphone HCl (Dilaudid) 1 mg 1X ONCE IVP Last administered on 06/24/20at 06:30; Start 06/24/20 at 06:30; Stop 06/24/20 at 06:31; Status DC Hydromorphone HCl (Dilaudid) 2 mg STK-MED ONCE .ROUTE ; Start 06/24/20 at 05:54; Stop 06/24/20 at 05:55; Status DC Piperacillin Sod/ Tazobactam Sod 3.375 gm/Sodium Chloride 50 ml @ 100 mls/hr Q6HRS IV Last administered on 07/06/20at 05:41; Start 06/24/20 at 07:45 Ondansetron HCl (Zofran) 4 mg PRN Q4HRS PRN IV NAUSEA/VOMITING 1ST CHOICE; Start 06/24/20 at 07:45 Acetaminophen (Tylenol) 650 mg PRN Q6HRS PRN PO MILD PAIN / TEMP > 100.3'F Last administered on 06/30/20at 23:58; Start 06/24/20 at 07:45 Acetaminophen (Tylenol Supp) 650 mg PRN Q6HRS PRN AL MILD PAIN / TEMP > 100.3'F; Start 06/24/20 at 07:45 Ketorolac Tromethamine (Toradol 30mg Vial) 30 mg PRN Q6HRS PRN IVP INFLAMMATION Last administered on 06/27/20at 03:43; Start 06/24/20 at 07:45; Stop 06/27/20 at 03:43; Status DC Morphine Sulfate (Morphine Sulfate) 2 mg PRN Q2HR PRN IV PAIN Last administered on 06/28/20at 19:13; Start 06/24/20 at 07:45 Lidocaine HCl (Buffered Lidocaine 1%) 3 ml STK-MED ONCE .ROUTE ; Start 06/24/20 at 10:58; Stop 06/24/20 at 10:58; Status DC Midazolam HCl (Versed) 2 mg STK-MED ONCE .ROUTE ; Start 06/24/20 at 13:34; Stop 06/24/20 at 13:34; Status DC Fentanyl Citrate (Fentanyl 2ml Vial) 100 mcg STK-MED ONCE .ROUTE ; Start 06/24/20 at 13:34; Stop 06/24/20 at 13:35; Status DC Lidocaine HCl (Buffered Lidocaine 1%) 3 ml 1X ONCE IJ Last administered on 06/24/20at 13:45; Start 06/24/20 at 13:45; Stop 06/24/20 at 13:48; Status DC Midazolam HCl (Versed) 2 mg 1X ONCE IV Last administered on 06/24/20at 13:45; Start 06/24/20 at 13:45; Stop 06/24/20 at 13:48; Status DC Fentanyl Citrate (Fentanyl 2ml Vial) 100 mcg 1X ONCE IV Last administered on 06/24/20at 13:45; Start 06/24/20 at 13:45; Stop 06/24/20 at 13:48; Status DC Lactobacillus Rhamnosus (Culturelle) 1 cap BID PO Last administered on 07/06/20at 09:12; Start 06/27/20 at 12:00 Iohexol (Omnipaque 240 Mg/ml) 30 ml 1X ONCE PO Last administered on 06/29/20at 07:30; Start 06/29/20 at 07:15; Stop 06/29/20 at 07:26; Status DC Iohexol (Omnipaque 300 Mg/ml) 75 ml 1X ONCE IV Last administered on 06/29/20at 07:30; Start 06/29/20 at 07:15; Stop 06/29/20 at 07:26; Status DC Info (CONTRAST GIVEN -- Rx MONITORING) 1 each PRN DAILY PRN MC SEE COMMENTS; Start 06/29/20 at 07:30; Stop 07/01/20 at 07:29; Status DC Linezolid/Dextrose 300 ml @ 300 mls/hr Q12HR IV Last administered on 07/04/20at 08:44; Start 06/29/20 at 10:00; Stop 07/04/20 at 13:25; Status DC Fluconazole/ Sodium Chloride 200 ml @ 100 mls/hr Q24H IV Last administered on 07/05/20at 11:50; Start 06/29/20 at 11:00; Stop 07/05/20 at 13:28; Status DC Lidocaine HCl (Buffered Lidocaine 1%) 3 ml STK-MED ONCE .ROUTE ; Start 06/29/20 at 15:09; Stop 06/29/20 at 15:10; Status DC Fentanyl Citrate (Fentanyl 5ml Vial) 250 mcg STK-MED ONCE .ROUTE ; Start 06/29/20 at 15:21; Stop 06/29/20 at 15:21; Status DC Midazolam HCl (Versed) 2 mg STK-MED ONCE .ROUTE ; Start 06/29/20 at 15:36; Stop 06/29/20 at 15:36; Status DC Lidocaine HCl (Buffered Lidocaine 1%) 3 ml 1X ONCE IJ Last administered on 06/29/20at 15:56; Start 06/29/20 at 15:45; Stop 06/29/20 at 15:46; Status DC Midazolam HCl (Versed) 2 mg 1X ONCE IV Last administered on 06/29/20at 15:56; Start 06/29/20 at 15:45; Stop 06/29/20 at 15:46; Status DC Fentanyl Citrate (Fentanyl 5ml Vial) 50 mcg 1X ONCE IV Last administered on 06/29/20at 15:56; Start 06/29/20 at 15:45; Stop 06/29/20 at 15:46; Status DC Sodium Chloride 1,000 ml @ 1,000 mls/hr 1X ONCE IV Last administered on 06/29/20at 18:15; Start 06/29/20 at 18:15; Stop 06/29/20 at 19:14; Status DC Acetaminophen/ Hydrocodone Bitart (Lortab 5/325) 1 tab PRN Q4HRS PRN PO PAIN MODERATE TO SEVERE Last administered on 07/01/20at 22:53; Start 07/01/20 at 22:30 Fluconazole (Diflucan) 400 mg DAILY PO Last administered on 07/06/20at 09:12; Start 07/06/20 at 09:00 Vitals/I & O Vital Sign - Last 24 Hours 07/05/20 07/05/20 07/05/20 07/05/20 14:54 19:20 20:00 23:25 Temp 98.8 98.6 98.5 98.8 98.6 98.5 Pulse 82 81 73 Resp 18 20 18 B/P (MAP) 143/91 (108) 143/83 (103) 116/75 (89) Pulse Ox 92 93 95 O2 Delivery Room Air Room Air Room Air Room Air 07/06/20 07/06/20 07/06/20 03:20 07:00 08:00 Temp 98.3 98.2 98.3 98.2 Pulse 65 76 Resp 18 18 B/P (MAP) 129/81 (97) 127/80 (96) Pulse Ox 96 94 O2 Delivery Room Air Room Air Room Air Intake and Output 07/05/20 07/05/20 07/06/20 15:00 23:00 07:00 Intake Total 240 ml Balance 240 ml Justicifation of Admission Dx: Justifications for Admission: Justification of Admission Dx: Yes REMBERTO DUNLAP MD July 06, 2020 10:42
[2020-07-06 11:00] VITALS: BP 126/82
[2020-07-06 15:00] VITALS: BP 120/68
[2020-07-06 19:00] VITALS: BP 138/82
[2020-07-06 23:00] VITALS: BP 136/81
[2020-07-07 03:00] VITALS: BP 140/82
--- NOTE | 2020-07-07 05:41 | NUR ---
Pt. got a bed bath this morning as well as her linens changed and dressings changed/pictured. Pt. refused to turn Q2 hr last night but was able to let us turn her this morning. Addendum: 07/07/20 at 0545 by REJI SMITH RN this was charted on the wrong patient.
[2020-07-07] MEDS: PIPERACILLIN/TAZOBACTAM 3.375 GM in IV NORMAL SALINE 50ML 50 ML IV SCH ×4 (06:12→23:37)
[2020-07-07 07:00] VITALS: BP 137/86
[2020-07-07] MEDS: FLUCONAZOLE 100 MG TABLET. PO SCH (07:32)
[2020-07-07] MEDS: LACTOBACILLUS RHAMNOSUS GG 1 CAPSULE. PO SCH ×2 (07:32→20:38)
--- NOTE | 2020-07-07 07:35 | PDOC ---
SURGICAL PROGRESS NOTE DATE: 07/07/20 TIME: 07:34 Subjective Doing well no complaints Vital Signs Vital Signs Date Time Temp Pulse Resp B/P (MAP) Pulse Ox O2 Delivery O2 Flow Rate FiO2 07/07/20 03:00 98.0 81 18 140/82 (101) 91 Room Air 98.0 I&O Intake and Output 07/07/20 07:00 Intake Total 200 ml Balance 200 ml Intake Oral 200 ml # Voids 1 PATIENT HAS A TADEO: No General: Alert, Oriented X3, Cooperative, No acute distress Abdomen: Normal bowel sounds, Soft, No tenderness, Other (Drains intact with minimal output) Labs Laboratory Tests Test 07/06/20 05:45 White Blood Count 9.5 x10^3/uL (4.0-11.0) Red Blood Count 4.58 x10^6/uL (4.30-5.70) Hemoglobin 13.4 g/dL (13.0-17.5) Hematocrit 40.4 % (39.0-53.0) Mean Corpuscular Volume 88 fL (79-100) Mean Corpuscular Hemoglobin 29 pg (25-35) Mean Corpuscular Hemoglobin Concent 33 g/dL (31-37) Red Cell Distribution Width 13.8 % (11.5-14.5) Platelet Count 525 x10^3/uL (140-400) Neutrophils (%) (Auto) 65 % (31-73) Lymphocytes (%) (Auto) 21 % (24-48) Monocytes (%) (Auto) 8 % (0-9) Eosinophils (%) (Auto) 4 % (0-3) Basophils (%) (Auto) 3 % (0-3) Neutrophils # (Auto) 6.2 x10^3/uL (1.8-7.7) Lymphocytes # (Auto) 2.0 x10^3/uL (1.0-4.8) Monocytes # (Auto) 0.7 x10^3/uL (0.0-1.1) Eosinophils # (Auto) 0.4 x10^3/uL (0.0-0.7) Basophils # (Auto) 0.2 x10^3/uL (0.0-0.2) Sodium Level 140 mmol/L (136-145) Potassium Level 4.1 mmol/L (3.5-5.1) Chloride Level 105 mmol/L (98-107) Carbon Dioxide Level 25 mmol/L (21-32) Anion Gap 10 (6-14) Blood Urea Nitrogen 13 mg/dL (8-26) Creatinine 0.8 mg/dL (0.7-1.3) Estimated GFR (Cockcroft-Gault) 98.6 BUN/Creatinine Ratio 16 (6-20) Glucose Level 92 mg/dL (70-99) Calcium Level 8.8 mg/dL (8.5-10.1) Total Bilirubin 0.4 mg/dL (0.2-1.0) Aspartate Amino Transf (AST/SGOT) 20 U/L (15-37) Alanine Aminotransferase (ALT/SGPT) 38 U/L (16-63) Alkaline Phosphatase 66 U/L (46-116) Total Protein 8.2 g/dL (6.4-8.2) Albumin 2.5 g/dL (3.4-5.0) Albumin/Globulin Ratio 0.4 (1.0-1.7) Problem List Problems Medical Problems: (1) Acute perforated appendicitis Status: Acute (2) Bandemia Status: Acute (3) Peritonitis Status: Acute (4) Sepsis Status: Acute Assessment/Plan Appendiceal abscess with drainage, afebrile normal white count. Plan for repeat CT scan on Wednesday with then possible drain removal and DC home Justicifation of Admission Dx: Justifications for Admission: Justification of Admission Dx: Yes REMBERTO GARDINER MD July 07, 2020 07:35
[2020-07-07] MEDS: HYDROcodone/APAP 5/325MG 1 TAB TABLET PO PRN (10:58)
[2020-07-07 11:00] VITALS: BP 126/62
--- NOTE | 2020-07-07 11:25 | PDOC ---
PROGRESS NOTES Date of Service: DATE: 07/07/20 TIME: 11:24 Chief Complaint Chief Complaint IMPRESSION Abdominal abscess - due to perforated appendicitis. REG DIET General surgery consulted. Will continue antibiotics, IR to see if this is amenable to drain Appendicitis - with perforation. Continue IV antibiotics, zosyn. No surgery at this time due to perforation Sepsis - due to perforated appendicitis - given fluids and antibiotics Hyperglycemia - likely due to stress - will check A1c Left pleural effusion - no respiratory distress Right sided percutaneous drain there is a persistent abscess which may or may not indicate with a drain. CT 06-29 PLAN FEN - Clear liquid diet PPX - heparin FULL CODE Dispo - inpatient ID CONSULT Continue Zosyn. Start Zyvox and fluconazole. drain was able to be placed 06-29 History of Present Illness History of Present Illness Mr Chapa is a 59-year-old male with no significant past medical history, Indonesian-speaking only, presents to the ED on 06/23/2020 accompanied by his son with complaints of diffuse abdominal pain that started on , 06/20/2020, now localized to right lower quadrant with subjective fevers and chills that started 06/24/2020 Patient recently received his Covid vaccine. Denies any past surgical history. Moved here from [place] 30 years ago. Took amoxicillin. Ate soup around 3-4 PM on 06/23 and last bowel movement was around 4 PM with no melena or hematochezia (yellow color). 07-07 Right sided percutaneous drain on ct there is a persistent abscess which may or may not indicate within drain. site // wbc 20k - 9.5 // t max 99.7 06-29 // t max 100.3 06-26 pain is controlled. Tolerating p.o. okay. Blood cultures 1 out of 2 bottles positive for small gram-negative cocci and gram-positive cocci. Continue Zosyn. Zyvox and fluconazole. IV erythema right flank LESS drain repositioned, see drain placed 06-29 D/W RN and family in room Continue Zosyn (06/24), Zyvox (06/29) and fluconazole (06/29). Probiotics Monitor lab values/temp Monitor right flank less swelling and tightness on flank. On Exam - less erythema/warm and is softer. min pain 5-08 Right sided percutaneous drain on ct there is a persistent abscess which may or may not indicate within drain. site // wbc 20k // t max 99.7 5-01 // t max 100.3 4-28 pain is controlled. Tolerating p.o. okay. Blood cultures 1 out of 2 bottles positive for small gram-negative cocci and gram-positive cocci. Continue Zosyn. Zyvox and fluconazole. IV erythema right flank LESS drain repositioned, see drain placed 5- D/W RN and family in room Continue Zosyn (06/24), Zyvox (06/29) and fluconazole (06/29). Probiotics Monitor lab values/temp Monitor right flank less swelling and tightness on flank. On Exam - less erythema/warm and is softer. min pain 5-07 Right sided percutaneous drain on ct there is a persistent abscess which may or may not indicate within drain. site // wbc 20k // t max 99.7 5-01 // t max 100.3 4-28 pain is controlled. Tolerating p.o. okay. Blood cultures 1 out of 2 bottles positive for small gram-negative cocci and gram-positive cocci. Continue Zosyn. Zyvox and fluconazole. IV erythema right flank LESS drain repositioned, see drain placed 5- D/W RN and family in room Continue Zosyn (06/24), Zyvox (06/29) and fluconazole (06/29). Probiotics Monitor lab values/temp Monitor right flank Better. less swelling and tightness on flank. On Exam - less erythema/warm and is softer. min pain 5-06 Right sided percutaneous drain on ct there is a persistent abscess which may or may not indicate within drain. site // wbc 20k // t max 99.7 5-01 // t max 100.3 4-28 pain is controlled. Tolerating p.o. okay. Blood cultures 1 out of 2 bottles positive for small gram-negative cocci and gram-positive cocci. Continue Zosyn. Zyvox and fluconazole. IV erythema right flank LESS drain repositioned, see drain placed 5- D/W RN and family in room Continue Zosyn (06/24), Zyvox (06/29) and fluconazole (06/29). Probiotics Monitor lab values/temp Monitor right flank Better. less swelling and tightness on flank. On Exam - less erythema/warm and is softer. min pain 5-05 Right sided percutaneous drain on ct there is a persistent abscess which may or may not indicate within drain. site // wbc 20k // t max 99.7 5-01 // t max 100.3 4-28 pain is controlled. Tolerating p.o. okay. Blood cultures 1 out of 2 bottles positive for small gram-negative cocci and gram-positive cocci. Continue Zosyn. Start Zyvox and fluconazole. IV erythema right flank drain repositioned, IR WILL see drain was able to be placed 06-29 D/W RN and family in room Continue Zosyn (06/24), Zyvox (06/29) and fluconazole (06/29). Probiotics Monitor lab values/temp Monitor right flank Better. less swelling and tightness on flank. On Exam - less erythema/warm and is softer. min pain 5-04 Right sided percutaneous drain on ct there is a persistent abscess which may or may not indicate within drain. site // wbc 20k // t max 99.7 5-01 // t max 100.3 4-28 pain is controlled. Tolerating p.o. okay. Blood cultures 1 out of 2 bottles positive for small gram-negative cocci and gram-positive cocci. Continue Zosyn. Start Zyvox and fluconazole. IV erythema right flank drain repositioned, IR WILL see drain was able to be placed 06-29 D/W RN and family in room Continue Zosyn (06/24), Zyvox (06/29) and fluconazole (06/29). Probiotics Monitor lab values/temp Monitor right flank Better. less swelling and tightness on flank. On Exam - less erythema/warm and is softer. min pain 5-03 Right sided percutaneous drain on ct there is a persistent abscess which may or may not indicate within drain. site // wbc 20k // t max 99.7 5-01 // t max 100.3 4-28 pain is controlled. Tolerating p.o. okay. Blood cultures 1 out of 2 bottles positive for small gram-negative cocci and gram-positive cocci. Continue Zosyn. Start Zyvox and fluconazole. IV erythema right flank drain repositioned, IR WILL see drain was able to be placed 06-29 D/W RN and family in room 06-30 Right sided percutaneous drain on ct there is a persistent abscess which may or may not indicate within drain. site // wbc 20k // t max 99.7 06-29 // t max 100.3 06-26 pain is controlled. Tolerating p.o. okay. Blood cultures 1 out of 2 bottles positive for small gram-negative cocci and gram-positive cocci. Continue Zosyn. Start Zyvox and fluconazole. IV drain may need repositioned, IR WILL see drain was able to be placed 06-29 D/W RN and family in room 06-29 Right sided percutaneous drain on ct there is a persistent abscess which may or may not indicate within drain. site // wbc 20k // t max 99.7 06-29 // t max 100.3 06-26 pain is controlled. Tolerating p.o. okay. Blood cultures 1 out of 2 bottles positive for small gram-negative cocci and gram-positive cocci. Continue Zosyn. Start Zyvox and fluconazole. IV drain may need repositioned, IR WILL see drain was able to be placed 06-29 D/W RN and family in room 06/24: Found with perforated appendicitis. To IR for percutaneous drain 06/25: T-max 100.3 F overnight. Pain is better minimal pain at drain site. No nausea or vomiting. He has a little bit of an appetite. Discussed via corn miller with son and bedside plan is to continue antibiotics and after discussion with surgery to trial on p.o. today and return for appendectomy for definitive treatment after he completes an antibiotic course. 06/26: Afebrile overnight. States his pain is controlled. Tolerating p.o. okay. Blood cultures 1 out of 2 bottles positive for small gram-negative cocci and gram-positive cocci. Drain with minimal output today. Afebrile overnight. Blood cultures pending. Abscess culture with multiple organisms 2 different E. coli with sensitivities to cephalosporins and Zosyn. Pain better, eating 100% of meals, no diarrhea, no vomiting. [ESCHERICHIA COLI] (2 STRAINS) MANY [STREPTOCOCCUS CONSTELLATUS] MANY [STREPTOCOCCUS ANGINOSUS] MANY [CLOSTRIDIUM PERFRINGENS] MANY [BACTEROIDES FRAGILIS] ESCHERICHIA COLI ESCHERICHIA COLI STREPTOCOCCUS ANGINOSUS STREPTOCOCCUS CONSTELLATUS CLOSTRIDIUM PERFRINGENS BACTEROIDES FRAGILIS 4-30 D/W RN WILL CONSULT ID, CONT IV ZOSYN Vitals Vitals Vital Signs Date Time Temp Pulse Resp B/P (MAP) Pulse Ox O2 Delivery O2 Flow Rate FiO2 07/07/20 10:58 Room Air 07/07/20 07:00 98.0 78 16 137/86 (103) 94 98.0 Physical Exam Physical Exam GENERAL: Walking back to bed, looks well HEENT: Anicteric. Oral cavity clear NECK: Supple. No JVD. LUNGS: Clear bilaterally. No wheezing. HEART: S1, S2. No gallops or murmurs. ABDOMEN: Mildly distended. soft, 2 right-sided NAGI drains, less purulance; R fl ank soft, nontender, improved erythema and warmth. DERMATOLOGIC: Warm, dry, no generalized rash. NEUROLOGIC: Alert, oriented x 3, grossly nonfocal. PIV looks clean. General: Alert, Oriented X3, Cooperative, No acute distress Heart: Regular rate, Normal S1, Normal S2 Lungs: Clear Abdomen: Normal bowel sounds, Soft, No tenderness, Other (Drains intact with minimal output) Extremities: No clubbing, No cyanosis, No edema, Normal pulses, No tenderness/swelling Skin: No breakdown, No significant lesion, Other (erythema right flank) Assessment and Plan Assessmemt and Plan Problems Medical Problems: (1) Acute perforated appendicitis Status: Acute (2) Bandemia Status: Acute (3) Peritonitis Status: Acute (4) Sepsis Status: Acute Comment Review of Relevant I have reviewed the following items ab (where applicable) has been applied. Labs Laboratory Tests Test 07/06/20 05:45 White Blood Count 9.5 x10^3/uL (4.0-11.0) Red Blood Count 4.58 x10^6/uL (4.30-5.70) Hemoglobin 13.4 g/dL (13.0-17.5) Hematocrit 40.4 % (39.0-53.0) Mean Corpuscular Volume 88 fL (79-100) Mean Corpuscular Hemoglobin 29 pg (25-35) Mean Corpuscular Hemoglobin Concent 33 g/dL (31-37) Red Cell Distribution Width 13.8 % (11.5-14.5) Platelet Count 525 x10^3/uL (140-400) Neutrophils (%) (Auto) 65 % (31-73) Lymphocytes (%) (Auto) 21 % (24-48) Monocytes (%) (Auto) 8 % (0-9) Eosinophils (%) (Auto) 4 % (0-3) Basophils (%) (Auto) 3 % (0-3) Neutrophils # (Auto) 6.2 x10^3/uL (1.8-7.7) Lymphocytes # (Auto) 2.0 x10^3/uL (1.0-4.8) Monocytes # (Auto) 0.7 x10^3/uL (0.0-1.1) Eosinophils # (Auto) 0.4 x10^3/uL (0.0-0.7) Basophils # (Auto) 0.2 x10^3/uL (0.0-0.2) Sodium Level 140 mmol/L (136-145) Potassium Level 4.1 mmol/L (3.5-5.1) Chloride Level 105 mmol/L (98-107) Carbon Dioxide Level 25 mmol/L (21-32) Anion Gap 10 (6-14) Blood Urea Nitrogen 13 mg/dL (8-26) Creatinine 0.8 mg/dL (0.7-1.3) Estimated GFR (Cockcroft-Gault) 98.6 BUN/Creatinine Ratio 16 (6-20) Glucose Level 92 mg/dL (70-99) Calcium Level 8.8 mg/dL (8.5-10.1) Total Bilirubin 0.4 mg/dL (0.2-1.0) Aspartate Amino Transf (AST/SGOT) 20 U/L (15-37) Alanine Aminotransferase (ALT/SGPT) 38 U/L (16-63) Alkaline Phosphatase 66 U/L (46-116) Total Protein 8.2 g/dL (6.4-8.2) Albumin 2.5 g/dL (3.4-5.0) Albumin/Globulin Ratio 0.4 (1.0-1.7) Microbiology 06/29/20 Gram Stain - Final, Complete 06/29/20 Aerobic and Anaerobic Culture - Final, Complete 06/29/20 Antimicrobic Susceptibility - Final, Complete 06/29/20 Blood Culture - Final, Complete NO GROWTH AFTER 5 DAYS Medications Current Medications Sodium Chloride 1,000 ml @ 1,000 mls/hr 1X ONCE IV Last administered on 06/23/20at 19:57; Start 06/23/20 at 19:30; Stop 06/23/20 at 20:29; Status DC Sodium Chloride 1,000 ml @ 1,000 mls/hr 1X ONCE IV Last administered on 06/23/20at 19:57; Start 06/23/20 at 19:30; Stop 06/23/20 at 20:29; Status DC Iohexol (Omnipaque 300 Mg/ml) 75 ml 1X ONCE IV Last administered on 06/23/20at 20:25; Start 06/23/20 at 20:15; Stop 06/23/20 at 20:16; Status DC Info (CONTRAST GIVEN -- Rx MONITORING) 1 each PRN DAILY PRN MC SEE COMMENTS; Start 06/23/20 at 20:15; Stop 06/25/20 at 20:14; Status DC Piperacillin Sod/ Tazobactam Sod 4.5 gm/Sodium Chloride 100 ml @ 200 mls/hr 1X ONCE IV Last administered on 06/23/20at 21:57; Start 06/23/20 at 22:00; Stop 06/23/20 at 22:29; Status DC Vancomycin HCl (Vanco Per Pharmacy) 1 each PRN DAILY PRN MC SEE COMMENTS Last administered on 06/24/20at 03:43; Start 06/23/20 at 21:30; Stop 06/24/20 at 07:43; Status DC Vancomycin HCl 1.75 gm/Sodium Chloride 500 ml @ 250 mls/hr 1X ONCE IV Last administered on 06/23/20at 23:32; Start 06/23/20 at 22:00; Stop 06/23/20 at 23:59; Status DC Ondansetron HCl (Zofran) 4 mg PRN Q8HRS PRN IV NAUSEA/VOMITING 1ST CHOICE; Start 06/23/20 at 21:45; Stop 06/24/20 at 07:43; Status DC Sodium Chloride 1,000 ml @ 100 mls/hr Q10H IV Last administered on 06/24/20at 20:58; Start 06/23/20 at 22:00; Stop 06/24/20 at 21:59; Status DC Hydromorphone HCl (Dilaudid) 1 mg 1X ONCE IVP Last administered on 06/24/20at 00:29; Start 06/24/20 at 00:30; Stop 06/24/20 at 00:31; Status DC Vancomycin HCl 1 gm/Sodium Chloride 250 ml @ 250 mls/hr Q12H IV ; Start 06/24/20 at 11:00; Stop 06/24/20 at 07:43; Status DC Vancomycin HCl (Vancomycin Trough Level) 1 each 1X ONCE MC ; Start 06/25/20 at 10:30; Stop 06/24/20 at 07:47; Status DC Hydromorphone HCl (Dilaudid) 1 mg 1X ONCE IVP Last administered on 06/24/20at 06:30; Start 06/24/20 at 06:30; Stop 06/24/20 at 06:31; Status DC Hydromorphone HCl (Dilaudid) 2 mg STK-MED ONCE .ROUTE ; Start 06/24/20 at 05:54; Stop 06/24/20 at 05:55; Status DC Piperacillin Sod/ Tazobactam Sod 3.375 gm/Sodium Chloride 50 ml @ 100 mls/hr Q6HRS IV Last administered on 07/07/20at 10:58; Start 06/24/20 at 07:45 Ondansetron HCl (Zofran) 4 mg PRN Q4HRS PRN IV NAUSEA/VOMITING 1ST CHOICE; Start 06/24/20 at 07:45 Acetaminophen (Tylenol) 650 mg PRN Q6HRS PRN PO MILD PAIN / TEMP > 100.3'F Last administered on 06/30/20at 23:58; Start 06/24/20 at 07:45 Acetaminophen (Tylenol Supp) 650 mg PRN Q6HRS PRN [place] MILD PAIN / TEMP > 100.3'F; Start 06/24/20 at 07:45 Ketorolac Tromethamine (Toradol 30mg Vial) 30 mg PRN Q6HRS PRN IVP INFLAMMATION Last administered on 06/27/20at 03:43; Start 06/24/20 at 07:45; Stop 06/27/20 at 03:43; Status DC Morphine Sulfate (Morphine Sulfate) 2 mg PRN Q2HR PRN IV PAIN Last administered on 06/28/20at 19:13; Start 06/24/20 at 07:45 Lidocaine HCl (Buffered Lidocaine 1%) 3 ml STK-MED ONCE .ROUTE ; Start 06/24/20 at 10:58; Stop 06/24/20 at 10:58; Status DC Midazolam HCl (Versed) 2 mg STK-MED ONCE .ROUTE ; Start 06/24/20 at 13:34; Stop 06/24/20 at 13:34; Status DC Fentanyl Citrate (Fentanyl 2ml Vial) 100 mcg STK-MED ONCE .ROUTE ; Start 06/24/20 at 13:34; Stop 06/24/20 at 13:35; Status DC Lidocaine HCl (Buffered Lidocaine 1%) 3 ml 1X ONCE IJ Last administered on 06/24/20at 13:45; Start 06/24/20 at 13:45; Stop 06/24/20 at 13:48; Status DC Midazolam HCl (Versed) 2 mg 1X ONCE IV Last administered on 06/24/20at 13:45; Start 06/24/20 at 13:45; Stop 06/24/20 at 13:48; Status DC Fentanyl Citrate (Fentanyl 2ml Vial) 100 mcg 1X ONCE IV Last administered on 06/24/20at 13:45; Start 06/24/20 at 13:45; Stop 06/24/20 at 13:48; Status DC Lactobacillus Rhamnosus (Culturelle) 1 cap BID PO Last administered on 07/07/20at 07:32; Start 06/27/20 at 12:00 Iohexol (Omnipaque 240 Mg/ml) 30 ml 1X ONCE PO Last administered on 06/29/20at 07:30; Start 06/29/20 at 07:15; Stop 06/29/20 at 07:26; Status DC Iohexol (Omnipaque 300 Mg/ml) 75 ml 1X ONCE IV Last administered on 06/29/20at 07:30; Start 06/29/20 at 07:15; Stop 06/29/20 at 07:26; Status DC Info (CONTRAST GIVEN -- Rx MONITORING) 1 each PRN DAILY PRN MC SEE COMMENTS; Start 06/29/20 at 07:30; Stop 07/01/20 at 07:29; Status DC Linezolid/Dextrose 300 ml @ 300 mls/hr Q12HR IV Last administered on 07/04/20at 08:44; Start 06/29/20 at 10:00; Stop 07/04/20 at 13:25; Status DC Fluconazole/ Sodium Chloride 200 ml @ 100 mls/hr Q24H IV Last administered on 07/05/20at 11:50; Start 06/29/20 at 11:00; Stop 07/05/20 at 13:28; Status DC Lidocaine HCl (Buffered Lidocaine 1%) 3 ml STK-MED ONCE .ROUTE ; Start 06/29/20 at 15:09; Stop 06/29/20 at 15:10; Status DC Fentanyl Citrate (Fentanyl 5ml Vial) 250 mcg STK-MED ONCE .ROUTE ; Start 06/29/20 at 15:21; Stop 06/29/20 at 15:21; Status DC Midazolam HCl (Versed) 2 mg STK-MED ONCE .ROUTE ; Start 06/29/20 at 15:36; Stop 06/29/20 at 15:36; Status DC Lidocaine HCl (Buffered Lidocaine 1%) 3 ml 1X ONCE IJ Last administered on 06/29/20at 15:56; Start 06/29/20 at 15:45; Stop 06/29/20 at 15:46; Status DC Midazolam HCl (Versed) 2 mg 1X ONCE IV Last administered on 06/29/20at 15:56; Start 06/29/20 at 15:45; Stop 06/29/20 at 15:46; Status DC Fentanyl Citrate (Fentanyl 5ml Vial) 50 mcg 1X ONCE IV Last administered on 06/29/20at 15:56; Start 06/29/20 at 15:45; Stop 06/29/20 at 15:46; Status DC Sodium Chloride 1,000 ml @ 1,000 mls/hr 1X ONCE IV Last administered on 06/29/20at 18:15; Start 06/29/20 at 18:15; Stop 06/29/20 at 19:14; Status DC Acetaminophen/ Hydrocodone Bitart (Lortab 5/325) 1 tab PRN Q4HRS PRN PO PAIN MODERATE TO SEVERE Last administered on 07/07/20at 10:58; Start 07/01/20 at 22:30 Fluconazole (Diflucan) 400 mg DAILY PO Last administered on 07/07/20at 07:32; Start 07/06/20 at 09:00 Vitals/I & O Vital Sign - Last 24 Hours 07/06/20 07/06/20 07/06/20 07/06/20 15:00 19:00 20:00 23:00 Temp 98.1 98.2 98.2 98.1 98.2 98.2 Pulse 68 87 73 Resp 18 18 18 B/P (MAP) 120/68 (85) 138/82 (100) 136/81 (99) Pulse Ox 98 92 91 O2 Delivery Room Air Room Air Room Air Room Air 07/07/20 07/07/20 07/07/20 07/07/20 03:00 07:00 08:00 10:58 Temp 98.0 98.0 98.0 98.0 Pulse 81 78 Resp 18 16 B/P (MAP) 140/82 (101) 137/86 (103) Pulse Ox 91 94 O2 Delivery Room Air Room Air Room Air Room Air Intake and Output 07/06/20 07/06/20 07/07/20 15:00 23:00 07:00 Intake Total 200 ml Balance 200 ml Justicifation of Admission Dx: Justifications for Admission: Justification of Admission Dx: Yes REMBERTO DUNLAP MD July 07, 2020 11:25
[2020-07-07 15:00] VITALS: BP 116/60
[2020-07-07 19:00] VITALS: BP 134/76
[2020-07-07 23:00] VITALS: BP 113/76
[2020-07-08 03:00] VITALS: BP 129/82
[2020-07-08] MEDS: PIPERACILLIN/TAZOBACTAM 3.375 GM in IV NORMAL SALINE 50ML 50 ML IV SCH ×3 (05:31→18:00)
[2020-07-08 07:00] VITALS: BP 121/82
[2020-07-08] MEDS: LACTOBACILLUS RHAMNOSUS GG 1 CAPSULE. PO SCH ×2 (08:34→21:22)
[2020-07-08] MEDS: FLUCONAZOLE 100 MG TABLET. PO SCH (08:34)
--- NOTE | 2020-07-08 09:27 | PDOC ---
[facility] [employer] 07/08/2027: SURGICAL PROGRESS NOTE DATE: 07/08/20 TIME: 09:26 Subjective no complaints minimal drain output Vital Signs Vital Signs Date Time Temp Pulse Resp B/P (MAP) Pulse Ox O2 Delivery O2 Flow Rate FiO2 07/08/20 07:00 98.1 75 16 121/82 (95) 94 Room Air 98.1 I&O Intake and Output 07/08/20 07:00 Output Total 0 ml Balance 0 ml Output Urine Total 0 ml # Voids 2 General: Alert, Oriented X3, Cooperative Abdomen: Soft, Other (drains in place) Problem List Problems Medical Problems: (1) Acute perforated appendicitis Status: Acute (2) Bandemia Status: Acute (3) Peritonitis Status: Acute (4) Sepsis Status: Acute Assessment/Plan check CT today Justicifation of Admission Dx: Justifications for Admission: Justification of Admission Dx: Yes BOBBY PARNELL MD 07/08/20 1749: SURGICAL PROGRESS NOTE Assessment/Plan Pt seen and examined. Agree with Maddy's note Pt reports doing well, gary diet, passing stools, denies significant pain abd soft, ND, NTTP, drains with some purulence CT with resolution of abscess will ask IR about removal of drains OK to work towards d/c when cleared by others. F/u for elective appendectomy. [facility] [employer] [facility] July 08, 2020 09:27 BOBBY PARNELL MD July 08, 2020 17:49
[2020-07-08] MEDS ORDERED: IOHEXOL 300 MG/ML 100ML VIAL. IV ONE (09:45)
[2020-07-08] MEDS ORDERED: IOHEXOL 240 MG/ML 50ML VIAL. PO ONE (09:45)
--- NOTE | 2020-07-08 10:07 | NUR ---
SW following. Discussed with RN, pt from home with , room air, GI soft, COVID-19 negative. Pt having a CT today. Still has drains. SW will continue to follow.
[2020-07-08 10:48] VITALS: BP 139/87
--- NOTE | 2020-07-08 10:53 | PDOC ---
Infectious Disease Note Subjective: Subjective Patient's is at bedside for interpretation Denies any complaints No N/V/D/F/C Tolerating soft diet Ambulating in the hallway without difficulty Vital Signs: Vital Signs Vital Signs Date Time Temp Pulse Resp B/P (MAP) Pulse Ox O2 Delivery O2 Flow Rate FiO2 07/08/20 10:48 98.7 78 18 139/87 (104) 95 Room Air 98.7 Physical Exam: PHYSICAL EXAM GENERAL: Alert oriented x3 male nontoxic-appearing looks better HEENT: Anicteric. Oral cavity clear NECK: Supple. No JVD. LUNGS: Clear bilaterally. No wheezing. HEART: S1, S2. No gallops or murmurs. ABDOMEN: Mildly distended. soft, 2 right-sided NAGI drains, less purulance; R flank soft, nontender, erythema and warmth resolved. DERMATOLOGIC: Warm, dry, no generalized rash. NEUROLOGIC: Alert, oriented x 3, grossly nonfocal. PIV looks clean. Medications: Inpatient Meds: Medications reviewed. Labs: Micro Micro BLOOD CULTURE Preliminary NO GROWTH AFTER 5 DAYS Abscess: 06/29. MIXED AEROBIC AND ANAEROBIC MARY on 07/03/20 at 1444 INCLUDING: MANY GRAM NEGATIVE RODS on 07/01/20 at 0842 FINAL ID= [ESCHERICHIA COLI] MANY [STREPTOCOCCUS CONSTELLATUS] MANY [BACTEROIDES FRAGILIS] MANY [BACTEROIDES OVATUS GROUP] MANY [CLOSTRIDIUM PERFRINGENS] ESCHERICHIA COLI STREPTOCOCCUS CONSTELLATUS BACTEROIDES FRAGILIS BACTEROIDES OVATUS GROUP CLOSTRIDIUM PERFRINGENS ANTIMICROBIAL SUSCEPTIBILITY Preliminary NEG ENDY 56 ESCHERICHIA COLI ANTIBIOTIC RESULT INTERPRETATION AMPICILLIN/SULBACTAM >16/8 R AMIKACIN <=16 S AMPICILLIN >16 R AMOXICILLIN/K CLAVULANATE 16/8 I AZTREONAM <=4 S CEFTRIAXONE <=1 S CEFTAZIDIME <=1 S CEFOTAXIME <=2 S CEFOXITIN <=8 S CEFAZOLIN >16 R CIPROFLOXACIN >2 R CEFEPIME <=2 S CEFUROXIME <=4 S CEFTAZIDIME/AVIBACTAM <=4 S ERTAPENEM <=0.5 S GENTAMICIN >8 R LEVOFLOXACIN >4 R MEROPENEM <=1 S PIPERACILLIN/TAZOBACTAM <=8 S TRIMETHOPRIM/SULFAMETHOXAZOLE >2/38 R TETRACYCLINE >8 R TOBRAMYCIN 8 I Abscess: 06/24. GRAM STAIN Final Final GRAM NEGATIVE RODS:MANY GRAM POSITIVE RODS:MODERATE GRAM POSITIVE COCCI:MANY ANAEROBIC-AEROBIC CULTURE Final Final MIXED AEROBIC AND ANAEROBIC MARY on 06/26/20 at 1519 INCLUDING: MANY GRAM NEGATIVE RODS on 06/25/20 at 0907 MANY [BACTEROIDES FRAGILIS] ESCHERICHIA COLI ESCHERICHIA COLI STREPTOCOCCUS ANGINOSUS STREPTOCOCCUS CONSTELLATUS CLOSTRIDIUM PERFRINGENS BACTEROIDES FRAGILIS ANTIMICROBIAL SUSCEPTIBILITY Final ESCHERICHIA COLI ANTIBIOTIC RESULT INTERPRETATION AMPICILLIN/SULBACTAM >16/8 R AMIKACIN <=16 S AMPICILLIN >16 R AMOXICILLIN/K CLAVULANATE 16/8 I AZTREONAM <=4 S CEFTRIAXONE <=1 S CEFTAZIDIME <=1 S CEFOTAXIME <=2 S CEFOXITIN <=8 S CEFAZOLIN >16 R CIPROFLOXACIN >2 R CEFEPIME <=2 S CEFUROXIME <=4 S CEFTAZIDIME/AVIBACTAM <=4 S ERTAPENEM <=0.5 S GENTAMICIN >8 R LEVOFLOXACIN >4 R MEROPENEM <=1 S PIPERACILLIN/TAZOBACTAM <=8 S TRIMETHOPRIM/SULFAMETHOXAZOLE >2/38 R TETRACYCLINE >8 R TOBRAMYCIN >8 R NEG ENDY 56 ESCHERICHIA COLI ANTIBIOTIC RESULT INTERPRETATION AMPICILLIN/SULBACTAM 16/8 I AMIKACIN <=16 S AMPICILLIN >16 R AMOXICILLIN/K CLAVULANATE <=8/4 S AZTREONAM <=4 S CEFTRIAXONE <=1 S CEFTAZIDIME <=1 S CEFOTAXIME <=2 S CEFOXITIN <=8 S CEFAZOLIN <=2 S CIPROFLOXACIN <=0.25 S CEFEPIME <=2 S CEFUROXIME <=4 S CEFTAZIDIME/AVIBACTAM <=4 S ERTAPENEM <=0.5 S GENTAMICIN <=2 S LEVOFLOXACIN <=0.5 S MEROPENEM <=1 S PIPERACILLIN/TAZOBACTAM <=8 S TRIMETHOPRIM/SULFAMETHOXAZOLE <=0.5/9.5 S TETRACYCLINE >8 R TOBRAMYCIN <=2 S 5/1. BLOOD CULTURE Preliminary NO GROWTH AFTER 2 DAYS 06/23. BLOOD CULTURE LC Final Final FINAL ID= [BACTEROIDES SPLANCHNICUS] (ISOLATE 1) [GRAM POSITIVE COCCI] PRESENT ON GRAM STAIN BUT UNABLE TO ISOLATE ON SOLID MEDIA. (ISOLATE 2) BACTEROIDES SPLANCHNICUS GRAM POSITIVE COCCI Objective: Assessment: Perforated appendix. Intraabdominal abscess, status post IR drainage with polymicrobial organisms. CT 06/29 persistent air-fluid collection measuring 5.6 x 3.2 centers. - Mixed aerobic and anaerobic mary, E. coli x 2 spp.,,Strep anginosis, cons ellatus, C. perfringes, bacteroides. Gram-negative patricia bacteremia, Bacteroides splanchnicus and GPC UNABLE TO ISOLATE ON SOLID MEDIA, June 23. Sepsis, source intra-abdominal, improved Fever - better Leukocytosis and bandemia - improved Plan: Plan of Care Continue Zosyn (06/24) and fluconazole (06/29) Off Zyvox Probiotics Monitor lab values/temp Monitor right flank - improving Drain management as directed General Surgery following Continue supportive care. Follow-up repeat CT soon Discussed with nursing Discussed with at bedside SHANTELLE MAHARAJ MD July 08, 2020 10:53
--- NOTE | 2020-07-08 12:12 | PDOC ---
[facility] PROGRESS NOTE Date of Service DOS: DATE: 07/08/20 TIME: 12:10 Chief Complaint Chief Complaint IMPRESSION Abdominal abscess - due to perforated appendicitis. REG DIET General surgery consulted. Will continue antibiotics, IR to see if this is amenable to drain Appendicitis - with perforation. Continue IV antibiotics, zosyn. No surgery at this time due to perforation Sepsis - due to perforated appendicitis - given fluids and antibiotics Hyperglycemia - likely due to stress - will check A1c Left pleural effusion - no respiratory distress Right sided percutaneous drain there is a persistent abscess which may or may not indicate with a drain. CT 06-29 PLAN FEN - Clear liquid diet PPX - heparin FULL CODE Dispo - inpatient ID CONSULT Continue Zosyn. Start Zyvox and fluconazole. drain was able to be placed 06-29 History of Present Illness History of Present Illness Mr Chapa is a 59-year-old male with no significant past medical history, Swiss-speaking only, presents to the ED on 06/23/2020 accompanied by his son with complaints of diffuse abdominal pain that started on , 06/20/2020, now localized to right lower quadrant with subjective fevers and chills that started 06/24/2020 Patient recently received his Covid vaccine. Denies any past surgical history. Moved here from [place] 30 years ago. Took amoxicillin. Ate soup around 3-4 PM on 06/23 and last bowel movement was around 4 PM with no melena or hematochezia (yellow color). 07/08: Afebrile overnight. Still with positive drain output both drains. To repeat CT this morning. Pain well controlled. Good appetite. Zosyn (06/24), Zyvox (06/29) and fluconazole (06/29). 07/07 Right sided percutaneous drain on ct there is a persistent abscess which may or may not indicate within drain. site // wbc 20k - 9.5 // t max 99.7 06-29 // t max 100.3 06-26 Right sided percutaneous drain on ct there is a persistent abscess which may or may not indicate within drain. site // wbc 20k // t max 99.7 06-29 // t max 100.3 06-26 pain is controlled. Tolerating p.o. okay. Blood cultures 1 out of 2 bottles positive for small gram-negative cocci and gram-positive cocci. Continue Zosyn. Zyvox and fluconazole. IV erythema right flank LESS drain repositioned, see drain placed 5- D/W RN and family in room Continue Zosyn (06/24), Zyvox (06/29) and fluconazole (06/29). Probiotics Monitor lab values/temp Monitor right flank less swelling and tightness on flank. On Exam - less erythema/warm and is softer. min pain 5-07 Right sided percutaneous drain on ct there is a persistent abscess which may or may not indicate within drain. site // wbc 20k // t max 99.7 5-01 // t max 100.3 4-28 pain is controlled. Tolerating p.o. okay. Blood cultures 1 out of 2 bottles positive for small gram-negative cocci and gram-positive cocci. Continue Zosyn. Zyvox and fluconazole. IV erythema right flank LESS drain repositioned, see drain placed 5- D/W RN and family in room Continue Zosyn (06/24), Zyvox (06/29) and fluconazole (06/29). Probiotics Monitor lab values/temp Monitor right flank Better. less swelling and tightness on flank. On Exam - less erythema/warm and is softer. min pain 5-06 Right sided percutaneous drain on ct there is a persistent abscess which may or may not indicate within drain. site // wbc 20k // t max 99.7 5-01 // t max 100.3 4-28 pain is controlled. Tolerating p.o. okay. Blood cultures 1 out of 2 bottles positive for small gram-negative cocci and gram-positive cocci. Continue Zosyn. Zyvox and fluconazole. IV erythema right flank LESS drain repositioned, see drain placed 5- D/W RN and family in room Continue Zosyn (06/24), Zyvox (06/29) and fluconazole (06/29). Probiotics Monitor lab values/temp Monitor right flank Better. less swelling and tightness on flank. On Exam - less erythema/warm and is softer. min pain 5-05 Right sided percutaneous drain on ct there is a persistent abscess which may or may not indicate within drain. site // wbc 20k // t max 99.7 5- // t max 100.3 4-28 pain is controlled. Tolerating p.o. okay. Blood cultures 1 out of 2 bottles positive for small gram-negative cocci and gram-positive cocci. Continue Zosyn. Start Zyvox and fluconazole. IV erythema right flank drain repositioned, IR WILL see drain was able to be placed 5- D/W RN and family in room Continue Zosyn (06/24), Zyvox (06/29) and fluconazole (06/29). Probiotics Monitor lab values/temp Monitor right flank Better. less swelling and tightness on flank. On Exam - less erythema/warm and is softer. min pain 5-04 Right sided percutaneous drain on ct there is a persistent abscess which may or may not indicate within drain. site // wbc 20k // t max 99.7 5- // t max 100.3 4-28 pain is controlled. Tolerating p.o. okay. Blood cultures 1 out of 2 bottles positive for small gram-negative cocci and gram-positive cocci. Continue Zosyn. Start Zyvox and fluconazole. IV erythema right flank drain repositioned, IR WILL see drain was able to be placed 5- D/W RN and family in room Continue Zosyn (06/24), Zyvox (06/29) and fluconazole (06/29). Probiotics Monitor lab values/temp Monitor right flank Better. less swelling and tightness on flank. On Exam - less erythema/warm and is softer. min pain 5-03 Right sided percutaneous drain on ct there is a persistent abscess which may or may not indicate within drain. site // wbc 20k // t max 99.7 5- // t max 100.3 4-28 pain is controlled. Tolerating p.o. okay. Blood cultures 1 out of 2 bottles positive for small gram-negative cocci and gram-positive cocci. Continue Zosyn. Start Zyvox and fluconazole. IV erythema right flank drain repositioned, IR WILL see drain was able to be placed 5- D/W RN and family in room 5- Right sided percutaneous drain on ct there is a persistent abscess which may or may not indicate within drain. site // wbc 20k // t max 99.7 06-29 // t max 100.3 06-26 pain is controlled. Tolerating p.o. okay. Blood cultures 1 out of 2 bottles positive for small gram-negative cocci and gram-positive cocci. Continue Zosyn. Start Zyvox and fluconazole. IV drain may need repositioned, IR WILL see drain was able to be placed 06-29 D/W RN and family in room 06-29 Right sided percutaneous drain on ct there is a persistent abscess which may or may not indicate within drain. site // wbc 20k // t max 99.7 06-29 // t max 100.3 06-26 pain is controlled. Tolerating p.o. okay. Blood cultures 1 out of 2 bottles positive for small gram-negative cocci and gram-positive cocci. Continue Zosyn. Start Zyvox and fluconazole. IV drain may need repositioned, IR WILL see drain was able to be placed 06-29 D/W RN and family in room 06/24: Found with perforated appendicitis. To IR for percutaneous drain 06/25: T-max 100.3 F overnight. Pain is better minimal pain at drain site. No nausea or vomiting. He has a little bit of an appetite. Discussed via change analyst with son and bedside plan is to continue antibiotics and after discussion with surgery to trial on p.o. today and return for appendectomy for definitive treatment after he completes an antibiotic course. 06/26: Afebrile overnight. States his pain is controlled. Tolerating p.o. okay. Blood cultures 1 out of 2 bottles positive for small gram-negative cocci and gram-positive cocci. Drain with minimal output today. 06/27: Afebrile overnight. Blood cultures pending. Abscess culture with multiple organisms 2 different E. coli with sensitivities to cephalosporins and Zosyn. Pain better, eating 100% of meals, no diarrhea, no vomiting. [ESCHERICHIA COLI] (2 STRAINS) MANY [STREPTOCOCCUS CONSTELLATUS] MANY [STREPTOCOCCUS ANGINOSUS] MANY [CLOSTRIDIUM PERFRINGENS] MANY [BACTEROIDES FRAGILIS] ESCHERICHIA COLI ESCHERICHIA COLI STREPTOCOCCUS ANGINOSUS STREPTOCOCCUS CONSTELLATUS CLOSTRIDIUM PERFRINGENS BACTEROIDES FRAGILIS 06-28 D/W RN WILL CONSULT ID, CONT IV ZOSYN Vitals/I&O Vitals/I&O: Vital Signs Date Time Temp Pulse Resp B/P (MAP) Pulse Ox O2 Delivery O2 Flow Rate FiO2 07/08/20 10:48 98.7 78 18 139/87 (104) 95 Room Air 98.7 I & O 07/07/20 07/07/20 07/08/20 15:00 23:00 07:00 Output Total 0 ml Balance 0 ml Physical Exam Physical Exam: GENERAL: Alert oriented x3 male nontoxic-appearing looks better HEENT: Anicteric. Oral cavity clear NECK: Supple. No JVD. LUNGS: Clear bilaterally. No wheezing. HEART: S1, S2. No gallops or murmurs. ABDOMEN: Mildly distended. soft, 2 right-sided NAGI drains, less purulance; R flank soft, nontender, erythema and warmth resolved. DERMATOLOGIC: Warm, dry, no generalized rash. NEUROLOGIC: Alert, oriented x 3, grossly nonfocal. PIV looks clean. General: Alert, Oriented X3, Cooperative Heart: Regular rate, Normal S1, Normal S2 Lungs: Clear Abdomen: Soft, Other (drains in place) Extremities: No clubbing, No cyanosis, No edema, Normal pulses, No tenderness/swelling Skin: No breakdown, No significant lesion, Other (erythema right flank) Assessment and Plan Assessmemt and Plan Problems Medical Problems: (1) Acute perforated appendicitis Status: Acute (2) Bandemia Status: Acute (3) Peritonitis Status: Acute (4) Sepsis Status: Acute Comment Review of Relevant I have reviewed the following items ab (where applicable) has been applied. Medications: Current Medications Medications (Trade) Dose Ordered Sig/Paula Route PRN Reason Start Time Stop Time Status Last Admin Dose Admin Iohexol (Omnipaque 300 Mg/ml) 75 ml 1X ONCE IV 07/08/20 09:45 07/08/20 09:46 DC 07/08/20 09:45 Iohexol (Omnipaque 240 Mg/ml) 50 ml 1X ONCE PO 07/08/20 09:45 07/08/20 09:46 DC 07/08/20 09:45 Justifications for Admission Other Justification MATTHEW WEINSTEIN MD July 08, 2020 12:12
--- NOTE | 2020-07-08 13:12 | RAD ---
PQ[employer] Compliance Statement: One or more of the following individualized dose reduction techniques were utilized for this examinat ion: 1. Automated exposure control 2. Adjustment of the mA and/or kV according to patient size 3. Use of iterative reconstruction technique Exam performed: CT abdomen and pelvis with contrast HISTORY: Follow-up dyspnea DATE OF SERVICE: 07/08/2020. Comparison made to a previous CT chest from 06/29/2020 and 06/23/2020. TECHNIQUE: Contiguous helical acquisitions are obtained through the abdomen and pelvis during intrave nous administration of 75 cc of Omnipaque 300. Sagittal and coronal reformatted images are obtained a nd reviewed. FINDINGS: The catheters are seen in the right lower quadrant. Previously seen abscesses in this region are no l onger visualized. The degree of inflammatory stranding fluid collections also appear significantly im proved. The lung bases are clear. The visualized heart is normal. The liver, gallbladder, spleen and pancreas appear normal. Both adrenal glands and bilateral kidneys are normal in size with symmetric excretion of contrast via both kidneys. There is no hydronephrosis or nephrolithiasis. Aorta is normal in caliber without aneurysm. Mild atheromatous calcification of t he aorta is seen. The small and large bowel loops are nondilated and unremarkable. Mild colonic diver ticulosis. The urinary bladder is decompressed. The prostate gland, seminal vesicles and rectum appea r normal. IMPRESSION: Previously seen abscesses in the right lower abdomen have completely resolved. Pigtail drainage sweta ters remain in place. No acute intra-abdominal or pelvic process seen. Electronically signed by: Debbie Reaves MD (07/08/2020 1:10 PM) [id number]
[2020-07-08 14:48] VITALS: BP 122/74
[2020-07-08 19:00] VITALS: BP 124/77
[2020-07-08 23:00] VITALS: BP 132/78
[2020-07-09] MEDS: PIPERACILLIN/TAZOBACTAM 3.375 GM in IV NORMAL SALINE 50ML 50 ML IV SCH ×3 (00:06→12:02)
[2020-07-09 03:15] VITALS: BP 122/78
[2020-07-09 07:00] VITALS: BP 142/91
--- NOTE | 2020-07-09 09:09 | PDOC ---
DANIELA RAMOS CLOTH WEAVER 07/09/20 0909: SURGICAL PROGRESS NOTE DATE: 07/09/20 TIME: 09:07 Subjective resting feels fine Vital Signs Vital Signs Date Time Temp Pulse Resp B/P (MAP) Pulse Ox O2 Delivery O2 Flow Rate FiO2 07/09/20 07:00 98.1 79 18 142/91 (108) 98 Room Air 98.1 I&O Intake and Output 07/09/20 07:00 Intake Total 280 ml Output Total 275 ml Balance 5 ml Intake Oral 280 ml Output Urine Total 275 ml General: Alert, Oriented X3, Cooperative Abdomen: Soft, Other (drains removed) Problem List Problems Medical Problems: (1) Acute perforated appendicitis Status: Acute (2) Bandemia Status: Acute (3) Peritonitis Status: Acute (4) Sepsis Status: Acute Assessment/Plan removed drains ok to dc when abx decisions made FU 2-[address] Shell to plan elective appendectomy Justicifation of Admission Dx: Justifications for Admission: Justification of Admission Dx: Yes BOBBY SHELL MD 07/09/20 1101: SURGICAL PROGRESS NOTE Assessment/Plan Pt seen and examined. Agree with Ramone Ramos's note Pt without c/o, drains out abd soft, Nd, NTTP OK to d/c DANIELA RAMOS APRN July 09, 2020 09:09 BOBBY SHELL MD July 09, 2020 11:01
[2020-07-09] MEDS: FLUCONAZOLE 100 MG TABLET. PO SCH (09:12)
[2020-07-09] MEDS: LACTOBACILLUS RHAMNOSUS GG 1 CAPSULE. PO SCH (09:12)
--- NOTE | 2020-07-09 09:43 | PDOC ---
[facility] PROGRESS NOTE Date of Service DOS: DATE: 07/09/20 TIME: 09:39 Chief Complaint Chief Complaint IMPRESSION Abdominal abscess - due to perforated appendicitis. REG DIET General surgery consulted. Will continue antibiotics, IR to see if this is amenable to drain Appendicitis - with perforation. Continue IV antibiotics, zosyn. No surgery at this time due to perforation Sepsis - due to perforated appendicitis - given fluids and antibiotics Hyperglycemia - likely due to stress - will check A1c Left pleural effusion - no respiratory distress Right sided percutaneous drain there is a persistent abscess which may or may not indicate with a drain. CT 06-29 PLAN FEN - Clear liquid diet PPX - heparin FULL CODE Dispo - inpatient ID CONSULT Continue Zosyn. Start Zyvox and fluconazole. drain was able to be placed 06-29 History of Present Illness History of Present Illness Mr Chapa is a 59-year-old male with no significant past medical history, Monegasque-speaking only, presents to the ED on 06/23/2020 accompanied by his son with complaints of diffuse abdominal pain that started on , 06/20/2020, now localized to right lower quadrant with subjective fevers and chills that started 06/24/2020 Patient recently received his Covid vaccine. Denies any past surgical history. Moved here from [place] 30 years ago. Took amoxicillin. Ate soup around 3-4 PM on 06/23 and last bowel movement was around 4 PM with no melena or hematochezia (yellow color). 06/24: Found with perforated appendicitis. To IR for percutaneous drain 06/25: T-max 100.3 F overnight. Pain is better minimal pain at drain site. No nausea or vomiting. He has a little bit of an appetite. Discussed via clipper counters with son and bedside plan is to continue antibiotics and after discussion with surgery to trial on p.o. today and return for appendectomy for definitive treatment after he completes an antibiotic course. 06/26: Right sided percutaneous drain on ct there is a persistent abscess which may or may not indicate within drain. site // wbc 20k - 9.5 // t max 99.7 06-29 // t max 100.3 06-26: Afebrile overnight. Abscess culture with multiple organisms 2 different E. coli sensitive to cephalosporins and Zosyn. Pain better, eating 100% of meals, no diarrhea, no vomiting. 06/28: ID consulted 06/29: CT with increase in abscess, 2nd drain placed per IR 07/08: Afebrile overnight. Still with positive drain output both drains. To repeat CT this morning. Pain well controlled. Good appetite. Zosyn (06/24), Zyvox (06/29) and fluconazole (06/29). Afebrile overnight. Repeat CT scan with complete resolution of abscess. Less than 15 cc output both drains. Drains pulled per surgery. Discussed with ID will discharge on cefdinir and Flagyl for 7 days with outpatient follow-up in 2 to 3 weeks with general surgery. Vitals/I&O Vitals/I&O: Vital Signs Date Time Temp Pulse Resp B/P (MAP) Pulse Ox O2 Delivery O2 Flow Rate FiO2 07/09/20 07:00 98.1 79 18 142/91 (108) 98 Room Air 98.1 I & O 07/08/20 07/08/20 07/09/20 15:00 23:00 07:00 Intake Total 180 ml 100 ml Output Total 275 ml Balance 180 ml -175 ml Physical Exam Physical Exam: GENERAL: Alert oriented x3 male nontoxic-appearing looks better HEENT: Anicteric. Oral cavity clear NECK: Supple. No JVD. LUNGS: Clear bilaterally. No wheezing. HEART: S1, S2. No gallops or murmurs. ABDOMEN: Mildly distended. soft, 2 right-sided NAGI drains, less purulance; R flank soft, nontender, erythema and warmth resolved. DERMATOLOGIC: Warm, dry, no generalized rash. NEUROLOGIC: Alert, oriented x 3, grossly nonfocal. PIV looks clean. General: Alert, Oriented X3, Cooperative Heart: Regular rate, Normal S1, Normal S2 Lungs: Clear Abdomen: Soft, Other (drains removed) Extremities: No clubbing, No cyanosis, No edema, Normal pulses, No tenderness/swelling Skin: No breakdown, No significant lesion, Other (erythema right flank) Assessment and Plan Assessmemt and Plan Problems Medical Problems: (1) Acute perforated appendicitis Status: Acute (2) Bandemia Status: Acute (3) Peritonitis Status: Acute (4) Sepsis Status: Acute Comment Review of Relevant I have reviewed the following items ab (where applicable) has been applied. Medications: Current Medications Medications (Trade) Dose Ordered Sig/Paula Route PRN Reason Start Time Stop Time Status Last Admin Dose Admin Iohexol (Omnipaque 300 Mg/ml) 75 ml 1X ONCE IV 07/08/20 09:45 07/08/20 09:46 DC 07/08/20 09:45 Iohexol (Omnipaque 240 Mg/ml) 50 ml 1X ONCE PO 07/08/20 09:45 07/08/20 09:46 DC 07/08/20 09:45 Justifications for Admission Other Justification MATTHEW WEINSTEIN MD July 09, 2020 09:43
--- NOTE | 2020-07-09 09:45 | PDOC ---
Infectious Disease Note Subjective: Subjective Patient's is at bedside for interpretation Denies any complaints No N/V/D/F/C Tolerating diet Ambulating in the hallway without difficulty Vital Signs: Vital Signs Vital Signs Date Time Temp Pulse Resp B/P (MAP) Pulse Ox O2 Delivery O2 Flow Rate FiO2 07/09/20 07:00 98.1 79 18 142/91 (108) 98 Room Air 98.1 Physical Exam: PHYSICAL EXAM GENERAL: Alert oriented x3 male nontoxic-appearing looks better HEENT: Anicteric. Oral cavity clear NECK: Supple. No JVD. LUNGS: Clear bilaterally. No wheezing. HEART: S1, S2. No gallops or murmurs. ABDOMEN: Nondistended. Nontender soft, ,2 right-sided NAGI drains removed DERMATOLOGIC: Warm, dry, no generalized rash. NEUROLOGIC: Alert, oriented x 3, grossly nonfocal. PIV looks clean. Medications: Inpatient Meds: Medications reviewed. Labs: Micro Micro BLOOD CULTURE Preliminary NO GROWTH AFTER 5 DAYS Abscess: 06/29. MIXED AEROBIC AND ANAEROBIC MARY on 07/03/20 at 1444 INCLUDING: MANY GRAM NEGATIVE RODS on 07/01/20 at 0842 FINAL ID= [ESCHERICHIA COLI] MANY [STREPTOCOCCUS CONSTELLATUS] MANY [BACTEROIDES FRAGILIS] MANY [BACTEROIDES OVATUS GROUP] MANY [CLOSTRIDIUM PERFRINGENS] ESCHERICHIA COLI STREPTOCOCCUS CONSTELLATUS BACTEROIDES FRAGILIS BACTEROIDES OVATUS GROUP CLOSTRIDIUM PERFRINGENS ANTIMICROBIAL SUSCEPTIBILITY Preliminary NEG ENDY 56 ESCHERICHIA COLI ANTIBIOTIC RESULT INTERPRETATION AMPICILLIN/SULBACTAM >16/8 R AMIKACIN <=16 S AMPICILLIN >16 R AMOXICILLIN/K CLAVULANATE 16/8 I AZTREONAM <=4 S CEFTRIAXONE <=1 S CEFTAZIDIME <=1 S CEFOTAXIME <=2 S CEFOXITIN <=8 S CEFAZOLIN >16 R CIPROFLOXACIN >2 R CEFEPIME <=2 S CEFUROXIME <=4 S CEFTAZIDIME/AVIBACTAM <=4 S ERTAPENEM <=0.5 S GENTAMICIN >8 R LEVOFLOXACIN >4 R MEROPENEM <=1 S PIPERACILLIN/TAZOBACTAM <=8 S TRIMETHOPRIM/SULFAMETHOXAZOLE >2/38 R TETRACYCLINE >8 R TOBRAMYCIN 8 I Abscess: 06/24. GRAM STAIN Final Final GRAM NEGATIVE RODS:MANY GRAM POSITIVE RODS:MODERATE GRAM POSITIVE COCCI:MANY ANAEROBIC-AEROBIC CULTURE Final Final MIXED AEROBIC AND ANAEROBIC MARY on 06/26/20 at 1519 INCLUDING: MANY GRAM NEGATIVE RODS on 06/25/20 at 0907 MANY [BACTEROIDES FRAGILIS] ESCHERICHIA COLI ESCHERICHIA COLI STREPTOCOCCUS ANGINOSUS STREPTOCOCCUS CONSTELLATUS CLOSTRIDIUM PERFRINGENS BACTEROIDES FRAGILIS ANTIMICROBIAL SUSCEPTIBILITY Final ESCHERICHIA COLI ANTIBIOTIC RESULT INTERPRETATION AMPICILLIN/SULBACTAM >16/8 R AMIKACIN <=16 S AMPICILLIN >16 R AMOXICILLIN/K CLAVULANATE 16/8 I AZTREONAM <=4 S CEFTRIAXONE <=1 S CEFTAZIDIME <=1 S CEFOTAXIME <=2 S CEFOXITIN <=8 S CEFAZOLIN >16 R CIPROFLOXACIN >2 R CEFEPIME <=2 S CEFUROXIME <=4 S CEFTAZIDIME/AVIBACTAM <=4 S ERTAPENEM <=0.5 S GENTAMICIN >8 R LEVOFLOXACIN >4 R MEROPENEM <=1 S PIPERACILLIN/TAZOBACTAM <=8 S TRIMETHOPRIM/SULFAMETHOXAZOLE >2/38 R TETRACYCLINE >8 R TOBRAMYCIN >8 R NEG ENDY 56 ESCHERICHIA COLI ANTIBIOTIC RESULT INTERPRETATION AMPICILLIN/SULBACTAM 16/8 I AMIKACIN <=16 S AMPICILLIN >16 R AMOXICILLIN/K CLAVULANATE <=8/4 S AZTREONAM <=4 S CEFTRIAXONE <=1 S CEFTAZIDIME <=1 S CEFOTAXIME <=2 S CEFOXITIN <=8 S CEFAZOLIN <=2 S CIPROFLOXACIN <=0.25 S CEFEPIME <=2 S CEFUROXIME <=4 S CEFTAZIDIME/AVIBACTAM <=4 S ERTAPENEM <=0.5 S GENTAMICIN <=2 S LEVOFLOXACIN <=0.5 S MEROPENEM <=1 S PIPERACILLIN/TAZOBACTAM <=8 S TRIMETHOPRIM/SULFAMETHOXAZOLE <=0.5/9.5 S TETRACYCLINE >8 R TOBRAMYCIN <=2 S 5/1. BLOOD CULTURE Preliminary NO GROWTH AFTER 2 DAYS 06/23. BLOOD CULTURE LC Final Final FINAL ID= [BACTEROIDES SPLANCHNICUS] (ISOLATE 1) [GRAM POSITIVE COCCI] PRESENT ON GRAM STAIN BUT UNABLE TO ISOLATE ON SOLID MEDIA. (ISOLATE 2) BACTEROIDES SPLANCHNICUS CT abdomen IMPRESSION: Previously seen abscesses in the right lower abdomen have completely resolved. Pigtail drainage catheters remain in place. No acute intra-abdominal or pelvic process seen. Objective: Assessment: Perforated appendix. Intraabdominal abscess, status post IR drainage with polymicrobial organisms. CT 06/29 persistent air-fluid collection measuring 5.6 x 3.2 centers. - Mixed aerobic and anaerobic mary, E. coli x 2 spp.,,Strep anginosis, consellatus, C. perfringes, bacteroides. Gram-negative patricia bacteremia, Bacteroides splanchnicus and GPC UNABLE TO ISO LATE ON SOLID MEDIA, June 23. Sepsis, source intra-abdominal, improved Fever - better Leukocytosis and bandemia - improved Plan: Plan of Care Okay to discharge home on Cefdinir and Flagyl and fluconazole for 7 days Probiotics /yogurt Follow-up with general surgery as recommended Follow up with PCP Discussed with Dr. Martinez Discussed with at bedside SHANTELLE MAHARAJ MD July 09, 2020 09:45
[2020-07-09] MEDS ORDERED: CEFD300C PO ×2 (10:05→11:12)
[2020-07-09] MEDS ORDERED: LACT1CAP19 PO ×2 (10:05→11:12)
[2020-07-09] MEDS ORDERED: METR500T PO ×2 (10:05→11:12)
--- NOTE | 2020-07-09 10:28 | NUR ---
SW following. Discussed with RN, pt from home with , room air, GI soft, COVID-19 negative. Drains removed, abx switched to oral. Discharge order for home with self care. RN advised no SW needs.
[2020-07-09 11:00] VITALS: BP 130/90
[2020-07-09] MEDS ORDERED: FLUC100T4 PO (11:14)
--- NOTE | 2020-07-09 15:13 | PDOC3 ---
Discharge Summary Visit Information Date of Admission: Jun 23, 2020 Date of Discharge: July 09, 2020 Admitting Diagnosis: Perforated appendicitis Final Diagnosis Problems Medical Problems: (1) Acute perforated appendicitis Status: Acute (2) Bandemia Status: Acute (3) Peritonitis Status: Acute (4) Sepsis Status: Acute Brief Hospital Course Allergies Allergies Coded Allergies Type Severity Reaction Last Updated Verified No Known Drug Allergies 06/23/20 No Vital Signs Vital Signs Date Time Temp Pulse Resp B/P (MAP) Pulse Ox O2 Delivery O2 Flow Rate FiO2 07/09/20 11:00 98.4 68 16 130/90 (103) 97 Room Air 98.4 Brief Hospital Course Mr Chapa is a 59-year-old male with no significant past medical history, [place]ish-speaking only, presents to the ED on 06/23/2020 accompanied by his son with complaints of diffuse abdominal pain that started on , 06/20/2020, now localized to right lower quadrant with subjective fevers and chills that st arted 06/24/2020 Patient recently received his Covid vaccine. Denies any past surgical history. Moved here from [place] 30 years ago. Took amoxicillin. Ate soup around 3-4 PM on 06/23 and last bowel movement was around 4 PM with no melena or hematochezia (yellow color). 06/24: Found with perforated appendicitis. To IR for percutaneous drain 06/25: T-max 100.3 F overnight. Pain is better minimal pain at drain site. No nausea or vomiting. He has a little bit of an appetite. 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 today and return for appendectomy for definitive treatment after he completes an antibiotic course. 06/26: Right sided percutaneous drain on ct there is a persistent abscess which may or may not indicate within drain. site // wbc 20k - 9.5 // t max 99.7 06-29 // t max 100.3 06-26: Afebrile overnight. Abscess culture with multiple organisms 2 different E. coli sensitive to cephalosporins and Zosyn. Pain better, eating 100% of meals, no diarrhea, no vomiting. 06/28: ID consulted 06/29: CT with increase in abscess, 2nd drain placed per IR 07/08: Afebrile overnight. Still with positive drain output both drains. To repeat CT this morning. Pain well controlled. Good appetite. Zosyn (06/24), Zyvox (06/29) and fluconazole (06/29). Afebrile overnight. Repeat CT scan with complete resolution of abscess. Less than 15 cc output both drains. Drains pulled per surgery. Discussed with ID will discharge on cefdinir and Flagyl for 7 days with outpatient follow-up in 2 to 3 weeks with general surgery. Consults: ID, General surgery Problem list: Abdominal abscess - due to perforated appendicitis. REG DIET General surgery consulted. Will continue antibiotics, IR to see if this is amenable to drain Appendicitis - with perforation. Continue IV antibiotics, zosyn. No surgery at this time due to perforation Sepsis - due to perforated appendicitis - given fluids and antibiotics Hyperglycemia - likely due to stress - will check A1c Left pleural effusion - no respiratory distress Right sided percutaneous drain there is a persistent abscess which may or may not indicate with a drain. CT 5 Greater than 30 minutes spent on d/c Discharge Information Condition at Discharge: Improved Follow Up: Weeks (1) Disposition/Orders: D/C to Home Scheduled Cefdinir (Cefdinir) 300 Mg Capsule, 1 CAP PO BID for Abdominal abscess for 7 Days, #14 Ref 0 Prescribed by: MATTHEW WEINSTEIN MD on 07/09/20 1112 Fluconazole (Fluconazole) 100 Mg Tablet, 1 TAB PO DAILY for Fungal infection, #7 Prescribed by: MATTHEW WEINSTEIN MD on 07/09/20 1114 Lactobacillus Rhamnosus Gg (Culturelle) 1 Each Cap.sprink, 1 CAP PO BID for Colitis for 7 Days, #14 Ref 0 Prescribed by: MATTHEW WEINSTEIN MD on 07/09/20 1112 Metronidazole (Flagyl) 500 Mg Tablet, 1 TAB PO BID for Abdominal abscess for 7 Days, #14 Ref 0 Prescribed by: MATTHEW WEINSTEIN MD on 07/09/20 1112 Justicifation of Admission Dx: Justifications for Admission: Justification of Admission Dx: Yes MATTHEW WEINSTEIN MD July 09, 2020 15:13
--- NOTE | 2020-07-09 16:49 | NUR ---
Discharge Note: CHAIM JIMENEZ Discharge instructions and discharge home medications reviewed with Patient and a copy given. All questions have been answered and understanding verbalized. The following instructions and handouts were given:Diet, activity, medication list and follow up instructions provided to patient. Discontinued lines and drains: Peripheral IV discontinued and catheter intact. Patient discharged to Home or Self Care with Spouse via Ambulated
== END 2020-07-09 15:17 | disposition home or self-care (01) | DRG 871 ==
LOC: ER 18:24 → ED HOLD 23:18 → 6 SOUTH 06-24 14:28 → 4 NORTH 06-27 23:45
PROVIDERS: ADMIT Internal Medicine; ATTEND Internal Medicine
PROC: 0W9G30Z Drainage of Peritoneal Cavity with Drainage Device, Percutaneous Approach (ICD-10-PCS; principal; 2020-06-24)
PROC: 0W9G30Z Drainage of Peritoneal Cavity with Drainage Device, Percutaneous Approach (ICD-10-PCS; 2020-06-29)
DX: A41.9 Sepsis, unspecified organism (principal); K35.33 Acute appendicitis with perforation, localized peritonitis, and gangrene, with abscess; J90 Pleural effusion, not elsewhere classified; R73.9 Hyperglycemia, unspecified; B96.89 Other specified bacterial agents as the cause of diseases classified elsewhere; Z20.822 Contact with and (suspected) exposure to COVID-19; Z23 Encounter for immunization
CPT/HCPCS: 36415; 47537; 49406; 71045; 74177; 80048; 80053; 80076; 80307; 81001; 82550; 82962; 83605; 83690; 84484; 85007; 85025; 85610; 87040; 87071; 87075; 87076; 87077; 87186; 87205; 87426; 93005; 96361; 96365; 99152; 99291; C1892; J1170; J1450; J1885; J2020; J2250; J2270; J2543; J3010; J3370; J3490; J7030; J7040; Q9966; Q9967; U0003; G0378